=== PATIENT | male | born 1940 | race Caucasian/White ===

== ENCOUNTER 2017-09-19 17:49 | Emergency (ER) | payer MEDICARE, OTHER, SELFPAY ==
[2017-09-19 17:51] VITALS: BP 116/66; PULSE 64; RESP 17; TEMP 36.6; O2SAT 95; BMI 23.6
--- NOTE | 2017-09-19 21:12 | ED.VISSUMM ---
- ER Visit Summary Date of Service: 09/19/17 Chief Complaint: Presents because left inguinal hernia is larger History of Present Illness: The patient is a 76 M presents because of enlarging left inguinal hernia. He had pain. He is presently pain-free. He denies nausea, vomiting or diarrhea. Denies dysuria, frequency, urgency hematuria. He denies any testicular pain. He has no other complaints. Physical Examination: Vital signs are noted. He has a reducible left inguinal hernia. His exam is otherwise normal. Test Results: None Emergency Department Course and Treatment: Examination and education Treatment Plan: Keep appointment with Dr. Pete Mata for left inguinal hernia repair September 30 Disposition: Discharge to home Impression: Left inguinal hernia reducible This note was generated with [employer] dictation software. It may contain incorrect words, spelling, and punctuation that were not noted in review of the chart prior to signing ED Disposition - Plan for ED Patient: Disposition: Home or Assisted Living Chief Complaint: Other, Pain/Inj Instructions: ED Hernia Inguinal Referrals: Jenifer Gonzalez MD [Primary Care Provider] - Pete Mata MD [STAFF PHYSICIAN] - Keep Valentina appointment
--- NOTE | 2017-09-19 21:15 | ED.DCSUM_ITS ---
- ER Visit Summary Date of Service: 09/19/17 Chief Complaint: Presents because left inguinal hernia is larger History of Present Illness: The patient is a 76 M presents because of enlarging left inguinal hernia. He had pain. He is presently pain-free. He denies nausea, vomiting or diarrhea. Denies dysuria, frequency, urgency hematuria. He denies any testicular pain. He has no other complaints. Physical Examination: Vital signs are noted. He has a reducible left inguinal hernia. His exam is otherwise normal. Test Results: None Emergency Department Course and Treatment: Examination and education Treatment Plan: Keep appointment with Dr. Pete Mata for left inguinal hernia repair September 30 Disposition: Discharge to home Impression: Left inguinal hernia reducible This note was generated with [facility] dictation software. It may contain incorrect words, spelling, and punctuation that were not noted in review of the chart prior to signing ED Disposition - Plan for ED Patient: Disposition: Home or Assisted Living Chief Complaint: Other, Pain/Inj Instructions: ED Hernia Inguinal Referrals: Jenifer Gonzalez MD [Primary Care Provider] - Pete Mata MD [STAFF PHYSICIAN] - Keep Valentina appointment
[2017-09-19 21:19] VITALS: BP 134/75; PULSE 61; RESP 15; O2SAT 98
== END 2017-09-19 21:20 | disposition home or self-care (01) ==
LOC: ED 21:18
PROVIDERS: Emergency Provider Emergency Medicine; Family Provider Internal Medicine; PCP Internal Medicine
DX: K40.90 Unilateral inguinal hernia, without obstruction or gangrene, not specified as recurrent (principal); I25.10 Atherosclerotic heart disease of native coronary artery without angina pectoris; I48.0 Paroxysmal atrial fibrillation; J44.9 Chronic obstructive pulmonary disease, unspecified; Z86.718 Personal history of other venous thrombosis and embolism; Z79.01 Long term (current) use of anticoagulants; Z79.899 Other long term (current) drug therapy
CPT/HCPCS: 99282

== ENCOUNTER 2017-09-23 07:42 | Day surgery (SDC) | payer MEDICARE, OTHER, SELFPAY ==
[2017-09-23 08:11] VITALS: BP 97/55; PULSE 69; RESP 16; TEMP 36.6; O2SAT 99; BMI 23.6
--- NOTE | 2017-09-23 09:27 | PCM.OPRPT ---
Problem List (1) Screening for intestinal cancer Status: Acute (2) Personal history of colonic polyps Status: Acute Report of Operation Date of Procedure: 09/23/17 Pre-Operative Diagnosis: Screening for intestinal cancer, personal history of colonic polyps Post-Operative Diagnosis: Scattered diverticulosis Surgery/Procedure Performed:: Colonoscopy Description of Surgical Findings:: Amount and informed consent was obtained. 76-year-old gentleman was taken to the endoscopy suite. He was placed in a left lateral decubitus position. Throughout the procedure a total of 100 mg of Demerol and 3 mg Versed were given as intravenous sedation. Her rectal exam detected mild hemorrhoidal changes. 2+ smooth prostate. No mass lesions. Flexible colonoscope inserted in the rectum advanced was somewhat tortuous sigmoid colon. The scope was then readily advanced through the transverse colon. The descending colon was nicely achieved and the scope was advanced all the way to the cecum. Bowel prep was adequate there still was liquid stool located throughout the colon which had to be aspirated. The scope was then carefully withdrawn from the cecum ascending colon transverse colon descending colon and sigmoid colon. Scattered diverticulosis throughout the colon was identified. No evidence of any mass lesions. The scope was withdrawn to the rectum and retroflexed. Internal hemorrhoidal changes noted. No active bleeding. Excess fluid and air was aspirated free the procedure was completed with patient tolerating it well. Impression History of multiple colonic polyps particularly in the rectosigmoid area previously none seen currently. Previous flexible sigmoidoscopy was August 11, 2014. Consideration for follow-up examination in 3-5 years. Cc: Dr. Carlos Fuentes given at 0809. Procedure started 0911. Cecum reached at 0917.45. Procedure completed at 0925.14 Pete Mata M.D., F.A.C.S. Type of Anesthesia:: IV Sedation
[2017-09-23 09:31] VITALS: BP 105/60; BP 97/55; PULSE 67; RESP 16; TEMP 37.1; O2SAT 100
[2017-09-23 09:36] VITALS: BP 110/50; BP 97/55; PULSE 67; RESP 16; O2SAT 98
[2017-09-23 09:41] VITALS: BP 115/51; BP 97/55; PULSE 66; RESP 16; O2SAT 98
[2017-09-23 09:46] VITALS: BP 115/55; BP 97/55; PULSE 65; RESP 16; TEMP 36.8; O2SAT 98
[2017-09-23 10:15] VITALS: BP 97/55
== END 2017-09-23 10:16 | disposition home or self-care (01) ==
LOC: EN 07:42 → AC 07:43
PROVIDERS: Family Provider Internal Medicine; PCP Internal Medicine; Visit Provider Surgery
PROC: 0DJD8ZZ Inspection of Lower Intestinal Tract, Via Natural or Artificial Opening Endoscopic (ICD-10-PCS; CPT 45378; principal; 2017-09-23 08:55)
DX: Z12.11 Encounter for screening for malignant neoplasm of colon (principal); Z86.010 Personal history of colon polyps; K57.30 Diverticulosis of large intestine without perforation or abscess without bleeding; K56.2 Volvulus; K64.8 Other hemorrhoids; K59.00 Constipation, unspecified; K40.90 Unilateral inguinal hernia, without obstruction or gangrene, not specified as recurrent; Z79.899 Other long term (current) drug therapy; I48.0 Paroxysmal atrial fibrillation; Z79.01 Long term (current) use of anticoagulants; I10 Essential (primary) hypertension; J44.9 Chronic obstructive pulmonary disease, unspecified; Z87.891 Personal history of nicotine dependence; F10.10 Alcohol abuse, uncomplicated; Y90.9 Presence of alcohol in blood, level not specified; R01.1 Cardiac murmur, unspecified; I35.0 Nonrheumatic aortic (valve) stenosis; Z86.718 Personal history of other venous thrombosis and embolism; Z85.51 Personal history of malignant neoplasm of bladder; Z82.49 Family history of ischemic heart disease and other diseases of the circulatory system
CPT/HCPCS: G0105; J7120

== ENCOUNTER 2017-09-30 09:43 | Day surgery (SDC) | payer MEDICARE, OTHER, SELFPAY ==
[2017-09-24 13:53] VITALS: BP 122/62; BMI 24.5
--- NOTE | 2017-09-26 09:29 | EKG12_ITS ---
Test Reason : PRE OP Blood Pressure : / mmHG Vent. Rate : 072 BPM Atrial Rate : 072 BPM P-R Int : 240 ms QRS Dur : 100 ms QT Int : 414 ms P-R-T Axes : 070 066 075 degrees QTc Int : 453 ms Sinus rhythm with 1st degree A-V block with Possible Premature atrial complexes with Aberrant conduct ion Otherwise normal ECG Confirmed by LAUREN TELLEZ, ELÍAS ([id number]), online content editor KIANA JOHNSON ([id number]) on 09/29/2017 3:47:31 PM Referred By: Ptee Mata Confirmed By:ELÍAS AGUILAR MD
[2017-09-26 10:06] LABS: Hematocrit 41.7 % (40-54); Hemoglobin 14.6 g/dl (13.0-16.5); Mean Corpuscular Hgb 37.2 pg (27.0-32.0); Mean Corpuscular Volume 106.1 fL (80-94); Mean Platelet Vol. 10.5 fl (6.2-12.0); Platelet Count 210 K/mm3 (150-450); RBC Distribution Width CV 13.2 % (11.6-14.6); RBC Distribution Width SD 51.2 fl (35.1-43.9); Red Blood Count 3.93 M/mm3 (4.6-6.2); Scan Indicated on CBC? Y/N NO; White Blood Count 5.6 K/mm3 (4.4-11.0)
[2017-09-26 10:19] LABS: International Normalized Ratio 1.5; Prothrombin Time (Protime)PT. 17.9 SECONDS (11.7-14.9)
[2017-09-26 10:20] LABS: Partial Thromboplast Time 37.9 Seconds (24.1-36.2)
[2017-09-26 10:53] LABS: AST(SGOT) 28 U/L (15-37); Alanine Aminotransfer ALT/SGPT 35 U/L (16-61); Albumin, Serum 3.6 g/dL (3.2-5.0); Alkaline Phosphatase 72 U/L (45-117); Anion Gap 9 (5-15); BUN 12 mg/dL (7-18); BUN/Creat Ratio 12.3 RATIO (10-20); Bilirubin, Direct 0.19 mg/dL (0.00-0.30); Calcium,Total 8.5 mg/dL (8.5-10.1); Chloride 94 mmol/L (98-107); Creatinine, Serum 0.97 mg/dL (0.70-1.30); EST Glomerular Filtration Rate 80 mL/min (>60); Est Glom Filt Rate - Afr Amer 96 mL/min (>60); Globulin 4.3 g/dL (2.2-4.2); Glucose 87 mg/dL (70-110); Potassium 4.4 mmol/L (3.5-5.1); Protein, Total 7.9 g/dL (6.4-8.2); Sodium Level 130 mmol/L (136-145)
[2017-09-30] VITALS (7 sets, daily range): BP systolic 129–168; BP diastolic 70–79; PULSE 58–67; RESP 16–18; TEMP 36.6–36.9; O2SAT 94–100; BMI 23.8
--- NOTE | 2017-09-30 12:00 | LIP_PTH ---
PATIENT: CESAR ANGUIANO LOC: [facility] [place] U#:[id number] AGE/SX: 76/M ROOM: RE09/30/[address]: Dr. Pete Mata MD : 1940 BED: DIS: 09/30/2017 SPEC #: [id number] RECD: 10/01/17 11:04 STATUS: SHON ISAAC #: [id number] JUDY: 09/30/17 12:[address]: Pete Mata DEPT: SURGICAL PATHOLOGY RECD BY: Jaren Lacy ENTERED: 10/01/17 12:26 SP TYPE: LIPOMA OTHR DR: Dr. Jenifer Gonzalez MD Tissues: LIPOMA OF CORD Procedures: Surgery Specimen Level III HEADER OPERATION: Hernia, inguinal with mesh PRE-OP DIAGNOSIS: Left nonrecurrent unilateral inguinal hernia without obstruction or gangrene TISSUE SUBMITTED: Cord lipoma MICROSCOPIC DIAGNOSIS Cord lipoma: Mature adipose tissue, consistent with lipoma. SJ:lexx 10/02/17 MICROSCOPIC DESCRIPTION Slides are reviewed. GROSS DESCRIPTION Received in fixative is one container labeled with the patient's name and designated cord lipoma. The specimen consists of two irregular pieces of yellow adipose tissue measuring 4.5 x 3 x 1 cm. Sections reveal yellow cut surfaces without area of hemorrhage, cystic degeneration and necrosis. Compression Molding Machine Setter sections are submitted in two cassettes. / DIPTI:lexx 10/01/17 TC:1 CPT: 32859
--- NOTE | 2017-09-30 12:18 | PCM.DC.GS ---
Discharge Diet: Light diet - advance as tolerated - if you have questions about your diet instructions, please talk to you doctor. Discharge Activity: May Not Drive - for 1 week or while taking narcotic pain medicine. May shower in (days): 1 Lifting Restrictions: 10 pounds Call your doctor if your incision/area has: Continuous Slow Oozing, Sudden Increased Bleeding, Increased Pain/ Swelling, Increased Redness, Foul Smelling Discharge Call your doctor if you observe: Fever of 101 or Higher Suture Line Care: Avoid Pulling/Pushing, Avoid Pinching/Bending Additional Dressing/Incision Instructions:: Change or remove dressing in 4 days. Leave steri-strips in place for 1 week. Allergies/Adverse Reactions: Allergies oxycodone HCl [From Percocet] Adverse Reaction (Verified 09/25/17 15:47) Vomiting Medications to take at Discharge Fluticasone 0.05% [Flonase Nasal [place]] 2 spray NASAL DAILY 08/09/15 Rivaroxaban [Xarelto] 20 mg PO DAILY #30 tab 09/12/15 bevacizumab 25 mg/mL intravenous solution 1.25 mg INTRAVIT QMONTH 09/12/17 calcium carbonate 600 mg (1,500 mg)-vitamin D3 200 unit tablet 1 tab PO QDAY 09/12/17 guaifenesin ER 600 mg tablet, extended release 12 hr 600 mg PO Q12H PRN 09/12/17 lisinopril 2.5 mg tablet 2.5 mg PO QDAY 09/12/17 lutein 6 mg tablet 6 mg PO QDAY 09/12/17 multivitamin tablet 1 tab PO QDAY 09/12/17 Ascorbic Acid [Vitamin C] 500 mg PO DAILY 09/19/17 Tetrahydrozoline HCl [Eye Drops] 1 drp OP PRN PRN 09/19/17 Tiotropium [place] [Spiriva 18 MCG] 1 puff INHALATION DAILY 09/19/17 docusate sodium 100 mg capsule 100 mg PO QDAY PRN 09/24/17 folic acid 400 mcg tablet 400 mcg PO QDAY 09/24/17 Amiodarone HCl [Cordarone] 200 mg PO DAILY 09/25/17 Hydrocodone Bitart/Apap 5-325 [[place] 5MG-325MG] 1 tablet PO Q6H PRN PRN 3 Days #8 tablet 09/30/17 The following prescriptions were given: Hydrocodone Bitart/Apap 5-325 [[place] 5MG-325MG] 1 tablet PO Q6H PRN PRN 3 Days #8 tablet PRN Reason: Pain Primary Care Physician: Jenifer Gonzalez MD [Primary Care Provider] - Please Follow Up With: Pete Mata MD - [phone] When: Call to make an appointment to be seen in about 10 days.
[2017-09-30] MEDS: Cefazolin 2 GM in 0.9% Normal Saline 100 ML IV (12:25)
[2017-09-30] MEDS: Bupivacaine Mpf 0.5% 30 ML VIAL (12:32)
--- NOTE | 2017-09-30 13:21 | PCM.OPRPT ---
Problem List (1) Inguinal hernia of left side without obstruction or gangrene Status: Acute Report of Operation Date of Procedure: 09/30/17 Pre-Operative Diagnosis: Left inguinal hernia Post-Operative Diagnosis: Indirect left inguinal hernia with cord lipoma Surgery/Procedure Performed:: Lori left inguinal herniorrhaphy with excision cord lipoma Description of Surgical Findings:: Timeout and informed consent was obtained. 77-year-old gentleman was taken the operative placement table. Underwent monitored anesthesia care. Ancef 2 g are given intravenously preoperatively. The left groin was sterilely prepped and draped. 1% lidocaine mixed 50-50 with 0.5% Marcaine was used as local anesthetic. A total of 7 cc was used. Transverse incision was made in the left groin. Sharp dissection carried down through the substance tissue. The oblique identified. It was incised along with its fascia. The ileal inguinal nerve identified and protected. Circumferential control was obtained of the cord structures. Tedious dissection revealed an indirect sac. This diet was dissected free to the internal ring was then inverted. A cord lipoma was identified. This is dissected to the internal ring and then high ligated with 2-0 Vicryl ligature. That specimen was submitted for analysis. The transversalis fascia was approximated from the pubic tubercle to the internal ring with a running 3-0 Ethibond. This helped secure the indirect defect at the internal ring. A apron cover of Bard appreciate mesh lot number [id number] with a reference number of [id number] expiry date of 05/22/2022 was selected. It was placed around the internal ring and secured to itself with 3-0 Ethibond. The tails were trimmed. It was then secured to the pubic tubercle shelving edge of Poupart's and the aponeurosis of the internal and external oblique with multiple interrupted 3-0 Ethibond sutures. Good securement was achieved. Good coverage of the defect area was achieved. The external oblique was approximated with a running 0 Vicryl. Subcutaneous tissue was approximated with interrupted 4-0 Monocryl. The skin edges were approximated running septic or 4 Monocryl. Steri-Strips Telfa and OpSite dressings applied. Sponge instrument and needle counts were reported to the surgeon for correct. Blood loss was minimal. He tolerated procedure well was taken to the recovery or [facility] condition without apparent complication. Specimens Cord lipoma. Drains none. Blood loss minimal. Pete Mata M.D., F.A.C.S. Type of Anesthesia:: Local MAC Anesthesiologist: Aiyana Hill
--- NOTE | 2017-09-30 13:25 | OP.PCM_ITS ---
Problem List (1) Inguinal hernia of left side without obstruction or gangrene Status: Acute Report of Operation Date of Procedure: 09/30/17 Pre-Operative Diagnosis: Left inguinal hernia Post-Operative Diagnosis: Indirect left inguinal hernia with cord lipoma Surgery/Procedure Performed:: Lori left inguinal herniorrhaphy with excision cord lipoma Description of Surgical Findings:: Timeout and informed consent was obtained. 77-year-old gentleman was taken the operative placement table. Underwent monitored anesthesia care. Ancef 2 g are given intravenously preoperatively. The left groin was sterilely prepped and draped. 1% lidocaine mixed 50-50 with 0.5% Marcaine was used as local anesthetic. A total of 7 cc was used. Transverse incision was made in the left groin. Sharp dissection carried down through the substance tissue. The oblique identified. It was incised along with its fascia. The ileal inguinal nerve identified and protected. Circumferential control was obtained of the cord structures. Tedious dissection revealed an indirect sac. This diet was dissected free to the internal ring was then inverted. A cord lipoma was identified. This is dissected to the internal ring and then high ligated with 2 -0 Vicryl ligature. That specimen was submitted for analysis. The transversalis fascia was approximated from the pubic tubercle to the internal ring with a running 3-0 Ethibond. This helped secure the indirect defect at the internal ring. A apron cover of Bard appreciate mesh lot number [id number] with a reference number of [id number] expiry date of 05/22/2022 was selected. It was placed around the internal ring and secured to itself with 3-0 Ethibond. The tails were trimmed. It was then secured to the pubic tubercle shelving edge of Poupart's and the aponeurosis of the internal and external oblique with multiple interrupted 3-0 Ethibond sutures. Good securement was achieved. Good coverage of the defect area was achieved. The external oblique was approximated with a running 0 Vicryl. Subcutaneous tissue was approximated with interrupted 4-0 Monocryl. The skin edges were approximated running septic or 4 Monocryl. Steri-Strips Telfa and OpSite dressings applied. Sponge instrument and needle counts were reported to the surgeon for correct. Blood loss was minimal. He tolerated procedure well was taken to the recovery or critical access hospital condition without apparent complication. Specimens Cord lipoma. Drains none. Blood loss minimal. Pete Mata M.D., F.A.C.S. Type of Anesthesia:: Local MAC Anesthesiologist: Aiyana Hill
[2017-09-30] MEDS: HYDROcodone Bitartrate/Apap 5/325 Tablet PO (14:09)
== END 2017-09-30 15:22 | disposition home or self-care (01) ==
LOC: SDC 09:43 → AC 09:44
PROVIDERS: Family Provider Internal Medicine; PCP Internal Medicine; Visit Provider Surgery
PROC: (CPT 49505; principal; 2017-09-30 11:45)
DX: K40.90 Unilateral inguinal hernia, without obstruction or gangrene, not specified as recurrent (principal); D17.6 Benign lipomatous neoplasm of spermatic cord; I48.0 Paroxysmal atrial fibrillation; Z86.718 Personal history of other venous thrombosis and embolism; Z79.01 Long term (current) use of anticoagulants; I95.1 Orthostatic hypotension; I35.0 Nonrheumatic aortic (valve) stenosis; I10 Essential (primary) hypertension; J44.9 Chronic obstructive pulmonary disease, unspecified; Z86.010 Personal history of colon polyps; F10.20 Alcohol dependence, uncomplicated; Y90.9 Presence of alcohol in blood, level not specified; R01.1 Cardiac murmur, unspecified; M51.36 Other intervertebral disc degeneration, lumbar region; C67.9 Malignant neoplasm of bladder, unspecified; R13.19 Other dysphagia; Z79.899 Other long term (current) drug therapy; Z87.891 Personal history of nicotine dependence
CPT/HCPCS: 49505; 55520; 36415; 80048; 80076; 85027; 85610; 85730; 88304; 93005; J7120; C1781

== ENCOUNTER 2017-11-17 05:48 | Day surgery (SDC) | payer MEDICARE, OTHER, SELFPAY ==
--- NOTE | 2017-11-13 12:28 | EKG12_ITS ---
Test Reason : PREOP Blood Pressure : / mmHG Vent. Rate : 083 BPM Atrial Rate : 083 BPM P-R Int : 266 ms QRS Dur : 100 ms QT Int : 394 ms P-R-T Axes : 073 060 067 degrees QTc Int : 462 ms Sinus rhythm with 1st degree A-V block Otherwise normal ECG Confirmed by LAUREN TELLEZ, ELÍAS ([id number]), city editor KIANA JOHNSON ([id number]) on 11/14/2017 2:20:46 PM Referred By: Pete Mata Confirmed By:ELÍAS AGUILAR MD
[2017-11-13 12:47] LABS: Hematocrit 39.3 % (40-54); Hemoglobin 13.8 g/dl (13.0-16.5); Mean Corp Hgb Conc 35.1 g/gl (32-36); Mean Corpuscular Hgb 36.9 pg (27.0-32.0); Mean Corpuscular Volume 105.1 fL (80-94); Mean Platelet Vol. 9.6 fl (6.2-12.0); Platelet Count 220 K/mm3 (150-450); RBC Distribution Width CV 13.3 % (11.6-14.6); RBC Distribution Width SD 50.2 fl (35.1-43.9); Red Blood Count 3.74 M/mm3 (4.6-6.2); White Blood Count 6.2 K/mm3 (4.4-11.0)
[2017-11-13 12:48] LABS: Scan Indicated on CBC? Y/N NO
[2017-11-13 13:13] LABS: Anion Gap 7 (5-15); BUN 11 mg/dL (7-18); BUN/Creat Ratio 9.7 RATIO (10-20); Calcium,Total 8.3 mg/dL (8.5-10.1); Chloride 97 mmol/L (98-107); Creatinine, Serum 1.13 mg/dL (0.70-1.30); EST Glomerular Filtration Rate 67 mL/min (>60); Est Glom Filt Rate - Afr Amer 81 mL/min (>60); Glucose 111 mg/dL (74-106); Potassium 4.1 mmol/L (3.5-5.1); Sodium Level 131 mmol/L (136-145)
[2017-11-17] VITALS (7 sets, daily range): BP systolic 110–142; BP diastolic 59–78; PULSE 66–70; RESP 16–18; TEMP 36.4–37; O2SAT 95–99; BMI 23.8
--- NOTE | 2017-11-17 08:00 | HEM_PTH ---
PATIENT: CESAR ANGUIANO LOC: [facility] – [place] U#:[id number] AGE/SX: 76/M ROOM: RE11/17/[address]: Dr. Pete Mata MD : 1940 BED: DIS: 11/17/2017 SPEC #: [id number] RECD: 11/17/17 10:05 STATUS: SHON ISAAC #: [id number] JUDY: 11/17/17 08:[address]: Pete Mata DEPT: SURGICAL PATHOLOGY RECD BY: Girma Lai ENTERED: 11/17/17 10:06 SP TYPE: HEMORRHOID OTHR DR: Dr. Jenifer Gonzalez MD Tissues: HEMORRHOIDS Procedures: Surgery Specimen Level III HEADER OPERATION: Hemorrhoidectomy PRE-OP DIAGNOSIS: Hemorrhoids TISSUE SUBMITTED: Hemorrhoids MICROSCOPIC DIAGNOSIS Hemorrhoids, hemorrhoidectomy: Pieces of anorectal mucosa with dilated and congested blood vessels, consistent with hemorrhoids. SJ:lexx 11/18/17 MICROSCOPIC DESCRIPTION Slides are reviewed. GROSS DESCRIPTION Received in fixative is one container labeled with the patient's name and designated hemorrhoids. The specimen consists of a piece of congested soft tissue measuring 4 x 2 x 1.5 cm. Also present in the container are two small pieces of soft tissue measuring in aggregate 1 x 1 x 0.5 cm. Sections reveal congested and hemorrhagic cut surfaces. Machine Stone Polisher Apprentice sections are submitted in one cassette. / SJ:lexx 11/17/17 TC:5 CPT: 46219
[2017-11-17] MEDS: BUPIVACAINE LIPOSOME/PF 20 ML VIAL OPERA.SITE (08:56)
[2017-11-17] MEDS: Bupivacaine 0.25% 30 ML Vial (08:56)
[2017-11-17] MEDS: Dibucaine 30 GM Tube 1 APPLIC (08:58)
--- NOTE | 2017-11-17 08:59 | PCM.DC.REC ---
Discharge Diet: No Restrictions Discharge Activity: Return to Normal Activity, May Not Drive - while you are taking narcotic pain medications. Do not drive, work with heavy equipment or sign legal documents for 24 hours after your surgery., May not drive while taking narcotic pain medications., May Shower, May Take a Tub Bath Additional Activity Instructions:: You may remove the Vaseline gauze from year rectum with your next bowel movement or tomorrow morning. I encouraged utilization of warm soapy water sitz baths for 20 minutes at a time for comfort and for hygiene after bowel movements. You may apply topical dibucaine ointment as needed for comfort. Encouraged utilization of fiber supplementation 1 heaping tablespoon in with water daily. Mineral oil 30 cc (1 ounce) daily in juice or food Allergies/Adverse Reactions: Allergies oxycodone HCl [From Percocet] Adverse Reaction (Verified 11/13/17 10:49) Vomiting Medications to take at Discharge Fluticasone 0.05% [Flonase Nasal [place]] 2 spray NASAL DAILY 08/09/15 Rivaroxaban [Xarelto] 20 mg PO DAILY #30 tab 09/12/15 bevacizumab 25 mg/mL intravenous solution 1.25 mg INTRAVIT UD 09/12/17 calcium carbonate 600 mg (1,500 mg)-vitamin D3 200 unit tablet 1 tab PO QDAY 09/12/17 guaifenesin ER 600 mg tablet, extended release 12 hr 600 mg PO Q12H PRN 09/12/17 lisinopril 2.5 mg tablet 2.5 mg PO QDAY 09/12/17 lutein 6 mg tablet 6 mg PO QDAY 09/12/17 multivitamin tablet 1 tab PO QDAY 09/12/17 Ascorbic Acid [Vitamin C] 500 mg PO DAILY 09/19/17 Tetrahydrozoline HCl [Eye Drops] 1 drp OP PRN PRN 09/19/17 Tiotropium [place] [Spiriva 18 MCG] 1 puff INHALATION DAILY 09/19/17 docusate sodium 100 mg capsule 100 mg PO QDAY PRN 09/24/17 folic acid 400 mcg tablet 400 mcg PO QDAY 09/24/17 Amiodarone HCl [Cordarone] 200 mg PO DAILY 09/25/17 Primary Care Physician: Jenifer Gonzalez MD [Primary Care Provider] - Please Follow Up With: Pete Mata MD - [phone] When: Plan to have a follow up approximately 3 weeks after surgery.
--- NOTE | 2017-11-17 09:05 | PCM.OPRPT ---
Problem List (1) Rectal bleeding Status: Acute (2) Hemorrhoids with complication Status: Acute Report of Operation Date of Procedure: 11/17/17 Pre-Operative Diagnosis: Bleeding prolapsing internal hemorrhoids Post-Operative Diagnosis: Same Surgery/Procedure Performed:: Hemorrhoidectomy Description of Surgical Findings:: Timeout and informed consent was obtained. 76-year-old gent was taken the operating. He was placed prone on the table. He underwent monitored anesthesia care. 2 g of cefotetan were given intravenously. He was placed in a prone jackknife position. The perianal area was prepped with Betadine. 0.5% Marcaine was used as a local anesthetic. A total 20 cc was used. Then inspection revealed prolapsing internal hemorrhoidal tissue particularly right posterior lateral. An apical suture of 2-0 chromic was placed. Harmonic Scalpel was used to excise this exuberant tissue. Dissection was continued past the dentate line. Then the mucosa was approximated with a running locking 2-0 chromic. Great care had been taken to preserve the sphincter mechanism. Complete excision was felt to been achieved. An additional suture was placed apically of [id number] chromic. Inspection revealed that left mid lateral there is additional hemorrhoidal tissue. In a similar technique I placed an apical suture of 2-0 chromic then I sharply incised the external hemorrhoidal disease and used harmonic scalpel to resect this tissue. The sphincter mechanism was identified and preserved. The mucosa was approximated with a running 2-0 chromic. Finally anteriorly some internal tissue was treated with a harmonic scalpel. Good resection of all apparent bleeding tissue was achieved. The perianal tissue again was anesthetized this time with 20 cc of Exparel. Dibucaine soaked Vaseline gauze was inserted. Sponge instrument and needle counts were reported the surgeon for correct. Blood loss minimal. Specimens hemorrhoids. Drains none. He was taken to the recovery room in satisfactory condition without apparent complication. Pete Mata M.D., F.A.C.S. Type of Anesthesia:: Local MAC Anesthesiologist: Alejandro Phillips
--- NOTE | 2017-11-17 11:33 | SUR.PHASEII ---
pt stated he voided- bladder scan [id number].
== END 2017-11-17 12:19 | disposition home or self-care (01) ==
LOC: SDC 05:50 → AC 05:50
PROVIDERS: Family Provider Internal Medicine; PCP Internal Medicine; Visit Provider Surgery
PROC: (CPT 46260; principal; 2017-11-17 07:45)
DX: K64.8 Other hemorrhoids (principal); I48.91 Unspecified atrial fibrillation; Z86.718 Personal history of other venous thrombosis and embolism; Z79.01 Long term (current) use of anticoagulants; I27.20 Pulmonary hypertension, unspecified; Z85.51 Personal history of malignant neoplasm of bladder; Z79.899 Other long term (current) drug therapy; J44.9 Chronic obstructive pulmonary disease, unspecified; F17.210 Nicotine dependence, cigarettes, uncomplicated; D68.9 Coagulation defect, unspecified; Z86.010 Personal history of colon polyps
CPT/HCPCS: 46260; 36415; 80048; 85027; 88304; 93005; J7120

== ENCOUNTER 2017-11-19 09:08 | Observation (INO) | payer MEDICARE, OTHER, SELFPAY ==
[2017-11-19] VITALS (14 sets, daily range): BP systolic 94–183; BP diastolic 49–95; PULSE 64–80; RESP 14–20; TEMP 36.2–36.7; O2SAT 95–100; BMI 25.0; BMI 23.0
--- NOTE | 2017-11-19 09:20 | EKG12_ITS ---
Test Reason : CHEST TIGHTNESS Blood Pressure : / mmHG Vent. Rate : 069 BPM Atrial Rate : 069 BPM P-R Int : 236 ms QRS Dur : 096 ms QT Int : 416 ms P-R-T Axes : 055 039 042 degrees QTc Int : 445 ms Sinus rhythm with 1st degree A-V block Otherwise normal ECG Confirmed by LAUREN TELLEZ, ELÍAS ([id number]), newspaper copy editor KIANA JOHNSON ([id number]) on 11/20/2017 2:31:09 PM Referred By: Confirmed By:ELÍAS AGUILAR MD
--- NOTE | 2017-11-19 09:25 | RAD_ITS ---
STUDY: X-RAY CHEST REASON FOR EXAM: Male, 76 years old. Chest pain, COPD, rheumatic fever and heart murmur. TECHNIQUE: Single AP upright portable chest view. COMPARISON: None available. FINDINGS: EKG wires overlie chest. The lungs appear clear and well expanded. Trachea near midline due to mild rotation. Upper limits normal size heart. Normal mediastinum and ayaz. Normal visualized pulmonary arteries. Mildly calcified visualized aortic knob noted. Moderate degenerative visualized thoracic spine. Multiple rib deformities suggesting old healed fractures noted right lateral fourth through ninth ribs noted. There is no demonstrated abnormality of the visualized soft tissue structures of the upper abdomen. No subdiaphragmatic free air seen grossly. RAD/Chest 1 View (Portable) IMPRESSION: No active cardiopulmonary disease identified. Multiple right lateral rib deformities indicating old healed fractures 4 through ninth ribs. Electronically Signed: Pete Lomas, at 10:05 EDT Tel , Service support ,
[2017-11-19 09:31] LABS: Absolute Lymphocyte Count 1.61 X10^3/ul (0.83-4.51); Absolute Neutrophil Count 3.4 X10^3/uL (2.0-7.7); Basophil# 0.03 X10^3/uL; Basophil% 0.5 % (0-1); Eosinophil# 0.11 X10^3/uL; Eosinophils% 1.9 % (0-5); Hematocrit 41.4 % (40-54); Hemoglobin 14.3 g/dl (13.0-16.5); Lymphocyte # 1.61 X10^3/ul (4.0); Lymphocyte % 27.8 % (19-41); Mean Corp Hgb Conc 34.5 g/gl (32-36); Mean Corpuscular Hgb 36.6 pg (27.0-32.0); Mean Corpuscular Volume 105.9 fL (80-94); Mean Platelet Vol. 10.1 fl (6.2-12.0); Monocyte# 0.68 X10^3/uL; Monocyte% 11.7 % (0-10); Neutrophil # 3.37 X10^3/uL (2.7-7.7); Neutrophil % 58.1 % (47-70); Platelet Count 219 K/mm3 (150-450); RBC Distribution Width CV 13.7 % (11.6-14.6); RBC Distribution Width SD 53.2 fl (35.1-43.9); Red Blood Count 3.91 M/mm3 (4.6-6.2); White Blood Count 5.8 K/mm3 (4.4-11.0)
[2017-11-19 09:32] LABS: POSITIVE COUNT NO; POSITIVE DIFFERENTIAL NO; POSITIVE MORPHOLOGY NO
[2017-11-19] MEDS: Aspirin 81 MG TAB.CHEW 324 MG PO (09:33)
[2017-11-19 09:47] LABS: Anion Gap 4 (5-15); BUN 10 mg/dL (7-18); BUN/Creat Ratio 10.8 RATIO (10-20); Calcium,Total 8.7 mg/dL (8.5-10.1); Chloride 98 mmol/L (98-107); Creatinine, Serum 0.93 mg/dL (0.70-1.30); EST Glomerular Filtration Rate 84 mL/min (>60); Est Glom Filt Rate - Afr Amer 102 mL/min (>60); Estimated Creatinine Clearance 70.86 ml/min; Glucose 86 mg/dL (74-106); Potassium 4.8 mmol/L (3.5-5.1); Sodium Level 129 mmol/L (136-145)
--- NOTE | 2017-11-19 10:35 | ED.VISSUMM ---
- ER Visit Summary Date of Service: 11/19/17 Chief Complaint: Chest tightness and dyspnea History of Present Illness: The patient is a 77 M states he had chest tightness and shortness of breath that started after taking metronidazole. He read that this may be a possible side effect and contacted Dr. Pete Mata who prescribed the medication. He had a hemorrhoidectomy on Friday. He took his first dose of metronidazole Friday morning. Second dose at 1500. Upon further questioning it was determined that his tightness started while walking with his at 1300. This was associated with dyspnea. He does report increased dyspnea with activity and increased tightness with activity. He denies history of coronary disease. He has not had a stress test in some time and he reports he has never had a cardiac catheterization. Good informant. He cannot tell me how long the discomfort lasted. He reports no radiation, nausea or diaphoresis. He was unaware that he has swelling of his feet and legs. He denies orthopnea PND. He denies hematemesis, melena hematochezia. He denies history of GERD or reflux or hiatal hernia. There is a past medical history of hypertension, hypercholesterolemia, atrial fibrillation, bladder cancer and DVT. He also has history of mitral stenosis. He has had multiple orthopedic surgeries and had a hernia repair in the remote past. Physical Examination: Next field vital signs remarkable blood pressure 183/95. He does not appear in any discomfort. HEENT exam is unremarkable. Heart is regular without murmur, gallop or rub. S1 and S2 are normal. Lungs are clear to auscultation with good movement of air bilaterally. Abdomen is soft nontender with no palpable cell mass abdominal bruit. He has distal palpable pulses radial, DP and PT and they are symmetric. He does have 2+ edema of the feet and anterior right and left leg. He is alert and oriented with nonfocal neurologic exam. Test Results: EKG reveals a sinus rhythm rate of 69 with first-degree AV block. No other abnormality is noted. Portable chest x-ray reveals no abnormality i.e. cardiac silhouette is normal, lung parenchyma is normal and the stem is normal. The musculoskeletal structures are without any abnormality. CBC is unremarkable. BMP is marked for sodium 129, which is chronic. Troponin is less than 0.02. Emergency Department Course and Treatment: Patient's history is concerning for exertional anginal discomfort. Workup included EKG, chest x-ray blood work and he received aspirin and nitroglycerin. He reported significant improvement after nitro. He was only given 1 dose since he had a second drop in his blood pressure. Treatment Plan: The fact that he had improvement with nitroglycerin describes exertional symptoms the hospitalist was called for admission to the hospital for further testing and either a stress test or cardiac catheterization. Disposition: 23 hour observation PCU Impression: Exertional midsternal chest tightness with dyspnea. History of hypertension History of hypercholesterolemia History of mitral stenosis History of recent hemorrhoidectomy This note was generated with [employer] dictation software. It may contain incorrect words, spelling, and punctuation that were not noted in review of the chart prior to signing ED Disposition - Plan for ED Patient: Chief Complaint: Chest Pain Referrals: Jenifer Gonzalez MD [Primary Care Provider] -
--- NOTE | 2017-11-19 16:50 | PCM.HP.STD ---
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 Patient is a 77 years old male who presents with complaining of chest tightness and dyspnea. He had lunch earlier, started to have chest tightness along with shortness of breath. He was sitting in the car when the symptoms started. The pain was in the mid lower chest, without any radiation. He did not have any diaphoresis, dizziness, palpitations, nausea, vomiting, or headache. The pain was gradually easing, but lasted for about couple of hours. He has history of atrial fibrillation, no other work-up was done. He has hypertension and hyperlipidemia, and he is current smoker. His mother had CVA and heart disease, and his siter had heart disease as well. Past Medical History Past Medical History (Chronic Problems): Chronic Problems (Last Reviewed 11/04/17 @ 14:07 by Linnea Hernandez) Atrioventricular block (Chronic) Paroxysmal atrial fibrillation (Chronic) Nonrheumatic aortic (valve) stenosis (Chronic) Hypertension (Chronic) Pure hypercholesterolemia (Chronic) COPD (chronic obstructive pulmonary disease) (Chronic) Alcohol abuse (Chronic) Allergies oxycodone HCl [From Percocet] Adverse Reaction (Verified 11/19/17 09:13) Vomiting Home Medications: Ambulatory Orders Medication Instructions Recorded Fluticasone 0.05% [Flonase Nasal 2 spray NASAL DAILY 08/09/15 [place]] calcium carbonate 600 mg (1,500 1 tab PO QDAY 09/12/17 mg)-vitamin D3 200 unit tablet guaifenesin ER 600 mg tablet, 600 mg PO Q12H PRN 09/12/17 extended release 12 hr lisinopril 2.5 mg tablet 2.5 mg PO DAILY 09/12/17 lutein 6 mg tablet 6 mg PO QDAY 09/12/17 multivitamin tablet 1 tab PO QDAY 09/12/17 Ascorbic Acid [Vitamin C] 500 mg PO DAILY 09/19/17 Tetrahydrozoline HCl [Eye Drops] 1 drp OP PRN PRN 09/19/17 Tiotropium [place] [Spiriva 18 MCG] 1 puff INHALATION DAILY 09/19/17 docusate sodium 100 mg capsule 100 mg PO QDAY PRN 09/24/17 folic acid 400 mcg tablet 400 mcg PO QDAY 09/24/17 Amiodarone HCl [Cordarone] 200 mg PO DAILY 09/25/17 Hydrocodone Bitart/Apap 5-325 1 tablet PO Q6H PRN PRN 3 Days #15 11/17/17 [[place] 5MG-325MG] tablet Hydrocortisone [Proctocream-Hc] 30 gm RC TID PRN 11/19/17 Metronidazole 500 mg PO TID 11/19/17 Rivaroxaban [Xarelto] 20 mg PO DAILY 11/19/17 Surgical History: - - Wrist, shoulder, and knee surgery. Psychiatric History: - - alcoholism Lives: Spouse/ Significant Other Smoking Status: Current every day smoker Tobacco Use: Cigarettes - 0.5 pack a day Alcohol: Occasional - *Family History Maternal History Items: Stroke - mother. Paternal History Items: Heart Disease Review of Systems Comment: ROS: In general: Patient has been in good health, denied of any constitutional symptoms, such as weight loss, or gain, fever, chills, or night sweats. Patient denied of any profound fatigue. HEENT: Unremarkable. Patient denied of any dizziness, chronic headache, blurred vision, double vision, dry mouth, or nasal congestion. CV/respiratory: See HPI. He has peripheral edema, and has no diagnosis of CHF. GI: Patient denied any abdominal pain, nausea, vomiting, diarrhea, constipation, melena, or hematochezia. : Patient denied any significant urinary symptoms. Neurology: Unremarkable. There is no history of seizure as an adult. Psychological: Unremarkable. ?. Endocrine: Unremarkable. Musculoskeletal: Unremarkable. VTE Information - Inpt Only VTE Present on Admission: No VTE Mechan Device Prophylaxis: Knee High MANFRED Hose VTE Pharm Prophylaxis ordered?: Yes Patient Problems: Active and Suspected Problems (Last Reviewed 11/04/17 @ 14:07 by Linnea Hernandez) Chest pain (Acute) Objective: In general, patient is a well-nourished and developed adult. HEENT: Head is atraumatic, and normocephalic. Pupils are equal, round, and reactive to light and accommodations. Neck is supple. There is no lymphadenopathy, or thyromegaly. Oral mucosa is pink, and moist. There are no lesions. Heart: Auscultation is normal with regular rhythm and rate. COLT 3/6 at aortic band. S1 and S2 are present. Point of maximal impulse is not displaced. Lungs: Lungs are clear to auscultation bilaterally. There is no wheezing, or crackles. Abdomen: Abdominal wall is non-tender, and non-distended. There is no palpable mass or organomegaly. Normoactive bowel sounds are present. Extremities: There is no cyanosis or clubbing. Peripheral pulses are palpable. 1+ edema bilaterally. Skin: There are no any skin discoloration or lesions. Neurological: CN II - XII are intact. Sensory and motor functions are grossly normal with no obvious deficit. Cerebellar functions are within normal range. Gait was not tested. - Physical Exam Vital Signs Temp Pulse Resp BP Pulse Ox 97.1 F L 70 18 160/88 H 100 11/19/17 11:53 11/19/17 15:53 11/19/17 11:53 11/19/17 11:53 11/19/17 11:53 Oxygen Delivery Method Room Air Weight: 160 lb 11.472 oz Body Mass Index (BMI) 23.0 Laboratory Tests Past 24 Hrs 11/19/17 11/19/17 12:05 15:12 Troponin I < 0.02 < 0.02 Diagnostic Data Chest X-Ray 11/19/17 09:25 IMPRESSION: No active cardiopulmonary disease identified. Multiple right lateral rib deformities indicating old healed fractures 4 through ninth ribs. Electronically Signed: Pete Lomas, at 10:05 EDT Tel , Service support , EKG: normal sinus rhythm with first degree block. Rate 68. No ST changes. Assessment/Plan Active and Suspected Problems (Last Reviewed 11/04/17 @ 14:07 by Linnea C Siders) Chest pain (Acute) Patient is a 77 years old male who presents with complaining of chest tightness and dyspnea. He had lunch earlier, started to have chest tightness along with shortness of breath. He was sitting in the car when the symptoms started. The pain was in the mid lower chest, without any radiation. He did not have any diaphoresis, dizziness, palpitations, nausea, vomiting, or headache. The pain was gradually easing, but lasted for about couple of hours. He has history of atrial fibrillation, no other work-up was done. He has hypertension and hyperlipidemia, and he is current smoker. His mother had CVA and heart disease, and his sister had heart disease as well. #1 Chest pain. Somewhat atypical for prolonged pain for more than 2 to 3 hours, but he has risk factors. Serial troponin to rule out myocardial infarction. If it is negative, proceed with chemical stress nuclear myocardial perfusion scan. #2 Paroxysmal atrial fibrillation. Sinus rhythm. On Xarelto for stroke prevention / anticoagulation. #3 Aortic valve stenosis. Per cardiology office note, he has mild to moderate aortic stenosis with last 2D-echocardiogram in 02/2017. #4 Hyperlipidemia. Continue statin. #5 COPD. He takes Spiriva daily. Add albuterol MDI prn. VTE prophylaxis: Xarelto po. GI prophylaxis: H2 shikha po. Patient is full code. Disposition: home in 1 to 2 days. Code Visit OBSV E&M: 46245 Initial observation care L3
--- NOTE | 2017-11-19 17:02 | HP.PCM_ITS ---
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 Patient is a 77 years old male who presents with complaining of chest tightness and dyspnea. He had lunch earlier, started to have chest tightness along with shortness of breath. He was sitting in the car when the symptoms started. The pain was in the mid lower chest, without any radiation. He did not have any diaphoresis, dizziness, palpitations, nausea, vomiting, or headache. The pain was gradually easing, but lasted for about couple of hours. He has history of atrial fibrillation, no other work-up was done. He has hypertension and hyperlipidemia, and he is current smoker. His mother had CVA and heart disease, and his siter had heart disease as well. Past Medical History Past Medical History (Chronic Problems): Chronic Problems (Last Reviewed 11/04/17 @ 14:07 by Linnea Hernandez) Atrioventricular block (Chronic) Paroxysmal atrial fibrillation (Chronic) Nonrheumatic aortic (valve) stenosis (Chronic) Hypertension (Chronic) Pure hypercholesterolemia (Chronic) COPD (chronic obstructive pulmonary disease) (Chronic) Alcohol abuse (Chronic) Allergies oxycodone HCl [From Percocet] Adverse Reaction (Verified 11/19/17 09:13) Vomiting Home Medications: Ambulatory Orders Medication Instructions Recorded Fluticasone 0.05% [Flonase Nasal 2 spray NASAL DAILY 08/09/15 [place]] calcium carbonate 600 mg (1,500 1 tab PO QDAY 09/12/17 mg)-vitamin D3 200 unit tablet guaifenesin ER 600 mg tablet, 600 mg PO Q12H PRN 09/12/17 extended release 12 hr lisinopril 2.5 mg tablet 2.5 mg PO DAILY 09/12/17 lutein 6 mg tablet 6 mg PO QDAY 09/12/17 multivitamin tablet 1 tab PO QDAY 09/12/17 Ascorbic Acid [Vitamin C] 500 mg PO DAILY 09/19/17 Tetrahydrozoline HCl [Eye Drops] 1 drp OP PRN PRN 09/19/17 Tiotropium [place] [Spiriva 18 MCG] 1 puff INHALATION DAILY 09/19/17 docusate sodium 100 mg capsule 100 mg PO QDAY PRN 09/24/17 folic acid 400 mcg tablet 400 mcg PO QDAY 09/24/17 Amiodarone HCl [Cordarone] 200 mg PO DAILY 09/25/17 Hydrocodone Bitart/Apap 5-325 1 tablet PO Q6H PRN PRN 3 Days #15 11/17/17 [[place] 5MG-325MG] tablet Hydrocortisone [Proctocream-Hc] 30 gm RC TID PRN 11/19/17 Metronidazole 500 mg PO TID 11/19/17 Rivaroxaban [Xarelto] 20 mg PO DAILY 11/19/17 Surgical History: - - Wrist, shoulder, and knee surgery. Psychiatric History: - - alcoholism Lives: Spouse/ Significant Other Smoking Status: Current every day smoker Tobacco Use: Cigarettes - 0.5 pack a day Alcohol: Occasional - *Family History Maternal History Items: Stroke - mother. Paternal History Items: Heart Disease Review of Systems Comment: ROS: In general: Patient has been in good health, denied of any constitutional symptoms, such as weight loss, or gain, fever, chills, or night sweats. Patient denied of any profound fatigue. HEENT: Unremarkable. Patient denied of any dizziness, chronic headache, blurred vision, double vision, dry mouth, or nasal congestion. CV/respiratory: See HPI. He has peripheral edema, and has no diagnosis of CHF. GI: Patient denied any abdominal pain, nausea, vomiting, diarrhea, constipation, melena, or hematochezia. : Patient denied any significant urinary symptoms. Neurology: Unremarkable. There is no history of seizure as an adult. Psychological: Unremarkable. ?. Endocrine: Unremarkable. Musculoskeletal: Unremarkable. VTE Information - Inpt Only VTE Present on Admission: No VTE Mechan Device Prophylaxis: Knee High MANFRED Hose VTE Pharm Prophylaxis ordered?: Yes Patient Problems: Active and Suspected Problems (Last Reviewed 11/04/17 @ 14:07 by Linnea Hernandez) Chest pain (Acute) Objective: In general, patient is a well-nourished and developed adult. HEENT: Head is atraumatic, and normocephalic. Pupils are equal, round, and reactive to light and accommodations. Neck is supple. There is no lymphadenopathy, or thyromegaly. Oral mucosa is pink, and moist. There are no lesions. Heart: Auscultation is normal with regular rhythm and rate. COLT 3/6 at aortic band. S1 and S2 are present. Point of maximal impulse is not displaced. Lungs: Lungs are clear to auscultation bilaterally. There is no wheezing, or crackles. Abdomen: Abdominal wall is non-tender, and non-distended. There is no palpable mass or organomegaly. Normoactive bowel sounds are present. Extremities: There is no cyanosis or clubbing. Peripheral pulses are palpable. 1 + edema bilaterally. Skin: There are no any skin discoloration or lesions. Neurological: CN II - XII are intact. Sensory and motor functions are grossly normal with no obvious deficit. Cerebellar functions are within normal range. Gait was not tested. - Physical Exam Vital Signs Temp Pulse Resp BP Pulse Ox 97.1 F L 70 18 160/88 H 100 11/19/17 11:53 11/19/17 15:53 11/19/17 11:53 11/19/17 11:53 11/19/17 11:53 Oxygen Delivery Method Room Air Weight: 160 lb 11.472 oz Body Mass Index (BMI) 23.0 Laboratory Tests Past 24 Hrs 11/19/17 11/19/17 12:05 15:12 Troponin I < 0.02 < 0.02 Diagnostic Data Chest X-Ray 11/19/17 09:25 IMPRESSION: No active cardiopulmonary disease identified. Multiple right lateral rib deformities indicating old healed fractures 4 through ninth ribs. Electronically Signed: Pete Lomas, at 10:05 EDT Tel , Service support , EKG: normal sinus rhythm with first degree block. Rate 68. No ST changes. Assessment/Plan Active and Suspected Problems (Last Reviewed 11/04/17 @ 14:07 by Linnea C Siders) Chest pain (Acute) Patient is a 77 years old male who presents with complaining of chest tightness and dyspnea. He had lunch earlier, started to have chest tightness along with shortness of breath. He was sitting in the car when the symptoms started. The pain was in the mid lower chest, without any radiation. He did not have any diaphoresis, dizziness, palpitations, nausea, vomiting, or headache. The pain was gradually easing, but lasted for about couple of hours. He has history of atrial fibrillation, no other work-up was done. He has hypertension and hyperlipidemia, and he is current smoker. His mother had CVA and heart disease, and his sister had heart disease as well. #1 Chest pain. Somewhat atypical for prolonged pain for more than 2 to 3 hours, but he has risk factors. Serial troponin to rule out myocardial infarction. If it is negative, proceed with chemical stress nuclear myocardial perfusion scan. #2 Paroxysmal atrial fibrillation. Sinus rhythm. On Xarelto for stroke prevention / anticoagulation. #3 Aortic valve stenosis. Per cardiology office note, he has mild to moderate aortic stenosis with last 2D -echocardiogram in 02/2017. #4 Hyperlipidemia. Continue statin. #5 COPD. He takes Spiriva daily. Add albuterol MDI prn. VTE prophylaxis: Xarelto po. GI prophylaxis: H2 shikha po. Patient is full code. Disposition: home in 1 to 2 days. Code Visit OBSV E&M: 96183 Initial observation care L3
[2017-11-19] MEDS: Ipratropium 0.5 MG/2.5 ML SOLUTION INHALATION (18:46)
[2017-11-19] MEDS: Atorvastatin Calcium 40 MG Tablet PO (21:23)
[2017-11-19] MEDS: Famotidine 20 MG Tablet PO (21:23)
--- NOTE | 2017-11-19 21:25 | NURSING ---
patient state he has fallen within the last three months d/t tripping over a rug. this RN has assessed the patient and seen him walk and has let him be independent.
[2017-11-20] VITALS (7 sets, daily range): BP systolic 110–156; BP diastolic 56–81; PULSE 60–72; RESP 16–18; TEMP 36.5–36.8; O2SAT 96–98
[2017-11-20 05:49] LABS: International Normalized Ratio 1.1; Prothrombin Time (Protime)PT. 14.6 SECONDS (11.7-14.9)
[2017-11-20 05:50] LABS: Partial Thromboplast Time 35.4 Seconds (24.1-36.2)
--- NOTE | 2017-11-20 05:55 | EKG12_ITS ---
Test Reason : AM EKG Blood Pressure : / mmHG Vent. Rate : 062 BPM Atrial Rate : 062 BPM P-R Int : 254 ms QRS Dur : 098 ms QT Int : 438 ms P-R-T Axes : 058 054 067 degrees QTc Int : 444 ms Sinus rhythm with 1st degree A-V block Otherwise normal ECG When compared with ECG of 19-NOV-2017 09:06, MANUAL COMPARISON REQUIRED, DATA IS UNCONFIRMED Confirmed by LAUREN TELLEZ, ELÍAS ([id number]), editorial specialist KIANA JOHNSON ([id number]) on 11/24/2017 1:57:14 PM Referred By: STEPHANIE Confirmed By:ELÍAS AGUILAR MD
[2017-11-20] MEDS: 0.9% NaCl Peripheral Flush Adult/Peds IV (05:57)
[2017-11-20] MEDS: Aspirin E.C. 81 MG Tablet PO (05:57)
[2017-11-20] MEDS: Lisinopril 2.5 MG Tablet PO (05:57)
[2017-11-20 05:59] LABS: Anion Gap 6 (5-15); BUN 16 mg/dL (7-18); BUN/Creat Ratio 16.4 RATIO (10-20); Calcium,Total 8.8 mg/dL (8.5-10.1); Chloride 101 mmol/L (98-107); Cholesterol 144 mg/dL (200); Creatinine, Serum 0.98 mg/dL (0.70-1.30); EST Glomerular Filtration Rate 79 mL/min (>60); Est Glom Filt Rate - Afr Amer 96 mL/min (>60); Estimated Creatinine Clearance 66.12 ml/min; Glucose 93 mg/dL (74-106); High Density Lipoprotein 83 mg/dL; Potassium 4.3 mmol/L (3.5-5.1); Sodium Level 135 mmol/L (136-145); Thyroid Stim Hormone (TSH) 1.04 uIU/mL (0.358-3.74); Triglycerides 51 mg/dL; Very Low Density Lipoprotein 10 mg/dL (5-40)
[2017-11-20 06:05] LABS: Hemoglobin 13.9 g/dl (13.0-16.5); Mean Corp Hgb Conc 34.8 g/gl (32-36); Mean Corpuscular Hgb 36.9 pg (27.0-32.0); Mean Corpuscular Volume 106.1 fL (80-94); Mean Platelet Vol. 10.3 fl (6.2-12.0); Platelet Count 237 K/mm3 (150-450); RBC Distribution Width CV 13.3 % (11.6-14.6); RBC Distribution Width SD 50.3 fl (35.1-43.9); Red Blood Count 3.77 M/mm3 (4.6-6.2); White Blood Count 5.2 K/mm3 (4.4-11.0)
[2017-11-20 06:09] LABS: Scan Indicated on CBC? Y/N NO
[2017-11-20] MEDS: Ascorbic Acid 500 MG Tablet PO (08:49)
[2017-11-20] MEDS: Folic Acid 1 MG Tablet PO (08:49)
[2017-11-20] MEDS: Calcium Carb/Vitamin D 1 TABLET Tablet PO (08:49)
[2017-11-20] MEDS: Amiodarone 200 MG Tablet PO (10:11)
[2017-11-20] MEDS: Famotidine 20 MG Tablet PO (10:11)
[2017-11-20] MEDS: Fluticasone 0.05% 1 SPRAY NASAL.SRY 2 SPRAY NASAL (10:11)
--- NOTE | 2017-11-20 11:27 | PCM.DC ---
- Discharge Diagnoses Current Active Problems: Current Active and Chronic Problems (Last Reviewed 11/04/17 @ 14:07 by Linnea Hernandez) Chest pain (Acute) You will use the following diet at home:: Regular Allergies/Adverse Reactions: Allergies oxycodone HCl [From Percocet] Adverse Reaction (Verified 11/19/17 09:13) Vomiting Medications to take at Discharge Fluticasone 0.05% [Flonase Nasal [place]] 2 spray NASAL DAILY 08/09/15 calcium carbonate 600 mg (1,500 mg)-vitamin D3 200 unit tablet 1 tab PO QDAY 09/12/17 guaifenesin ER 600 mg tablet, extended release 12 hr 600 mg PO Q12H PRN 09/12/17 lisinopril 2.5 mg tablet 2.5 mg PO DAILY 09/12/17 lutein 6 mg tablet 6 mg PO QDAY 09/12/17 multivitamin tablet 1 tab PO QDAY 09/12/17 Ascorbic Acid [Vitamin C] 500 mg PO DAILY 09/19/17 Tetrahydrozoline HCl [Eye Drops] 1 drp OP PRN PRN 09/19/17 Tiotropium [place] [Spiriva 18 MCG] 1 puff INHALATION DAILY 09/19/17 docusate sodium 100 mg capsule 100 mg PO QDAY PRN 09/24/17 folic acid 400 mcg tablet 400 mcg PO QDAY 09/24/17 Amiodarone HCl [Cordarone] 200 mg PO DAILY 09/25/17 Hydrocodone Bitart/Apap 5-325 [[place] 5/325] 1 tablet PO Q6H PRN PRN 3 Days #15 tablet 11/17/17 Hydrocortisone [Proctozone-Hc] 30 gm RC TID PRN 11/19/17 Rivaroxaban [Xarelto] 20 mg PO DAILY 11/19/17 Atorvastatin Calcium [Lipitor] 40 mg PO QHS tablet 11/20/17 Primary Care Physician: Jenifer Gonzalez MD [Primary Care Provider] - Please follow up with your Primary Care Physician in: 5 to 7 days. Please Follow Up With: Pete Mata MD When: As scheduled.
--- NOTE | 2017-11-20 11:29 | PCM.DC.SUM ---
Discharge Date and Diagnosis - Problem List Patient Problems: Active and Suspected Problems (Last Reviewed 11/04/17 @ 14:07 by Linnea Hernandez) Chest pain (Acute) Date of Admission: 11/19/17 Date of Discharge: 11/20/17 - Primary Discharge Diagnosis Active and Suspected Problems (Last Reviewed 11/04/17 @ 14:07 by Linnea Hernandez) Chest pain (Acute) - Secondary Discharge Diagnosis Chronic Problems (Last Reviewed 11/04/17 @ 14:07 by Linnea Hernandez) Atrioventricular block (Chronic) Paroxysmal atrial fibrillation (Chronic) Nonrheumatic aortic (valve) stenosis (Chronic) Hypertension (Chronic) Pure hypercholesterolemia (Chronic) COPD (chronic obstructive pulmonary disease) (Chronic) Alcohol abuse (Chronic) Hospital Course and Treatment Imaging Results: 11/20/17 05:55 Nuclear Stress Test - Chemical [NM] AM (NON MEDS) Diagnostic Data Chest X-Ray 11/19/17 09:25 IMPRESSION: No active cardiopulmonary disease identified. Multiple right lateral rib deformities indicating old healed fractures 4 through ninth ribs. Electronically Signed: Pete Lomas, at 10:05 EDT Tel , Service support , Operations: None Procedures: Stress test Summary of Care Provided: Patient is a 77 years old male who presents with complaining of chest tightness and dyspnea. He had lunch earlier, started to have chest tightness along with shortness of breath. He was sitting in the car when the symptoms started. The pain was in the mid lower chest, without any radiation. He did not have any diaphoresis, dizziness, palpitations, nausea, vomiting, or headache. The pain was gradually easing, but lasted for about couple of hours. He has history of atrial fibrillation, no other work-up was done. He has hypertension and hyperlipidemia, and he is current smoker. His mother had CVA and heart disease, and his sister had heart disease as well. NV was ruled out. He underwent pharmacologic nuclear myocardial perfusion scan, which was negative. He remained chest pain free during the stay. Plan to discharge to home, follow up with PCP. #1 Chest pain. Somewhat atypical for prolonged pain for more than 2 to 3 hours, but he has risk factors. See above. #2 Paroxysmal atrial fibrillation. Sinus rhythm. On Xarelto for stroke prevention / anticoagulation. #3 Aortic valve stenosis. Per cardiology office note, he has mild to moderate aortic stenosis with last 2D-echocardiogram in 02/2017. #4 Hyperlipidemia. Continue statin. #5 COPD. Stable on Spiriva. Disposition: Home. Discharge Diet: No Restrictions Home Medications: Medications to take at Discharge Fluticasone 0.05% [Flonase Nasal [place]] 2 spray NASAL DAILY 08/09/15 calcium carbonate 600 mg (1,500 mg)-vitamin D3 200 unit tablet 1 tab PO QDAY 09/12/17 guaifenesin ER 600 mg tablet, extended release 12 hr 600 mg PO Q12H PRN 09/12/17 lisinopril 2.5 mg tablet 2.5 mg PO DAILY 09/12/17 lutein 6 mg tablet 6 mg PO QDAY 09/12/17 multivitamin tablet 1 tab PO QDAY 09/12/17 Ascorbic Acid [Vitamin C] 500 mg PO DAILY 09/19/17 Tetrahydrozoline HCl [Eye Drops] 1 drp OP PRN PRN 09/19/17 Tiotropium [place] [Spiriva 18 MCG] 1 puff INHALATION DAILY 09/19/17 docusate sodium 100 mg capsule 100 mg PO QDAY PRN 09/24/17 folic acid 400 mcg tablet 400 mcg PO QDAY 09/24/17 Amiodarone HCl [Cordarone] 200 mg PO DAILY 09/25/17 Hydrocodone Bitart/Apap 5-325 [[place] 5/325] 1 tablet PO Q6H PRN PRN 3 Days #15 tablet 11/17/17 Hydrocortisone [Proctozone-Hc] 30 gm RC TID PRN 11/19/17 Rivaroxaban [Xarelto] 20 mg PO DAILY 11/19/17 Atorvastatin Calcium [Lipitor] 40 mg PO QHS tablet 11/20/17 Primary Care Physician: Jenifer Gonzalez MD [Primary Care Provider] - Please follow up with your Primary Care Physician in: 5 to 7 days. Please Follow Up With: Pete Mata MD When: As scheduled. Disposition: Home Patient Condition:: Good Medical Necessity - Tobacco Use Smoking Status: Current every day smoker Tobacco Use: Cigarettes - 0.5 pack a day Meaningful Use Info Meaningful Use Diagnoses (Choose all that apply): None applicable Code Visit OBSV E&M: 46706 Observation care discharge
--- NOTE | 2017-11-20 11:32 | DS.PCM_ITS ---
Discharge Date and Diagnosis - Problem List Patient Problems: Active and Suspected Problems (Last Reviewed 11/04/17 @ 14:07 by Linnea Hernandez) Chest pain (Acute) Date of Admission: 11/19/17 Date of Discharge: 11/20/17 - Primary Discharge Diagnosis Active and Suspected Problems (Last Reviewed 11/04/17 @ 14:07 by Linnea Hernandez) Chest pain (Acute) - Secondary Discharge Diagnosis Chronic Problems (Last Reviewed 11/04/17 @ 14:07 by Linnea Hernandez) Atrioventricular block (Chronic) Paroxysmal atrial fibrillation (Chronic) Nonrheumatic aortic (valve) stenosis (Chronic) Hypertension (Chronic) Pure hypercholesterolemia (Chronic) COPD (chronic obstructive pulmonary disease) (Chronic) Alcohol abuse (Chronic) Hospital Course and Treatment Imaging Results: 11/20/17 05:55 Nuclear Stress Test - Chemical [NM] AM (NON MEDS) Diagnostic Data Chest X-Ray 11/19/17 09:25 IMPRESSION: No active cardiopulmonary disease identified. Multiple right lateral rib deformities indicating old healed fractures 4 through ninth ribs. Electronically Signed: Pete Lomas, at 10:05 EDT Tel , Service support , Operations: None Procedures: Stress test Summary of Care Provided: Patient is a 77 years old male who presents with complaining of chest tightness and dyspnea. He had lunch earlier, started to have chest tightness along with shortness of breath. He was sitting in the car when the symptoms started. The pain was in the mid lower chest, without any radiation. He did not have any diaphoresis, dizziness, palpitations, nausea, vomiting, or headache. The pain was gradually easing, but lasted for about couple of hours. He has history of atrial fibrillation, no other work-up was done. He has hypertension and hyperlipidemia, and he is current smoker. His mother had CVA and heart disease, and his sister had heart disease as well. AL was ruled out. He underwent pharmacologic nuclear myocardial perfusion scan , which was negative. He remained chest pain free during the stay. Plan to discharge to home, follow up with PCP. #1 Chest pain. Somewhat atypical for prolonged pain for more than 2 to 3 hours, but he has risk factors. See above. #2 Paroxysmal atrial fibrillation. Sinus rhythm. On Xarelto for stroke prevention / anticoagulation. #3 Aortic valve stenosis. Per cardiology office note, he has mild to moderate aortic stenosis with last 2D -echocardiogram in 02/2017. #4 Hyperlipidemia. Continue statin. #5 COPD. Stable on Spiriva. Disposition: Home. Discharge Diet: No Restrictions Home Medications: Medications to take at Discharge Fluticasone 0.05% [Flonase Nasal [place]] 2 spray NASAL DAILY 08/09/15 calcium carbonate 600 mg (1,500 mg)-vitamin D3 200 unit tablet 1 tab PO QDAY guaifenesin ER 600 mg tablet, extended release 12 hr 600 mg PO Q12H PRN lisinopril 2.5 mg tablet 2.5 mg PO DAILY 09/12/17 lutein 6 mg tablet 6 mg PO QDAY 09/12/17 multivitamin tablet 1 tab PO QDAY 09/12/17 Ascorbic Acid [Vitamin C] 500 mg PO DAILY 09/19/17 Tetrahydrozoline HCl [Eye Drops] 1 drp OP PRN PRN 09/19/17 Tiotropium [place] [Spiriva 18 MCG] 1 puff INHALATION DAILY 09/19/17 docusate sodium 100 mg capsule 100 mg PO QDAY PRN 09/24/17 folic acid 400 mcg tablet 400 mcg PO QDAY 09/24/17 Amiodarone HCl [Cordarone] 200 mg PO DAILY 09/25/17 Hydrocodone Bitart/Apap 5-325 [[place] 5/325] 1 tablet PO Q6H PRN PRN 3 Days #15 tablet 11/17/17 Hydrocortisone [Proctozone-Hc] 30 gm RC TID PRN 11/19/17 Rivaroxaban [Xarelto] 20 mg PO DAILY 11/19/17 Atorvastatin Calcium [Lipitor] 40 mg PO QHS tablet 11/20/17 Primary Care Physician: Jenifer Gonzalez MD [Primary Care Provider] - Please follow up with your Primary Care Physician in: 5 to 7 days. Please Follow Up With: Pete Mata MD When: As scheduled. Disposition: Home Patient Condition:: Good Medical Necessity - Tobacco Use Smoking Status: Current every day smoker Tobacco Use: Cigarettes - 0.5 pack a day Meaningful Use Info Meaningful Use Diagnoses (Choose all that apply): None applicable Code Visit OBSV E&M: 73891 Observation care discharge
--- NOTE | 2017-11-20 19:30 | STRESSREP ---
Stress Test Report Pharmacologic myocardial perfusion stress test. 77-year-old man with a history of chest pain. Stress protocol: Resting EKG demonstrates normal sinus rhythm with a rate of 63 bpm normal intervals and noted resting blood pressure is 150/84 mmHg. 0.4 mg regadenoson was infused per usual protocol followed by rapid intravenous saline flush injection. Continuous EKG monitoring was performed. The maximum heart rate attained was 75 beats minute is 52% maximum predicted heart rate the maximum workload attained was 1 metabolic equivalent. At rest there were no ST or T-wave changes noted suggest abnormal flow reserve at peak infusion no ST or T-wave changes were noted suggest abnormal flow reserve. The resting blood pressure is 150/84 final blood pressure is 138/70. Myocardial perfusion protocol. 11.4 mCi of technetium 99m sestamibi was injected at rest. 0.4 mg of regadenoson was infused per usual protocol. At peak infusion 33.3 mCi of technetium 99m sestamibi was injected stress images were obtained stress and rest images were reconstructed and compared in the short axis vertical long and horizontal long axis. Gated images were also obtained. Perfusion SPECT analysis: Review of the stress images demonstrate normal uptake of tracer noted in all areas of the myocardium the resting images similarly demonstrate normal uptake of tracer noted in all areas of the myocardium. No areas of reversibility are noted suggest ischemia no previous infarct is noted. Gated SPECT analysis: The gated ejection fraction is noted to be 66%. Conclusion: Normal pharmacologic myocardial perfusion stress test. Preserved ejection fraction.
--- NOTE | 2017-11-20 19:33 | STRESSREP_ITS ---
Stress Test Report Pharmacologic myocardial perfusion stress test. 77-year-old man with a history of chest pain. Stress protocol: Resting EKG demonstrates normal sinus rhythm with a rate of 63 bpm normal intervals and noted resting blood pressure is 150/84 mmHg. 0.4 mg regadenoson was infused per usual protocol followed by rapid intravenous saline flush injection. Continuous EKG monitoring was performed. The maximum heart rate attained was 75 beats minute is 52% maximum predicted heart rate the maximum workload attained was 1 metabolic equivalent. At rest there were no ST or T- wave changes noted suggest abnormal flow reserve at peak infusion no ST or T- wave changes were noted suggest abnormal flow reserve. The resting blood pressure is 150/84 final blood pressure is 138/70. Myocardial perfusion protocol. 11.4 mCi of technetium 99m sestamibi was injected at rest. 0.4 mg of regadenoson was infused per usual protocol. At peak infusion 33.3 mCi of technetium 99m sestamibi was injected stress images were obtained stress and rest images were reconstructed and compared in the short axis vertical long and horizontal long axis. Gated images were also obtained. Perfusion SPECT analysis: Review of the stress images demonstrate normal uptake of tracer noted in all areas of the myocardium the resting images similarly demonstrate normal uptake of tracer noted in all areas of the myocardium. No areas of reversibility are noted suggest ischemia no previous infarct is noted. Gated SPECT analysis: The gated ejection fraction is noted to be 66%. Conclusion: Normal pharmacologic myocardial perfusion stress test. Preserved ejection fraction.
== END 2017-11-20 11:28 | disposition home or self-care (01) ==
LOC: ED 09:52 → PCU 11:21
PROVIDERS: Admitting Provider Hospitalist; Emergency Provider Emergency Medicine; Family Provider Internal Medicine; PCP Internal Medicine; Visit Provider Hospitalist
DX: R07.89 Other chest pain (principal); R06.00 Dyspnea, unspecified; J44.9 Chronic obstructive pulmonary disease, unspecified; I10 Essential (primary) hypertension; I48.0 Paroxysmal atrial fibrillation; I44.30 Unspecified atrioventricular block; Z86.718 Personal history of other venous thrombosis and embolism; Z85.51 Personal history of malignant neoplasm of bladder; F17.210 Nicotine dependence, cigarettes, uncomplicated; E78.5 Hyperlipidemia, unspecified
CPT/HCPCS: 36415; 71045; 78452; 80048; 80061; 84443; 84484; 85025; 85027; 85610; 85730; 93005; 93017; 94640; 99218; 99285; 99406; A9500; A4216; G0378; J2785

== ENCOUNTER → 2018-02-03 10:47 | Outpatient (CLI) | payer MEDICARE, OTHER, SELFPAY ==
[2018-02-03 11:00] VITALS: PULSE 69; PULSE 70; PULSE 74; PULSE 77; PULSE 79; O2SAT 73; O2SAT 94; O2SAT 98; O2SAT 99
--- NOTE | 2018-02-03 15:35 | WT_ITS ---
PSN 6 Minute Walk Test - 6 Minute Walk Test 6 Minute Walk Test: 6 Minute Walk Test PSN:6-Minute Walk Test Start: 02/03/18 11: 11 Freq: Status: Active Protocol: [id number] Document 02/03/18 11:00 EW (Rec: 02/03/18 11:16 EW [id number]) 6 Minute Walk Test Date Performed 02/03/18 Time Performed 11:00 Height 5 ft 10 in Weight: 71.214 kg Weight in Pounds 157.[address]: Darlene Kumar Assistive device used: Cane Pre-test Oxygen Delivery Method Room Air Pulse Ox (%) 98 Pulse Rate (60-100 beats/min) 69 Dyspnea Doris Scale (0-10) 1 Exertion Doris Scale (6-20) 8 1st minute Oxygen Delivery Method Room Air Pulse Ox (%) 98 Pulse Rate (60-100 beats/min) 70 2nd minute Oxygen Delivery Method Room Air Pulse Ox (%) 94 Pulse Rate (60-100 beats/min) 74 3rd minute Oxygen Delivery Method Room Air Pulse Ox (%) 73 4th minute Oxygen Delivery Method Room Air Pulse Ox (%) 99 Pulse Rate (60-100 beats/min) 77 5th minute Oxygen Delivery Method Room Air Pulse Ox (%) 99 Pulse Rate (60-100 beats/min) 79 6th minute Oxygen Delivery Method Room Air Pulse Ox (%) 98 Pulse Rate (60-100 beats/min) 79 Post-test Oxygen Delivery Method Room Air Pulse Ox (%) 99 Pulse Rate (60-100 beats/min) 77 Dyspnea Doris Scale (0-10) 2 Exertion Doris Scale (6-20) 12 Full Laps Walked 16 Partial Lap, Number of Tiles Walked 22 Total Distance Walked (ft) 966 - Interpretation Interpretation: The patient was able to ambulate 966 feet over the course of 6 minutes on room air with the assistance of a cane. No significant desaturation or tachycardia was appreciated. These findings are consistent with a musculoskeletal limitation exercise tolerance. - Recommendations Recommendations: No supplemental oxygen is indicated at this time.
== END ==
PROVIDERS: Family Provider Internal Medicine; PCP Internal Medicine; Visit Provider Nurse Practitioner Acute Care
DX: J44.9 Chronic obstructive pulmonary disease, unspecified (principal)
CPT/HCPCS: 94618; 94762

== ENCOUNTER → 2018-02-11 06:48 | Outpatient (CLI) | payer MEDICARE, OTHER, SELFPAY ==
--- NOTE | 2018-02-11 10:28 | PFT ---
INTRODUCTION: The patient is a 77-year-old male currently under the care of Darlene Kumar NP that presents for pulmonary function testing secondary to a diagnosis of COPD. Respiratory therapy reports good patient effort. Bronchodilators were used during testing. INTERPRETATION: Forced expiration spirometry demonstrates the presence of a moderate large airways obstructive ventilatory defect. There was no significant response to aerosolized bronchodilators, based upon strict ATS criteria. Spirograms are of fair quality but do not plateau indicating slow emptying of the lungs. Body plethysmography was performed and reveals an elevated RV to 138% of predicted, indicative of underlying air trapping. Diffusing capacity by single breath CO is relatively preserved at 72% of predicted. IMPRESSION: These pulmonary function studies demonstrate the presence of an irreversible moderate large airways obstructive ventilatory defect with associated air trapping and preserved diffusing capacity.
== END ==
PROVIDERS: Family Provider Internal Medicine; PCP Internal Medicine; Visit Provider Nurse Practitioner Acute Care
DX: J44.9 Chronic obstructive pulmonary disease, unspecified (principal)
CPT/HCPCS: 94060; 94726; 94729

== ENCOUNTER → 2018-02-27 21:23 | Outpatient (CLI) | payer MEDICARE, OTHER, SELFPAY | PROVIDERS: Family Provider Internal Medicine; PCP Internal Medicine; Visit Provider Nurse Practitioner Acute Care | DX: G47.33 Obstructive sleep apnea (adult) (pediatric) (principal) | CPT/HCPCS: 95810 ==

== ENCOUNTER → 2018-04-16 20:53 | Outpatient (CLI) | payer MEDICARE, OTHER, SELFPAY | PROVIDERS: Family Provider Internal Medicine; PCP Internal Medicine; Visit Provider Nurse Practitioner Acute Care | DX: G47.33 Obstructive sleep apnea (adult) (pediatric) (principal) | CPT/HCPCS: 95811 ==

== ENCOUNTER → 2018-06-02 09:34 | Outpatient (CLI) | payer MEDICARE, OTHER, SELFPAY ==
--- NOTE | 2018-06-02 10:00 | ECHOD_ITS ---
Reason For Study: MURMUR Procedure This was a 2D Doppler, Color Flow transthoracic echocardiogram. The exam was of adequate technical quality. Exam performed in department. Pt BP was 84/40 initially. BP was 151/68 after echo. Both taken in right arm. Left Ventricle Normal LV size. Left ventricular systolic function is normal. The estimated ejection fraction is 65 %. Diastolic function is indeterminate. No regional wall motion abnormalities noted. Right Ventricle Normal RV size. Normal systolic function. Atria The left atrium is mildly enlarged. Normal right atrium. No doppler evidence for ASD. Mitral Valve There is mild mitral annular calcification. Mild diffuse mitral valve thickening. The mitral papillary muscle appears thickened and/or calcified. Mild (1+) mitral valve insufficiency. Tricuspid Valve Normal tricuspid valve. Trivial tricuspid valve insufficiency. Right ventricular systolic pressure estimated to be 34 mmHg. Aortic Valve Trisinus/trileaflet aortic valve. Severe focal aortic valve calcification. Moderate aortic stenosis. Pulmonic Valve The pulmonic valve is not well visualized. Trivial pulmonic valve insufficiency. Great Vessels Normal sized aortic root. Calcified aortic root. Pericardium/Pleural No pericardial effusion. MMode/2D Measurements & Calculations LVIDd: 4.9 cm IVSd: 1.2 cm LVOT diam: 2.0 cm LVIDs: 3.2 cm LVPWd: 1.0 cm LVOT area: 3.2 cm2 RVDd: 4.2 cm FS: 34.7 % Ao root diam: 3.6 cm LAV(MOD-bp): 79.6 ml LA A4 area: 23.7 cm2 LA dimension: 3.7 cm LAV(MOD-bp) Indexed: 41.4 ml/m2 LAV(MOD-sp2): 86.5 ml LAV(MOD-sp4): 73.8 ml RA A4 area: 20.2 cm2 Time Measurements MV dec time: 0.27 sec Doppler Measurements & Calculations MV E max jose eduardo: 75.1 cm/sec Lat Peak E' Jose Eduardo: 7.9 cm/sec Med Peak E' Jose Eduardo: 7.7 cm/sec MV A max jose eduardo: 108.4 cm/sec E/E' lat: 9.5 E/E' med: 9.8 MV E/A: 0.69 MV V2 max: 119.4 cm/sec Ao V2 max: 320.1 cm/sec LV V1 max: 104.2 cm/sec MV max P.7 mmHg Ao max P.1 mmHg LV V1 max P.3 mmHg MV V2 mean: 76.2 cm/sec Ao V2 mean: 234.0 cm/sec LV V1 mean P.4 mmHg MV mean P.5 mmHg Ao mean P.1 mmHg LV V1 mean: 72.7 cm/sec MV V2 VTI: 31.2 cm Ao V2 VTI: 77.6 cm LV V1 VTI: 25.1 cm MVA(VTI): 2.6 cm2 LOREN(I,D): 1.0 cm2 LOREN(V,D): 1.0 cm2 SV(LVOT): 80.5 ml PA V2 max: 107.5 cm/sec TR max jose eduardo: 278.6 cm/sec TR max P.0 mmHg Interpretation Summary Left ventricular systolic function is normal. The estimated ejection fraction is 65 %. The left atrium is mildly enlarged. There is mild mitral annular calcification. Mild diffuse mitral valve thickening. The mitral papillary muscle appears thickened and/or calcified. Mild (1+) mitral valve insufficiency. Trivial tricuspid valve insufficiency. Moderate aortic stenosis. Trivial pulmonic valve insufficiency. Calcified aortic root. Right ventricular systolic pressure estimated to be 34 mmHg. Diastolic function is indeterminate. Ordering Physician: Omar Garner Referring Physician: KARUNA PRAJAPATI Performed By: Bonny Talavera, RDCS, RVT
== END ==
PROVIDERS: Family Provider Internal Medicine; PCP Internal Medicine; Referring Provider Internal Medicine Cardiovascular Disease; Visit Provider Internal Medicine Cardiovascular Disease
DX: I48.0 Paroxysmal atrial fibrillation (principal)
CPT/HCPCS: 93306

== ENCOUNTER 2018-06-08 17:12 | Inpatient (IN) | payer MEDICARE, OTHER, SELFPAY ==
[2018-06-08 17:24] VITALS: BP 135/68; PULSE 84; RESP 18; TEMP 37; O2SAT 95; BMI 24.0
[2018-06-08 19:56] VITALS: BP 114/59; PULSE 77; RESP 12; TEMP 37.2; O2SAT 94
--- NOTE | 2018-06-08 20:00 | NURSING ---
PT RESTING WITH EYES CLOSED, UPON AWAKING, ASKING QUESTIONS LIKE I WANT TO GO TO THE KITCHEN. PT REORIENTS TO SURROUNDINGS QUICKLY AND IS A/O X 3.
--- NOTE | 2018-06-08 20:50 | NURSING ---
PT'S , YAJAIRA, CONTACTED BY PHONE AND QUESTIONED WHETHER PT EVER GETS CONFUSED. YAJAIRA STATES THAT PT NORMALLY CAN BE DISORIENTED BRIEFLY AFTER WAKING FROM SLEEP, BUT THAT HE REORIENTS QUICKLY. YAJAIRA STATES SHE IS HAPPY TO BE CONTACTED REGARDING HER .
[2018-06-08] MEDS: Thiamine Hydrochloride 100 MG Tablet PO (21:01)
[2018-06-08] MEDS: Senna/Docusate Sodium 1 Tablet 2 TABLET PO (21:01)
[2018-06-08] MEDS: NYSTATIN 500,000 UNIT/5 ML UDC 500000 UNIT PO (21:02)
[2018-06-08] MEDS: Ascorbic Acid 500 MG Tablet PO (21:02)
[2018-06-08] MEDS: HYDROcodone Bitartrate/Apap 5/325 Tablet PO (21:21)
[2018-06-09] MEDS: Magnesium Hydroxide 30 ML UDC PO (01:25)
--- NOTE | 2018-06-09 04:00 | NURSING ---
PT FOUND AWAKE IN BED. SKIN TEAR NOTED TO L HAND AND SMALL AMT BLEEDING. PT STATES HE SCRAPED HAND ON SIDE OF BEDSIDE TABLE WHILE ACCESSING SOMETHING ON TABLE. WOUND CLEANSED AND DSD APPLIED.
[2018-06-09] MEDS: HYDROcodone Bitartrate/Apap 5/325 Tablet PO ×3 (05:16→22:08)
[2018-06-09] MEDS: Thiamine Hydrochloride 100 MG Tablet PO ×3 (05:16→21:42)
[2018-06-09 05:35] VITALS: O2SAT 95
[2018-06-09 05:56] LABS: Absolute Lymphocyte Count 1.33 X10^3/ul (0.83-4.51); Absolute Neutrophil Count 4.1 X10^3/uL (2.0-7.7); Basophil# 0.02 X10^3/uL; Basophil% 0.3 % (0-1); Eosinophil# 0.13 X10^3/uL; Eosinophils% 2.1 % (0-5); Hematocrit 29.3 % (40-54); Hemoglobin 10.2 g/dl (13.0-16.5); Lymphocyte # 1.33 X10^3/ul (4.0); Lymphocyte % 21.2 % (19-41); Mean Corp Hgb Conc 34.8 g/gl (32-36); Mean Corpuscular Hgb 35.8 pg (27.0-32.0); Mean Corpuscular Volume 102.8 fL (80-94); Mean Platelet Vol. 10.6 fl (6.2-12.0); Monocyte# 0.71 X10^3/uL; Monocyte% 11.3 % (0-10); Neutrophil # 4.06 X10^3/uL (2.7-7.7); Neutrophil % 64.9 % (47-70); Platelet Count 205 K/mm3 (150-450); RBC Distribution Width CV 13.3 % (11.6-14.6); RBC Distribution Width SD 48.7 fl (35.1-43.9); Red Blood Count 2.85 M/mm3 (4.6-6.2); White Blood Count 6.3 K/mm3 (4.4-11.0)
[2018-06-09 06:00] LABS: POSITIVE COUNT NO; POSITIVE DIFFERENTIAL NO; POSITIVE MORPHOLOGY NO
[2018-06-09 06:07] LABS: ALB/GLOB Ratio 0.7 RATIO (0.9-2.4); AST(SGOT) 26 U/L (15-37); Alanine Aminotransfer ALT/SGPT 23 U/L (16-61); Albumin, Serum 2.5 g/dL (3.2-5.0); Alkaline Phosphatase 63 U/L (45-117); Anion Gap 9 (5-15); BUN 11 mg/dL (7-18); BUN/Creat Ratio 14.9 RATIO (10-20); Calcium,Total 8.4 mg/dL (8.5-10.1); Chloride 96 mmol/L (98-107); Creatinine, Serum 0.74 mg/dL (0.70-1.30); EST Glomerular Filtration Rate 109 mL/min (>60); Est Glom Filt Rate - Afr Amer 132 mL/min (>60); Estimated Creatinine Clearance 66.93 ml/min; Globulin 3.8 g/dL (2.2-4.2); Glucose 94 mg/dL (74-106); Magnesium 1.9 mg/dL (1.6-2.6); Potassium 3.8 mmol/L (3.5-5.1); Protein, Total 6.3 g/dL (6.4-8.2); Sodium Level 133 mmol/L (136-145)
[2018-06-09 06:50] VITALS: O2SAT 95
[2018-06-09] MEDS: Polyethylene Glycol 3350 17 GM PACKET PO (08:46)
[2018-06-09] MEDS: Ascorbic Acid 500 MG Tablet PO ×2 (08:46→21:42)
[2018-06-09] MEDS: Rivaroxaban 20 MG Tablet PO (08:46)
[2018-06-09] MEDS: Folic Acid 1 MG Tablet 0.5 MG PO (08:46)
[2018-06-09] MEDS: Calcium Carb/Vitamin D 1 TABLET Tablet PO (08:47)
[2018-06-09] MEDS: Multivitamins,Therapeutic Tablet 1 TABLET PO (08:47)
[2018-06-09] MEDS: NYSTATIN 500,000 UNIT/5 ML UDC 500000 UNIT PO ×2 (08:48→14:45)
[2018-06-09] MEDS: Umeclidinium Bromide Inhaler 1 PUFF IH (08:48)
[2018-06-09] MEDS: Cyanocobalamin 500 MCG Tablet 1000 MCG PO (08:48)
[2018-06-09] MEDS: Senna/Docusate Sodium 1 Tablet 2 TABLET PO ×2 (08:49→21:42)
[2018-06-09] MEDS: Fluticasone 0.05% 1 SPRAY NASAL.SRY 2 SPRAY NASAL (08:50)
[2018-06-09] MEDS: Lisinopril 2.5 MG Tablet PO (09:11)
[2018-06-09] MEDS: Amiodarone 200 MG Tablet PO (09:11)
[2018-06-09 09:33] VITALS: BP 114/53; PULSE 70; RESP 16; TEMP 37.1; O2SAT 94
--- NOTE | 2018-06-09 11:14 | PCM.HP.COS ---
<Malcom Huston - Last Filed: 06/09/18 11:44> History of Present Illness The patient is a 77 year old M [] Past Medical History Past Medical History (Chronic Problems): Chronic Problems (Last Reviewed 06/09/18 @ 13:23 by Abdi Hammond DO) Tobacco abuse (Chronic) Stage 2 moderate COPD by GOLD classification (Chronic) FEV1 66% of predicted Atrioventricular block (Chronic) Paroxysmal atrial fibrillation (Chronic) Nonrheumatic aortic (valve) stenosis (Chronic) Hypertension (Chronic) Pure hypercholesterolemia (Chronic) COPD (chronic obstructive pulmonary disease) (Chronic) Alcohol abuse (Chronic) Medical History: Medical History (Last Reviewed 04/01/18 @ 09:58 by Darlene Kumar, JHOANA-C) Hemorrhoids (Acute) K64.9 Hemorrhoids with complication (Acute) K64.8 Chest pain (Acute) R07.9 Rectal bleeding (Acute) K62.5 Inguinal hernia of left side without obstruction or gangrene (Acute) 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 Atrioventricular block (Chronic) I44.30 Syncope and collapse (Acute) R55 Aortic valve disease, rheumatic (Acute) I06.9 Screening for intestinal cancer (Acute) Z12.10 Personal history of colonic polyps (Acute) Z86.010 Paroxysmal atrial fibrillation (Chronic) I48.0 Nonrheumatic aortic (valve) stenosis (Chronic) I35.0 Chronic anticoagulation (Acute) Z79.01 Fracture of fourth cervical vertebra (Acute) S12.300A Orthostatic hypotension (Acute) I95.1 DDD (degenerative disc disease), lumbar (Acute) M51.36 Spondylosis of lumbar region without myelopathy or radiculopathy (Acute) M47.816 Murmur, cardiac (Acute) R01.1 Knee locking (Acute) M23.90 Solitary lung nodule (Acute) R91.1 Diverticulosis (Acute) K57.90 Malignant neoplasm of bladder (Acute) C67.9 Disorders of bursae and tendons in shoulder region, unspecified (Acute) M71.9, M67.919 Hypertension (Chronic) I10 Pure hypercholesterolemia (Chronic) E78.00 COPD (chronic obstructive pulmonary disease) (Chronic) J44.9 DVT of lower extremity, bilateral (Acute) I82.403 Dysphagia (Acute) R13.10 Fracture of C4 vertebra, closed (Acute) S12.300A Alcohol abuse (Chronic) F10.10 Alcohol abuse, episodic drinking behavior (Inactive) F10.10 Atrial fibrillation (Inactive) I48.91 Allergies oxycodone [From OxyIR] Adverse Reaction (Verified 06/08/18 18:46) Other per [facility] dropped blood pressure drastically. oxycodone HCl [From Percocet] Adverse Reaction (Verified 06/08/18 18:46) Vomiting Home Medications: Ambulatory Orders Medication Instructions Recorded Fluticasone 0.05% [Flonase Nasal 2 spray NASAL DAILY 08/09/15 Bern] calcium carbonate 600 mg (1,500 1 tab PO QDAY 09/12/17 mg)-vitamin D3 200 unit tablet guaifenesin ER 600 mg tablet, 600 mg PO Q12H PRN 09/12/17 extended release 12 hr lisinopril 2.5 mg tablet 2.5 mg PO DAILY 09/12/17 lutein 6 mg tablet 6 mg PO QDAY 09/12/17 multivitamin tablet 1 tab PO QDAY 09/12/17 Ascorbic Acid [Vitamin C] 500 mg PO BID 09/19/17 folic acid 400 mcg tablet 400 mcg PO QDAY 09/24/17 Amiodarone HCl [Cordarone] 200 mg PO DAILY 09/25/17 Rivaroxaban [Xarelto] 20 mg PO DAILY 11/19/17 Cyanocobalamin [Vitamin B12] 1,000 mcg PO DAILY@0800 06/08/18 Mag Hydrox/Al Hydrox/Simeth 30 ml PO Q4H PRN PRN 06/08/18 [Mylanta II] Ondansetron [Zofran Odt] 4 mg PO Q6H PRN PRN 06/08/18 Polyethylene Glycol 3350 [Miralax] 17 gm PO DAILY 06/08/18 Polyvinyl Alcohol [Artificial 1 drop OP Q2H PRN PRN 06/08/18 Tears] Thiamine HCl [Vitamin B-1] 100 mg PO TID 06/08/18 Umeclidinium Brm/Vilanterol Tr 1 inh INHALATION Q24H 06/08/18 [Anoro Ellipta 62.5-25 Mcg INH] Surgical History: Surgical History (Last Reviewed 04/01/18 @ 09:58 by Darlene Kumar, POWER TOOL REPAIR TECHNICIAN-C) S/P inguinal hernia repair (Acute) Z98.890, Z87.19 left 09/30/17 S/P wrist surgery (Resolved) Z98.890 bilateral S/P shoulder surgery (Resolved) Z98.890 bilateral Status post knee surgery (Resolved) Z98.890 bilateral S/P hemorrhoidectomy (Acute) Z98.890, Z87.19 Status post tracheostomy (Acute) Z93.0 S/P percutaneous endoscopic gastrostomy (PEG) tube placement (Resolved) Z93.1 - *Family History Maternal Family History: Family History (Last Reviewed 04/01/18 @ 09:58 by Darlene Kumar NP-C) Father Arthritis Mother CVA (cerebral vascular accident) Heart disease Sister Heart disease Brother Throat cancer Paternal Family History: Family History (Last Reviewed 04/01/18 @ 09:58 by Darlene Kumar NP-C) Father Arthritis Mother CVA (cerebral vascular accident) Heart disease Sister Heart disease Brother Throat cancer Patient Problems: Active and Suspected Problems (Last Reviewed 06/09/18 @ 13:23 by Abdi Hammond DO) Closed left hip fracture (Acute) - Physical Exam Vital Signs Temp Pulse Resp BP Pulse Ox 37.1 C 70 16 114/53 L 94 06/09/18 09:33 06/09/18 09:33 06/09/18 09:33 06/09/18 09:33 06/09/18 09:33 Oxygen Delivery Method Room Air Weight: 78 kg Body Mass Index (BMI) 24.0 Intake and Output for Last 24 Hours 06/07/18 06/08/18 06/09/18 23:59 23:59 23:59 Output Total 350 / 350 Balance -350 / -350 Laboratory Tests Past 24 Hrs 06/09/18 06/09/18 05:10 05:10 WBC 6.3 RBC 2.85 L Hgb 10.2 L Hct 29.3 L MCV 102.8 H MCH 35.8 H MCHC 34.8 RDW 13.3 RDW Differential 48.7 H Plt Count 205 MPV 10.6 Immature Gran % (Auto) 0.200 Neut % (Auto) 64.9 Lymph % (Auto) 21.2 [place] % (Auto) 11.3 H Eos % (Auto) 2.1 Baso % (Auto) 0.3 Absolute Neuts (auto) 4.1 Absolute Lymphs (auto) 1.33 Total Counted Not Reportable Sodium 133 L Potassium 3.8 Chloride 96 L Carbon Dioxide 28.0 Anion Gap 9 BUN 11 Creatinine 0.74 Estim Creat Clear Calc 66.93 Est GFR (MDRD) Af Amer 132 Est GFR (MDRD) Non-Af 109 BUN/Creatinine Ratio 14.9 Glucose 94 Calcium 8.4 L Phosphorus 3.0 Magnesium 1.9 Total Bilirubin 0.90 AST 26 ALT 23 Alkaline Phosphatase 63 Total Protein 6.3 L Albumin 2.5 L Globulin 3.8 Albumin/Globulin Ratio 0.7 L Assessment/Plan All Active Problems (Last Reviewed 06/09/18 @ 13:23 by Abdi Hammond DO) Closed left hip fracture (Acute) Hemorrhoids (Acute) Hemorrhoids with complication (Acute) Chest pain (Acute) Rectal bleeding (Acute) S/P inguinal hernia repair (Acute) Inguinal hernia of left side without obstruction or gangrene (Acute) Rheumatic mitral stenosis (Acute) Syncope and collapse (Acute) Aortic valve disease, rheumatic (Acute) Screening for intestinal cancer (Acute) Personal history of colonic polyps (Acute) S/P wrist surgery (Resolved) S/P shoulder surgery (Resolved) Status post knee surgery (Resolved) S/P hemorrhoidectomy (Acute) Chronic anticoagulation (Acute) Fracture of fourth cervical vertebra (Acute) Orthostatic hypotension (Acute) DDD (degenerative disc disease), lumbar (Acute) Spondylosis of lumbar region without myelopathy or radiculopathy (Acute) Murmur, cardiac (Acute) Knee locking (Acute) Solitary lung nodule (Acute) Diverticulosis (Acute) Malignant neoplasm of bladder (Acute) Disorders of bursae and tendons in shoulder region, unspecified (Acute) DVT of lower extremity, bilateral (Acute) Dysphagia (Acute) Fracture of C4 vertebra, closed (Acute) Status post tracheostomy (Acute) S/P percutaneous endoscopic gastrostomy (PEG) tube placement (Resolved) <Nathalie Smith - Last Filed: 06/09/18 17:24> History of Present Illness Date of Admission: 06/08/18 Chief Complaint: Left Femur Fracture The patient is a 77 year old right handed Male who is admitted to the rehab unit for Rehabilitation, from [facility] after undergoing an ORIF for a left femur fracture, which he sustain after a fall at a restaurant on 06/05. He has a PMH of A-fib, bladder cancer, LUTS, HTN, COPD and Alcohol abuse, per patient last drink was the day of presentation to [facility], states he only drinks 3 beers a day. He is currently on Amiodarone and Xarelto for his A-fib. The Xarelto which was held will restart on 06/09. He lives with his spouse in a one story home with 2 steps to get into the house from the garage, he was previously completely functionally independent and is admitted to the rehab unit in order to restore his previous level of functional independence. He is on Xarelto for Afib, will resume today. 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 Atrioventricular block (Chronic) I44.30 Syncope and collapse (Acute) R55 Aortic valve disease, rheumatic (Acute) I06.9 Screening for intestinal cancer (Acute) Z12.10 Personal history of colonic polyps (Acute) Z86.010 Paroxysmal atrial fibrillation (Chronic) I48.0 Nonrheumatic aortic (valve) stenosis (Chronic) I35.0 Chronic anticoagulation (Acute) Z79.01 Fracture of fourth cervical vertebra (Acute) S12.300A Orthostatic hypotension (Acute) I95.1 DDD (degenerative disc disease), lumbar (Acute) M51.36 Spondylosis of lumbar region without myelopathy or radiculopathy (Acute) M47.816 Murmur, cardiac (Acute) R01.1 Knee locking (Acute) M23.90 Solitary lung nodule (Acute) R91.1 Diverticulosis (Acute) K57.90 Malignant neoplasm of bladder (Acute) C67.9 Disorders of bursae and tendons in shoulder region, unspecified (Acute) M71.9, M67.919 Hypertension (Chronic) I10 Pure hypercholesterolemia (Chronic) E78.00 COPD (chronic obstructive pulmonary disease) (Chronic) J44.9 DVT of lower extremity, bilateral (Acute) I82.403 Dysphagia (Acute) R13.10 Fracture of C4 vertebra, closed (Acute) S12.300A Alcohol abuse (Chronic) F10.10 Alcohol abuse, episodic drinking behavior (Inactive) F10.10 Atrial fibrillation (Inactive) I48.91 Allergies oxycodone [From OxyIR] Adverse Reaction (Verified 06/08/18 18:46) Other per [facility] dropped blood pressure drastically. oxycodone HCl [From Percocet] Adverse Reaction (Verified 06/08/18 18:46) Vomiting Surgical History: Surgical History (Last Reviewed 06/09/18 @ 13:23 by Abdi Hammond DO) S/P inguinal hernia repair (Acute) Z98.890, Z87.19 left 09/30/17 S/P wrist surgery (Resolved) Z98.890 bilateral S/P shoulder surgery (Resolved) Z98.890 bilateral Status post knee surgery (Resolved) Z98.890 bilateral S/P hemorrhoidectomy (Acute) Z98.890, Z87.19 Status post tracheostomy (Acute) Z93.0 S/P percutaneous endoscopic gastrostomy (PEG) tube placement (Resolved) Z93.1 Surgical History: - - Wrist, shoulder, and knee surgery. Psychiatric History: - - alcoholism Lives: Spouse/ Significant Other Smoking Status: Current every day smoker Tobacco Use: Cigars Alcohol: Occasional Drugs: None - *Family History Maternal Family History: Family History (Last Reviewed 06/09/18 @ 13:23 by Abdi Hammond DO) Father Arthritis Mother CVA (cerebral vascular accident) Heart disease Sister Heart disease Brother Throat cancer History Items: Stroke - mother. Paternal Family History: Family History (Last Reviewed 06/09/18 @ 13:23 by Abdi Hammond DO) Father Arthritis Mother CVA (cerebral vascular accident) Heart disease Sister Heart disease Brother Throat cancer History Items: Heart Disease Review of Systems Constitutional: Denies: Chills, Fever, Weight Change HEENT: Denies: Head Aches, Sinus Congestion, Sinus Drainage Cardiovascular: Denies: Chest Pain, Palpitations Respiratory: Denies: Cough, Shortness of breath at rest, Sputum production Gastrointestinal: Denies: Abdominal Pain, Nausea, Vomiting Genitourinary: Denies: Dysuria Musculoskeletal: Denies: Joint Pain, Joint Tenderness Skin: Denies: Rash, Wounds Neurological: Denies: Numbness, Tingling, Focal weakness Psychiatric: Denies: Anxiety, Depression, Homicidal Ideations, Suicidal Ideations Hematologic/ Lymphatic: Denies: Easy Bruising, Easy Bleeding VTE Information - Inpt Only VTE Present on Admission: No VTE Mechan Device Prophylaxis: SCD's, Knee High MANFRED Hose VTE Pharm Prophylaxis ordered?: Yes - Physical Exam General: Alert, Oriented x3, Cooperative HEENT: Atraumatic, PERRLA, EOMI, Normocephalic Neck: Supple, No JVD, Negative Carotid Bruits Lungs: Clear to auscultation, Normal air movement Cardiovascular: Regular rate, Murmur - Grade 2/6 Abdomen: Bowel Sounds Present, Soft, Non Tender Extremities: No edema, Capillary Refill Less than 3 Seconds Skin: No rashes, No breakdown Musculoskeletal: No Tenderness to Palpation of Joints or Extremities Neurological: Cranial nerves II-XII grossly intact Psych/Mental Status: Normal Affect, Appropriate, Alert and oriented to time, place, person, mood and affect Vital Signs Temp Pulse Resp BP Pulse Ox 98.7 F 70 16 114/53 L 94 06/09/18 09:33 06/09/18 09:33 06/09/18 09:33 06/09/18 09:33 06/09/18 09:33 Oxygen Delivery Method Room Air Weight: 78 kg Body Mass Index (BMI) 24.0 Intake and Output for Last 24 Hours 06/07/18 06/08/18 06/09/18 23:59 23:59 23:59 Output Total 350 / 350 Balance -350 / -350 Laboratory Tests Past 24 Hrs 06/09/18 06/09/18 05:10 05:10 WBC 6.3 RBC 2.85 L Hgb 10.2 L Hct 29.3 L MCV 102.8 H MCH 35.8 H MCHC 34.8 RDW 13.3 RDW Differential 48.7 H Plt Count 205 MPV 10.6 Immature Gran % (Auto) 0.200 Neut % (Auto) 64.9 Lymph % (Auto) 21.2 [place] % (Auto) 11.3 H Eos % (Auto) 2.1 Baso % (Auto) 0.3 Absolute Neuts (auto) 4.1 Absolute Lymphs (auto) 1.33 Total Counted Not Reportable Sodium 133 L Potassium 3.8 Chloride 96 L Carbon Dioxide 28.0 Anion Gap 9 BUN 11 Creatinine 0.74 Estim Creat Clear Calc 66.93 Est GFR (MDRD) Af Amer 132 Est GFR (MDRD) Non-Af 109 BUN/Creatinine Ratio 14.9 Glucose 94 Calcium 8.4 L Phosphorus 3.0 Magnesium 1.9 Total Bilirubin 0.90 AST 26 ALT 23 Alkaline Phosphatase 63 Total Protein 6.3 L Albumin 2.5 L Globulin 3.8 Albumin/Globulin Ratio 0.7 L Active Medications Hydrocodone Bitart/Acetaminophen ([place] 5mg-325mg) 1 - 2 tablet PO Q6H PRN PRN PRN Reason: MOD-SEVERE PAIN (4-06/03) Last Admin: 06/09/18 12:15 Dose: 1 tablet Al Hydroxide/Mg Hydroxide (Mylanta Ii) 30 ml PO Q4H PRN PRN PRN Reason: INDIGESTION Albuterol Sulfate (Ventolin Aerosols) 2.5 mg INHALATION Q6HWA.RT [facility] Amiodarone HCl (Cordarone) 200 mg PO DAILY [facility] Ascorbic Acid (Vitamin C) 500 mg PO BID [facility] Last Admin: 06/09/18 08:46 Dose: 500 mg Bisacodyl (Dulcolax) 10 mg RECTAL .PRN X 1 PRN PRN Reason: Constipation Calcium/Vitamin D (Os-Osvaldo 500mg + D) 1 tablet PO DAILY@0800 [facility] Last Admin: 06/09/18 08:47 Dose: 1 tablet Cyanocobalamin (Vitamin B12) 1,000 mcg PO DAILY@0800 [facility] Last Admin: 06/09/18 08:48 Dose: 1,000 mcg Fluticasone Propionate (Flonase Nasal Bern) 2 spray NASAL DAILY [facility] Last Admin: 06/09/18 08:50 Dose: 2 spray Folic Acid (Folic Acid) 0.5 mg PO DAILY@0800 [facility] Last Admin: 06/09/18 08:46 Dose: 0.5 mg Guaifenesin (Mucinex) 600 mg PO Q12H PRN PRN Reason: CONGESTION Lisinopril (Zestril) 2.5 mg PO DAILY [facility] Last Admin: 06/09/18 09:11 Dose: 2.5 mg Magnesium Hydroxide (Milk Of Magnesia) 30 ml PO .PRN X 1 PRN PRN Reason: Constipation Last Admin: 06/09/18 01:25 Dose: 30 ml Multivitamins (Multivitamin) 1 tablet PO DAILY@0800 [facility] Last Admin: 06/09/18 08:47 Dose: 1 tablet Nutritional Formula (Lactose Free) (Ensure Enlive) 120 ml PO 4X/DAY [facility] Last Admin: 06/09/18 09:09 Dose: 120 ml Nystatin (Nystatin) 500,000 unit PO 4X/DAY [facility] Last Admin: 06/09/18 08:48 Dose: 500,000 unit Ondansetron HCl (Zofran Odt) 4 mg PO Q6H PRN PRN PRN Reason: NAUSEA Polyethylene Glycol (Miralax) 17 gm PO DAILY [facility] Last Admin: 06/09/18 08:46 Dose: 17 gm Rivaroxaban (Xarelto) 20 mg PO DAILY [facility] Last Admin: 06/09/18 08:46 Dose: 20 mg Senna/Docusate Sodium (Senokot-S, Beronica-Colace) 2 tablet PO BID [facility] Last Admin: 06/09/18 08:49 Dose: 2 tablet Thiamine HCl (Vitamin B1) 100 mg PO TID [facility] Last Admin: 06/09/18 05:16 Dose: 100 mg Assessment/Plan Debility left hip fracture s/p ORIF, complicated by ETOH abuse, acute blood loss anemia, HTN and Afib on Xarelto. Goal of rehab is adventist of functional independence. Plan: - Physical therapy for gait and balance - Occupational Therapy for ADLs - Speech therapy - As needed analgesics - Bowel protocol - DVT prophylaxis: SCDs, Manfred hoses, and Xarelto - Hx of HTN: Stable with good control, continue home dose of Lisinopril - Hx A-Fib => continue amiodarone and Xarelto - ETOH Abuse (patient states he only drinks 3 beers a day) => continue Multivitamin, Folic Acid and thiamine - Acute blood loss anemia 2/2 surgery for ORIF of left femur fracture, last Hgb was 10.2 - Left hip fracture => s/p ORIF Incision is C/D/I, schedule follow up visit with Orthopedic surgeon on discharge from unit.
--- NOTE | 2018-06-09 11:45 | REHABEVAL_ITS ---
Admission Information Status Changes from Prescreening?: No changes Identified Actual Problem List:: Falls, Pain, ALteration in Cmfrt, Alteration in Nutrition, Mobility Impaired, Self Care Deficit, BP, Hypotension, Ineffect.D/C Plan r/t Psy Potential Problem List:: DVT, Bleeding, Infection, UTI, Aspiration, Falls, Skin Integrity, Depression Risk of Complications DVT: LMWH, MANFRED Hose, Sequential Compression Device Bleeding: Monitor Lab Values, Nursing to Teach Precautions for anti-coagulation therapy., Wound, if applicable, to be assessed every shift., Stroke patients assessed for lethargy or change in status. Infection: Clinical Staff to Monitor for S/S of infection:, S/S of infection include fever, redness, warmth, etc. Urinary Tract Infection: Monitor for frequency, burning, discomfort, or incontinence., Nursing will obtain urine sample for urinalysis and C&S when ordered. Aspiration: Clinical staff will monitor for coughing, drooling, congestion., Speech will evaluate swallowing and dsyphasia., Nursing will monitor patient swallowing during meals. Falls: Patient will be evaluated for Fall Precautions, Patient will be placed on Fall Precautions as indicated per protocol. Skin Breakdown: Nursing will assess skin daily using assessment tool., Nursing will place on Skin Breakdown Precautions as indicated. Pain: Clinical staff will assess patient's pain level per protocol., Medications will be given, if needed, and the pain level reassessed., Other methods: Mas tania, distraction, decrease stimulus, etc. used PRN. Plan of Care Patient requires physician specializing in physical medicine and rehab oversight to provide close medical supervision of rehab issues including: Pain Management, Sleep Problems, Bowel and Bladder, Medical and co-morbidity Management, DVT prophylaxis, Rehabilitation Leadership, Coordination of treatment team Patient needs Physical Therapy: For a minimum of 1 hour, At least 5 out of 7 days Patient needs Physical Therapy to improve:: Mobility, Mobility, Mobility, Strengthening, Transfers, Stretching, ROM, Endurance, Stairs, Gait, Balance Patient needs Occupational Therapy: For a minimum of 1 hour, At least 5 out of 7 days Patient needs Occupational Therapy to improve ADL's incl.: Eating, Grooming, Bathing, Dressing, Toileting, Toilet transfers, Community Reintegration, Higher functioning activities, Household tasks, Adaptive Equipment, Splinting, Other activities as determined Patient requires 24/ Rehabilitation Nursing for: Pain Issues, Identifying and preventing risk factors, Monitoring and reporting current medical conditions, Assisting with ambulation, transfer, and all ADL's, Teaching patients about disease process and medications, Family teaching, Providing safe environment, Bowel and Bladder Issues, Skin integrity, Medication Management Patient needs Rehabilitation Therapist/ Case Management for: Discharge Planning, Arranging Home Equipment or Services, Family Interventions Patient needs Dietary and Nutrition Services for: Adequate Nutrition, Nutritional Supplements, Nutritional Education Goals Patient will remain: free from falls, or injury at time of discharge. Patient will perform bed mobility at: MOD I level of assist. Patient will complete transfers from bed to chair at: MOD I level of assist. Patient will ambulate: 100 feet, with MOD I assist, with LRD Patient will complete upper body dressing at: MOD I level of assist. Patient will complete lower body dressing at: MOD I level of assist. Patient will complete toileting at: MOD I level of assist. Patient will perform bathing at: MOD I level of assist. Patient will complete grooming at: MOD I level of assist. Patient will complete home management skills at: MOD I level of assist. Patient will achieve: 12 stairs, at MOD I assist Patient will have pain level of: of 3 or less Patient's skin will: remain intact, free from infection. Patient will receive: adequate nutrition. Discharge Planning Pt Prognosis for Sig. Practical Improv. w/in Reasonable Time: Good Anticipated D/C Destination: Home with Outpt Therapy Was Preadmission Assessment Accurate?: Yes
--- NOTE | 2018-06-09 13:20 | PCM.CONS.GEN ---
Problem List (1) Closed left hip fracture Status: Acute Qualifiers: Encounter type: subsequent encounter Fracture healing: with routine healing Qualified Code(s): S72.002D - Fracture of unspecified part of neck of left femur, subsequent encounter for closed fracture with routine healing Reason for Consult Date of Consultation: 06/09/18 Reason for Consultation: Consult requested by Dr. Huston for medical management. History of Present Illness: The patient is a 77 year old M who on June 05 slipped on some stairs coming out of a restaurant landing on his side. Patient was found to have a left hip fracture. Patient had ORIF of the left hip fracture at [facility]. Patient was transferred to [place] [facility] from [facility] yesterday. Patient does have some pain still in his his left hip. [] Past Medical History Past Medical History (Chronic Problems): Chronic Problems (Last Reviewed 04/01/18 @ 09:58 by Darlene Kumar NP-C) Tobacco abuse (Chronic) Stage 2 moderate COPD by GOLD classification (Chronic) FEV1 66% of predicted Atrioventricular block (Chronic) Paroxysmal atrial fibrillation (Chronic) Nonrheumatic aortic (valve) stenosis (Chronic) Hypertension (Chronic) Pure hypercholesterolemia (Chronic) COPD (chronic obstructive pulmonary disease) (Chronic) Alcohol abuse (Chronic) Medical History: Medical History (Last Reviewed 06/09/18 @ 13:23 by Abdi Hammond DO) Hemorrhoids (Acute) K64.9 Hemorrhoids with complication (Acute) K64.8 Chest pain (Acute) R07.9 Rectal bleeding (Acute) K62.5 Inguinal hernia of left side without obstruction or gangrene (Acute) 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 Atrioventricular block (Chronic) I44.30 Syncope and collapse (Acute) R55 Aortic valve disease, rheumatic (Acute) I06.9 Screening for intestinal cancer (Acute) Z12.10 Personal history of colonic polyps (Acute) Z86.010 Paroxysmal atrial fibrillation (Chronic) I48.0 Nonrheumatic aortic (valve) stenosis (Chronic) I35.0 Chronic anticoagulation (Acute) Z79.01 Fracture of fourth cervical vertebra (Acute) S12.300A Orthostatic hypotension (Acute) I95.1 DDD (degenerative disc disease), lumbar (Acute) M51.36 Spondylosis of lumbar region without myelopathy or radiculopathy (Acute) M47.816 Murmur, cardiac (Acute) R01.1 Knee locking (Acute) M23.90 Solitary lung nodule (Acute) R91.1 Diverticulosis (Acute) K57.90 Malignant neoplasm of bladder (Acute) C67.9 Disorders of bursae and tendons in shoulder region, unspecified (Acute) M71.9, M67.919 Hypertension (Chronic) I10 Pure hypercholesterolemia (Chronic) E78.00 COPD (chronic obstructive pulmonary disease) (Chronic) J44.9 DVT of lower extremity, bilateral (Acute) I82.403 Dysphagia (Acute) R13.10 Fracture of C4 vertebra, closed (Acute) S12.300A Alcohol abuse (Chronic) F10.10 Alcohol abuse, episodic drinking behavior (Inactive) F10.10 Atrial fibrillation (Inactive) I48.91 Allergies oxycodone [From OxyIR] Adverse Reaction (Verified 06/08/18 18:46) Other per [facility] dropped blood pressure drastically. oxycodone HCl [From Percocet] Adverse Reaction (Verified 06/08/18 18:46) Vomiting Home Medications: Ambulatory Orders Medication Instructions Recorded Fluticasone 0.05% [Flonase Nasal 2 spray NASAL DAILY 08/09/15 [place]] calcium carbonate 600 mg (1,500 1 tab PO QDAY 09/12/17 mg)-vitamin D3 200 unit tablet guaifenesin ER 600 mg tablet, 600 mg PO Q12H PRN 09/12/17 extended release 12 hr lisinopril 2.5 mg tablet 2.5 mg PO DAILY 09/12/17 lutein 6 mg tablet 6 mg PO QDAY 09/12/17 multivitamin tablet 1 tab PO QDAY 09/12/17 Ascorbic Acid [Vitamin C] 500 mg PO BID 09/19/17 folic acid 400 mcg tablet 400 mcg PO QDAY 09/24/17 Amiodarone HCl [Cordarone] 200 mg PO DAILY 09/25/17 Rivaroxaban [Xarelto] 20 mg PO DAILY 11/19/17 Cyanocobalamin [Vitamin B12] 1,000 mcg PO DAILY@0800 06/08/18 Mag Hydrox/Al Hydrox/Simeth 30 ml PO Q4H PRN PRN 06/08/18 [Mylanta II] Ondansetron [Zofran Odt] 4 mg PO Q6H PRN PRN 06/08/18 Polyethylene Glycol 3350 [Miralax] 17 gm PO DAILY 06/08/18 Polyvinyl Alcohol [Artificial 1 drop OP Q2H PRN PRN 06/08/18 Tears] Thiamine HCl [Vitamin B-1] 100 mg PO TID 06/08/18 Umeclidinium Brm/Vilanterol Tr 1 inh INHALATION Q24H 06/08/18 [Anoro Ellipta 62.5-25 Mcg INH] Surgical History: Surgical History (Last Reviewed 06/09/18 @ 13:23 by Abdi Hammond DO) S/P inguinal hernia repair (Acute) Z98.890, Z87.19 left 09/30/17 S/P wrist surgery (Resolved) Z98.890 bilateral S/P shoulder surgery (Resolved) Z98.890 bilateral Status post knee surgery (Resolved) Z98.890 bilateral S/P hemorrhoidectomy (Acute) Z98.890, Z87.19 Status post tracheostomy (Acute) Z93.0 S/P percutaneous endoscopic gastrostomy (PEG) tube placement (Resolved) Z93.1 Surgical History: - - Wrist, shoulder, and knee surgery. Psychiatric History: - - alcoholism Lives: Spouse/ Significant Other Smoking Status: Light Smoker (<10/day) Tobacco Use: Cigarettes Alcohol: Heavy - 3 beers/day - *Family History Maternal Family History: Family History (Last Reviewed 06/09/18 @ 13:23 by Abdi Hammond DO) Father Arthritis Mother CVA (cerebral vascular accident) Heart disease Sister Heart disease Brother Throat cancer History Items: Stroke - mother. Paternal Family History: Family History (Last Reviewed 06/09/18 @ 13:23 by Abdi Hammond DO) Father Arthritis Mother CVA (cerebral vascular accident) Heart disease Sister Heart disease Brother Throat cancer History Items: Heart Disease Review of Systems Constitutional: Denies: Chills, Fever, Weight Change Eyes: Denies: Blurred vision, Double vision HEENT: Denies: Head Aches, Sinus Congestion, Sinus Drainage Cardiovascular: Denies: Chest Pain, Palpitations Respiratory: Denies: Cough, Shortness of breath at rest, Sputum production Gastrointestinal: Denies: Abdominal Pain, Nausea, Vomiting Genitourinary: Denies: Dysuria, Frequency Musculoskeletal: Denies: Back Pain, Joint Pain, Joint Tenderness Skin: Denies: Rash, Wounds Neurological: Reports: Numbness - plantar paresthesias bilaterally since fall.. Denies: Focal weakness, Tingling Psychiatric: Denies: Anxiety, Depression Endocrine: Denies: Change in Body Habitus, Heat/ Cold Intolerance Hematologic/ Lymphatic: Denies: Easy Bruising, Easy Bleeding, Hx of blood clot Comment: All review of systems are negative except as mentioned in the history of present illness and the other review of systems. Patient Problems: Active and Suspected Problems (Last Reviewed 04/01/18 @ 09:58 by Darlene Kumar NP-C) Closed left hip fracture (Acute) - Physical Exam General: Alert, Cooperative, No apparent distress HEENT: Atraumatic, Normocephalic Oral: Moist Mucosa, No Gingival or Mucosal Lesions/ Ulcerations Neck: No Nodes, Thyroid Normal Size and Texture Lungs: Clear to auscultation, Normal air movement, No rhonchi, No wheeze Cardiovascular: Regular rate, Regular Rhythm, Normal S1, Normal S2, No murmurs Abdomen: Bowel Sounds Present, Soft, Non Tender, Non-Distended, No Hepato-splenomegaly Extremities: No edema, No Calf Tenderness Skin: No rashes, No breakdown Neurological: Sensory exam intact to light touch and pain, - - No clonus Psych/Mental Status: Normal Affect, Appropriate Vital Signs Temp Pulse Resp BP Pulse Ox 37.1 C 70 16 114/53 L 94 06/09/18 09:33 06/09/18 09:33 06/09/18 09:33 06/09/18 09:33 06/09/18 09:33 Oxygen Delivery Method Room Air Weight: 78 kg Body Mass Index (BMI) 24.0 Intake and Output for Last 24 Hours 06/07/18 06/08/18 06/09/18 23:59 23:59 23:59 Intake Total 240 / 240 Output Total 350 / 350 Balance -350 / -350 240 / 240 Laboratory Tests Past 24 Hrs 06/09/18 06/09/18 05:10 05:10 WBC 6.3 RBC 2.85 L Hgb 10.2 L Hct 29.3 L MCV 102.8 H MCH 35.8 H MCHC 34.8 RDW 13.3 RDW Differential 48.7 H Plt Count 205 MPV 10.6 Immature Gran % (Auto) 0.200 Neut % (Auto) 64.9 Lymph % (Auto) 21.2 [place] % (Auto) 11.3 H Eos % (Auto) 2.1 Baso % (Auto) 0.3 Absolute Neuts (auto) 4.1 Absolute Lymphs (auto) 1.33 Total Counted Not Reportable Sodium 133 L Potassium 3.8 Chloride 96 L Carbon Dioxide 28.0 Anion Gap 9 BUN 11 Creatinine 0.74 Estim Creat Clear Calc 66.93 Est GFR (MDRD) Af Amer 132 Est GFR (MDRD) Non-Af 109 BUN/Creatinine Ratio 14.9 Glucose 94 Calcium 8.4 L Phosphorus 3.0 Magnesium 1.9 Total Bilirubin 0.90 AST 26 ALT 23 Alkaline Phosphatase 63 Total Protein 6.3 L Albumin 2.5 L Globulin 3.8 Albumin/Globulin Ratio 0.7 L Assessment/Plan All Active Problems (Last Reviewed 04/01/18 @ 09:58 by Darlene Kumar, STARTING SHEET TANK OPERATOR-C) Closed left hip fracture (Acute) Hemorrhoids (Acute) Hemorrhoids with complication (Acute) Chest pain (Acute) Rectal bleeding (Acute) S/P inguinal hernia repair (Acute) Inguinal hernia of left side without obstruction or gangrene (Acute) Rheumatic mitral stenosis (Acute) Syncope and collapse (Acute) Aortic valve disease, rheumatic (Acute) Screening for intestinal cancer (Acute) Personal history of colonic polyps (Acute) S/P wrist surgery (Resolved) S/P shoulder surgery (Resolved) Status post knee surgery (Resolved) S/P hemorrhoidectomy (Acute) Chronic anticoagulation (Acute) Fracture of fourth cervical vertebra (Acute) Orthostatic hypotension (Acute) DDD (degenerative disc disease), lumbar (Acute) Spondylosis of lumbar region without myelopathy or radiculopathy (Acute) Murmur, cardiac (Acute) Knee locking (Acute) Solitary lung nodule (Acute) Diverticulosis (Acute) Malignant neoplasm of bladder (Acute) Disorders of bursae and tendons in shoulder region, unspecified (Acute) DVT of lower extremity, bilateral (Acute) Dysphagia (Acute) Fracture of C4 vertebra, closed (Acute) Status post tracheostomy (Acute) S/P percutaneous endoscopic gastrostomy (PEG) tube placement (Resolved) 1. Left hip fracture Status post ORIF Continue with pain control Follow-up with his orthopedic surgeon as previously prescribed Check a 25-hydroxy vitamin D level 2. Acute blood loss anemia Presumed Hemoglobin is 10.2 and his hemoglobin from November 20 was 13.9 at that time. No indication for transfusions 3. Atrial fibrillation Continue with amiodarone and Xarelto. 4. Alcohol abuse Presumably the patient last drink would have been either the day of her day before he presented Patient states he only drinks 3 beers per day Patient already on a multivitamin 5. Hypertension Stable Continue with lisinopril 6. DVT prophylaxis: Patient is anticoagulated on Xarelto. Code Visit Inpatient E&M: 04379 Init Hosp L2
--- NOTE | 2018-06-09 13:24 | CON.PCM_ITS ---
Problem List (1) Closed left hip fracture Status: Acute Qualifiers: Encounter type: subsequent encounter Fracture healing: with routine healing Qualified Code(s): S72.002D - Fracture of unspecified part of neck of left femur, subsequent encounter for closed fracture with routine healing Reason for Consult Date of Consultation: 06/09/18 Reason for Consultation: Consult requested by Dr. Huston for medical management. History of Present Illness: The patient is a 77 year old M who on June 05 slipped on some stairs coming out of a restaurant landing on his side. Patient was found to have a left hip fracture. Patient had ORIF of the left hip fracture at [facility]. Patient was transferred to [place] [facility] from [facility] yesterday. Patient does have some pain still in his his left hip. [] Past Medical History Past Medical History (Chronic Problems): Chronic Problems (Last Reviewed 04/01/18 @ 09:58 by Darlene Kumar NP-C) Tobacco abuse (Chronic) Stage 2 moderate COPD by GOLD classification (Chronic) FEV1 66% of predicted Atrioventricular block (Chronic) Paroxysmal atrial fibrillation (Chronic) Nonrheumatic aortic (valve) stenosis (Chronic) Hypertension (Chronic) Pure hypercholesterolemia (Chronic) COPD (chronic obstructive pulmonary disease) (Chronic) Alcohol abuse (Chronic) Medical History: Medical History (Last Reviewed 06/09/18 @ 13:23 by Abdi Hammond DO) Hemorrhoids (Acute) K64.9 Hemorrhoids with complication (Acute) K64.8 Chest pain (Acute) R07.9 Rectal bleeding (Acute) K62.5 Inguinal hernia of left side without obstruction or gangrene (Acute) 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 Atrioventricular block (Chronic) I44.30 Syncope and collapse (Acute) R55 Aortic valve disease, rheumatic (Acute) I06.9 Screening for intestinal cancer (Acute) Z12.10 Personal history of colonic polyps (Acute) Z86.010 Paroxysmal atrial fibrillation (Chronic) I48.0 Nonrheumatic aortic (valve) stenosis (Chronic) I35.0 Chronic anticoagulation (Acute) Z79.01 Fracture of fourth cervical vertebra (Acute) S12.300A Orthostatic hypotension (Acute) I95.1 DDD (degenerative disc disease), lumbar (Acute) M51.36 Spondylosis of lumbar region without myelopathy or radiculopathy (Acute) M47.816 Murmur, cardiac (Acute) R01.1 Knee locking (Acute) M23.90 Solitary lung nodule (Acute) R91.1 Diverticulosis (Acute) K57.90 Malignant neoplasm of bladder (Acute) C67.9 Disorders of bursae and tendons in shoulder region, unspecified (Acute) M71.9, M67.919 Hypertension (Chronic) I10 Pure hypercholesterolemia (Chronic) E78.00 COPD (chronic obstructive pulmonary disease) (Chronic) J44.9 DVT of lower extremity, bilateral (Acute) I82.403 Dysphagia (Acute) R13.10 Fracture of C4 vertebra, closed (Acute) S12.300A Alcohol abuse (Chronic) F10.10 Alcohol abuse, episodic drinking behavior (Inactive) F10.10 Atrial fibrillation (Inactive) I48.91 Allergies oxycodone [From OxyIR] Adverse Reaction (Verified 06/08/18 18:46) Other per [facility] dropped blood pressure drastically. oxycodone HCl [From Percocet] Adverse Reaction (Verified 06/08/18 18:46) Vomiting Home Medications: Ambulatory Orders Medication Instructions Recorded Fluticasone 0.05% [Flonase Nasal 2 spray NASAL DAILY 08/09/15 [place]] calcium carbonate 600 mg (1,500 1 tab PO QDAY 09/12/17 mg)-vitamin D3 200 unit tablet guaifenesin ER 600 mg tablet, 600 mg PO Q12H PRN 09/12/17 extended release 12 hr lisinopril 2.5 mg tablet 2.5 mg PO DAILY 09/12/17 lutein 6 mg tablet 6 mg PO QDAY 09/12/17 multivitamin tablet 1 tab PO QDAY 09/12/17 Ascorbic Acid [Vitamin C] 500 mg PO BID 09/19/17 folic acid 400 mcg tablet 400 mcg PO QDAY 09/24/17 Amiodarone HCl [Cordarone] 200 mg PO DAILY 09/25/17 Rivaroxaban [Xarelto] 20 mg PO DAILY 11/19/17 Cyanocobalamin [Vitamin B12] 1,000 mcg PO DAILY@0800 06/08/18 Mag Hydrox/Al Hydrox/Simeth 30 ml PO Q4H PRN PRN 06/08/18 [Mylanta II] Ondansetron [Zofran Odt] 4 mg PO Q6H PRN PRN 06/08/18 Polyethylene Glycol 3350 [Miralax] 17 gm PO DAILY 06/08/18 Polyvinyl Alcohol [Artificial 1 drop OP Q2H PRN PRN 06/08/18 Tears] Thiamine HCl [Vitamin B-1] 100 mg PO TID 06/08/18 Umeclidinium Brm/Vilanterol Tr 1 inh INHALATION Q24H 06/08/18 [Anoro Ellipta 62.5-25 Mcg INH] Surgical History: Surgical History (Last Reviewed 06/09/18 @ 13:23 by Abdi Hammond DO) S/P inguinal hernia repair (Acute) Z98.890, Z87.19 left 09/30/17 S/P wrist surgery (Resolved) Z98.890 bilateral S/P shoulder surgery (Resolved) Z98.890 bilateral Status post knee surgery (Resolved) Z98.890 bilateral S/P hemorrhoidectomy (Acute) Z98.890, Z87.19 Status post tracheostomy (Acute) Z93.0 S/P percutaneous endoscopic gastrostomy (PEG) tube placement (Resolved) Z93.1 Surgical History: - - Wrist, shoulder, and knee surgery. Psychiatric History: - - alcoholism Lives: Spouse/ Significant Other Smoking Status: Light Smoker (<10/day) Tobacco Use: Cigarettes Alcohol: Heavy - 3 beers/day - *Family History Maternal Family History: Family History (Last Reviewed 06/09/18 @ 13:23 by Abdi Hammond DO) Father Arthritis Mother CVA (cerebral vascular accident) Heart disease Sister Heart disease Brother Throat cancer History Items: Stroke - mother. Paternal Family History: Family History (Last Reviewed 06/09/18 @ 13:23 by Abdi Hammond DO) Father Arthritis Mother CVA (cerebral vascular accident) Heart disease Sister Heart disease Brother Throat cancer History Items: Heart Disease Review of Systems Constitutional: Denies: Chills, Fever, Weight Change Eyes: Denies: Blurred vision, Double vision HEENT: Denies: Head Aches, Sinus Congestion, Sinus Drainage Cardiovascular: Denies: Chest Pain, Palpitations Respiratory: Denies: Cough, Shortness of breath at rest, Sputum production Gastrointestinal: Denies: Abdominal Pain, Nausea, Vomiting Genitourinary: Denies: Dysuria, Frequency Musculoskeletal: Denies: Back Pain, Joint Pain, Joint Tenderness Skin: Denies: Rash, Wounds Neurological: Reports: Numbness - plantar paresthesias bilaterally since fall.. Denies: Focal weakness, Tingling Psychiatric: Denies: Anxiety, Depression Endocrine: Denies: Change in Body Habitus, Heat/ Cold Intolerance Hematologic/ Lymphatic: Denies: Easy Bruising, Easy Bleeding, Hx of blood clot Comment: All review of systems are negative except as mentioned in the history of present illness and the other review of systems. Patient Problems: Active and Suspected Problems (Last Reviewed 04/01/18 @ 09:58 by Darlene Kumar NP-C) Closed left hip fracture (Acute) - Physical Exam General: Alert, Cooperative, No apparent distress HEENT: Atraumatic, Normocephalic Oral: Moist Mucosa, No Gingival or Mucosal Lesions/ Ulcerations Neck: No Nodes, Thyroid Normal Size and Texture Lungs: Clear to auscultation, Normal air movement, No rhonchi, No wheeze Cardiovascular: Regular rate, Regular Rhythm, Normal S1, Normal S2, No murmurs Abdomen: Bowel Sounds Present, Soft, Non Tender, Non-Distended, No Hepato- splenomegaly Extremities: No edema, No Calf Tenderness Skin: No rashes, No breakdown Neurological: Sensory exam intact to light touch and pain, - - No clonus Psych/Mental Status: Normal Affect, Appropriate Vital Signs Temp Pulse Resp BP Pulse Ox 37.1 C 70 16 114/53 L 94 06/09/18 09:33 06/09/18 09:33 06/09/18 09:33 06/09/18 09:33 06/09/18 09:33 Oxygen Delivery Method Room Air Weight: 78 kg Body Mass Index (BMI) 24.0 Intake and Output for Last 24 Hours 06/07/18 06/08/18 06/09/18 23:59 23:59 23:59 Intake Total 240 / 240 Output Total 350 / 350 Balance -350 / -350 240 / 240 Laboratory Tests Past 24 Hrs 06/09/18 06/09/18 05:10 05:10 WBC 6.3 RBC 2.85 L Hgb 10.2 L Hct 29.3 L MCV 102.8 H MCH 35.8 H MCHC 34.8 RDW 13.3 RDW Differential 48.7 H Plt Count 205 MPV 10.6 Immature Gran % (Auto) 0.200 Neut % (Auto) 64.9 Lymph % (Auto) 21.2 [place] % (Auto) 11.3 H Eos % (Auto) 2.1 Baso % (Auto) 0.3 Absolute Neuts (auto) 4.1 Absolute Lymphs (auto) 1.33 Total Counted Not Reportable Sodium 133 L Potassium 3.8 Chloride 96 L Carbon Dioxide 28.0 Anion Gap 9 BUN 11 Creatinine 0.74 Estim Creat Clear Calc 66.93 Est GFR (MDRD) Af Amer 132 Est GFR (MDRD) Non-Af 109 BUN/Creatinine Ratio 14.9 Glucose 94 Calcium 8.4 L Phosphorus 3.0 Magnesium 1.9 Total Bilirubin 0.90 AST 26 ALT 23 Alkaline Phosphatase 63 Total Protein 6.3 L Albumin 2.5 L Globulin 3.8 Albumin/Globulin Ratio 0.7 L Assessment/Plan All Active Problems (Last Reviewed 04/01/18 @ 09:58 by Darlene Kumar, ANIMAL BIOLOGIST-C) Closed left hip fracture (Acute) Hemorrhoids (Acute) Hemorrhoids with complication (Acute) Chest pain (Acute) Rectal bleeding (Acute) S/P inguinal hernia repair (Acute) Inguinal hernia of left side without obstruction or gangrene (Acute) Rheumatic mitral stenosis (Acute) Syncope and collapse (Acute) Aortic valve disease, rheumatic (Acute) Screening for intestinal cancer (Acute) Personal history of colonic polyps (Acute) S/P wrist surgery (Resolved) S/P shoulder surgery (Resolved) Status post knee surgery (Resolved) S/P hemorrhoidectomy (Acute) Chronic anticoagulation (Acute) Fracture of fourth cervical vertebra (Acute) Orthostatic hypotension (Acute) DDD (degenerative disc disease), lumbar (Acute) Spondylosis of lumbar region without myelopathy or radiculopathy (Acute) Murmur, cardiac (Acute) Knee locking (Acute) Solitary lung nodule (Acute) Diverticulosis (Acute) Malignant neoplasm of bladder (Acute) Disorders of bursae and tendons in shoulder region, unspecified (Acute) DVT of lower extremity, bilateral (Acute) Dysphagia (Acute) Fracture of C4 vertebra, closed (Acute) Status post tracheostomy (Acute) S/P percutaneous endoscopic gastrostomy (PEG) tube placement (Resolved) 1. Left hip fracture * Status post ORIF * Continue with pain control * Follow-up with his orthopedic surgeon as previously prescribed * Check a 25-hydroxy vitamin D level 2. Acute blood loss anemia * Presumed * Hemoglobin is 10.2 and his hemoglobin from November 20 was 13.9 at that time. * No indication for transfusions 3. Atrial fibrillation * Continue with amiodarone and Xarelto. 4. Alcohol abuse * Presumably the patient last drink would have been either the day of her day before he presented * Patient states he only drinks 3 beers per day * Patient already on a multivitamin 5. Hypertension * Stable * Continue with lisinopril 6. DVT prophylaxis: Patient is anticoagulated on Xarelto. Code Visit Inpatient E&M: 18371 Init Hosp L2
[2018-06-09 15:46] LABS: Vitamin D,25 Hydroxy 28.2 ng/mL (29.95-100.01)
[2018-06-09 18:50] VITALS: PULSE 82; RESP 16; O2SAT 96
[2018-06-09 19:52] VITALS: BP 99/41; PULSE 76; RESP 18; TEMP 36.5; O2SAT 96
[2018-06-10] MEDS: Thiamine Hydrochloride 100 MG Tablet PO ×3 (06:40→21:45)
[2018-06-10] MEDS: HYDROcodone Bitartrate/Apap 5/325 Tablet PO ×3 (06:40→21:45)
[2018-06-10 06:46] VITALS: PULSE 79; RESP 18; O2SAT 98
[2018-06-10] MEDS: Albuterol 2.5 MG/3 ML VIAL.NEB. INHALATION (06:46)
[2018-06-10 07:05] VITALS: BP 134/72; PULSE 68; RESP 12; TEMP 36.6; O2SAT 94
[2018-06-10] MEDS: Rivaroxaban 20 MG Tablet PO (08:05)
[2018-06-10] MEDS: Folic Acid 1 MG Tablet 0.5 MG PO (08:05)
[2018-06-10] MEDS: Amiodarone 200 MG Tablet PO (08:06)
[2018-06-10] MEDS: Senna/Docusate Sodium 1 Tablet 2 TABLET PO ×2 (08:06→21:45)
[2018-06-10] MEDS: Calcium Carb/Vitamin D 1 TABLET Tablet PO (08:06)
[2018-06-10] MEDS: Cyanocobalamin 500 MCG Tablet 1000 MCG PO (08:06)
[2018-06-10] MEDS: Lisinopril 2.5 MG Tablet PO (08:06)
[2018-06-10] MEDS: Ascorbic Acid 500 MG Tablet PO ×2 (08:06→21:45)
[2018-06-10] MEDS: Multivitamins,Therapeutic Tablet 1 TABLET PO ×2 (08:07)
[2018-06-10] MEDS: Fluticasone 0.05% 1 SPRAY NASAL.SRY 2 SPRAY NASAL (08:07)
[2018-06-10] MEDS: Polyethylene Glycol 3350 17 GM PACKET PO (08:08)
[2018-06-10] MEDS: Umeclidinium Bromide Inhaler 1 PUFF IH (08:08)
--- NOTE | 2018-06-10 10:45 | PCM.PN.NEU ---
Patient Problems: Active and Suspected Problems (Last Reviewed 06/09/18 @ 13:23 by Abdi Hammond DO) Closed left hip fracture (Acute) Subjective: Patient seen and examined. No new complaints. Tolerating therapy. ORIF left femur, incision site is C/D/I, minimal drainage noted, some slight swelling along incision, no redness is noted. No issues with GI/. - Physical Exam General: Alert, Oriented x3, Cooperative HEENT: Atraumatic, PERRLA, EOMI, Normocephalic Neck: Supple, No JVD, Negative Carotid Bruits Lungs: Clear to auscultation, Normal air movement Cardiovascular: Regular rate, No murmurs Abdomen: Bowel Sounds Present, Soft, Non Tender Extremities: No edema, Capillary Refill Less than 3 Seconds Skin: No rashes, No breakdown Musculoskeletal: No Tenderness to Palpation of Joints or Extremities Neurological: Cranial nerves II-XII grossly intact Psych/Mental Status: Normal Affect, Appropriate, Alert and oriented to time, place, person, mood and affect Vital Signs Temp Pulse Resp BP Pulse Ox 97.9 F 68 12 134/72 H 94 06/10/18 07:05 06/10/18 07:05 06/10/18 07:05 06/10/18 07:05 06/10/18 07:05 Oxygen Delivery Method Room Air Weight: 78 kg Body Mass Index (BMI) 24.0 Intake and Output for Last 24 Hours 06/08/18 06/09/18 06/10/18 23:59 23:59 23:59 Intake Total 240 / 240 Output Total 350 / 350 Balance -350 / -350 240 / 240 Laboratory Tests Past 24 Hrs 06/09/18 14:40 Vitamin D 25-Hydroxy 28.2 L Active Medications Hydrocodone Bitart/Acetaminophen ([place] 5mg-325mg) 1 - 2 tablet PO Q6H PRN PRN PRN Reason: MOD-SEVERE PAIN (4-10/10) Last Admin: 06/10/18 06:40 Dose: 1 tablet Al Hydroxide/Mg Hydroxide (Mylanta Ii) 30 ml PO Q4H PRN PRN PRN Reason: INDIGESTION Albuterol Sulfate (Ventolin Aerosols) 2.5 mg INHALATION Q6HWA.RT [facility] Last Admin: 06/10/18 06:46 Dose: 2.5 mg Amiodarone HCl (Cordarone) 200 mg PO DAILY [facility] Last Admin: 06/10/18 08:06 Dose: 200 mg Ascorbic Acid (Vitamin C) 500 mg PO BID [facility] Last Admin: 06/10/18 08:06 Dose: 500 mg Bisacodyl (Dulcolax) 10 mg RECTAL .PRN X 1 PRN PRN Reason: Constipation Calcium/Vitamin D (Os-Osvaldo 500mg + D) 1 tablet PO DAILY@0800 [facility] Last Admin: 06/10/18 08:06 Dose: 1 tablet Cyanocobalamin (Vitamin B12) 1,000 mcg PO DAILY@0800 [facility] Last Admin: 06/10/18 08:06 Dose: 1,000 mcg Fluticasone Propionate (Flonase Nasal [place]) 2 spray NASAL DAILY [facility] Last Admin: 06/10/18 08:07 Dose: 2 spray Folic Acid (Folic Acid) 0.5 mg PO DAILY@0800 [facility] Last Admin: 06/10/18 08:05 Dose: 0.5 mg Guaifenesin (Mucinex) 600 mg PO Q12H PRN PRN Reason: CONGESTION Lisinopril (Zestril) 2.5 mg PO DAILY [facility] Last Admin: 06/10/18 08:06 Dose: 2.5 mg Magnesium Hydroxide (Milk Of Magnesia) 30 ml PO .PRN X 1 PRN PRN Reason: Constipation Last Admin: 06/09/18 01:25 Dose: 30 ml Multivitamins (Multivitamin) 1 tablet PO DAILY@0800 [facility] Last Admin: 06/10/18 08:07 Dose: 1 tablet Nutritional Formula (Lactose Free) (Ensure Enlive) 120 ml PO 4X/DAY [facility] Last Admin: 06/10/18 08:09 Dose: 120 ml Ondansetron HCl (Zofran Odt) 4 mg PO Q6H PRN PRN PRN Reason: NAUSEA Polyethylene Glycol (Miralax) 17 gm PO DAILY [facility] Last Admin: 06/10/18 08:08 Dose: 17 gm Rivaroxaban (Xarelto) 20 mg PO DAILY [facility] Last Admin: 06/10/18 08:05 Dose: 20 mg Senna/Docusate Sodium (Senokot-S, Beronica-Colace) 2 tablet PO BID [facility] Last Admin: 06/10/18 08:06 Dose: 2 tablet Thiamine HCl (Vitamin B1) 100 mg PO TID [facility] Last Admin: 10/17/18 06:40 Dose: 100 mg Medical Necessity - Tobacco Use Smoking Status: Current every day smoker Tobacco Use: Cigars Assessment/Plan All Active Problems (Last Reviewed 06/09/18 @ 13:23 by Abdi Hammond DO) Closed left hip fracture (Acute) Hemorrhoids (Acute) Hemorrhoids with complication (Acute) Chest pain (Acute) Rectal bleeding (Acute) S/P inguinal hernia repair (Acute) Inguinal hernia of left side without obstruction or gangrene (Acute) Rheumatic mitral stenosis (Acute) Syncope and collapse (Acute) Aortic valve disease, rheumatic (Acute) Screening for intestinal cancer (Acute) Personal history of colonic polyps (Acute) S/P wrist surgery (Resolved) S/P shoulder surgery (Resolved) Status post knee surgery (Resolved) S/P hemorrhoidectomy (Acute) Chronic anticoagulation (Acute) Fracture of fourth cervical vertebra (Acute) Orthostatic hypotension (Acute) DDD (degenerative disc disease), lumbar (Acute) Spondylosis of lumbar region without myelopathy or radiculopathy (Acute) Murmur, cardiac (Acute) Knee locking (Acute) Solitary lung nodule (Acute) Diverticulosis (Acute) Malignant neoplasm of bladder (Acute) Disorders of bursae and tendons in shoulder region, unspecified (Acute) DVT of lower extremity, bilateral (Acute) Dysphagia (Acute) Fracture of C4 vertebra, closed (Acute) Status post tracheostomy (Acute) S/P percutaneous endoscopic gastrostomy (PEG) tube placement (Resolved) Debility left hip fracture s/p ORIF, complicated by ETOH abuse, acute blood loss anemia, HTN and Afib on Xarelto. Goal of rehab is jewish of functional independence. Plan: - Physical therapy for gait and balance - Occupational Therapy for ADLs - Speech therapy - As needed analgesics - Bowel protocol - DVT prophylaxis: SCDs, Keegan hoses, and Xarelto - Hx of HTN: Stable with good control, continue home dose of Lisinopril - Hx A-Fib => continue amiodarone and Xarelto - ETOH Abuse (patient states he only drinks 3 beers a day) => continue Multivitamin, Folic Acid and thiamine - Acute blood loss anemia 2/2 surgery for ORIF of left femur fracture, last Hgb was 10.2 - Left hip fracture => s/p ORIF Incision is C/D/I, schedule follow up visit with Orthopedic surgeon on discharge from unit.
--- NOTE | 2018-06-10 16:51 | CHAPLAIN ---
Type of Pastoral Visit _x__ Initial Visit ___ Follow-up Visit ___ On-call Visit ___ General Patient Visit ___ Spiritual Assessment ___ Family Conference ___ Bereavement ___ Rapid Response ___ Code Blue ___ Other (describe below) Pastoral Care Referral From _x__ Patient ___ Family ___ Nurse ___ Physician ___ City Bailiff ___ Electroencephalograph Technician ___ Other (describe below) Sacrament/Intervention _x__ Active listening ___ Anointing ___ Oriental Orthodox ___ Bereavement ___ Communion _x__ Tasia exploration ___ ___ Life review _x__ Prayer ___ Reconciliation ___ Sacrament of Sick _x__ Supportive presence ___ Wedding ___ Other (describe below) Pastoral Comments good pleasant conversation; patient with positive attitude; spouse is with pt; 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
[2018-06-10 18:30] VITALS: PULSE 81; RESP 17; O2SAT 94
[2018-06-10 21:30] VITALS: BP 140/65; PULSE 76; RESP 20; TEMP 36.4; O2SAT 96
--- NOTE | 2018-06-11 04:47 | NURSING ---
Reviewed and agree with LABOR CONTRACT ANALYST documentation and FIMs charting.
[2018-06-11] MEDS: Thiamine Hydrochloride 100 MG Tablet PO ×3 (06:37→19:58)
[2018-06-11] MEDS: HYDROcodone Bitartrate/Apap 5/325 Tablet PO ×2 (06:37→17:57)
[2018-06-11 08:32] VITALS: BP 90/46; PULSE 73; RESP 18; TEMP 36.8; O2SAT 97
[2018-06-11] MEDS: Umeclidinium Bromide Inhaler 1 PUFF IH (08:32)
[2018-06-11] MEDS: Multivitamins,Therapeutic Tablet 1 TABLET PO (08:32)
[2018-06-11] MEDS: Rivaroxaban 20 MG Tablet PO (08:32)
[2018-06-11] MEDS: Senna/Docusate Sodium 1 Tablet 2 TABLET PO ×2 (08:32→19:57)
[2018-06-11] MEDS: Folic Acid 1 MG Tablet 0.5 MG PO (08:32)
[2018-06-11] MEDS: Ascorbic Acid 500 MG Tablet PO ×2 (08:32→19:57)
[2018-06-11] MEDS: Cyanocobalamin 500 MCG Tablet 1000 MCG PO (08:33)
[2018-06-11] MEDS: Fluticasone 0.05% 1 SPRAY NASAL.SRY 2 SPRAY NASAL (08:33)
[2018-06-11] MEDS: Amiodarone 200 MG Tablet PO (08:33)
[2018-06-11] MEDS: Calcium Carb/Vitamin D 1 TABLET Tablet PO (08:33)
[2018-06-11] MEDS: Polyethylene Glycol 3350 17 GM PACKET PO (08:34)
--- NOTE | 2018-06-11 16:46 | PCM.PN.NEU ---
Patient Problems: Active and Suspected Problems (Last Reviewed 06/09/18 @ 13:23 by Abdi Hammond DO) Closed left hip fracture (Acute) Subjective: Patient seen and examined. No new complaints. Tolerating therapy. Incision is C/D/I. - Physical Exam General: Alert, Oriented x3, Cooperative HEENT: Atraumatic, PERRLA, EOMI, Normocephalic Neck: Supple, No JVD, Negative Carotid Bruits Lungs: Clear to auscultation, Normal air movement Cardiovascular: Regular rate, No murmurs Abdomen: Bowel Sounds Present, Soft, Non Tender Extremities: No edema, Capillary Refill Less than 3 Seconds Skin: No rashes, No breakdown Musculoskeletal: No Tenderness to Palpation of Joints or Extremities Neurological: Cranial nerves II-XII grossly intact Psych/Mental Status: Normal Affect, Appropriate, Alert and oriented to time, place, person, mood and affect Vital Signs Temp Pulse Resp BP Pulse Ox 98.2 F 73 18 90/46 L 97 06/11/18 08:32 06/11/18 08:32 06/11/18 08:32 06/11/18 08:32 06/11/18 08:32 Oxygen Delivery Method Room Air Weight: 70.307 kg Body Mass Index (BMI) 24.0 Intake and Output for Last 24 Hours 06/09/18 06/10/18 06/11/18 23:59 23:59 23:59 Intake Total 240 / 240 240 / 240 Output Total 300 / 300 Balance 240 / 240 -300 / -300 240 / 240 Active Medications Hydrocodone Bitart/Acetaminophen ([place] 5mg-325mg) 1 - 2 tablet PO Q6H PRN PRN PRN Reason: MOD-SEVERE PAIN (4-10/10) Last Admin: 06/11/18 06:37 Dose: 1 tablet Al Hydroxide/Mg Hydroxide (Mylanta Ii) 30 ml PO Q4H PRN PRN PRN Reason: INDIGESTION Albuterol Sulfate (Ventolin Aerosols) 2.5 mg INHALATION Q6HWA.RT [facility] Last Admin: 06/11/18 13:00 Dose: Not Given Amiodarone HCl (Cordarone) 200 mg PO DAILY [facility] Last Admin: 06/11/18 08:33 Dose: 200 mg Ascorbic Acid (Vitamin C) 500 mg PO BID [facility] Last Admin: 06/11/18 08:32 Dose: 500 mg Bisacodyl (Dulcolax) 10 mg RECTAL .PRN X 1 PRN PRN Reason: Constipation Calcium/Vitamin D (Os-Osvaldo 500mg + D) 1 tablet PO DAILY@0800 [facility] Last Admin: 06/11/18 08:33 Dose: 1 tablet Cyanocobalamin (Vitamin B12) 1,000 mcg PO DAILY@0800 [facility] Last Admin: 06/11/18 08:33 Dose: 1,000 mcg Fluticasone Propionate (Flonase Nasal [place]) 2 spray NASAL DAILY [facility] Last Admin: 06/11/18 08:33 Dose: 2 spray Folic Acid (Folic Acid) 0.5 mg PO DAILY@0800 [facility] Last Admin: 06/11/18 08:32 Dose: 0.5 mg Guaifenesin (Mucinex) 600 mg PO Q12H PRN PRN Reason: CONGESTION Lisinopril (Zestril) 2.5 mg PO DAILY [facility] Last Admin: 06/11/18 10:17 Dose: Not Given Magnesium Hydroxide (Milk Of Magnesia) 30 ml PO .PRN X 1 PRN PRN Reason: Constipation Last Admin: 06/09/18 01:25 Dose: 30 ml Multivitamins (Multivitamin) 1 tablet PO DAILY@0800 [facility] Last Admin: 06/11/18 08:32 Dose: 1 tablet Nutritional Formula (Lactose Free) (Ensure Enlive) 120 ml PO 4X/DAY [facility] Last Admin: 06/11/18 13:30 Dose: 120 ml Ondansetron HCl (Zofran Odt) 4 mg PO Q6H PRN PRN PRN Reason: NAUSEA Polyethylene Glycol (Miralax) 17 gm PO DAILY [facility] Last Admin: 06/11/18 08:34 Dose: 17 gm Rivaroxaban (Xarelto) 20 mg PO DAILY [facility] Last Admin: 06/11/18 08:32 Dose: 20 mg Senna/Docusate Sodium (Senokot-S, Beronica-Colace) 2 tablet PO BID [facility] Last Admin: 06/11/18 08:32 Dose: 2 tablet Thiamine HCl (Vitamin B1) 100 mg PO TID [facility] Last Admin: 06/11/18 13:32 Dose: 100 mg Medical Necessity - Tobacco Use Smoking Status: Current every day smoker Tobacco Use: Cigars Assessment/Plan All Active Problems (Last Reviewed 06/09/18 @ 13:23 by Abdi Hammond, DO) Closed left hip fracture (Acute) Hemorrhoids (Acute) Hemorrhoids with complication (Acute) Chest pain (Acute) Rectal bleeding (Acute) S/P inguinal hernia repair (Acute) Inguinal hernia of left side without obstruction or gangrene (Acute) Rheumatic mitral stenosis (Acute) Syncope and collapse (Acute) Aortic valve disease, rheumatic (Acute) Screening for intestinal cancer (Acute) Personal history of colonic polyps (Acute) S/P wrist surgery (Resolved) S/P shoulder surgery (Resolved) Status post knee surgery (Resolved) S/P hemorrhoidectomy (Acute) Chronic anticoagulation (Acute) Fracture of fourth cervical vertebra (Acute) Orthostatic hypotension (Acute) DDD (degenerative disc disease), lumbar (Acute) Spondylosis of lumbar region without myelopathy or radiculopathy (Acute) Murmur, cardiac (Acute) Knee locking (Acute) Solitary lung nodule (Acute) Diverticulosis (Acute) Malignant neoplasm of bladder (Acute) Disorders of bursae and tendons in shoulder region, unspecified (Acute) DVT of lower extremity, bilateral (Acute) Dysphagia (Acute) Fracture of C4 vertebra, closed (Acute) Status post tracheostomy (Acute) S/P percutaneous endoscopic gastrostomy (PEG) tube placement (Resolved) Debility left hip fracture s/p ORIF, complicated by ETOH abuse, acute blood loss anemia, HTN and Afib on Xarelto. Goal of rehab is quaker of functional independence. Plan: - Physical therapy for gait and balance - Occupational Therapy for ADLs - Speech therapy - As needed analgesics - Bowel protocol - DVT prophylaxis: SCDs, Keegan hoses, and Xarelto - Hx of HTN: Stable with good control, continue home dose of Lisinopril - Hx A-Fib => continue amiodarone and Xarelto - ETOH Abuse (patient states he only drinks 3 beers a day) => continue Multivitamin, Folic Acid and thiamine - Acute blood loss anemia 2/2 surgery for ORIF of left femur fracture, last Hgb was 10.2 - Left hip fracture => s/p ORIF Incision is C/D/I, schedule follow up visit with Orthopedic surgeon on discharge from unit.
[2018-06-11] MEDS: Albuterol 2.5 MG/3 ML VIAL.NEB. INHALATION (16:56)
[2018-06-11 16:57] VITALS: PULSE 72; RESP 16; O2SAT 98
[2018-06-11 18:33] VITALS: BP 101/54; PULSE 76; RESP 16; TEMP 36.9; O2SAT 99
[2018-06-11 19:30] VITALS: BP 122/63; PULSE 73; RESP 18; TEMP 36.6; O2SAT 96
[2018-06-12] MEDS: Thiamine Hydrochloride 100 MG Tablet PO ×3 (05:34→21:08)
[2018-06-12] MEDS: HYDROcodone Bitartrate/Apap 5/325 Tablet PO (05:44)
[2018-06-12 07:25] VITALS: O2SAT 96
[2018-06-12] MEDS: Calcium Carb/Vitamin D 1 TABLET Tablet PO (09:01)
[2018-06-12] MEDS: Folic Acid 1 MG Tablet 0.5 MG PO (09:01)
[2018-06-12] MEDS: Amiodarone 200 MG Tablet PO (09:02)
[2018-06-12] MEDS: Fluticasone 0.05% 1 SPRAY NASAL.SRY 2 SPRAY NASAL (09:02)
[2018-06-12] MEDS: Cyanocobalamin 500 MCG Tablet 1000 MCG PO (09:02)
[2018-06-12] MEDS: Rivaroxaban 20 MG Tablet PO (09:03)
[2018-06-12] MEDS: Polyethylene Glycol 3350 17 GM PACKET PO (09:03)
[2018-06-12] MEDS: Ascorbic Acid 500 MG Tablet PO ×2 (09:03→21:08)
[2018-06-12] MEDS: Umeclidinium Bromide Inhaler 1 PUFF IH (09:03)
[2018-06-12] MEDS: Senna/Docusate Sodium 1 Tablet 2 TABLET PO ×2 (09:03→21:08)
[2018-06-12] MEDS: Lisinopril 2.5 MG Tablet PO (09:06)
[2018-06-12 10:00] VITALS: BP 143/72; PULSE 67; RESP 18; TEMP 36.8; O2SAT 95
[2018-06-12 20:41] VITALS: BP 126/67; PULSE 68; RESP 16; TEMP 36.7; O2SAT 96
[2018-06-13] MEDS: Thiamine Hydrochloride 100 MG Tablet PO ×3 (05:25→19:41)
[2018-06-13] MEDS: HYDROcodone Bitartrate/Apap 5/325 Tablet PO ×2 (05:28→19:50)
[2018-06-13 07:39] VITALS: BP 120/66; PULSE 66; RESP 20; TEMP 36.8; O2SAT 95
[2018-06-13] MEDS: Polyethylene Glycol 3350 17 GM PACKET PO (09:25)
[2018-06-13] MEDS: Multivitamins,Therapeutic Tablet 1 TABLET PO (09:25)
[2018-06-13] MEDS: Amiodarone 200 MG Tablet PO (09:25)
[2018-06-13] MEDS: Folic Acid 1 MG Tablet 0.5 MG PO (09:25)
[2018-06-13] MEDS: Lisinopril 2.5 MG Tablet PO (09:25)
[2018-06-13] MEDS: Senna/Docusate Sodium 1 Tablet 2 TABLET PO ×2 (09:25→19:41)
[2018-06-13] MEDS: Calcium Carb/Vitamin D 1 TABLET Tablet PO (09:25)
[2018-06-13] MEDS: Rivaroxaban 20 MG Tablet PO (09:25)
[2018-06-13] MEDS: Cyanocobalamin 500 MCG Tablet 1000 MCG PO (09:25)
[2018-06-13] MEDS: Ascorbic Acid 500 MG Tablet PO ×2 (09:25→19:41)
[2018-06-13] MEDS: Fluticasone 0.05% 1 SPRAY NASAL.SRY 2 SPRAY NASAL (09:27)
[2018-06-13] MEDS: Umeclidinium Bromide Inhaler 1 PUFF IH (09:27)
[2018-06-13 19:55] VITALS: BP 151/62; PULSE 72; RESP 16; TEMP 36.3; O2SAT 96
--- NOTE | 2018-06-13 23:50 | NURSING ---
Reviewed and agree with LPNs fims and handoff
[2018-06-14] MEDS: Thiamine Hydrochloride 100 MG Tablet PO ×3 (05:21→20:08)
[2018-06-14] MEDS: HYDROcodone Bitartrate/Apap 5/325 Tablet PO ×3 (05:24→21:18)
[2018-06-14 07:42] VITALS: BP 120/70; PULSE 65; RESP 18; TEMP 36.5; O2SAT 96
[2018-06-14] MEDS: Folic Acid 1 MG Tablet 0.5 MG PO (09:59)
[2018-06-14] MEDS: Rivaroxaban 20 MG Tablet PO (10:00)
[2018-06-14] MEDS: Amiodarone 200 MG Tablet PO (10:00)
[2018-06-14] MEDS: Senna/Docusate Sodium 1 Tablet 2 TABLET PO (10:00)
[2018-06-14] MEDS: Calcium Carb/Vitamin D 1 TABLET Tablet PO (10:00)
[2018-06-14] MEDS: Ascorbic Acid 500 MG Tablet PO ×2 (10:00→20:08)
[2018-06-14] MEDS: Lisinopril 2.5 MG Tablet PO (10:00)
[2018-06-14] MEDS: Multivitamins,Therapeutic Tablet 1 TABLET PO (10:00)
[2018-06-14] MEDS: Cyanocobalamin 500 MCG Tablet 1000 MCG PO (10:00)
[2018-06-14] MEDS: Polyethylene Glycol 3350 17 GM PACKET PO (10:01)
[2018-06-14] MEDS: Fluticasone 0.05% 1 SPRAY NASAL.SRY 2 SPRAY NASAL (10:01)
[2018-06-14] MEDS: Umeclidinium Bromide Inhaler 1 PUFF IH (10:01)
[2018-06-14 19:57] VITALS: BP 110/65; PULSE 74; RESP 16; TEMP 36.4; O2SAT 97
--- NOTE | 2018-06-14 22:37 | NURSING ---
Reviewed and agree with LPNs fims and handoff
[2018-06-15] MEDS: HYDROcodone Bitartrate/Apap 5/325 Tablet PO ×2 (06:00→13:59)
[2018-06-15] MEDS: Thiamine Hydrochloride 100 MG Tablet PO ×3 (06:00→21:21)
[2018-06-15 09:08] VITALS: BP 122/61; PULSE 75; RESP 18; TEMP 36.6; O2SAT 98
[2018-06-15] MEDS: Fluticasone 0.05% 1 SPRAY NASAL.SRY 2 SPRAY NASAL (11:50)
[2018-06-15] MEDS: Umeclidinium Bromide Inhaler 1 PUFF IH (11:50)
[2018-06-15] MEDS: Polyethylene Glycol 3350 17 GM PACKET PO (11:51)
[2018-06-15] MEDS: Folic Acid 1 MG Tablet 0.5 MG PO (11:53)
[2018-06-15] MEDS: Multivitamins,Therapeutic Tablet 1 TABLET PO (11:54)
[2018-06-15] MEDS: Calcium Carb/Vitamin D 1 TABLET Tablet PO (11:54)
[2018-06-15] MEDS: Lisinopril 2.5 MG Tablet PO (11:57)
[2018-06-15] MEDS: Senna/Docusate Sodium 1 Tablet 2 TABLET PO ×2 (11:57→21:28)
[2018-06-15] MEDS: Cyanocobalamin 500 MCG Tablet 1000 MCG PO (11:57)
[2018-06-15] MEDS: Amiodarone 200 MG Tablet PO (11:57)
[2018-06-15] MEDS: Rivaroxaban 20 MG Tablet PO (11:57)
[2018-06-15] MEDS: Ascorbic Acid 500 MG Tablet PO ×2 (11:58→21:21)
--- NOTE | 2018-06-15 12:18 | CASEMGMT ---
Team meeting held. Patient present as well as patient spouse. No discharge date set at this time. Patient approved 16 Medicare days with a discharge on or by 06/25/18. Patient plans to discharge to home with spouse at time of discharge. Patient to be re-teamed next week. Patient to continue with further care and treatment on the Inpatient Rehab Unit. Support given. Will continue to follow. Ame KAUFMAN, OFFICE HELPER CLERICAL
--- NOTE | 2018-06-15 15:56 | PCM.PN.NEU ---
Patient Problems: Active and Suspected Problems (Last Reviewed 06/09/18 @ 13:23 by Abdi Hammond DO) Closed left hip fracture (Acute) Subjective: Staffed in team meeting. Family at bedside, questions answered. With Physical therapy, he is able to transfer in and out of bed with minimal assistance, he ocassionally needs help with lifting and moving his leg. He is able to go from a sitting to a standing position at stand by assist. He is able to walk about 20 feet with the walker with a light hand. Using the wheel chair he is able to roll himself all over the unit, without any help. With Occupational therapy, he is able to do all his own personal care at set up level. He requires minimal assistance to do his lower body, and requires a light hand when toileting for safety and balance reasons. With Nursing his incision is C/D/I, no drainage or redness noted along incision line, the Incision is well approximated. His pain is well controlled on current medications. Will re-team again next week Friday 06/22. - Physical Exam General: Alert, Oriented x3, Cooperative HEENT: Atraumatic, PERRLA, EOMI, Normocephalic Neck: Supple, No JVD, Negative Carotid Bruits Lungs: Clear to auscultation, Normal air movement Cardiovascular: Regular rate, No murmurs Abdomen: Bowel Sounds Present, Soft, Non Tender Extremities: No edema, Capillary Refill Less than 3 Seconds Skin: No rashes, No breakdown Musculoskeletal: No Tenderness to Palpation of Joints or Extremities Neurological: Cranial nerves II-XII grossly intact Psych/Mental Status: Normal Affect, Appropriate, Alert and oriented to time, place, person, mood and affect Vital Signs Temp Pulse Resp BP Pulse Ox 97.9 F 75 18 122/61 H 98 06/15/18 09:08 06/15/18 09:08 06/15/18 09:08 06/15/18 09:08 06/15/18 09:08 Oxygen Delivery Method Room Air Weight: 70.3 kg Body Mass Index (BMI) 24.0 Intake and Output for Last 24 Hours 06/13/18 06/14/18 06/15/18 23:59 23:59 23:59 Intake Total 360 / 360 480 / 480 Balance 360 / 360 480 / 480 Active Medications Hydrocodone Bitart/Acetaminophen ([place] 5mg-325mg) 1 - 2 tablet PO Q6H PRN PRN PRN Reason: MOD-SEVERE PAIN (4-06/03) Last Admin: 06/15/18 13:59 Dose: 1 tablet Al Hydroxide/Mg Hydroxide (Mylanta Ii) 30 ml PO Q4H PRN PRN PRN Reason: INDIGESTION Amiodarone HCl (Cordarone) 200 mg PO DAILY [facility] Last Admin: 06/15/18 11:57 Dose: 200 mg Ascorbic Acid (Vitamin C) 500 mg PO BID [facility] Last Admin: 06/15/18 11:58 Dose: 500 mg Bisacodyl (Dulcolax) 10 mg RECTAL .PRN X 1 PRN PRN Reason: Constipation Calcium/Vitamin D (Os-Osvaldo 500mg + D) 1 tablet PO DAILY@0800 [facility] Last Admin: 06/15/18 11:54 Dose: 1 tablet Cyanocobalamin (Vitamin B12) 1,000 mcg PO DAILY@0800 [facility] Last Admin: 06/15/18 11:57 Dose: 1,000 mcg Fluticasone Propionate (Flonase Nasal [place]) 2 spray NASAL DAILY [facility] Last Admin: 06/15/18 11:50 Dose: 1 spray Folic Acid (Folic Acid) 0.5 mg PO DAILY@0800 [facility] Last Admin: 06/15/18 11:53 Dose: 0.5 mg Guaifenesin (Mucinex) 600 mg PO Q12H PRN PRN Reason: CONGESTION Lisinopril (Zestril) 2.5 mg PO DAILY [facility] Last Admin: 06/15/18 11:57 Dose: 2.5 mg Magnesium Hydroxide (Milk Of Magnesia) 30 ml PO .PRN X 1 PRN PRN Reason: Constipation Last Admin: 06/09/18 01:25 Dose: 30 ml Multivitamins (Multivitamin) 1 tablet PO DAILY@0800 [facility] Last Admin: 06/15/18 11:54 Dose: 1 tablet Nutritional Formula (Lactose Free) (Ensure Enlive) 120 ml PO 4X/DAY [facility] Last Admin: 06/15/18 13:59 Dose: 120 ml Ondansetron HCl (Zofran Odt) 4 mg PO Q6H PRN PRN PRN Reason: NAUSEA Polyethylene Glycol (Miralax) 17 gm PO DAILY [facility] Last Admin: 06/15/18 11:51 Dose: 17 gm Rivaroxaban (Xarelto) 20 mg PO DAILY [facility] Last Admin: 06/15/18 11:57 Dose: 20 mg Senna/Docusate Sodium (Senokot-S, Beronica-Colace) 2 tablet PO BID [facility] Last Admin: 06/15/18 11:57 Dose: 2 tablet Thiamine HCl (Vitamin B1) 100 mg PO TID [facility] Last Admin: 06/15/18 13:59 Dose: 100 mg Medical Necessity - Tobacco Use Smoking Status: Current every day smoker Tobacco Use: Cigars Assessment/Plan All Active Problems (Last Reviewed 06/09/18 @ 13:23 by Abdi Hammond, DO) Closed left hip fracture (Acute) Hemorrhoids (Acute) Hemorrhoids with complication (Acute) Chest pain (Acute) Rectal bleeding (Acute) S/P inguinal hernia repair (Acute) Inguinal hernia of left side without obstruction or gangrene (Acute) Rheumatic mitral stenosis (Acute) Syncope and collapse (Acute) Aortic valve disease, rheumatic (Acute) Screening for intestinal cancer (Acute) Personal history of colonic polyps (Acute) S/P wrist surgery (Resolved) S/P shoulder surgery (Resolved) Status post knee surgery (Resolved) S/P hemorrhoidectomy (Acute) Chronic anticoagulation (Acute) Fracture of fourth cervical vertebra (Acute) Orthostatic hypotension (Acute) DDD (degenerative disc disease), lumbar (Acute) Spondylosis of lumbar region without myelopathy or radiculopathy (Acute) Murmur, cardiac (Acute) Knee locking (Acute) Solitary lung nodule (Acute) Diverticulosis (Acute) Malignant neoplasm of bladder (Acute) Disorders of bursae and tendons in shoulder region, unspecified (Acute) DVT of lower extremity, bilateral (Acute) Dysphagia (Acute) Fracture of C4 vertebra, closed (Acute) Status post tracheostomy (Acute) S/P percutaneous endoscopic gastrostomy (PEG) tube placement (Resolved) Debility left hip fracture s/p ORIF, complicated by ETOH abuse, acute blood loss anemia, HTN and Afib on Xarelto. Goal of rehab is nondenominational of functional independence. Plan: - Physical therapy for gait and balance - Occupational Therapy for ADLs - Speech therapy - As needed analgesics - Bowel protocol - DVT prophylaxis: SCDs, Keegan hoses, and Xarelto - Hx of HTN: Stable with good control, continue home dose of Lisinopril - Hx A-Fib => continue amiodarone and Xarelto - ETOH Abuse (patient states he only drinks 3 beers a day) => continue Multivitamin, Folic Acid and thiamine - Acute blood loss anemia 2/2 surgery for ORIF of left femur fracture, last Hgb was 10.2 - Left hip fracture => s/p ORIF Incision is C/D/I, schedule follow up visit with Orthopedic surgeon on discharge from unit.
--- NOTE | 2018-06-15 16:06 | PN.NEURO_ITS ---
Patient Problems: Active and Suspected Problems (Last Reviewed 06/09/18 @ 13:23 by Abdi Hammond DO) Closed left hip fracture (Acute) Subjective: Staffed in team meeting. Family at bedside, questions answered. With Physical therapy, he is able to transfer in and out of bed with minimal assistance, he ocassionally needs help with lifting and moving his leg. He is able to go from a sitting to a standing position at stand by assist. He is able to walk about 20 feet with the walker with a light hand. Using the wheel chair he is able to roll himself all over the unit, without any help. With Occupational therapy, he is able to do all his own personal care at set up level. He requires minimal assistance to do his lower body, and requires a light hand when toileting for safety and balance reasons. With Nursing his incision is C/D/I, no drainage or redness noted along incision line, the Incision is well approximated. His pain is well controlled on current medications. Will re-team again next week Friday 06/22. - Physical Exam General: Alert, Oriented x3, Cooperative HEENT: Atraumatic, PERRLA, EOMI, Normocephalic Neck: Supple, No JVD, Negative Carotid Bruits Lungs: Clear to auscultation, Normal air movement Cardiovascular: Regular rate, No murmurs Abdomen: Bowel Sounds Present, Soft, Non Tender Extremities: No edema, Capillary Refill Less than 3 Seconds Skin: No rashes, No breakdown Musculoskeletal: No Tenderness to Palpation of Joints or Extremities Neurological: Cranial nerves II-XII grossly intact Psych/Mental Status: Normal Affect, Appropriate, Alert and oriented to time, place, person, mood and affect Vital Signs Temp Pulse Resp BP Pulse Ox 97.9 F 75 18 122/61 H 98 06/15/18 09:08 06/15/18 09:08 06/15/18 09:08 06/15/18 09:08 06/15/18 09:08 Oxygen Delivery Method Room Air Weight: 70.3 kg Body Mass Index (BMI) 24.0 Intake and Output for Last 24 Hours 06/13/18 06/14/18 06/15/18 23:59 23:59 23:59 Intake Total 360 / 360 480 / 480 Balance 360 / 360 480 / 480 Active Medications Hydrocodone Bitart/Acetaminophen ([place] 5mg-325mg) 1 - 2 tablet PO Q6H PRN PRN PRN Reason: MOD-SEVERE PAIN (4-06/03) Last Admin: 06/15/18 13:59 Dose: 1 tablet Al Hydroxide/Mg Hydroxide (Mylanta Ii) 30 ml PO Q4H PRN PRN PRN Reason: INDIGESTION Amiodarone HCl (Cordarone) 200 mg PO DAILY [facility] Last Admin: 06/15/18 11:57 Dose: 200 mg Ascorbic Acid (Vitamin C) 500 mg PO BID [facility] Last Admin: 06/15/18 11:58 Dose: 500 mg Bisacodyl (Dulcolax) 10 mg RECTAL .PRN X 1 PRN PRN Reason: Constipation Calcium/Vitamin D (Os-Osvaldo 500mg + D) 1 tablet PO DAILY@0800 [facility] Last Admin: 06/15/18 11:54 Dose: 1 tablet Cyanocobalamin (Vitamin B12) 1,000 mcg PO DAILY@0800 [facility] Last Admin: 06/15/18 11:57 Dose: 1,000 mcg Fluticasone Propionate (Flonase Nasal [place]) 2 spray NASAL DAILY [facility] Last Admin: 06/15/18 11:50 Dose: 1 spray Folic Acid (Folic Acid) 0.5 mg PO DAILY@0800 [facility] Last Admin: 06/15/18 11:53 Dose: 0.5 mg Guaifenesin (Mucinex) 600 mg PO Q12H PRN PRN Reason: CONGESTION Lisinopril (Zestril) 2.5 mg PO DAILY [facility] Last Admin: 06/15/18 11:57 Dose: 2.5 mg Magnesium Hydroxide (Milk Of Magnesia) 30 ml PO .PRN X 1 PRN PRN Reason: Constipation Last Admin: 06/09/18 01:25 Dose: 30 ml Multivitamins (Multivitamin) 1 tablet PO DAILY@0800 [facility] Last Admin: 06/15/18 11:54 Dose: 1 tablet Nutritional Formula (Lactose Free) (Ensure Enlive) 120 ml PO 4X/DAY [facility] Last Admin: 06/15/18 13:59 Dose: 120 ml Ondansetron HCl (Zofran Odt) 4 mg PO Q6H PRN PRN PRN Reason: NAUSEA Polyethylene Glycol (Miralax) 17 gm PO DAILY [facility] Last Admin: 06/15/18 11:51 Dose: 17 gm Rivaroxaban (Xarelto) 20 mg PO DAILY [facility] Last Admin: 06/15/18 11:57 Dose: 20 mg Senna/Docusate Sodium (Senokot-S, Beronica-Colace) 2 tablet PO BID [facility] Last Admin: 06/15/18 11:57 Dose: 2 tablet Thiamine HCl (Vitamin B1) 100 mg PO TID [facility] Last Admin: 06/15/18 13:59 Dose: 100 mg Medical Necessity - Tobacco Use Smoking Status: Current every day smoker Tobacco Use: Cigars Assessment/Plan All Active Problems (Last Reviewed 06/09/18 @ 13:23 by Abdi Hammond, DO) Closed left hip fracture (Acute) Hemorrhoids (Acute) Hemorrhoids with complication (Acute) Chest pain (Acute) Rectal bleeding (Acute) S/P inguinal hernia repair (Acute) Inguinal hernia of left side without obstruction or gangrene (Acute) Rheumatic mitral stenosis (Acute) Syncope and collapse (Acute) Aortic valve disease, rheumatic (Acute) Screening for intestinal cancer (Acute) Personal history of colonic polyps (Acute) S/P wrist surgery (Resolved) S/P shoulder surgery (Resolved) Status post knee surgery (Resolved) S/P hemorrhoidectomy (Acute) Chronic anticoagulation (Acute) Fracture of fourth cervical vertebra (Acute) Orthostatic hypotension (Acute) DDD (degenerative disc disease), lumbar (Acute) Spondylosis of lumbar region without myelopathy or radiculopathy (Acute) Murmur, cardiac (Acute) Knee locking (Acute) Solitary lung nodule (Acute) Diverticulosis (Acute) Malignant neoplasm of bladder (Acute) Disorders of bursae and tendons in shoulder region, unspecified (Acute) DVT of lower extremity, bilateral (Acute) Dysphagia (Acute) Fracture of C4 vertebra, closed (Acute) Status post tracheostomy (Acute) S/P percutaneous endoscopic gastrostomy (PEG) tube placement (Resolved) Debility left hip fracture s/p ORIF, complicated by ETOH abuse, acute blood loss anemia, HTN and Afib on Xarelto. Goal of rehab is protestant of functional independence. Plan: - Physical therapy for gait and balance - Occupational Therapy for ADLs - Speech therapy - As needed analgesics - Bowel protocol - DVT prophylaxis: SCDs, Keegan hoses, and Xarelto - Hx of HTN: Stable with good control, continue home dose of Lisinopril - Hx A-Fib => continue amiodarone and Xarelto - ETOH Abuse (patient states he only drinks 3 beers a day) => continue Multivitamin, Folic Acid and thiamine - Acute blood loss anemia 2/2 surgery for ORIF of left femur fracture, last Hgb was 10.2 - Left hip fracture => s/p ORIF Incision is C/D/I, schedule follow up visit with Orthopedic surgeon on discharge from unit.
--- NOTE | 2018-06-15 16:07 | CHAPLAIN ---
Type of Pastoral Visit _x__ Initial Visit ___ Follow-up Visit ___ On-call Visit ___ General Patient Visit ___ Spiritual Assessment ___ Family Conference ___ Bereavement ___ Rapid Response ___ Code Blue ___ Other (describe below) Pastoral Care Referral From _x__ Patient ___ Family ___ Nurse ___ Physician ___ Machine Clerical Verifier ___ Senior Engineering Associate ___ Other (describe below) Sacrament/Intervention _x__ Active listening ___ Anointing ___ Moravian ___ Bereavement ___ Communion ___ Tasia exploration ___ ___ Life review ___ Prayer ___ Reconciliation ___ Sacrament of Sick ___ Supportive presence ___ Wedding ___ Other (describe below) Pastoral Comments casual conversation with patient in the hallway as he motors around in his wheelchair; pt says that he is tired of looking at four turcios
[2018-06-15 21:25] VITALS: BP 107/54; PULSE 74; RESP 16; TEMP 36.4; O2SAT 99
--- NOTE | 2018-06-16 03:28 | NURSING ---
Reviewed and agree with QUALITY MEASUREMENT SPECIALIST documentation and FIMs charting.
[2018-06-16] MEDS: Thiamine Hydrochloride 100 MG Tablet PO ×3 (04:25→20:27)
[2018-06-16] MEDS: HYDROcodone Bitartrate/Apap 5/325 Tablet PO ×2 (04:25→22:05)
--- NOTE | 2018-06-16 06:27 | NURSING ---
pt refused twice this morning to get up early to get ready. Pt states he is just not ready to get up early today.
[2018-06-16 08:27] VITALS: BP 106/54; PULSE 79; RESP 16; TEMP 36.4; O2SAT 95
[2018-06-16] MEDS: Multivitamins,Therapeutic Tablet 1 TABLET PO (10:31)
[2018-06-16] MEDS: Cyanocobalamin 500 MCG Tablet 1000 MCG PO (10:31)
[2018-06-16] MEDS: Ascorbic Acid 500 MG Tablet PO ×2 (10:31→20:27)
[2018-06-16] MEDS: Amiodarone 200 MG Tablet PO (10:31)
[2018-06-16] MEDS: Calcium Carb/Vitamin D 1 TABLET Tablet PO (10:31)
[2018-06-16] MEDS: Folic Acid 1 MG Tablet 0.5 MG PO (10:32)
[2018-06-16] MEDS: Fluticasone 0.05% 1 SPRAY NASAL.SRY 2 SPRAY NASAL (10:34)
[2018-06-16] MEDS: Umeclidinium Bromide Inhaler 1 PUFF IH (10:34)
[2018-06-16] MEDS: Polyethylene Glycol 3350 17 GM PACKET PO (10:34)
[2018-06-16] MEDS: Rivaroxaban 20 MG Tablet PO (10:35)
[2018-06-16] MEDS: Senna/Docusate Sodium 1 Tablet 2 TABLET PO ×2 (10:35→20:27)
--- NOTE | 2018-06-16 15:31 | PN.NEURO_ITS ---
Patient Problems: Active and Suspected Problems (Last Reviewed 06/09/18 @ 13:23 by Abdi Hammond DO) Closed left hip fracture (Acute) Subjective: Patient lying quietly in bed napping, easily aroused. Tolerating therapy. Denies any shortness of breath, chest pains or leg pains. Pain is well controlled on current medication. Incision is C/D/I. - Physical Exam General: Alert, Oriented x3, Cooperative HEENT: Atraumatic, PERRLA, EOMI, Normocephalic Neck: Supple, No JVD, Negative Carotid Bruits Lungs: Clear to auscultation, Normal air movement Cardiovascular: Regular rate, No murmurs Abdomen: Bowel Sounds Present, Soft, Non Tender Extremities: No edema, Capillary Refill Less than 3 Seconds Skin: No rashes, No breakdown Musculoskeletal: No Tenderness to Palpation of Joints or Extremities Neurological: Cranial nerves II-XII grossly intact Psych/Mental Status: Normal Affect, Appropriate, Alert and oriented to time, place, person, mood and affect Vital Signs Temp Pulse Resp BP Pulse Ox 97.6 F L 79 16 106/54 L 95 06/16/18 08:27 06/16/18 08:27 06/16/18 08:27 06/16/18 08:27 06/16/18 08:27 Oxygen Delivery Method Room Air Weight: 70.3 kg Body Mass Index (BMI) 24.0 Intake and Output for Last 24 Hours 06/14/18 06/15/18 06/16/18 23:59 23:59 23:59 Intake Total 480 / 480 480 / 480 Balance 480 / 480 480 / 480 Active Medications Hydrocodone Bitart/Acetaminophen ([place] 5mg-325mg) 1 - 2 tablet PO Q6H PRN PRN PRN Reason: MOD-SEVERE PAIN (4-10/10) Last Admin: 06/16/18 04:25 Dose: 1 tablet Al Hydroxide/Mg Hydroxide (Mylanta Ii) 30 ml PO Q4H PRN PRN PRN Reason: INDIGESTION Amiodarone HCl (Cordarone) 200 mg PO DAILY [facility] Last Admin: 06/16/18 10:31 Dose: 200 mg Ascorbic Acid (Vitamin C) 500 mg PO BID [facility] Last Admin: 06/16/18 10:31 Dose: 500 mg Bisacodyl (Dulcolax) 10 mg RECTAL .PRN X 1 PRN PRN Reason: Constipation Calcium/Vitamin D (Os-Osvaldo 500mg + D) 1 tablet PO DAILY@0800 [facility] Last Admin: 06/16/18 10:31 Dose: 1 tablet Cyanocobalamin (Vitamin B12) 1,000 mcg PO DAILY@0800 [facility] Last Admin: 06/16/18 10:31 Dose: 1,000 mcg Fluticasone Propionate (Flonase Nasal [place]) 2 spray NASAL DAILY [facility] Last Admin: 06/16/18 10:34 Dose: 2 spray Folic Acid (Folic Acid) 0.5 mg PO DAILY@0800 [facility] Last Admin: 06/16/18 10:32 Dose: 0.5 mg Guaifenesin (Mucinex) 600 mg PO Q12H PRN PRN Reason: CONGESTION Lisinopril (Zestril) 2.5 mg PO DAILY [facility] Last Admin: 06/16/18 10:32 Dose: Not Given Magnesium Hydroxide (Milk Of Magnesia) 30 ml PO .PRN X 1 PRN PRN Reason: Constipation Last Admin: 06/09/18 01:25 Dose: 30 ml Multivitamins (Multivitamin) 1 tablet PO DAILY@0800 [facility] Last Admin: 06/16/18 10:31 Dose: 1 tablet Nutritional Formula (Lactose Free) (Ensure Enlive) 120 ml PO 4X/DAY [facility] Last Admin: 06/16/18 15:03 Dose: 120 ml Ondansetron HCl (Zofran Odt) 4 mg PO Q6H PRN PRN PRN Reason: NAUSEA Polyethylene Glycol (Miralax) 17 gm PO DAILY [facility] Last Admin: 06/16/18 10:34 Dose: 17 gm Rivaroxaban (Xarelto) 20 mg PO DAILY [facility] Last Admin: 06/16/18 10:35 Dose: 20 mg Senna/Docusate Sodium (Senokot-S, Beronica-Colace) 2 tablet PO BID [facility] Last Admin: 06/16/18 10:35 Dose: 2 tablet Thiamine HCl (Vitamin B1) 100 mg PO TID [facility] Last Admin: 06/16/18 15:03 Dose: 100 mg Medical Necessity - Tobacco Use Smoking Status: Current every day smoker Tobacco Use: Cigars Assessment/Plan All Active Problems (Last Reviewed 06/09/18 @ 13:23 by Abdi Hammond DO) Closed left hip fracture (Acute) Hemorrhoids (Acute) Hemorrhoids with complication (Acute) Chest pain (Acute) Rectal bleeding (Acute) S/P inguinal hernia repair (Acute) Inguinal hernia of left side without obstruction or gangrene (Acute) Rheumatic mitral stenosis (Acute) Syncope and collapse (Acute) Aortic valve disease, rheumatic (Acute) Screening for intestinal cancer (Acute) Personal history of colonic polyps (Acute) S/P wrist surgery (Resolved) S/P shoulder surgery (Resolved) Status post knee surgery (Resolved) S/P hemorrhoidectomy (Acute) Chronic anticoagulation (Acute) Fracture of fourth cervical vertebra (Acute) Orthostatic hypotension (Acute) DDD (degenerative disc disease), lumbar (Acute) Spondylosis of lumbar region without myelopathy or radiculopathy (Acute) Murmur, cardiac (Acute) Knee locking (Acute) Solitary lung nodule (Acute) Diverticulosis (Acute) Malignant neoplasm of bladder (Acute) Disorders of bursae and tendons in shoulder region, unspecified (Acute) DVT of lower extremity, bilateral (Acute) Dysphagia (Acute) Fracture of C4 vertebra, closed (Acute) Status post tracheostomy (Acute) S/P percutaneous endoscopic gastrostomy (PEG) tube placement (Resolved) Debility left hip fracture s/p ORIF, complicated by ETOH abuse, acute blood loss anemia, HTN and Afib on Xarelto. Goal of rehab is gnosticist of functional independence. Plan: - Physical therapy for gait and balance - Occupational Therapy for ADLs - Speech therapy - As needed analgesics - Bowel protocol - DVT prophylaxis: SCDs, Keegan hoses, and Xarelto - Hx of HTN: Stable with good control, continue home dose of Lisinopril - Hx A-Fib => continue amiodarone and Xarelto - ETOH Abuse (patient states he only drinks 3 beers a day) => continue Multivitamin, Folic Acid and thiamine - Acute blood loss anemia 2/2 surgery for ORIF of left femur fracture, last Hgb was 10.2 - Left hip fracture => s/p ORIF Incision is C/D/I, schedule follow up visit with Orthopedic surgeon on discharge from unit.
--- NOTE | 2018-06-16 17:18 | PN_ITS ---
Patient Problems: Active and Suspected Problems (Last Reviewed 06/09/18 @ 13:23 by Abdi Hammond DO) Closed left hip fracture (Acute) Subjective: Patient doing to well, without complaints. Participating in physical therapy well. Vitals/I&O's: Vital Signs Temp Pulse Resp BP Pulse Ox 97.6 F L 79 16 106/54 L 95 06/16/18 08:27 06/16/18 08:27 06/16/18 08:27 06/16/18 08:27 06/16/18 08:27 Oxygen Delivery Method Room Air Weight: 70.3 kg Body Mass Index (BMI) 24.0 Intake and Output for Last 24 Hours 06/14/18 06/15/18 06/16/18 23:59 23:59 23:59 Intake Total 480 / 480 480 / 480 Balance 480 / 480 480 / 480 General: Alert, Oriented x3, Cooperative HEENT: Normocephalic Neck: Supple Lungs: Clear to auscultation, Normal air movement Cardiovascular: Regular rate, No murmurs Abdomen: Bowel Sounds Present, Soft, Non Tender Extremities: No edema Skin: No rashes, No breakdown Musculoskeletal: No Tenderness to Palpation of Joints or Extremities Neurological: Cranial nerves II-XII grossly intact Psych/Mental Status: Normal Affect, Appropriate Current Medications Hydrocodone Bitart/Acetaminophen ([place] 5mg-325mg) 1 - 2 tablet PO Q6H PRN PRN PRN Reason: MOD-SEVERE PAIN (4-10/10) Last Admin: 06/16/18 04:25 Dose: 1 tablet Al Hydroxide/Mg Hydroxide (Mylanta Ii) 30 ml PO Q4H PRN PRN PRN Reason: INDIGESTION Amiodarone HCl (Cordarone) 200 mg PO DAILY [facility] Last Admin: 06/16/18 10:31 Dose: 200 mg Ascorbic Acid (Vitamin C) 500 mg PO BID [facility] Last Admin: 06/16/18 10:31 Dose: 500 mg Bisacodyl (Dulcolax) 10 mg RECTAL .PRN X 1 PRN PRN Reason: Constipation Calcium/Vitamin D (Os-Osvaldo 500mg + D) 1 tablet PO DAILY@0800 [facility] Last Admin: 06/16/18 10:31 Dose: 1 tablet Cyanocobalamin (Vitamin B12) 1,000 mcg PO DAILY@0800 [facility] Last Admin: 06/16/18 10:31 Dose: 1,000 mcg Fluticasone Propionate (Flonase Nasal [place]) 2 spray NASAL DAILY [facility] Last Admin: 06/16/18 10:34 Dose: 2 spray Folic Acid (Folic Acid) 0.5 mg PO DAILY@0800 [facility] Last Admin: 06/16/18 10:32 Dose: 0.5 mg Guaifenesin (Mucinex) 600 mg PO Q12H PRN PRN Reason: CONGESTION Lisinopril (Zestril) 2.5 mg PO DAILY [facility] Last Admin: 06/16/18 10:32 Dose: Not Given Magnesium Hydroxide (Milk Of Magnesia) 30 ml PO .PRN X 1 PRN PRN Reason: Constipation Last Admin: 06/09/18 01:25 Dose: 30 ml Multivitamins (Multivitamin) 1 tablet PO DAILY@0800 [facility] Last Admin: 06/16/18 10:31 Dose: 1 tablet Nutritional Formula (Lactose Free) (Ensure Enlive) 120 ml PO 4X/DAY [facility] Last Admin: 06/16/18 15:03 Dose: 120 ml Ondansetron HCl (Zofran Odt) 4 mg PO Q6H PRN PRN PRN Reason: NAUSEA Polyethylene Glycol (Miralax) 17 gm PO DAILY [facility] Last Admin: 06/16/18 10:34 Dose: 17 gm Rivaroxaban (Xarelto) 20 mg PO DAILY [facility] Last Admin: 06/16/18 10:35 Dose: 20 mg Senna/Docusate Sodium (Senokot-S, Beronica-Colace) 2 tablet PO BID [facility] Last Admin: 06/16/18 10:35 Dose: 2 tablet Thiamine HCl (Vitamin B1) 100 mg PO TID [facility] Last Admin: 06/16/18 15:03 Dose: 100 mg Medical Necessity - Tobacco Use Smoking Status: Current every day smoker Tobacco Use: Cigars Assessment/Plan All Active Problems (Last Reviewed 06/09/18 @ 13:23 by Abdi Hammond DO) Closed left hip fracture (Acute) Hemorrhoids (Acute) Hemorrhoids with complication (Acute) Chest pain (Acute) Rectal bleeding (Acute) S/P inguinal hernia repair (Acute) Inguinal hernia of left side without obstruction or gangrene (Acute) Rheumatic mitral stenosis (Acute) Syncope and collapse (Acute) Aortic valve disease, rheumatic (Acute) Screening for intestinal cancer (Acute) Personal history of colonic polyps (Acute) S/P wrist surgery (Resolved) S/P shoulder surgery (Resolved) Status post knee surgery (Resolved) S/P hemorrhoidectomy (Acute) Chronic anticoagulation (Acute) Fracture of fourth cervical vertebra (Acute) Orthostatic hypotension (Acute) DDD (degenerative disc disease), lumbar (Acute) Spondylosis of lumbar region without myelopathy or radiculopathy (Acute) Murmur, cardiac (Acute) Knee locking (Acute) Solitary lung nodule (Acute) Diverticulosis (Acute) Malignant neoplasm of bladder (Acute) Disorders of bursae and tendons in shoulder region, unspecified (Acute) DVT of lower extremity, bilateral (Acute) Dysphagia (Acute) Fracture of C4 vertebra, closed (Acute) Status post tracheostomy (Acute) S/P percutaneous endoscopic gastrostomy (PEG) tube placement (Resolved) Patient is a 77-year-old male with a history of alcohol abuse, history of DVT, chronic atrial fibrillation on anticoagulation, remote history of bladder cance r,Hypertension and dyslipidemia who was admitted for left hip fracture and is status post rehabilitation. * Blood pressure is adequate with episodes of asymptomatic borderline hypotension. * Continue with current Xarelto. * Will check labs in the morning. * We will continue to follow along.
[2018-06-16 19:17] VITALS: BP 111/61; PULSE 74; RESP 16; TEMP 36.4; O2SAT 100
[2018-06-16 20:00] VITALS: PULSE 74; RESP 16; O2SAT 100
--- NOTE | 2018-06-17 03:19 | NURSING ---
Reviewed and agree with GATE OPERATOR documentation and FIMs charting.
[2018-06-17 05:22] LABS: Absolute Lymphocyte Count 2.33 X10^3/ul (0.83-4.51); Absolute Neutrophil Count 2.1 X10^3/uL (2.0-7.7); Basophil# 0.07 X10^3/uL; Basophil% 1.3 % (0-1); Eosinophil# 0.23 X10^3/uL; Eosinophils% 4.2 % (0-5); Hematocrit 32.3 % (40-54); Hemoglobin 10.8 g/dl (13.0-16.5); Lymphocyte # 2.33 X10^3/ul (4.0); Lymphocyte % 42.2 % (19-41); Mean Corp Hgb Conc 33.4 g/gl (32-36); Mean Corpuscular Hgb 34.7 pg (27.0-32.0); Mean Corpuscular Volume 103.9 fL (80-94); Mean Platelet Vol. 9.7 fl (6.2-12.0); Monocyte# 0.79 X10^3/uL; Monocyte% 14.3 % (0-10); Neutrophil # 2.09 X10^3/uL (2.7-7.7); Neutrophil % 37.8 % (47-70); Platelet Count 392 K/mm3 (150-450); RBC Distribution Width CV 13.6 % (11.6-14.6); RBC Distribution Width SD 50.3 fl (35.1-43.9); Red Blood Count 3.11 M/mm3 (4.6-6.2); White Blood Count 5.5 K/mm3 (4.4-11.0)
[2018-06-17 05:32] LABS: POSITIVE COUNT NO; POSITIVE DIFFERENTIAL NO; POSITIVE MORPHOLOGY NO
[2018-06-17 05:43] LABS: ALB/GLOB Ratio 0.8 RATIO (0.9-2.4); AST(SGOT) 20 U/L (15-37); Alanine Aminotransfer ALT/SGPT 25 U/L (16-61); Alkaline Phosphatase 84 U/L (45-117); Anion Gap 6 (5-15); BUN 30 mg/dL (7-18); BUN/Creat Ratio 28.6 RATIO (10-20); Chloride 99 mmol/L (98-107); Creatinine, Serum 1.05 mg/dL (0.70-1.30); EST Glomerular Filtration Rate 73 mL/min (>60); Est Glom Filt Rate - Afr Amer 88 mL/min (>60); Estimated Creatinine Clearance 58.92 ml/min; Globulin 3.8 g/dL (2.2-4.2); Glucose 91 mg/dL (74-106); Potassium 4.2 mmol/L (3.5-5.1); Protein, Total 6.8 g/dL (6.4-8.2); Sodium Level 135 mmol/L (136-145)
[2018-06-17] MEDS: Thiamine Hydrochloride 100 MG Tablet PO ×3 (06:23→20:45)
[2018-06-17] MEDS: HYDROcodone Bitartrate/Apap 5/325 Tablet PO ×2 (06:23→20:46)
[2018-06-17] MEDS: Umeclidinium Bromide Inhaler 1 PUFF IH (08:26)
[2018-06-17] MEDS: Fluticasone 0.05% 1 SPRAY NASAL.SRY 2 SPRAY NASAL (08:27)
[2018-06-17] MEDS: Multivitamins,Therapeutic Tablet 1 TABLET PO (08:28)
[2018-06-17] MEDS: Polyethylene Glycol 3350 17 GM PACKET PO (08:28)
[2018-06-17] MEDS: Calcium Carb/Vitamin D 1 TABLET Tablet PO (08:28)
[2018-06-17] MEDS: Senna/Docusate Sodium 1 Tablet 2 TABLET PO ×2 (08:28→20:45)
[2018-06-17] MEDS: Lisinopril 2.5 MG Tablet PO (08:28)
[2018-06-17] MEDS: Cyanocobalamin 500 MCG Tablet 1000 MCG PO (08:28)
[2018-06-17] MEDS: Amiodarone 200 MG Tablet PO (08:29)
[2018-06-17] MEDS: Ascorbic Acid 500 MG Tablet PO ×2 (08:29→20:45)
[2018-06-17 08:30] VITALS: BP 118/72; PULSE 78; RESP 17; TEMP 36.6; O2SAT 100
[2018-06-17] MEDS: Rivaroxaban 20 MG Tablet PO (08:30)
[2018-06-17] MEDS: Folic Acid 1 MG Tablet 0.5 MG PO (08:30)
--- NOTE | 2018-06-17 09:31 | PCM.PN.NEU ---
Patient Problems: Active and Suspected Problems (Last Reviewed 06/09/18 @ 13:23 by Abdi Hammond DO) Closed left hip fracture (Acute) Subjective: Patient lying quietly in bed sleeping easily aroused. No new complaints. Tolerating therapy. Denies any pain, shortness of breath or chest pain. Wants to know when he can go home. - Physical Exam General: Alert, Oriented x3, Cooperative HEENT: Atraumatic, PERRLA, EOMI, Normocephalic Neck: Supple, No JVD, Negative Carotid Bruits Lungs: Clear to auscultation, Normal air movement Cardiovascular: Regular rate, No murmurs Abdomen: Bowel Sounds Present, Soft, Non Tender Extremities: No edema, Capillary Refill Less than 3 Seconds Skin: No rashes, No breakdown Musculoskeletal: No Tenderness to Palpation of Joints or Extremities Neurological: Cranial nerves II-XII grossly intact Psych/Mental Status: Normal Affect, Appropriate, Alert and oriented to time, place, person, mood and affect Vital Signs Temp Pulse Resp BP Pulse Ox 97.6 F L 74 16 111/61 100 06/16/18 19:17 06/16/18 20:00 06/16/18 20:00 06/16/18 19:17 06/16/18 20:00 Oxygen Delivery Method Room Air Weight: 69.6 kg Body Mass Index (BMI) 24.0 Intake and Output for Last 24 Hours 06/15/18 06/16/18 06/17/18 23:59 23:59 23:59 Intake Total 480 / 480 480 / 480 Balance 480 / 480 480 / 480 Laboratory Tests Past 24 Hrs 06/17/18 06/17/18 05:05 05:05 WBC 5.5 RBC 3.11 L Hgb 10.8 L Hct 32.3 L MCV 103.9 H MCH 34.7 H MCHC 33.4 RDW 13.6 RDW Differential 50.3 H Plt Count 392 MPV 9.7 Immature Gran % (Auto) 0.200 Neut % (Auto) 37.8 L Lymph % (Auto) 42.2 H [place] % (Auto) 14.3 H Eos % (Auto) 4.2 Baso % (Auto) 1.3 H Absolute Neuts (auto) 2.1 Absolute Lymphs (auto) 2.33 Total Counted Not Reportable Sodium 135 L Potassium 4.2 Chloride 99 Carbon Dioxide 30.0 Anion Gap 6 BUN 30 H Creatinine 1.05 Estim Creat Clear Calc 58.92 Est GFR (MDRD) Af Amer 88 Est GFR (MDRD) Non-Af 73 BUN/Creatinine Ratio 28.6 H Glucose 91 Calcium 9.0 Total Bilirubin 0.60 AST 20 ALT 25 Alkaline Phosphatase 84 Total Protein 6.8 Albumin 3.0 L Globulin 3.8 Albumin/Globulin Ratio 0.8 L Active Medications Hydrocodone Bitart/Acetaminophen ([place] 5mg-325mg) 1 - 2 tablet PO Q6H PRN PRN PRN Reason: MOD-SEVERE PAIN (-06/03) Last Admin: 06/17/18 06:23 Dose: 2 tablet Al Hydroxide/Mg Hydroxide (Mylanta Ii) 30 ml PO Q4H PRN PRN PRN Reason: INDIGESTION Amiodarone HCl (Cordarone) 200 mg PO DAILY [facility] Last Admin: 06/17/18 08:29 Dose: 200 mg Ascorbic Acid (Vitamin C) 500 mg PO BID [facility] Last Admin: 06/17/18 08:29 Dose: 500 mg Bisacodyl (Dulcolax) 10 mg RECTAL .PRN X 1 PRN PRN Reason: Constipation Calcium/Vitamin D (Os-Osvaldo 500mg + D) 1 tablet PO DAILY@0800 [facility] Last Admin: 06/17/18 08:28 Dose: 1 tablet Cyanocobalamin (Vitamin B12) 1,000 mcg PO DAILY@0800 [facility] Last Admin: 06/17/18 08:28 Dose: 1,000 mcg Fluticasone Propionate (Flonase Nasal [place]) 2 spray NASAL DAILY [facility] Last Admin: 06/17/18 08:27 Dose: 2 spray Folic Acid (Folic Acid) 0.5 mg PO DAILY@0800 [facility] Last Admin: 06/17/18 08:30 Dose: 0.5 mg Guaifenesin (Mucinex) 600 mg PO Q12H PRN PRN Reason: CONGESTION Lisinopril (Zestril) 2.5 mg PO DAILY [facility] Last Admin: 06/17/18 08:28 Dose: 2.5 mg Magnesium Hydroxide (Milk Of Magnesia) 30 ml PO .PRN X 1 PRN PRN Reason: Constipation Last Admin: 06/09/18 01:25 Dose: 30 ml Multivitamins (Multivitamin) 1 tablet PO DAILY@0800 [facility] Last Admin: 10/24/18 08:28 Dose: 1 tablet Nutritional Formula (Lactose Free) (Ensure Enlive) 120 ml PO 4X/DAY [facility] Last Admin: 06/17/18 08:32 Dose: Not Given Ondansetron HCl (Zofran Odt) 4 mg PO Q6H PRN PRN PRN Reason: NAUSEA Polyethylene Glycol (Miralax) 17 gm PO DAILY [facility] Last Admin: 06/17/18 08:28 Dose: 17 gm Rivaroxaban (Xarelto) 20 mg PO DAILY [facility] Last Admin: 06/17/18 08:30 Dose: 20 mg Senna/Docusate Sodium (Senokot-S, Beronica-Colace) 2 tablet PO BID [facility] Last Admin: 06/17/18 08:28 Dose: 2 tablet Thiamine HCl (Vitamin B1) 100 mg PO TID [facility] Last Admin: 06/17/18 06:23 Dose: 100 mg Medical Necessity - Tobacco Use Smoking Status: Current every day smoker Tobacco Use: Cigars Assessment/Plan All Active Problems (Last Reviewed 06/09/18 @ 13:23 by Abdi Hammond DO) Closed left hip fracture (Acute) Hemorrhoids (Acute) Hemorrhoids with complication (Acute) Chest pain (Acute) Rectal bleeding (Acute) S/P inguinal hernia repair (Acute) Inguinal hernia of left side without obstruction or gangrene (Acute) Rheumatic mitral stenosis (Acute) Syncope and collapse (Acute) Aortic valve disease, rheumatic (Acute) Screening for intestinal cancer (Acute) Personal history of colonic polyps (Acute) S/P wrist surgery (Resolved) S/P shoulder surgery (Resolved) Status post knee surgery (Resolved) S/P hemorrhoidectomy (Acute) Chronic anticoagulation (Acute) Fracture of fourth cervical vertebra (Acute) Orthostatic hypotension (Acute) DDD (degenerative disc disease), lumbar (Acute) Spondylosis of lumbar region without myelopathy or radiculopathy (Acute) Murmur, cardiac (Acute) Knee locking (Acute) Solitary lung nodule (Acute) Diverticulosis (Acute) Malignant neoplasm of bladder (Acute) Disorders of bursae and tendons in shoulder region, unspecified (Acute) DVT of lower extremity, bilateral (Acute) Dysphagia (Acute) Fracture of C4 vertebra, closed (Acute) Status post tracheostomy (Acute) S/P percutaneous endoscopic gastrostomy (PEG) tube placement (Resolved) Debility left hip fracture s/p ORIF, complicated by ETOH abuse, acute blood loss anemia, HTN and Afib on Xarelto. Goal of rehab is orthodoxy of functional independence. Plan: - Physical therapy for gait and balance - Occupational Therapy for ADLs - Speech therapy - As needed analgesics - Bowel protocol - DVT prophylaxis: SCDs, Keegan hoses, and Xarelto - Hx of HTN: Stable with good control, continue home dose of Lisinopril - Hx A-Fib => continue amiodarone and Xarelto - ETOH Abuse (patient states he only drinks 3 beers a day) => continue Multivitamin, Folic Acid and thiamine - Acute blood loss anemia 2/2 surgery for ORIF of left femur fracture, last Hgb was 10.2 - Left hip fracture => s/p ORIF Incision is C/D/I, schedule follow up visit with Orthopedic surgeon on discharge from unit.
--- NOTE | 2018-06-17 09:34 | PN.NEURO_ITS ---
Patient Problems: Active and Suspected Problems (Last Reviewed 06/09/18 @ 13:23 by Abdi Hammond DO) Closed left hip fracture (Acute) Subjective: Patient lying quietly in bed sleeping easily aroused. No new complaints. Tolerating therapy. Denies any pain, shortness of breath or chest pain. Wants to know when he can go home. - Physical Exam General: Alert, Oriented x3, Cooperative HEENT: Atraumatic, PERRLA, EOMI, Normocephalic Neck: Supple, No JVD, Negative Carotid Bruits Lungs: Clear to auscultation, Normal air movement Cardiovascular: Regular rate, No murmurs Abdomen: Bowel Sounds Present, Soft, Non Tender Extremities: No edema, Capillary Refill Less than 3 Seconds Skin: No rashes, No breakdown Musculoskeletal: No Tenderness to Palpation of Joints or Extremities Neurological: Cranial nerves II-XII grossly intact Psych/Mental Status: Normal Affect, Appropriate, Alert and oriented to time, place, person, mood and affect Vital Signs Temp Pulse Resp BP Pulse Ox 97.6 F L 74 16 111/61 100 06/16/18 19:17 06/16/18 20:00 06/16/18 20:00 06/16/18 19:17 06/16/18 20:00 Oxygen Delivery Method Room Air Weight: 69.6 kg Body Mass Index (BMI) 24.0 Intake and Output for Last 24 Hours 06/15/18 06/16/18 06/17/18 23:59 23:59 23:59 Intake Total 480 / 480 480 / 480 Balance 480 / 480 480 / 480 Laboratory Tests Past 24 Hrs 06/17/18 06/17/18 05:05 05:05 WBC 5.5 RBC 3.11 L Hgb 10.8 L Hct 32.3 L MCV 103.9 H MCH 34.7 H MCHC 33.4 RDW 13.6 RDW Differential 50.3 H Plt Count 392 MPV 9.7 Immature Gran % (Auto) 0.200 Neut % (Auto) 37.8 L Lymph % (Auto) 42.2 H [place] % (Auto) 14.3 H Eos % (Auto) 4.2 Baso % (Auto) 1.3 H Absolute Neuts (auto) 2.1 Absolute Lymphs (auto) 2.33 Total Counted Not Reportable Sodium 135 L Potassium 4.2 Chloride 99 Carbon Dioxide 30.0 Anion Gap 6 BUN 30 H Creatinine 1.05 Estim Creat Clear Calc 58.92 Est GFR (MDRD) Af Amer 88 Est GFR (MDRD) Non-Af 73 BUN/Creatinine Ratio 28.6 H Glucose 91 Calcium 9.0 Total Bilirubin 0.60 AST 20 ALT 25 Alkaline Phosphatase 84 Total Protein 6.8 Albumin 3.0 L Globulin 3.8 Albumin/Globulin Ratio 0.8 L Active Medications Hydrocodone Bitart/Acetaminophen ([place] 5mg-325mg) 1 - 2 tablet PO Q6H PRN PRN PRN Reason: MOD-SEVERE PAIN (-06/03) Last Admin: 06/17/18 06:23 Dose: 2 tablet Al Hydroxide/Mg Hydroxide (Mylanta Ii) 30 ml PO Q4H PRN PRN PRN Reason: INDIGESTION Amiodarone HCl (Cordarone) 200 mg PO DAILY [facility] Last Admin: 06/17/18 08:29 Dose: 200 mg Ascorbic Acid (Vitamin C) 500 mg PO BID [facility] Last Admin: 06/17/18 08:29 Dose: 500 mg Bisacodyl (Dulcolax) 10 mg RECTAL .PRN X 1 PRN PRN Reason: Constipation Calcium/Vitamin D (Os-Osvaldo 500mg + D) 1 tablet PO DAILY@0800 [facility] Last Admin: 06/17/18 08:28 Dose: 1 tablet Cyanocobalamin (Vitamin B12) 1,000 mcg PO DAILY@0800 [facility] Last Admin: 06/17/18 08:28 Dose: 1,000 mcg Fluticasone Propionate (Flonase Nasal [place]) 2 spray NASAL DAILY [facility] Last Admin: 06/17/18 08:27 Dose: 2 spray Folic Acid (Folic Acid) 0.5 mg PO DAILY@0800 [facility] Last Admin: 06/17/18 08:30 Dose: 0.5 mg Guaifenesin (Mucinex) 600 mg PO Q12H PRN PRN Reason: CONGESTION Lisinopril (Zestril) 2.5 mg PO DAILY [facility] Last Admin: 06/17/18 08:28 Dose: 2.5 mg Magnesium Hydroxide (Milk Of Magnesia) 30 ml PO .PRN X 1 PRN PRN Reason: Constipation Last Admin: 06/09/18 01:25 Dose: 30 ml Multivitamins (Multivitamin) 1 tablet PO DAILY@0800 [facility] Last Admin: 10/24/18 08:28 Dose: 1 tablet Nutritional Formula (Lactose Free) (Ensure Enlive) 120 ml PO 4X/DAY [facility] Last Admin: 06/17/18 08:32 Dose: Not Given Ondansetron HCl (Zofran Odt) 4 mg PO Q6H PRN PRN PRN Reason: NAUSEA Polyethylene Glycol (Miralax) 17 gm PO DAILY [facility] Last Admin: 06/17/18 08:28 Dose: 17 gm Rivaroxaban (Xarelto) 20 mg PO DAILY [facility] Last Admin: 06/17/18 08:30 Dose: 20 mg Senna/Docusate Sodium (Senokot-S, Beronica-Colace) 2 tablet PO BID [facility] Last Admin: 06/17/18 08:28 Dose: 2 tablet Thiamine HCl (Vitamin B1) 100 mg PO TID [facility] Last Admin: 06/17/18 06:23 Dose: 100 mg Medical Necessity - Tobacco Use Smoking Status: Current every day smoker Tobacco Use: Cigars Assessment/Plan All Active Problems (Last Reviewed 06/09/18 @ 13:23 by Abdi Hammond DO) Closed left hip fracture (Acute) Hemorrhoids (Acute) Hemorrhoids with complication (Acute) Chest pain (Acute) Rectal bleeding (Acute) S/P inguinal hernia repair (Acute) Inguinal hernia of left side without obstruction or gangrene (Acute) Rheumatic mitral stenosis (Acute) Syncope and collapse (Acute) Aortic valve disease, rheumatic (Acute) Screening for intestinal cancer (Acute) Personal history of colonic polyps (Acute) S/P wrist surgery (Resolved) S/P shoulder surgery (Resolved) Status post knee surgery (Resolved) S/P hemorrhoidectomy (Acute) Chronic anticoagulation (Acute) Fracture of fourth cervical vertebra (Acute) Orthostatic hypotension (Acute) DDD (degenerative disc disease), lumbar (Acute) Spondylosis of lumbar region without myelopathy or radiculopathy (Acute) Murmur, cardiac (Acute) Knee locking (Acute) Solitary lung nodule (Acute) Diverticulosis (Acute) Malignant neoplasm of bladder (Acute) Disorders of bursae and tendons in shoulder region, unspecified (Acute) DVT of lower extremity, bilateral (Acute) Dysphagia (Acute) Fracture of C4 vertebra, closed (Acute) Status post tracheostomy (Acute) S/P percutaneous endoscopic gastrostomy (PEG) tube placement (Resolved) Debility left hip fracture s/p ORIF, complicated by ETOH abuse, acute blood loss anemia, HTN and Afib on Xarelto. Goal of rehab is spiritism of functional independence. Plan: - Physical therapy for gait and balance - Occupational Therapy for ADLs - Speech therapy - As needed analgesics - Bowel protocol - DVT prophylaxis: SCDs, Keegan hoses, and Xarelto - Hx of HTN: Stable with good control, continue home dose of Lisinopril - Hx A-Fib => continue amiodarone and Xarelto - ETOH Abuse (patient states he only drinks 3 beers a day) => continue Multivitamin, Folic Acid and thiamine - Acute blood loss anemia 2/2 surgery for ORIF of left femur fracture, last Hgb was 10.2 - Left hip fracture => s/p ORIF Incision is C/D/I, schedule follow up visit with Orthopedic surgeon on discharge from unit.
--- NOTE | 2018-06-17 17:16 | PCM.PN.HOSP ---
Patient Problems: Active and Suspected Problems (Last Reviewed 06/09/18 @ 13:23 by Abdi Hammond DO) Closed left hip fracture (Acute) Subjective: Patient doing well, sitting up in the chair, just completed therapy. Wants to know when he can go home. Otherwise without any complaints. Objective: General: Alert, Oriented x3, Cooperative HEENT: Normocephalic Neck: Supple Lungs: Clear to auscultation, Normal air movement Cardiovascular: Regular rate, No murmurs Abdomen: Bowel Sounds Present, Soft, Non Tender Extremities: No edema Skin: No rashes, No breakdown Musculoskeletal: No Tenderness to Palpation of Joints or Extremities Neurological: Cranial nerves II-XII grossly intact Psych/Mental Status: Normal Affect, Appropriate Vitals/I&O's: Vital Signs Temp Pulse Resp BP Pulse Ox 97.8 F 78 17 118/72 100 06/17/18 08:30 06/17/18 08:30 06/17/18 08:30 06/17/18 08:30 06/17/18 08:30 Oxygen Delivery Method Room Air Weight: 69.6 kg Body Mass Index (BMI) 24.0 Intake and Output for Last 24 Hours 06/15/18 06/16/18 06/17/18 23:59 23:59 23:59 Intake Total 480 / 480 480 / 480 480 / 480 Balance 480 / 480 480 / 480 480 / 480 Laboratory Results 06/17/18 05:05: WBC 5.5, RBC 3.11 L, Hgb 10.8 L, Hct 32.3 L, MCV 103.9 H, MCH 34.7 H, MCHC 33.4, RDW 13.6, RDW Differential 50.3 H, Plt Count 392, MPV 9.7, Immature Gran % (Auto) 0.200, Neut % (Auto) 37.8 L, Lymph % (Auto) 42.2 H, [place] % (Auto) 14.3 H, Eos % (Auto) 4.2, Baso % (Auto) 1.3 H, Absolute Neuts (auto) 2.1, Absolute Lymphs (auto) 2.33, Total Counted Not Reportable 06/17/18 05:05: Sodium 135 L, Potassium 4.2, Chloride 99, Carbon Dioxide 30.0, Anion Gap 6, BUN 30 H, Creatinine 1.05, Estim Creat Clear Calc 58.92, Est GFR (MDRD) Af Amer 88, Est GFR (MDRD) Non-Af 73, BUN/Creatinine Ratio 28.6 H, Glucose 91, Calcium 9.0, Total Bilirubin 0.60, AST 20, ALT 25, Alkaline Phosphatase 84, Total Protein 6.8, Albumin 3.0 L, Globulin 3.8, Albumin/Globulin Ratio 0.8 L Current Medications Hydrocodone Bitart/Acetaminophen ([place] 5mg-325mg) 1 - 2 tablet PO Q6H PRN PRN PRN Reason: MOD-SEVERE PAIN (4-06/03) Last Admin: 06/17/18 06:23 Dose: 2 tablet Al Hydroxide/Mg Hydroxide (Mylanta Ii) 30 ml PO Q4H PRN PRN PRN Reason: INDIGESTION Amiodarone HCl (Cordarone) 200 mg PO DAILY [facility] Last Admin: 06/17/18 08:29 Dose: 200 mg Ascorbic Acid (Vitamin C) 500 mg PO BID [facility] Last Admin: 06/17/18 08:29 Dose: 500 mg Bisacodyl (Dulcolax) 10 mg RECTAL .PRN X 1 PRN PRN Reason: Constipation Calcium/Vitamin D (Os-Osvaldo 500mg + D) 1 tablet PO DAILY@0800 [facility] Last Admin: 06/17/18 08:28 Dose: 1 tablet Cyanocobalamin (Vitamin B12) 1,000 mcg PO DAILY@0800 [facility] Last Admin: 06/17/18 08:28 Dose: 1,000 mcg Fluticasone Propionate (Flonase Nasal [place]) 2 spray NASAL DAILY [facility] Last Admin: 06/17/18 08:27 Dose: 2 spray Folic Acid (Folic Acid) 0.5 mg PO DAILY@0800 [facility] Last Admin: 06/17/18 08:30 Dose: 0.5 mg Guaifenesin (Mucinex) 600 mg PO Q12H PRN PRN Reason: CONGESTION Lisinopril (Zestril) 2.5 mg PO DAILY [facility] Last Admin: 06/17/18 08:28 Dose: 2.5 mg Magnesium Hydroxide (Milk Of Magnesia) 30 ml PO .PRN X 1 PRN PRN Reason: Constipation Last Admin: 06/09/18 01:25 Dose: 30 ml Multivitamins (Multivitamin) 1 tablet PO DAILY@0800 [facility] Last Admin: 06/17/18 08:28 Dose: 1 tablet Nutritional Formula (Lactose Free) (Ensure Enlive) 120 ml PO 4X/DAY [facility] Last Admin: 06/17/18 15:14 Dose: 120 ml Ondansetron HCl (Zofran Odt) 4 mg PO Q6H PRN PRN PRN Reason: NAUSEA Polyethylene Glycol (Miralax) 17 gm PO DAILY [facility] Last Admin: 06/17/18 08:28 Dose: 17 gm Rivaroxaban (Xarelto) 20 mg PO DAILY [facility] Last Admin: 06/17/18 08:30 Dose: 20 mg Senna/Docusate Sodium (Senokot-S, Beronica-Colace) 2 tablet PO BID [facility] Last Admin: 06/17/18 08:28 Dose: 2 tablet Thiamine HCl (Vitamin B1) 100 mg PO TID [facility] Last Admin: 06/17/18 15:14 Dose: 100 mg Medical Necessity - Tobacco Use Smoking Status: Current every day smoker Tobacco Use: Cigars Assessment/Plan All Active Problems (Last Reviewed 06/09/18 @ 13:23 by Abdi Hammond DO) Closed left hip fracture (Acute) Hemorrhoids (Acute) Hemorrhoids with complication (Acute) Chest pain (Acute) Rectal bleeding (Acute) S/P inguinal hernia repair (Acute) Inguinal hernia of left side without obstruction or gangrene (Acute) Rheumatic mitral stenosis (Acute) Syncope and collapse (Acute) Aortic valve disease, rheumatic (Acute) Screening for intestinal cancer (Acute) Personal history of colonic polyps (Acute) S/P wrist surgery (Resolved) S/P shoulder surgery (Resolved) Status post knee surgery (Resolved) S/P hemorrhoidectomy (Acute) Chronic anticoagulation (Acute) Fracture of fourth cervical vertebra (Acute) Orthostatic hypotension (Acute) DDD (degenerative disc disease), lumbar (Acute) Spondylosis of lumbar region without myelopathy or radiculopathy (Acute) Murmur, cardiac (Acute) Knee locking (Acute) Solitary lung nodule (Acute) Diverticulosis (Acute) Malignant neoplasm of bladder (Acute) Disorders of bursae and tendons in shoulder region, unspecified (Acute) DVT of lower extremity, bilateral (Acute) Dysphagia (Acute) Fracture of C4 vertebra, closed (Acute) Status post tracheostomy (Acute) S/P percutaneous endoscopic gastrostomy (PEG) tube placement (Resolved) Patient is a 77-year-old male with a history of alcohol abuse, history of DVT, chronic atrial fibrillation on anticoagulation, remote history of bladder cancer, hypertension and dyslipidemia who was admitted for rehabilitation following left hip fracture. Blood pressure is adequate with episodes of asymptomatic borderline hypotension, which have now resolved. Systolic blood pressure now in the 110/120s. Continue with current Xarelto. Labs reviewed and are otherwise unremarkable. We will continue to follow along as needed. Patient currently awaiting Discharge Further management pending the patient's clinical course. Code Visit Inpatient E&M: 67979 Subs Hosp L2
[2018-06-17 20:30] VITALS: BP 123/66; PULSE 66; RESP 18; TEMP 36.7; O2SAT 96
--- NOTE | 2018-06-18 01:30 | NURSING ---
Reviewed and agree with [employer] documentation and [facility] charting.
[2018-06-18] MEDS: Thiamine Hydrochloride 100 MG Tablet PO ×3 (06:07→20:53)
[2018-06-18] MEDS: Cyanocobalamin 500 MCG Tablet 1000 MCG PO (07:58)
[2018-06-18] MEDS: Folic Acid 1 MG Tablet 0.5 MG PO (07:58)
[2018-06-18] MEDS: Amiodarone 200 MG Tablet PO (07:58)
[2018-06-18] MEDS: Rivaroxaban 20 MG Tablet PO (07:58)
[2018-06-18] MEDS: Polyethylene Glycol 3350 17 GM PACKET PO (07:58)
[2018-06-18] MEDS: Calcium Carb/Vitamin D 1 TABLET Tablet PO (07:58)
[2018-06-18] MEDS: HYDROcodone Bitartrate/Apap 5/325 Tablet PO ×3 (07:58→20:56)
[2018-06-18] MEDS: Multivitamins,Therapeutic Tablet 1 TABLET PO (07:59)
[2018-06-18] MEDS: Ascorbic Acid 500 MG Tablet PO ×2 (08:00→20:53)
[2018-06-18] MEDS: Fluticasone 0.05% 1 SPRAY NASAL.SRY 2 SPRAY NASAL (08:00)
[2018-06-18] MEDS: Umeclidinium Bromide Inhaler 1 PUFF IH (08:00)
[2018-06-18] MEDS: Senna/Docusate Sodium 1 Tablet 2 TABLET PO (08:01)
[2018-06-18 08:04] VITALS: BP 93/44; PULSE 72
[2018-06-18 08:25] VITALS: BP 86/47; PULSE 71; RESP 20; TEMP 36.7; O2SAT 95
[2018-06-18 10:02] VITALS: BP 111/57; PULSE 66
--- NOTE | 2018-06-18 10:39 | PCM.PN.NEU ---
Patient Problems: Active and Suspected Problems (Last Reviewed 06/09/18 @ 13:23 by Abdi Hammond DO) Closed left hip fracture (Acute) Subjective: Patient seen and examined. No new complaints. Tolerating therapy and doing well. - Physical Exam General: Alert, Oriented x3, Cooperative HEENT: Atraumatic, PERRLA, EOMI, Normocephalic Neck: Supple, No JVD, Negative Carotid Bruits Lungs: Clear to auscultation, Normal air movement Cardiovascular: Regular rate, No murmurs Abdomen: Bowel Sounds Present, Soft, Non Tender Extremities: No edema, Capillary Refill Less than 3 Seconds Skin: No rashes, No breakdown Musculoskeletal: No Tenderness to Palpation of Joints or Extremities Neurological: Cranial nerves II-XII grossly intact Psych/Mental Status: Normal Affect, Appropriate, Alert and oriented to time, place, person, mood and affect Vital Signs Temp Pulse Resp BP Pulse Ox 98.1 F 66 20 H 111/57 L 95 06/18/18 08:25 06/18/18 10:02 06/18/18 08:25 06/18/18 10:02 06/18/18 08:25 Oxygen Delivery Method Room Air Weight: 69.6 kg Body Mass Index (BMI) 24.0 Intake and Output for Last 24 Hours 06/16/18 06/17/18 06/18/18 23:59 23:59 23:59 Intake Total 480 / 480 480 / 480 240 / 240 Balance 480 / 480 480 / 480 240 / 240 Active Medications Hydrocodone Bitart/Acetaminophen ([place] 5mg-325mg) 1 - 2 tablet PO Q6H PRN PRN PRN Reason: MOD-SEVERE PAIN (4-10/10) Last Admin: 06/18/18 07:58 Dose: 1 tablet Al Hydroxide/Mg Hydroxide (Mylanta Ii) 30 ml PO Q4H PRN PRN PRN Reason: INDIGESTION Amiodarone HCl (Cordarone) 200 mg PO DAILY [facility] Last Admin: 06/18/18 07:58 Dose: 200 mg Ascorbic Acid (Vitamin C) 500 mg PO BID [facility] Last Admin: 06/18/18 08:00 Dose: 500 mg Bisacodyl (Dulcolax) 10 mg RECTAL .PRN X 1 PRN PRN Reason: Constipation Calcium/Vitamin D (Os-Osvaldo 500mg + D) 1 tablet PO DAILY@0800 [facility] Last Admin: 06/18/18 07:58 Dose: 1 tablet Cyanocobalamin (Vitamin B12) 1,000 mcg PO DAILY@0800 [facility] Last Admin: 06/18/18 07:58 Dose: 1,000 mcg Fluticasone Propionate (Flonase Nasal [place]) 2 spray NASAL DAILY [facility] Last Admin: 06/18/18 08:00 Dose: 2 spray Folic Acid (Folic Acid) 0.5 mg PO DAILY@0800 [facility] Last Admin: 06/18/18 07:58 Dose: 0.5 mg Guaifenesin (Mucinex) 600 mg PO Q12H PRN PRN Reason: CONGESTION Lisinopril (Zestril) 2.5 mg PO DAILY [facility] Last Admin: 06/17/18 08:28 Dose: 2.5 mg Magnesium Hydroxide (Milk Of Magnesia) 30 ml PO .PRN X 1 PRN PRN Reason: Constipation Last Admin: 06/09/18 01:25 Dose: 30 ml Multivitamins (Multivitamin) 1 tablet PO DAILY@0800 [facility] Last Admin: 06/18/18 07:59 Dose: 1 tablet Nutritional Formula (Lactose Free) (Ensure Enlive) 120 ml PO 4X/DAY [facility] Last Admin: 06/17/18 20:48 Dose: Not Given Ondansetron HCl (Zofran Odt) 4 mg PO Q6H PRN PRN PRN Reason: NAUSEA Polyethylene Glycol (Miralax) 17 gm PO DAILY [facility] Last Admin: 06/18/18 07:58 Dose: 17 gm Rivaroxaban (Xarelto) 20 mg PO DAILY [facility] Last Admin: 06/18/18 07:58 Dose: 20 mg Senna/Docusate Sodium (Senokot-S, Beronica-Colace) 2 tablet PO BID [facility] Last Admin: 06/18/18 08:01 Dose: 2 tablet Thiamine HCl (Vitamin B1) 100 mg PO TID [facility] Last Admin: 06/18/18 06:07 Dose: 100 mg Medical Necessity - Tobacco Use Smoking Status: Current every day smoker Tobacco Use: Cigars Assessment/Plan All Active Problems (Last Reviewed 06/09/18 @ 13:23 by Abdi Hammond DO) Closed left hip fracture (Acute) Hemorrhoids (Acute) Hemorrhoids with complication (Acute) Chest pain (Acute) Rectal bleeding (Acute) S/P inguinal hernia repair (Acute) Inguinal hernia of left side without obstruction or gangrene (Acute) Rheumatic mitral stenosis (Acute) Syncope and collapse (Acute) Aortic valve disease, rheumatic (Acute) Screening for intestinal cancer (Acute) Personal history of colonic polyps (Acute) S/P wrist surgery (Resolved) S/P shoulder surgery (Resolved) Status post knee surgery (Resolved) S/P hemorrhoidectomy (Acute) Chronic anticoagulation (Acute) Fracture of fourth cervical vertebra (Acute) Orthostatic hypotension (Acute) DDD (degenerative disc disease), lumbar (Acute) Spondylosis of lumbar region without myelopathy or radiculopathy (Acute) Murmur, cardiac (Acute) Knee locking (Acute) Solitary lung nodule (Acute) Diverticulosis (Acute) Malignant neoplasm of bladder (Acute) Disorders of bursae and tendons in shoulder region, unspecified (Acute) DVT of lower extremity, bilateral (Acute) Dysphagia (Acute) Fracture of C4 vertebra, closed (Acute) Status post tracheostomy (Acute) S/P percutaneous endoscopic gastrostomy (PEG) tube placement (Resolved) Debility left hip fracture s/p ORIF, complicated by ETOH abuse, acute blood loss anemia, HTN and Afib on Xarelto. Goal of rehab is cheondoism of functional independence. Plan: - Physical therapy for gait and balance - Occupational Therapy for ADLs - Speech therapy - As needed analgesics - Bowel protocol - DVT prophylaxis: SCDs, Keegan hoses, and Xarelto - Hx of HTN: Stable with good control, continue home dose of Lisinopril - Hx A-Fib => continue amiodarone and Xarelto - ETOH Abuse (patient states he only drinks 3 beers a day) => continue Multivitamin, Folic Acid and thiamine - Acute blood loss anemia 2/2 surgery for ORIF of left femur fracture, last Hgb was 10.2 - Left hip fracture => s/p ORIF Incision is C/D/I, schedule follow up visit with Orthopedic surgeon on discharge from unit.
--- NOTE | 2018-06-18 18:31 | PCM.PN.HOSP ---
Patient Problems: Active and Suspected Problems (Last Reviewed 06/09/18 @ 13:23 by Abdi Hammond DO) Closed left hip fracture (Acute) Subjective: Patient is a 77-year-old white male recovering from a left closed hip fracture, and history of chronic atrial fibrillation on anticoagulation, remote history of bladder cancer, hypertension, dyslipidemia who was admitted for hip fracture undergoing rehabilitation. Patient denies any nausea vomiting diarrhea constipation chest pain has no new complaints is doing well with physical therapy. Vitals/I&O's: Vital Signs Temp Pulse Resp BP Pulse Ox 98.1 F 66 20 H 111/57 L 95 06/18/18 08:25 06/18/18 10:02 06/18/18 08:25 06/18/18 10:02 06/18/18 08:25 Oxygen Delivery Method Room Air Weight: 69.6 kg Body Mass Index (BMI) 24.0 Intake and Output for Last 24 Hours 06/16/18 06/17/18 06/18/18 23:59 23:59 23:59 Intake Total 480 / 480 480 / 480 720 / 720 Balance 480 / 480 480 / 480 720 / 720 General: Alert, Oriented x3, Cooperative HEENT: Atraumatic, PERRLA, EOMI Oral: Moist Mucosa, No Gingival or Mucosal Lesions/ Ulcerations Neck: Supple, No JVD, Trachea Midline Lungs: Clear to auscultation, No rhonchi, No wheeze, No rales Cardiovascular: Normal S1, Normal S2, Irregular Rate, Murmur Abdomen: Bowel Sounds Present, Soft, Non Tender, Non-Distended Extremities: No clubbing, No cyanosis, No edema Skin: No rashes, No breakdown Musculoskeletal: No Muscle Wasting, Tenderness - Foot had tenderness of the left hip Lymphatic: No Cervical, Supraclavicular, or Inguinal Adenopathy Neurological: Cranial nerves II-XII grossly intact, Neuro grossly intact - Slightly hard of hearing Psych/Mental Status: Normal Affect, Appropriate, Alert and oriented to time, place, person, mood and affect Current Medications Hydrocodone Bitart/Acetaminophen ([place] 5mg-325mg) 1 - 2 tablet PO Q6H PRN PRN PRN Reason: MOD-SEVERE PAIN (4-1010) Last Admin: 06/18/18 14:51 Dose: 2 tablet Al Hydroxide/Mg Hydroxide (Mylanta Ii) 30 ml PO Q4H PRN PRN PRN Reason: INDIGESTION Amiodarone HCl (Cordarone) 200 mg PO DAILY [facility] Last Admin: 06/18/18 07:58 Dose: 200 mg Ascorbic Acid (Vitamin C) 500 mg PO BID [facility] Last Admin: 06/18/18 08:00 Dose: 500 mg Bisacodyl (Dulcolax) 10 mg RECTAL .PRN X 1 PRN PRN Reason: Constipation Calcium/Vitamin D (Os-Osvaldo 500mg + D) 1 tablet PO DAILY@0800 [facility] Last Admin: 06/18/18 07:58 Dose: 1 tablet Cyanocobalamin (Vitamin B12) 1,000 mcg PO DAILY@0800 [facility] Last Admin: 06/18/18 07:58 Dose: 1,000 mcg Fluticasone Propionate (Flonase Nasal [place]) 2 spray NASAL DAILY [facility] Last Admin: 06/18/18 08:00 Dose: 2 spray Folic Acid (Folic Acid) 0.5 mg PO DAILY@0800 [facility] Last Admin: 06/18/18 07:58 Dose: 0.5 mg Guaifenesin (Mucinex) 600 mg PO Q12H PRN PRN Reason: CONGESTION Lisinopril (Zestril) 2.5 mg PO DAILY [facility] Last Admin: 06/18/18 08:05 Dose: Not Given Magnesium Hydroxide (Milk Of Magnesia) 30 ml PO .PRN X 1 PRN PRN Reason: Constipation Last Admin: 06/09/18 01:25 Dose: 30 ml Multivitamins (Multivitamin) 1 tablet PO DAILY@0800 [facility] Last Admin: 06/18/18 07:59 Dose: 1 tablet Nutritional Formula (Lactose Free) (Ensure Enlive) 120 ml PO 4X/DAY [facility] Last Admin: 06/18/18 17:48 Dose: Not Given Ondansetron HCl (Zofran Odt) 4 mg PO Q6H PRN PRN PRN Reason: NAUSEA Polyethylene Glycol (Miralax) 17 gm PO DAILY [facility] Last Admin: 06/18/18 07:58 Dose: 17 gm Rivaroxaban (Xarelto) 20 mg PO DAILY [facility] Last Admin: 06/18/18 07:58 Dose: 20 mg Senna/Docusate Sodium (Senokot-S, Beronica-Colace) 2 tablet PO BID [facility] Last Admin: 06/18/18 08:01 Dose: 2 tablet Thiamine HCl (Vitamin B1) 100 mg PO TID [facility] Last Admin: 06/18/18 14:52 Dose: 100 mg Medical Necessity - Tobacco Use Smoking Status: Current every day smoker Tobacco Use: Cigars Assessment/Plan All Active Problems (Last Reviewed 06/09/18 @ 13:23 by Abdi Hammond DO) Closed left hip fracture (Acute) Hemorrhoids (Acute) Hemorrhoids with complication (Acute) Chest pain (Acute) Rectal bleeding (Acute) S/P inguinal hernia repair (Acute) Inguinal hernia of left side without obstruction or gangrene (Acute) Rheumatic mitral stenosis (Acute) Syncope and collapse (Acute) Aortic valve disease, rheumatic (Acute) Screening for intestinal cancer (Acute) Personal history of colonic polyps (Acute) S/P wrist surgery (Resolved) S/P shoulder surgery (Resolved) Status post knee surgery (Resolved) S/P hemorrhoidectomy (Acute) Chronic anticoagulation (Acute) Fracture of fourth cervical vertebra (Acute) Orthostatic hypotension (Acute) DDD (degenerative disc disease), lumbar (Acute) Spondylosis of lumbar region without myelopathy or radiculopathy (Acute) Murmur, cardiac (Acute) Knee locking (Acute) Solitary lung nodule (Acute) Diverticulosis (Acute) Malignant neoplasm of bladder (Acute) Disorders of bursae and tendons in shoulder region, unspecified (Acute) DVT of lower extremity, bilateral (Acute) Dysphagia (Acute) Fracture of C4 vertebra, closed (Acute) Status post tracheostomy (Acute) S/P percutaneous endoscopic gastrostomy (PEG) tube placement (Resolved) Patient is a 77-year-old white male recovering from a left closed hip fracture, and history of chronic atrial fibrillation on anticoagulation, remote history of bladder cancer, hypertension, dyslipidemia who was admitted for hip fracture undergoing rehabilitation. Patient's blood pressure seems well controlled having no constipation, will continue current medical therapy no changes at this time will hold off on laboratories. We will continue to follow along and make adjustments as needed. Code Visit Inpatient E&M: [id number] Init Hosp L2
--- NOTE | 2018-06-18 18:35 | PN_ITS ---
Patient Problems: Active and Suspected Problems (Last Reviewed 06/09/18 @ 13:23 by Abdi Hammond DO) Closed left hip fracture (Acute) Subjective: Patient is a 77-year-old white male recovering from a left closed hip fracture, and history of chronic atrial fibrillation on anticoagulation, remote history of bladder cancer, hypertension, dyslipidemia who was admitted for hip fracture undergoing rehabilitation. Patient denies any nausea vomiting diarrhea constipation chest pain has no new complaints is doing well with physical therapy. Vitals/I&O's: Vital Signs Temp Pulse Resp BP Pulse Ox 98.1 F 66 20 H 111/57 L 95 06/18/18 08:25 06/18/18 10:02 06/18/18 08:25 06/18/18 10:02 06/18/18 08:25 Oxygen Delivery Method Room Air Weight: 69.6 kg Body Mass Index (BMI) 24.0 Intake and Output for Last 24 Hours 06/16/18 06/17/18 06/18/18 23:59 23:59 23:59 Intake Total 480 / 480 480 / 480 720 / 720 Balance 480 / 480 480 / 480 720 / 720 General: Alert, Oriented x3, Cooperative HEENT: Atraumatic, PERRLA, EOMI Oral: Moist Mucosa, No Gingival or Mucosal Lesions/ Ulcerations Neck: Supple, No JVD, Trachea Midline Lungs: Clear to auscultation, No rhonchi, No wheeze, No rales Cardiovascular: Normal S1, Normal S2, Irregular Rate, Murmur Abdomen: Bowel Sounds Present, Soft, Non Tender, Non-Distended Extremities: No clubbing, No cyanosis, No edema Skin: No rashes, No breakdown Musculoskeletal: No Muscle Wasting, Tenderness - Foot had tenderness of the left hip Lymphatic: No Cervical, Supraclavicular, or Inguinal Adenopathy Neurological: Cranial nerves II-XII grossly intact, Neuro grossly intact - Slightly hard of hearing Psych/Mental Status: Normal Affect, Appropriate, Alert and oriented to time, place, person, mood and affect Current Medications Hydrocodone Bitart/Acetaminophen ([place] 5mg-325mg) 1 - 2 tablet PO Q6H PRN PRN PRN Reason: MOD-SEVERE PAIN (4-1010) Last Admin: 06/18/18 14:51 Dose: 2 tablet Al Hydroxide/Mg Hydroxide (Mylanta Ii) 30 ml PO Q4H PRN PRN PRN Reason: INDIGESTION Amiodarone HCl (Cordarone) 200 mg PO DAILY [facility] Last Admin: 06/18/18 07:58 Dose: 200 mg Ascorbic Acid (Vitamin C) 500 mg PO BID [facility] Last Admin: 06/18/18 08:00 Dose: 500 mg Bisacodyl (Dulcolax) 10 mg RECTAL .PRN X 1 PRN PRN Reason: Constipation Calcium/Vitamin D (Os-Osvaldo 500mg + D) 1 tablet PO DAILY@0800 [facility] Last Admin: 06/18/18 07:58 Dose: 1 tablet Cyanocobalamin (Vitamin B12) 1,000 mcg PO DAILY@0800 [facility] Last Admin: 06/18/18 07:58 Dose: 1,000 mcg Fluticasone Propionate (Flonase Nasal [place]) 2 spray NASAL DAILY [facility] Last Admin: 06/18/18 08:00 Dose: 2 spray Folic Acid (Folic Acid) 0.5 mg PO DAILY@0800 [facility] Last Admin: 06/18/18 07:58 Dose: 0.5 mg Guaifenesin (Mucinex) 600 mg PO Q12H PRN PRN Reason: CONGESTION Lisinopril (Zestril) 2.5 mg PO DAILY [facility] Last Admin: 06/18/18 08:05 Dose: Not Given Magnesium Hydroxide (Milk Of Magnesia) 30 ml PO .PRN X 1 PRN PRN Reason: Constipation Last Admin: 06/09/18 01:25 Dose: 30 ml Multivitamins (Multivitamin) 1 tablet PO DAILY@0800 [facility] Last Admin: 06/18/18 07:59 Dose: 1 tablet Nutritional Formula (Lactose Free) (Ensure Enlive) 120 ml PO 4X/DAY [facility] Last Admin: 06/18/18 17:48 Dose: Not Given Ondansetron HCl (Zofran Odt) 4 mg PO Q6H PRN PRN PRN Reason: NAUSEA Polyethylene Glycol (Miralax) 17 gm PO DAILY [facility] Last Admin: 06/18/18 07:58 Dose: 17 gm Rivaroxaban (Xarelto) 20 mg PO DAILY [facility] Last Admin: 06/18/18 07:58 Dose: 20 mg Senna/Docusate Sodium (Senokot-S, Beronica-Colace) 2 tablet PO BID [facility] Last Admin: 06/18/18 08:01 Dose: 2 tablet Thiamine HCl (Vitamin B1) 100 mg PO TID [facility] Last Admin: 06/18/18 14:52 Dose: 100 mg Medical Necessity - Tobacco Use Smoking Status: Current every day smoker Tobacco Use: Cigars Assessment/Plan All Active Problems (Last Reviewed 06/09/18 @ 13:23 by Abdi Hammond DO) Closed left hip fracture (Acute) Hemorrhoids (Acute) Hemorrhoids with complication (Acute) Chest pain (Acute) Rectal bleeding (Acute) S/P inguinal hernia repair (Acute) Inguinal hernia of left side without obstruction or gangrene (Acute) Rheumatic mitral stenosis (Acute) Syncope and collapse (Acute) Aortic valve disease, rheumatic (Acute) Screening for intestinal cancer (Acute) Personal history of colonic polyps (Acute) S/P wrist surgery (Resolved) S/P shoulder surgery (Resolved) Status post knee surgery (Resolved) S/P hemorrhoidectomy (Acute) Chronic anticoagulation (Acute) Fracture of fourth cervical vertebra (Acute) Orthostatic hypotension (Acute) DDD (degenerative disc disease), lumbar (Acute) Spondylosis of lumbar region without myelopathy or radiculopathy (Acute) Murmur, cardiac (Acute) Knee locking (Acute) Solitary lung nodule (Acute) Diverticulosis (Acute) Malignant neoplasm of bladder (Acute) Disorders of bursae and tendons in shoulder region, unspecified (Acute) DVT of lower extremity, bilateral (Acute) Dysphagia (Acute) Fracture of C4 vertebra, closed (Acute) Status post tracheostomy (Acute) S/P percutaneous endoscopic gastrostomy (PEG) tube placement (Resolved) Patient is a 77-year-old white male recovering from a left closed hip fracture, and history of chronic atrial fibrillation on anticoagulation, remote history of bladder cancer, hypertension, dyslipidemia who was admitted for hip fracture undergoing rehabilitation. Patient's blood pressure seems well controlled having no constipation, will continue current medical therapy no changes at this time will hold off on laboratories. We will continue to follow along and make adjustments as needed. Code Visit Inpatient E&M: [id number] Init Hosp L2
[2018-06-18 20:12] VITALS: BP 113/69; PULSE 68; RESP 12; TEMP 36.9; O2SAT 96
[2018-06-19] MEDS: HYDROcodone Bitartrate/Apap 5/325 Tablet PO ×3 (06:57→20:30)
[2018-06-19] MEDS: Thiamine Hydrochloride 100 MG Tablet PO ×3 (06:57→20:28)
[2018-06-19 07:51] VITALS: BP 122/60; PULSE 64; RESP 16; TEMP 36.8; O2SAT 96
[2018-06-19] MEDS: Fluticasone 0.05% 1 SPRAY NASAL.SRY 2 SPRAY NASAL (07:54)
[2018-06-19] MEDS: Umeclidinium Bromide Inhaler 1 PUFF IH (07:54)
[2018-06-19] MEDS: Amiodarone 200 MG Tablet PO (07:55)
[2018-06-19] MEDS: Rivaroxaban 20 MG Tablet PO (07:55)
[2018-06-19] MEDS: Multivitamins,Therapeutic Tablet 1 TABLET PO (07:55)
[2018-06-19] MEDS: Folic Acid 1 MG Tablet 0.5 MG PO (07:55)
[2018-06-19] MEDS: Lisinopril 2.5 MG Tablet PO (07:55)
[2018-06-19] MEDS: Cyanocobalamin 500 MCG Tablet 1000 MCG PO (07:57)
[2018-06-19] MEDS: Calcium Carb/Vitamin D 1 TABLET Tablet PO (07:57)
[2018-06-19] MEDS: Ascorbic Acid 500 MG Tablet PO ×2 (07:58→20:27)
--- NOTE | 2018-06-19 14:43 | PCM.PN.NEU ---
Patient Problems: Active and Suspected Problems (Last Reviewed 06/09/18 @ 13:23 by Abdi Hammond DO) Closed left hip fracture (Acute) Subjective: Patient seen and examined. No new issues over night. Tolerating therapy. Denies any pain, pain is well tolerated. No issues with GI/Gu. States he is ready to go home any day. - Physical Exam General: Alert, Oriented x3, Cooperative HEENT: Atraumatic, PERRLA, EOMI, Normocephalic Neck: Supple, No JVD, Negative Carotid Bruits Lungs: Clear to auscultation, Normal air movement Cardiovascular: Regular rate, No murmurs Abdomen: Bowel Sounds Present, Soft, Non Tender Extremities: No edema, Capillary Refill Less than 3 Seconds Skin: No rashes, No breakdown Musculoskeletal: No Tenderness to Palpation of Joints or Extremities Neurological: Cranial nerves II-XII grossly intact Psych/Mental Status: Normal Affect, Appropriate, Alert and oriented to time, place, person, mood and affect Vital Signs Temp Pulse Resp BP Pulse Ox 98.3 F 64 16 122/60 H 96 06/19/18 07:51 06/19/18 07:51 06/19/18 07:51 06/19/18 07:51 06/19/18 07:51 Oxygen Delivery Method Room Air Weight: 69.6 kg Body Mass Index (BMI) 24.0 Intake and Output for Last 24 Hours 06/17/18 06/18/18 06/19/18 23:59 23:59 23:59 Intake Total 480 / 480 720 / 720 240 / 240 Balance 480 / 480 720 / 720 240 / 240 Active Medications Hydrocodone Bitart/Acetaminophen ([place] 5mg-325mg) 1 - 2 tablet PO Q6H PRN PRN PRN Reason: MOD-SEVERE PAIN (4-1010) Last Admin: 06/19/18 13:41 Dose: 2 tablet Al Hydroxide/Mg Hydroxide (Mylanta Ii) 30 ml PO Q4H PRN PRN PRN Reason: INDIGESTION Amiodarone HCl (Cordarone) 200 mg PO DAILY [facility] Last Admin: 06/19/18 07:55 Dose: 200 mg Ascorbic Acid (Vitamin C) 500 mg PO BID [facility] Last Admin: 06/19/18 07:58 Dose: 500 mg Bisacodyl (Dulcolax) 10 mg RECTAL .PRN X 1 PRN PRN Reason: Constipation Calcium/Vitamin D (Os-Osvaldo 500mg + D) 1 tablet PO DAILY@0800 [facility] Last Admin: 06/19/18 07:57 Dose: 1 tablet Cyanocobalamin (Vitamin B12) 1,000 mcg PO DAILY@0800 [facility] Last Admin: 06/19/18 07:57 Dose: 1,000 mcg Fluticasone Propionate (Flonase Nasal [place]) 2 spray NASAL DAILY [facility] Last Admin: 06/19/18 07:54 Dose: 2 spray Folic Acid (Folic Acid) 0.5 mg PO DAILY@0800 [facility] Last Admin: 06/19/18 07:55 Dose: 0.5 mg Guaifenesin (Mucinex) 600 mg PO Q12H PRN PRN Reason: CONGESTION Lisinopril (Zestril) 2.5 mg PO DAILY [facility] Last Admin: 06/19/18 07:55 Dose: 2.5 mg Magnesium Hydroxide (Milk Of Magnesia) 30 ml PO .PRN X 1 PRN PRN Reason: Constipation Last Admin: 06/09/18 01:25 Dose: 30 ml Multivitamins (Multivitamin) 1 tablet PO DAILY@0800 [facility] Last Admin: 06/19/18 07:55 Dose: 1 tablet Nutritional Formula (Lactose Free) (Ensure Enlive) 120 ml PO 4X/DAY [facility] Last Admin: 06/19/18 13:42 Dose: 120 ml Ondansetron HCl (Zofran Odt) 4 mg PO Q6H PRN PRN PRN Reason: NAUSEA Polyethylene Glycol (Miralax) 17 gm PO DAILY [facility] Last Admin: 06/19/18 07:57 Dose: Not Given Rivaroxaban (Xarelto) 20 mg PO DAILY [facility] Last Admin: 06/19/18 07:55 Dose: 20 mg Senna/Docusate Sodium (Senokot-S, Beronica-Colace) 2 tablet PO BID [facility] Last Admin: 06/19/18 07:56 Dose: Not Given Thiamine HCl (Vitamin B1) 100 mg PO TID [facility] Last Admin: 06/19/18 06:57 Dose: 100 mg Medical Necessity - Tobacco Use Smoking Status: Current every day smoker Tobacco Use: Cigars Assessment/Plan All Active Problems (Last Reviewed 06/09/18 @ 13:23 by Abdi Hammond DO) Closed left hip fracture (Acute) Hemorrhoids (Acute) Hemorrhoids with complication (Acute) Chest pain (Acute) Rectal bleeding (Acute) S/P inguinal hernia repair (Acute) Inguinal hernia of left side without obstruction or gangrene (Acute) Rheumatic mitral stenosis (Acute) Syncope and collapse (Acute) Aortic valve disease, rheumatic (Acute) Screening for intestinal cancer (Acute) Personal history of colonic polyps (Acute) S/P wrist surgery (Resolved) S/P shoulder surgery (Resolved) Status post knee surgery (Resolved) S/P hemorrhoidectomy (Acute) Chronic anticoagulation (Acute) Fracture of fourth cervical vertebra (Acute) Orthostatic hypotension (Acute) DDD (degenerative disc disease), lumbar (Acute) Spondylosis of lumbar region without myelopathy or radiculopathy (Acute) Murmur, cardiac (Acute) Knee locking (Acute) Solitary lung nodule (Acute) Diverticulosis (Acute) Malignant neoplasm of bladder (Acute) Disorders of bursae and tendons in shoulder region, unspecified (Acute) DVT of lower extremity, bilateral (Acute) Dysphagia (Acute) Fracture of C4 vertebra, closed (Acute) Status post tracheostomy (Acute) S/P percutaneous endoscopic gastrostomy (PEG) tube placement (Resolved) Debility left hip fracture s/p ORIF, complicated by ETOH abuse, acute blood loss anemia, HTN and Afib on Xarelto. Goal of rehab is religious of functional independence. Plan: - Physical therapy for gait and balance - Occupational Therapy for ADLs - Speech therapy - As needed analgesics - Bowel protocol - DVT prophylaxis: SCDs, Keegan hoses, and Xarelto - Hx of HTN: Stable with good control, continue home dose of Lisinopril - Hx A-Fib => continue amiodarone and Xarelto - ETOH Abuse (patient states he only drinks 3 beers a day) => continue Multivitamin, Folic Acid and thiamine - Acute blood loss anemia 2/2 surgery for ORIF of left femur fracture, last Hgb was 10.2 - Left hip fracture => s/p ORIF Incision is C/D/I, schedule follow up visit with Orthopedic surgeon on discharge from unit.
--- NOTE | 2018-06-19 14:47 | PN.NEURO_ITS ---
Patient Problems: Active and Suspected Problems (Last Reviewed 06/09/18 @ 13:23 by Abdi Hammond DO) Closed left hip fracture (Acute) Subjective: Patient seen and examined. No new issues over night. Tolerating therapy. Denies any pain, pain is well tolerated. No issues with GI/Gu. States he is ready to go home any day. - Physical Exam General: Alert, Oriented x3, Cooperative HEENT: Atraumatic, PERRLA, EOMI, Normocephalic Neck: Supple, No JVD, Negative Carotid Bruits Lungs: Clear to auscultation, Normal air movement Cardiovascular: Regular rate, No murmurs Abdomen: Bowel Sounds Present, Soft, Non Tender Extremities: No edema, Capillary Refill Less than 3 Seconds Skin: No rashes, No breakdown Musculoskeletal: No Tenderness to Palpation of Joints or Extremities Neurological: Cranial nerves II-XII grossly intact Psych/Mental Status: Normal Affect, Appropriate, Alert and oriented to time, place, person, mood and affect Vital Signs Temp Pulse Resp BP Pulse Ox 98.3 F 64 16 122/60 H 96 06/19/18 07:51 06/19/18 07:51 06/19/18 07:51 06/19/18 07:51 06/19/18 07:51 Oxygen Delivery Method Room Air Weight: 69.6 kg Body Mass Index (BMI) 24.0 Intake and Output for Last 24 Hours 06/17/18 06/18/18 06/19/18 23:59 23:59 23:59 Intake Total 480 / 480 720 / 720 240 / 240 Balance 480 / 480 720 / 720 240 / 240 Active Medications Hydrocodone Bitart/Acetaminophen ([place] 5mg-325mg) 1 - 2 tablet PO Q6H PRN PRN PRN Reason: MOD-SEVERE PAIN (4-1010) Last Admin: 06/19/18 13:41 Dose: 2 tablet Al Hydroxide/Mg Hydroxide (Mylanta Ii) 30 ml PO Q4H PRN PRN PRN Reason: INDIGESTION Amiodarone HCl (Cordarone) 200 mg PO DAILY [facility] Last Admin: 06/19/18 07:55 Dose: 200 mg Ascorbic Acid (Vitamin C) 500 mg PO BID [facility] Last Admin: 06/19/18 07:58 Dose: 500 mg Bisacodyl (Dulcolax) 10 mg RECTAL .PRN X 1 PRN PRN Reason: Constipation Calcium/Vitamin D (Os-Osvaldo 500mg + D) 1 tablet PO DAILY@0800 [facility] Last Admin: 06/19/18 07:57 Dose: 1 tablet Cyanocobalamin (Vitamin B12) 1,000 mcg PO DAILY@0800 [facility] Last Admin: 06/19/18 07:57 Dose: 1,000 mcg Fluticasone Propionate (Flonase Nasal [place]) 2 spray NASAL DAILY [facility] Last Admin: 06/19/18 07:54 Dose: 2 spray Folic Acid (Folic Acid) 0.5 mg PO DAILY@0800 [facility] Last Admin: 06/19/18 07:55 Dose: 0.5 mg Guaifenesin (Mucinex) 600 mg PO Q12H PRN PRN Reason: CONGESTION Lisinopril (Zestril) 2.5 mg PO DAILY [facility] Last Admin: 06/19/18 07:55 Dose: 2.5 mg Magnesium Hydroxide (Milk Of Magnesia) 30 ml PO .PRN X 1 PRN PRN Reason: Constipation Last Admin: 06/09/18 01:25 Dose: 30 ml Multivitamins (Multivitamin) 1 tablet PO DAILY@0800 [facility] Last Admin: 06/19/18 07:55 Dose: 1 tablet Nutritional Formula (Lactose Free) (Ensure Enlive) 120 ml PO 4X/DAY [facility] Last Admin: 06/19/18 13:42 Dose: 120 ml Ondansetron HCl (Zofran Odt) 4 mg PO Q6H PRN PRN PRN Reason: NAUSEA Polyethylene Glycol (Miralax) 17 gm PO DAILY [facility] Last Admin: 06/19/18 07:57 Dose: Not Given Rivaroxaban (Xarelto) 20 mg PO DAILY [facility] Last Admin: 06/19/18 07:55 Dose: 20 mg Senna/Docusate Sodium (Senokot-S, Beronica-Colace) 2 tablet PO BID [facility] Last Admin: 06/19/18 07:56 Dose: Not Given Thiamine HCl (Vitamin B1) 100 mg PO TID [facility] Last Admin: 06/19/18 06:57 Dose: 100 mg Medical Necessity - Tobacco Use Smoking Status: Current every day smoker Tobacco Use: Cigars Assessment/Plan All Active Problems (Last Reviewed 06/09/18 @ 13:23 by Abdi Hammond DO) Closed left hip fracture (Acute) Hemorrhoids (Acute) Hemorrhoids with complication (Acute) Chest pain (Acute) Rectal bleeding (Acute) S/P inguinal hernia repair (Acute) Inguinal hernia of left side without obstruction or gangrene (Acute) Rheumatic mitral stenosis (Acute) Syncope and collapse (Acute) Aortic valve disease, rheumatic (Acute) Screening for intestinal cancer (Acute) Personal history of colonic polyps (Acute) S/P wrist surgery (Resolved) S/P shoulder surgery (Resolved) Status post knee surgery (Resolved) S/P hemorrhoidectomy (Acute) Chronic anticoagulation (Acute) Fracture of fourth cervical vertebra (Acute) Orthostatic hypotension (Acute) DDD (degenerative disc disease), lumbar (Acute) Spondylosis of lumbar region without myelopathy or radiculopathy (Acute) Murmur, cardiac (Acute) Knee locking (Acute) Solitary lung nodule (Acute) Diverticulosis (Acute) Malignant neoplasm of bladder (Acute) Disorders of bursae and tendons in shoulder region, unspecified (Acute) DVT of lower extremity, bilateral (Acute) Dysphagia (Acute) Fracture of C4 vertebra, closed (Acute) Status post tracheostomy (Acute) S/P percutaneous endoscopic gastrostomy (PEG) tube placement (Resolved) Debility left hip fracture s/p ORIF, complicated by ETOH abuse, acute blood lo ss anemia, HTN and Afib on Xarelto. Goal of rehab is mandaeism of functional independence. Plan: - Physical therapy for gait and balance - Occupational Therapy for ADLs - Speech therapy - As needed analgesics - Bowel protocol - DVT prophylaxis: SCDs, Keegan hoses, and Xarelto - Hx of HTN: Stable with good control, continue home dose of Lisinopril - Hx A-Fib => continue amiodarone and Xarelto - ETOH Abuse (patient states he only drinks 3 beers a day) => continue Multivitamin, Folic Acid and thiamine - Acute blood loss anemia 2/2 surgery for ORIF of left femur fracture, last Hgb was 10.2 - Left hip fracture => s/p ORIF Incision is C/D/I, schedule follow up visit with Orthopedic surgeon on discharge from unit.
[2018-06-19 20:22] VITALS: BP 94/52; PULSE 78; RESP 16; TEMP 36.6; O2SAT 93
[2018-06-20] MEDS: Thiamine Hydrochloride 100 MG Tablet PO ×3 (06:37→21:59)
[2018-06-20 08:10] VITALS: BP 125/67; PULSE 66; RESP 16; TEMP 36.6; O2SAT 98
[2018-06-20] MEDS: HYDROcodone Bitartrate/Apap 5/325 Tablet PO ×2 (08:17→18:00)
[2018-06-20] MEDS: Senna/Docusate Sodium 1 Tablet 2 TABLET PO ×2 (08:17→21:59)
[2018-06-20] MEDS: Amiodarone 200 MG Tablet PO (08:18)
[2018-06-20] MEDS: Calcium Carb/Vitamin D 1 TABLET Tablet PO (08:18)
[2018-06-20] MEDS: Cyanocobalamin 500 MCG Tablet 1000 MCG PO (08:18)
[2018-06-20] MEDS: Folic Acid 1 MG Tablet 0.5 MG PO (08:18)
[2018-06-20] MEDS: Lisinopril 2.5 MG Tablet PO (08:18)
[2018-06-20] MEDS: Rivaroxaban 20 MG Tablet PO (08:18)
[2018-06-20] MEDS: Multivitamins,Therapeutic Tablet 1 TABLET PO (08:18)
[2018-06-20] MEDS: Ascorbic Acid 500 MG Tablet PO ×2 (08:18→21:59)
[2018-06-20] MEDS: Umeclidinium Bromide Inhaler 1 PUFF IH (08:19)
[2018-06-20] MEDS: Fluticasone 0.05% 1 SPRAY NASAL.SRY 2 SPRAY NASAL (08:19)
[2018-06-20] MEDS: Polyethylene Glycol 3350 17 GM PACKET PO (08:19)
--- NOTE | 2018-06-20 18:27 | PCM.HOSP.N ---
Hospitalist Note Patient is a 77-year-old white male recovering from a left closed hip fracture, and history of chronic atrial fibrillation on anticoagulation, remote history of bladder cancer, hypertension, dyslipidemia who was admitted for hip fracture undergoing rehabilitation. Patient currently has no new complaints of visit is patient is just wondering when he will be discharged. He has no new complaints we will reevaluate him tomorrow again. Chart is dictated with energy project manager software. Errors may occur in dictation that may change providers meaning. This note was generated with [employer] dictation software. It may contain incorrect words, spelling, and punctuation that were not noted in checking the note before signing.
--- NOTE | 2018-06-20 18:31 | CCHN_ITS ---
Hospitalist Note Patient is a 77-year-old white male recovering from a left closed hip fracture, and history of chronic atrial fibrillation on anticoagulation, remote history of bladder cancer, hypertension, dyslipidemia who was admitted for hip fracture undergoing rehabilitation. Patient currently has no new complaints of visit is patient is just wondering when he will be discharged. He has no new complaints we will reevaluate him tomorrow again. Chart is dictated with b2b appointment setter software. Errors may occur in dictation that may change providers meaning. This note was generated with [employer] dictation software. It may contain incorrect words, spelling, and punctuation that were not noted in checking the note before signing.
[2018-06-20 19:19] VITALS: BP 94/43; PULSE 70; RESP 18; TEMP 36.4; O2SAT 98
[2018-06-21] MEDS: Thiamine Hydrochloride 100 MG Tablet PO ×3 (06:41→20:07)
[2018-06-21 07:09] VITALS: BP 144/53; PULSE 74; RESP 20; TEMP 36.7; O2SAT 95
[2018-06-21] MEDS: Cyanocobalamin 500 MCG Tablet 1000 MCG PO (07:56)
[2018-06-21] MEDS: Polyethylene Glycol 3350 17 GM PACKET PO (07:56)
[2018-06-21] MEDS: Calcium Carb/Vitamin D 1 TABLET Tablet PO (07:57)
[2018-06-21] MEDS: Folic Acid 1 MG Tablet 0.5 MG PO (07:57)
[2018-06-21] MEDS: Multivitamins,Therapeutic Tablet 1 TABLET PO (07:57)
[2018-06-21] MEDS: Senna/Docusate Sodium 1 Tablet 2 TABLET PO ×2 (07:57→20:06)
[2018-06-21] MEDS: Rivaroxaban 20 MG Tablet PO (07:57)
[2018-06-21] MEDS: Amiodarone 200 MG Tablet PO (07:57)
[2018-06-21] MEDS: Ascorbic Acid 500 MG Tablet PO ×2 (07:57→20:07)
[2018-06-21] MEDS: Umeclidinium Bromide Inhaler 1 PUFF IH (07:58)
[2018-06-21] MEDS: Lisinopril 2.5 MG Tablet PO (07:58)
[2018-06-21] MEDS: Fluticasone 0.05% 1 SPRAY NASAL.SRY 2 SPRAY NASAL (07:58)
[2018-06-21] MEDS: HYDROcodone Bitartrate/Apap 5/325 Tablet PO ×2 (12:41→20:09)
--- NOTE | 2018-06-21 18:03 | PCM.PN.HOSP ---
Patient Problems: Active and Suspected Problems (Last Reviewed 06/09/18 @ 13:23 by Abdi Hammond DO) Closed left hip fracture (Acute) Subjective: Patient is a 77-year-old white male recovering from a left closed hip fracture, and history of chronic atrial fibrillation on anticoagulation, remote history of bladder cancer, hypertension, dyslipidemia who was admitted for hip fracture undergoing rehabilitation. Patient seen and examined currently denies any nausea vomiting diarrhea constipation. Is wishing to go home is expecting to leave possibly tomorrow Vitals/I&O's: Vital Signs Temp Pulse Resp BP Pulse Ox 98.1 F 74 20 H 144/53 H 95 06/21/18 07:09 06/21/18 07:09 06/21/18 07:09 06/21/18 07:09 06/21/18 07:09 Oxygen Delivery Method Room Air Weight: 69.6 kg Body Mass Index (BMI) 24.0 Intake and Output for Last 24 Hours 06/19/18 06/20/18 06/21/18 23:59 23:59 23:59 Intake Total 240 / 240 480 / 480 600 / 600 Balance 240 / 240 480 / 480 600 / 600 General: Alert, Oriented x3, Cooperative HEENT: Atraumatic, PERRLA, EOMI Oral: Moist Mucosa, No Gingival or Mucosal Lesions/ Ulcerations Neck: Supple, No JVD, Trachea Midline Lungs: Clear to auscultation, No rhonchi, No wheeze Cardiovascular: Regular rate, No murmurs Abdomen: Bowel Sounds Present, Soft, Non Tender Extremities: No edema, Capillary Refill Less than 3 Seconds Skin: No rashes, No breakdown Musculoskeletal: No Tenderness to Palpation of Joints or Extremities Lymphatic: No Cervical, Supraclavicular, or Inguinal Adenopathy Neurological: Cranial nerves II-XII grossly intact Psych/Mental Status: Normal Affect, Appropriate, Alert and oriented to time, place, person, mood and affect Current Medications Hydrocodone Bitart/Acetaminophen ([place] 5mg-325mg) 1 - 2 tablet PO Q6H PRN PRN PRN Reason: MOD-SEVERE PAIN (4-06/03) Last Admin: 06/21/18 12:41 Dose: 2 tablet Al Hydroxide/Mg Hydroxide (Mylanta Ii) 30 ml PO Q4H PRN PRN PRN Reason: INDIGESTION Amiodarone HCl (Cordarone) 200 mg PO DAILY [facility] Last Admin: 06/21/18 07:57 Dose: 200 mg Ascorbic Acid (Vitamin C) 500 mg PO BID [facility] Last Admin: 06/21/18 07:57 Dose: 500 mg Bisacodyl (Dulcolax) 10 mg RECTAL .PRN X 1 PRN PRN Reason: Constipation Calcium/Vitamin D (Os-Osvaldo 500mg + D) 1 tablet PO DAILY@0800 [facility] Last Admin: 06/21/18 07:57 Dose: 1 tablet Cyanocobalamin (Vitamin B12) 1,000 mcg PO DAILY@0800 [facility] Last Admin: 06/21/18 07:56 Dose: 1,000 mcg Fluticasone Propionate (Flonase Nasal [place]) 2 spray NASAL DAILY [facility] Last Admin: 06/21/18 07:58 Dose: 2 spray Folic Acid (Folic Acid) 0.5 mg PO DAILY@0800 [facility] Last Admin: 06/21/18 07:57 Dose: 0.5 mg Guaifenesin (Mucinex) 600 mg PO Q12H PRN PRN Reason: CONGESTION Lisinopril (Zestril) 2.5 mg PO DAILY [facility] Last Admin: 06/21/18 07:58 Dose: 2.5 mg Magnesium Hydroxide (Milk Of Magnesia) 30 ml PO .PRN X 1 PRN PRN Reason: Constipation Last Admin: 06/09/18 01:25 Dose: 30 ml Multivitamins (Multivitamin) 1 tablet PO DAILY@0800 [facility] Last Admin: 06/21/18 07:57 Dose: 1 tablet Nutritional Formula (Lactose Free) (Ensure Enlive) 120 ml PO 4X/DAY [facility] Last Admin: 06/21/18 14:07 Dose: 120 ml Ondansetron HCl (Zofran Odt) 4 mg PO Q6H PRN PRN PRN Reason: NAUSEA Polyethylene Glycol (Miralax) 17 gm PO DAILY [facility] Last Admin: 06/21/18 07:56 Dose: 17 gm Rivaroxaban (Xarelto) 20 mg PO DAILY [facility] Last Admin: 06/21/18 07:57 Dose: 20 mg Senna/Docusate Sodium (Senokot-S, Beronica-Colace) 2 tablet PO BID [facility] Last Admin: 06/21/18 07:57 Dose: 2 tablet Thiamine HCl (Vitamin B1) 100 mg PO TID [facility] Last Admin: 10/28/18 14:07 Dose: 100 mg Medical Necessity - Tobacco Use Smoking Status: Current every day smoker Tobacco Use: Cigars Assessment/Plan All Active Problems (Last Reviewed 06/09/18 @ 13:23 by Abdi Hammond DO) Closed left hip fracture (Acute) Hemorrhoids (Acute) Hemorrhoids with complication (Acute) Chest pain (Acute) Rectal bleeding (Acute) S/P inguinal hernia repair (Acute) Inguinal hernia of left side without obstruction or gangrene (Acute) Rheumatic mitral stenosis (Acute) Syncope and collapse (Acute) Aortic valve disease, rheumatic (Acute) Screening for intestinal cancer (Acute) Personal history of colonic polyps (Acute) S/P wrist surgery (Resolved) S/P shoulder surgery (Resolved) Status post knee surgery (Resolved) S/P hemorrhoidectomy (Acute) Chronic anticoagulation (Acute) Fracture of fourth cervical vertebra (Acute) Orthostatic hypotension (Acute) DDD (degenerative disc disease), lumbar (Acute) Spondylosis of lumbar region without myelopathy or radiculopathy (Acute) Murmur, cardiac (Acute) Knee locking (Acute) Solitary lung nodule (Acute) Diverticulosis (Acute) Malignant neoplasm of bladder (Acute) Disorders of bursae and tendons in shoulder region, unspecified (Acute) DVT of lower extremity, bilateral (Acute) Dysphagia (Acute) Fracture of C4 vertebra, closed (Acute) Status post tracheostomy (Acute) S/P percutaneous endoscopic gastrostomy (PEG) tube placement (Resolved) Patient is a 77-year-old white male recovering from a left closed hip fracture, and history of chronic atrial fibrillation on anticoagulation, remote history of bladder cancer, hypertension, dyslipidemia who was admitted for hip fracture undergoing rehabilitation. Patient's blood pressure seems well controlled having no constipation, will continue current medical therapy no changes at this time will hold off on laboratories. We will continue to follow along and make adjustments as needed. Patient feels like he is happily going home tomorrow. After team meeting, will continue to monitor progress. Code Visit Inpatient E&M: 12858 [facility] Hosp L1
--- NOTE | 2018-06-21 18:06 | PN_ITS ---
Patient Problems: Active and Suspected Problems (Last Reviewed 06/09/18 @ 13:23 by Abdi Hammond DO) Closed left hip fracture (Acute) Subjective: Patient is a 77-year-old white male recovering from a left closed hip fracture, and history of chronic atrial fibrillation on anticoagulation, remote history of bladder cancer, hypertension, dyslipidemia who was admitted for hip fracture undergoing rehabilitation. Patient seen and examined currently denies any nausea vomiting diarrhea constipation. Is wishing to go home is expecting to leave possibly tomorrow Vitals/I&O's: Vital Signs Temp Pulse Resp BP Pulse Ox 98.1 F 74 20 H 144/53 H 95 06/21/18 07:09 06/21/18 07:09 06/21/18 07:09 06/21/18 07:09 06/21/18 07:09 Oxygen Delivery Method Room Air Weight: 69.6 kg Body Mass Index (BMI) 24.0 Intake and Output for Last 24 Hours 06/19/18 06/20/18 06/21/18 23:59 23:59 23:59 Intake Total 240 / 240 480 / 480 600 / 600 Balance 240 / 240 480 / 480 600 / 600 General: Alert, Oriented x3, Cooperative HEENT: Atraumatic, PERRLA, EOMI Oral: Moist Mucosa, No Gingival or Mucosal Lesions/ Ulcerations Neck: Supple, No JVD, Trachea Midline Lungs: Clear to auscultation, No rhonchi, No wheeze Cardiovascular: Regular rate, No murmurs Abdomen: Bowel Sounds Present, Soft, Non Tender Extremities: No edema, Capillary Refill Less than 3 Seconds Skin: No rashes, No breakdown Musculoskeletal: No Tenderness to Palpation of Joints or Extremities Lymphatic: No Cervical, Supraclavicular, or Inguinal Adenopathy Neurological: Cranial nerves II-XII grossly intact Psych/Mental Status: Normal Affect, Appropriate, Alert and oriented to time, place, person, mood and affect Current Medications Hydrocodone Bitart/Acetaminophen ([place] 5mg-325mg) 1 - 2 tablet PO Q6H PRN PRN PRN Reason: MOD-SEVERE PAIN (4-06/03) Last Admin: 06/21/18 12:41 Dose: 2 tablet Al Hydroxide/Mg Hydroxide (Mylanta Ii) 30 ml PO Q4H PRN PRN PRN Reason: INDIGESTION Amiodarone HCl (Cordarone) 200 mg PO DAILY [facility] Last Admin: 06/21/18 07:57 Dose: 200 mg Ascorbic Acid (Vitamin C) 500 mg PO BID [facility] Last Admin: 06/21/18 07:57 Dose: 500 mg Bisacodyl (Dulcolax) 10 mg RECTAL .PRN X 1 PRN PRN Reason: Constipation Calcium/Vitamin D (Os-Osvaldo 500mg + D) 1 tablet PO DAILY@0800 [facility] Last Admin: 06/21/18 07:57 Dose: 1 tablet Cyanocobalamin (Vitamin B12) 1,000 mcg PO DAILY@0800 [facility] Last Admin: 06/21/18 07:56 Dose: 1,000 mcg Fluticasone Propionate (Flonase Nasal [place]) 2 spray NASAL DAILY [facility] Last Admin: 06/21/18 07:58 Dose: 2 spray Folic Acid (Folic Acid) 0.5 mg PO DAILY@0800 [facility] Last Admin: 06/21/18 07:57 Dose: 0.5 mg Guaifenesin (Mucinex) 600 mg PO Q12H PRN PRN Reason: CONGESTION Lisinopril (Zestril) 2.5 mg PO DAILY [facility] Last Admin: 06/21/18 07:58 Dose: 2.5 mg Magnesium Hydroxide (Milk Of Magnesia) 30 ml PO .PRN X 1 PRN PRN Reason: Constipation Last Admin: 06/09/18 01:25 Dose: 30 ml Multivitamins (Multivitamin) 1 tablet PO DAILY@0800 [facility] Last Admin: 06/21/18 07:57 Dose: 1 tablet Nutritional Formula (Lactose Free) (Ensure Enlive) 120 ml PO 4X/DAY [facility] Last Admin: 06/21/18 14:07 Dose: 120 ml Ondansetron HCl (Zofran Odt) 4 mg PO Q6H PRN PRN PRN Reason: NAUSEA Polyethylene Glycol (Miralax) 17 gm PO DAILY [facility] Last Admin: 06/21/18 07:56 Dose: 17 gm Rivaroxaban (Xarelto) 20 mg PO DAILY [facility] Last Admin: 06/21/18 07:57 Dose: 20 mg Senna/Docusate Sodium (Senokot-S, Beronica-Colace) 2 tablet PO BID [facility] Last Admin: 06/21/18 07:57 Dose: 2 tablet Thiamine HCl (Vitamin B1) 100 mg PO TID [facility] Last Admin: 10/28/18 14:07 Dose: 100 mg Medical Necessity - Tobacco Use Smoking Status: Current every day smoker Tobacco Use: Cigars Assessment/Plan All Active Problems (Last Reviewed 06/09/18 @ 13:23 by Abdi Hammond DO) Closed left hip fracture (Acute) Hemorrhoids (Acute) Hemorrhoids with complication (Acute) Chest pain (Acute) Rectal bleeding (Acute) S/P inguinal hernia repair (Acute) Inguinal hernia of left side without obstruction or gangrene (Acute) Rheumatic mitral stenosis (Acute) Syncope and collapse (Acute) Aortic valve disease, rheumatic (Acute) Screening for intestinal cancer (Acute) Personal history of colonic polyps (Acute) S/P wrist surgery (Resolved) S/P shoulder surgery (Resolved) Status post knee surgery (Resolved) S/P hemorrhoidectomy (Acute) Chronic anticoagulation (Acute) Fracture of fourth cervical vertebra (Acute) Orthostatic hypotension (Acute) DDD (degenerative disc disease), lumbar (Acute) Spondylosis of lumbar region without myelopathy or radiculopathy (Acute) Murmur, cardiac (Acute) Knee locking (Acute) Solitary lung nodule (Acute) Diverticulosis (Acute) Malignant neoplasm of bladder (Acute) Disorders of bursae and tendons in shoulder region, unspecified (Acute) DVT of lower extremity, bilateral (Acute) Dysphagia (Acute) Fracture of C4 vertebra, closed (Acute) Status post tracheostomy (Acute) S/P percutaneous endoscopic gastrostomy (PEG) tube placement (Resolved) Patient is a 77-year-old white male recovering from a left closed hip fracture, and history of chronic atrial fibrillation on anticoagulation, remote history of bladder cancer, hypertension, dyslipidemia who was admitted for hip fracture undergoing rehabilitation. Patient's blood pressure seems well controlled having no constipation, will continue current medical therapy no changes at this time will hold off on laboratories. We will continue to follow along and make adjustments as needed. Patient feels like he is happily going home tomorrow. After team meeting, will continue to monitor progress. Code Visit Inpatient E&M: [id number] [facility] Hosp L1
[2018-06-21 22:00] VITALS: BP 137/76; PULSE 70; RESP 18; TEMP 36.6; O2SAT 99
--- NOTE | 2018-06-22 01:51 | NURSING ---
REVIEWED AND AGREE WITH ALTERNATIVE DISPUTE RESOLUTION MEDIATOR'S FIM AND HANDOFF CHARTING.
[2018-06-22] MEDS: Thiamine Hydrochloride 100 MG Tablet PO ×3 (05:20→20:12)
--- NOTE | 2018-06-22 05:52 | NURSING ---
pt noted to be up unassisted x2 this shift. pt reminded that he is to use call light when needing assistance. pt stated to this nurse i thought i only had to call to be taken to the restroom, not go back to bed. i was never told the rules. this nurse reminded pt of the rehab rules and using call button for assistance. pt agreed to use call light from now on.
[2018-06-22] MEDS: Polyethylene Glycol 3350 17 GM PACKET PO (07:55)
[2018-06-22] MEDS: Cyanocobalamin 500 MCG Tablet 1000 MCG PO (07:56)
[2018-06-22] MEDS: Amiodarone 200 MG Tablet PO (07:56)
[2018-06-22] MEDS: Folic Acid 1 MG Tablet 0.5 MG PO (07:56)
[2018-06-22] MEDS: Rivaroxaban 20 MG Tablet PO (07:56)
[2018-06-22] MEDS: Ascorbic Acid 500 MG Tablet PO ×2 (07:56→20:12)
[2018-06-22] MEDS: Multivitamins,Therapeutic Tablet 1 TABLET PO (07:56)
[2018-06-22] MEDS: Senna/Docusate Sodium 1 Tablet 2 TABLET PO ×2 (07:56→20:12)
[2018-06-22] MEDS: Calcium Carb/Vitamin D 1 TABLET Tablet PO (07:56)
[2018-06-22] MEDS: Fluticasone 0.05% 1 SPRAY NASAL.SRY 2 SPRAY NASAL (07:57)
[2018-06-22 08:09] VITALS: BP 89/50; PULSE 74; RESP 20; TEMP 37.2; O2SAT 95
--- NOTE | 2018-06-22 10:00 | CASEMGMT ---
Team meeting held. Patient present as well as patient spouse. Collaborating with team and patient, discharge date set for 06/23/18. Patient plans to discharge to home with spouse. Patient to follow up with orthopaedic surgeon on 06/26/18 on continued therapy recommendation. Patient to have a home exercise program. Patient spouse plans to provide transportation home for patient at time of discharge. Patient reporting to have all needed durable medical equipment already set up within the home. Support given. Proposed discharge date: 06/23/18 PLAN: Discharge to home with spouse. MANDEEP Galvan, CORPORATE ASSOCIATE ATTORNEY
[2018-06-22] MEDS: Umeclidinium Bromide Inhaler 1 PUFF IH (10:42)
--- NOTE | 2018-06-22 12:29 | PN.NEURO_ITS ---
Patient Problems: Active and Suspected Problems (Last Reviewed 06/09/18 @ 13:23 by Abdi Hammond DO) Closed left hip fracture (Acute) Subjective: Staffed in team meeting. Family at bedside, questions answered. With Physical therapy, he is stand by assist for getting in and out of bed, he is able to get his leg on and off the bed with out assistance. He maintains his TTWB very well. He has gone up 2 steps with two hand rails will practices going up the steps using one hand rail. With Occupational therapy, he is set up to stand by assist for bathing, toileting, and dressing. With Nursing, pain is well tolerated. The plan is for discharge home tomorrow with home exercises, he is scheduled to see his surgeon on . - Physical Exam General: Alert, Oriented x3, Cooperative HEENT: Atraumatic, PERRLA, EOMI, Normocephalic Neck: Supple, No JVD, Negative Carotid Bruits Lungs: Clear to auscultation, Normal air movement Cardiovascular: Regular rate, No murmurs Abdomen: Bowel Sounds Present, Soft, Non Tender Extremities: No edema, Capillary Refill Less than 3 Seconds Skin: No rashes, No breakdown Musculoskeletal: No Tenderness to Palpation of Joints or Extremities Neurological: Cranial nerves II-XII grossly intact Psych/Mental Status: Normal Affect, Appropriate, Alert and oriented to time, place, person, mood and affect Vital Signs Temp Pulse Resp BP Pulse Ox 98.9 F 74 20 H 89/50 L 95 06/22/18 08:09 06/22/18 08:09 06/22/18 08:09 06/22/18 08:09 06/22/18 08:09 Oxygen Delivery Method Room Air Weight: 69.6 kg Body Mass Index (BMI) 24.0 Intake and Output for Last 24 Hours 06/20/18 06/21/18 06/22/18 23:59 23:59 23:59 Intake Total 480 / 480 840 / 840 480 / 480 Balance 480 / 480 840 / 840 480 / 480 Active Medications Hydrocodone Bitart/Acetaminophen ([place] 5mg-325mg) 1 - 2 tablet PO Q6H PRN PRN PRN Reason: MOD-SEVERE PAIN (4-10/10) Last Admin: 06/21/18 20:09 Dose: 2 tablet Al Hydroxide/Mg Hydroxide (Mylanta Ii) 30 ml PO Q4H PRN PRN PRN Reason: INDIGESTION Amiodarone HCl (Cordarone) 200 mg PO DAILY [facility] Last Admin: 06/22/18 07:56 Dose: 200 mg Ascorbic Acid (Vitamin C) 500 mg PO BID [facility] Last Admin: 06/22/18 07:56 Dose: 500 mg Bisacodyl (Dulcolax) 10 mg RECTAL .PRN X 1 PRN PRN Reason: Constipation Calcium/Vitamin D (Os-Osvaldo 500mg + D) 1 tablet PO DAILY@0800 [facility] Last Admin: 06/22/18 07:56 Dose: 1 tablet Cyanocobalamin (Vitamin B12) 1,000 mcg PO DAILY@0800 [facility] Last Admin: 06/22/18 07:56 Dose: 1,000 mcg Fluticasone Propionate (Flonase Nasal [place]) 2 spray NASAL DAILY [facility] Last Admin: 06/22/18 07:57 Dose: 2 spray Folic Acid (Folic Acid) 0.5 mg PO DAILY@0800 [facility] Last Admin: 06/22/18 07:56 Dose: 0.5 mg Guaifenesin (Mucinex) 600 mg PO Q12H PRN PRN Reason: CONGESTION Lisinopril (Zestril) 2.5 mg PO DAILY [facility] Last Admin: 06/22/18 10:41 Dose: Not Given Magnesium Hydroxide (Milk Of Magnesia) 30 ml PO .PRN X 1 PRN PRN Reason: Constipation Last Admin: 06/09/18 01:25 Dose: 30 ml Multivitamins (Multivitamin) 1 tablet PO DAILY@0800 [facility] Last Admin: 06/22/18 07:56 Dose: 1 tablet Nutritional Formula (Lactose Free) (Ensure Enlive) 120 ml PO 4X/DAY [facility] Last Admin: 06/22/18 07:54 Dose: Not Given Ondansetron HCl (Zofran Odt) 4 mg PO Q6H PRN PRN PRN Reason: NAUSEA Polyethylene Glycol (Miralax) 17 gm PO DAILY [facility] Last Admin: 06/22/18 07:55 Dose: 17 gm Rivaroxaban (Xarelto) 20 mg PO DAILY [facility] Last Admin: 06/22/18 07:56 Dose: 20 mg Senna/Docusate Sodium (Senokot-S, Beronica-Colace) 2 tablet PO BID [facility] Last Admin: 06/22/18 07:56 Dose: 2 tablet Thiamine HCl (Vitamin B1) 100 mg PO TID [facility] Last Admin: 06/22/18 05:20 Dose: 100 mg Medical Necessity - Tobacco Use Smoking Status: Current every day smoker Tobacco Use: Cigars Assessment/Plan All Active Problems (Last Reviewed 06/09/18 @ 13:23 by Abdi Hammond DO) Closed left hip fracture (Acute) Hemorrhoids (Acute) Hemorrhoids with complication (Acute) Chest pain (Acute) Rectal bleeding (Acute) S/P inguinal hernia repair (Acute) Inguinal hernia of left side without obstruction or gangrene (Acute) Rheumatic mitral stenosis (Acute) Syncope and collapse (Acute) Aortic valve disease, rheumatic (Acute) Screening for intestinal cancer (Acute) Personal history of colonic polyps (Acute) S/P wrist surgery (Resolved) S/P shoulder surgery (Resolved) Status post knee surgery (Resolved) S/P hemorrhoidectomy (Acute) Chronic anticoagulation (Acute) Fracture of fourth cervical vertebra (Acute) Orthostatic hypotension (Acute) DDD (degenerative disc disease), lumbar (Acute) Spondylosis of lumbar region without myelopathy or radiculopathy (Acute) Murmur, cardiac (Acute) Knee locking (Acute) Solitary lung nodule (Acute) Diverticulosis (Acute) Malignant neoplasm of bladder (Acute) Disorders of bursae and tendons in shoulder region, unspecified (Acute) DVT of lower extremity, bilateral (Acute) Dysphagia (Acute) Fracture of C4 vertebra, closed (Acute) Status post tracheostomy (Acute) S/P percutaneous endoscopic gastrostomy (PEG) tube placement (Resolved) Debility left hip fracture s/p ORIF, complicated by ETOH abuse, acute blood loss anemia, HTN and Afib on Xarelto. Goal of rehab is orthodox of functional independence. Plan: - Physical therapy for gait and balance - Occupational Therapy for ADLs - Speech therapy - As needed analgesics - Bowel protocol - DVT prophylaxis: SCDs, Keegan hoses, and Xarelto - Hx of HTN: Stable with good control, continue home dose of Lisinopril - Hx A-Fib => continue amiodarone and Xarelto - ETOH Abuse (patient states he only drinks 3 beers a day) => continue Multivitamin, Folic Acid and thiamine - Acute blood loss anemia 2/2 surgery for ORIF of left femur fracture, last Hgb was 10.2 - Left hip fracture => s/p ORIF Incision is C/D/I, schedule follow up visit with Orthopedic surgeon on discharge from unit. - Plan is discharge home on Friday with home exercise will see surgeon on
--- NOTE | 2018-06-22 17:02 | PCM.PN.HOSP ---
Patient Problems: Active and Suspected Problems (Last Reviewed 06/09/18 @ 13:23 by Abdi Hammond DO) Closed left hip fracture (Acute) Subjective: no new complaints. plan for discharge 06/23. Vitals/I&O's: Vital Signs Temp Pulse Resp BP Pulse Ox 37.2 C 74 20 H 89/50 L 95 06/22/18 08:09 06/22/18 08:09 06/22/18 08:09 06/22/18 08:09 06/22/18 08:09 Oxygen Delivery Method Room Air Weight: 69.6 kg Body Mass Index (BMI) 24.0 Intake and Output for Last 24 Hours 06/20/18 06/21/18 06/22/18 23:59 23:59 23:59 Intake Total 480 / 480 840 / 840 720 / 720 Balance 480 / 480 840 / 840 720 / 720 General: Alert, Cooperative, No apparent distress, - - up in wheelchair. HEENT: Atraumatic, Normocephalic Psych/Mental Status: Normal Affect, Appropriate Current Medications Hydrocodone Bitart/Acetaminophen ([place] 5mg-325mg) 1 - 2 tablet PO Q6H PRN PRN PRN Reason: MOD-SEVERE PAIN (4-06/03) Last Admin: 06/21/18 20:09 Dose: 2 tablet Al Hydroxide/Mg Hydroxide (Mylanta Ii) 30 ml PO Q4H PRN PRN PRN Reason: INDIGESTION Amiodarone HCl (Cordarone) 200 mg PO DAILY [facility] Last Admin: 06/22/18 07:56 Dose: 200 mg Ascorbic Acid (Vitamin C) 500 mg PO BID [facility] Last Admin: 06/22/18 07:56 Dose: 500 mg Bisacodyl (Dulcolax) 10 mg RECTAL .PRN X 1 PRN PRN Reason: Constipation Calcium/Vitamin D (Os-Osvaldo 500mg + D) 1 tablet PO DAILY@0800 [facility] Last Admin: 06/22/18 07:56 Dose: 1 tablet Cyanocobalamin (Vitamin B12) 1,000 mcg PO DAILY@0800 [facility] Last Admin: 06/22/18 07:56 Dose: 1,000 mcg Fluticasone Propionate (Flonase Nasal [place]) 2 spray NASAL DAILY [facility] Last Admin: 06/22/18 07:57 Dose: 2 spray Folic Acid (Folic Acid) 0.5 mg PO DAILY@0800 [facility] Last Admin: 06/22/18 07:56 Dose: 0.5 mg Guaifenesin (Mucinex) 600 mg PO Q12H PRN PRN Reason: CONGESTION Lisinopril (Zestril) 2.5 mg PO DAILY [facility] Last Admin: 06/22/18 10:41 Dose: Not Given Magnesium Hydroxide (Milk Of Magnesia) 30 ml PO .PRN X 1 PRN PRN Reason: Constipation Last Admin: 06/09/18 01:25 Dose: 30 ml Multivitamins (Multivitamin) 1 tablet PO DAILY@0800 [facility] Last Admin: 06/22/18 07:56 Dose: 1 tablet Nutritional Formula (Lactose Free) (Ensure Enlive) 120 ml PO 4X/DAY [facility] Last Admin: 06/22/18 13:34 Dose: 120 ml Ondansetron HCl (Zofran Odt) 4 mg PO Q6H PRN PRN PRN Reason: NAUSEA Polyethylene Glycol (Miralax) 17 gm PO DAILY [facility] Last Admin: 06/22/18 07:55 Dose: 17 gm Rivaroxaban (Xarelto) 20 mg PO DAILY [facility] Last Admin: 06/22/18 07:56 Dose: 20 mg Senna/Docusate Sodium (Senokot-S, Beronica-Colace) 2 tablet PO BID [facility] Last Admin: 06/22/18 07:56 Dose: 2 tablet Thiamine HCl (Vitamin B1) 100 mg PO TID [facility] Last Admin: 06/22/18 13:34 Dose: 100 mg Medical Necessity - Tobacco Use Smoking Status: Current every day smoker Tobacco Use: Cigars Assessment/Plan All Active Problems (Last Reviewed 06/09/18 @ 13:23 by Abdi Hammond DO) Closed left hip fracture (Acute) Hemorrhoids (Acute) Hemorrhoids with complication (Acute) Chest pain (Acute) Rectal bleeding (Acute) S/P inguinal hernia repair (Acute) Inguinal hernia of left side without obstruction or gangrene (Acute) Rheumatic mitral stenosis (Acute) Syncope and collapse (Acute) Aortic valve disease, rheumatic (Acute) Screening for intestinal cancer (Acute) Personal history of colonic polyps (Acute) S/P wrist surgery (Resolved) S/P shoulder surgery (Resolved) Status post knee surgery (Resolved) S/P hemorrhoidectomy (Acute) Chronic anticoagulation (Acute) Fracture of fourth cervical vertebra (Acute) Orthostatic hypotension (Acute) DDD (degenerative disc disease), lumbar (Acute) Spondylosis of lumbar region without myelopathy or radiculopathy (Acute) Murmur, cardiac (Acute) Knee locking (Acute) Solitary lung nodule (Acute) Diverticulosis (Acute) Malignant neoplasm of bladder (Acute) Disorders of bursae and tendons in shoulder region, unspecified (Acute) DVT of lower extremity, bilateral (Acute) Dysphagia (Acute) Fracture of C4 vertebra, closed (Acute) Status post tracheostomy (Acute) S/P percutaneous endoscopic gastrostomy (PEG) tube placement (Resolved) 1. Left hip fracture Status post ORIF Continue with pain control Follow-up with his orthopedic surgeon as previously prescribed 2. Acute blood loss anemia stable Hemoglobin is 10.2 and his hemoglobin from November 20 was 13.9 at that time. No indication for transfusions 3. Atrial fibrillation Continue with amiodarone and Xarelto. 4. Alcohol abuse Presumably the patient last drink would have been either the day of her day before he presented Patient states he only drinks 3 beers per day Patient already on a multivitamin 5. Hypertension has had some low pressures DC lisinopril 6. Vitamin D defiency: may not have prevented the fracture 25-OH D level is 28.2, goal is 50 start ergocalciferol 50,000 units weekly for 8 weeks, then transition to cholecalciferol 2000 units daily 7. DVT prophylaxis: Patient is anticoagulated on Xarelto. 8. Disposition: plan for home 06/23 medically stable for discharge. Code Visit Inpatient E&M: 22812 [facility] Hosp L1
--- NOTE | 2018-06-22 17:06 | PN_ITS ---
Patient Problems: Active and Suspected Problems (Last Reviewed 06/09/18 @ 13:23 by Abdi Hammond DO) Closed left hip fracture (Acute) Subjective: no new complaints. plan for discharge 06/23. Vitals/I&O's: Vital Signs Temp Pulse Resp BP Pulse Ox 37.2 C 74 20 H 89/50 L 95 06/22/18 08:09 06/22/18 08:09 06/22/18 08:09 06/22/18 08:09 06/22/18 08:09 Oxygen Delivery Method Room Air Weight: 69.6 kg Body Mass Index (BMI) 24.0 Intake and Output for Last 24 Hours 06/20/18 06/21/18 06/22/18 23:59 23:59 23:59 Intake Total 480 / 480 840 / 840 720 / 720 Balance 480 / 480 840 / 840 720 / 720 General: Alert, Cooperative, No apparent distress, - - up in wheelchair. HEENT: Atraumatic, Normocephalic Psych/Mental Status: Normal Affect, Appropriate Current Medications Hydrocodone Bitart/Acetaminophen ([place] 5mg-325mg) 1 - 2 tablet PO Q6H PRN PRN PRN Reason: MOD-SEVERE PAIN (4-06/03) Last Admin: 06/21/18 20:09 Dose: 2 tablet Al Hydroxide/Mg Hydroxide (Mylanta Ii) 30 ml PO Q4H PRN PRN PRN Reason: INDIGESTION Amiodarone HCl (Cordarone) 200 mg PO DAILY [facility] Last Admin: 06/22/18 07:56 Dose: 200 mg Ascorbic Acid (Vitamin C) 500 mg PO BID [facility] Last Admin: 06/22/18 07:56 Dose: 500 mg Bisacodyl (Dulcolax) 10 mg RECTAL .PRN X 1 PRN PRN Reason: Constipation Calcium/Vitamin D (Os-Osvaldo 500mg + D) 1 tablet PO DAILY@0800 [facility] Last Admin: 06/22/18 07:56 Dose: 1 tablet Cyanocobalamin (Vitamin B12) 1,000 mcg PO DAILY@0800 [facility] Last Admin: 06/22/18 07:56 Dose: 1,000 mcg Fluticasone Propionate (Flonase Nasal [place]) 2 spray NASAL DAILY [facility] Last Admin: 06/22/18 07:57 Dose: 2 spray Folic Acid (Folic Acid) 0.5 mg PO DAILY@0800 [facility] Last Admin: 06/22/18 07:56 Dose: 0.5 mg Guaifenesin (Mucinex) 600 mg PO Q12H PRN PRN Reason: CONGESTION Lisinopril (Zestril) 2.5 mg PO DAILY [facility] Last Admin: 06/22/18 10:41 Dose: Not Given Magnesium Hydroxide (Milk Of Magnesia) 30 ml PO .PRN X 1 PRN PRN Reason: Constipation Last Admin: 06/09/18 01:25 Dose: 30 ml Multivitamins (Multivitamin) 1 tablet PO DAILY@0800 [facility] Last Admin: 06/22/18 07:56 Dose: 1 tablet Nutritional Formula (Lactose Free) (Ensure Enlive) 120 ml PO 4X/DAY [facility] Last Admin: 06/22/18 13:34 Dose: 120 ml Ondansetron HCl (Zofran Odt) 4 mg PO Q6H PRN PRN PRN Reason: NAUSEA Polyethylene Glycol (Miralax) 17 gm PO DAILY [facility] Last Admin: 06/22/18 07:55 Dose: 17 gm Rivaroxaban (Xarelto) 20 mg PO DAILY [facility] Last Admin: 06/22/18 07:56 Dose: 20 mg Senna/Docusate Sodium (Senokot-S, Beronica-Colace) 2 tablet PO BID [facility] Last Admin: 06/22/18 07:56 Dose: 2 tablet Thiamine HCl (Vitamin B1) 100 mg PO TID [facility] Last Admin: 06/22/18 13:34 Dose: 100 mg Medical Necessity - Tobacco Use Smoking Status: Current every day smoker Tobacco Use: Cigars Assessment/Plan All Active Problems (Last Reviewed 06/09/18 @ 13:23 by Abdi Hammond DO) Closed left hip fracture (Acute) Hemorrhoids (Acute) Hemorrhoids with complication (Acute) Chest pain (Acute) Rectal bleeding (Acute) S/P inguinal hernia repair (Acute) Inguinal hernia of left side without obstruction or gangrene (Acute) Rheumatic mitral stenosis (Acute) Syncope and collapse (Acute) Aortic valve disease, rheumatic (Acute) Screening for intestinal cancer (Acute) Personal history of colonic polyps (Acute) S/P wrist surgery (Resolved) S/P shoulder surgery (Resolved) Status post knee surgery (Resolved) S/P hemorrhoidectomy (Acute) Chronic anticoagulation (Acute) Fracture of fourth cervical vertebra (Acute) Orthostatic hypotension (Acute) DDD (degenerative disc disease), lumbar (Acute) Spondylosis of lumbar region without myelopathy or radiculopathy (Acute) Murmur, cardiac (Acute) Knee locking (Acute) Solitary lung nodule (Acute) Diverticulosis (Acute) Malignant neoplasm of bladder (Acute) Disorders of bursae and tendons in shoulder region, unspecified (Acute) DVT of lower extremity, bilateral (Acute) Dysphagia (Acute) Fracture of C4 vertebra, closed (Acute) Status post tracheostomy (Acute) S/P percutaneous endoscopic gastrostomy (PEG) tube placement (Resolved) 1. Left hip fracture * Status post ORIF * Continue with pain control * Follow-up with his orthopedic surgeon as previously prescribed 2. Acute blood loss anemia * stable * Hemoglobin is 10.2 and his hemoglobin from November 20 was 13.9 at that time. * No indication for transfusions 3. Atrial fibrillation * Continue with amiodarone and Xarelto. 4. Alcohol abuse * Presumably the patient last drink would have been either the day of her day before he presented * Patient states he only drinks 3 beers per day * Patient already on a multivitamin 5. Hypertension * has had some low pressures * DC lisinopril 6. Vitamin D defiency: * may not have prevented the fracture * 25-OH D level is 28.2, goal is 50 * start ergocalciferol 50,000 units weekly for 8 weeks, then transition to cholecalciferol 2000 units daily 7. DVT prophylaxis: Patient is anticoagulated on Xarelto. 8. Disposition: * plan for home 06/23 * medically stable for discharge. Code Visit Inpatient E&M: 08007 [facility] Hosp L1
[2018-06-22 20:00] VITALS: BP 91/49; PULSE 78; RESP 18; TEMP 36.5; O2SAT 98
--- NOTE | 2018-06-23 04:40 | NURSING ---
Reviewed and agree with [employer] documentation and [facility] charting.
[2018-06-23] MEDS: Thiamine Hydrochloride 100 MG Tablet PO (05:55)
[2018-06-23] MEDS: Polyethylene Glycol 3350 17 GM PACKET PO (08:35)
[2018-06-23] MEDS: Rivaroxaban 20 MG Tablet PO (08:35)
[2018-06-23] MEDS: Amiodarone 200 MG Tablet PO (08:36)
[2018-06-23] MEDS: Senna/Docusate Sodium 1 Tablet 2 TABLET PO (08:36)
[2018-06-23] MEDS: Multivitamins,Therapeutic Tablet 1 TABLET PO (08:36)
[2018-06-23] MEDS: Folic Acid 1 MG Tablet 0.5 MG PO (08:36)
[2018-06-23] MEDS: Ascorbic Acid 500 MG Tablet PO (08:36)
[2018-06-23] MEDS: Cyanocobalamin 500 MCG Tablet 1000 MCG PO (08:36)
[2018-06-23] MEDS: Calcium Carb/Vitamin D 1 TABLET Tablet PO (08:36)
[2018-06-23] MEDS: Umeclidinium Bromide Inhaler 1 PUFF IH (08:37)
[2018-06-23] MEDS: Fluticasone 0.05% 1 SPRAY NASAL.SRY 2 SPRAY NASAL (08:37)
--- NOTE | 2018-06-23 08:49 | PCM.RU.DC ---
Rehab Discharge Summary DATE OF ADMISSION: 06/08/18 DATE OF DISCHARGE: 06/23/18 - Rehab Diagnosis Left Hip Fracture Patient Problems: Active and Suspected Problems (Last Reviewed 06/09/18 @ 13:23 by Abdi Hammond DO) Closed left hip fracture (Acute) - Physical Exam General: Alert, Oriented x3, Cooperative HEENT: Atraumatic, PERRLA, EOMI, Normocephalic Neck: Supple, No JVD, Negative Carotid Bruits Lungs: Clear to auscultation, Normal air movement Cardiovascular: Regular rate, No murmurs Abdomen: Bowel Sounds Present, Soft, Non Tender Extremities: No edema, Capillary Refill Less than 3 Seconds Skin: No rashes, No breakdown Musculoskeletal: No Tenderness to Palpation of Joints or Extremities Neurological: Cranial nerves II-XII grossly intact Psych/Mental Status: Normal Affect, Appropriate, Alert and oriented to time, place, person, mood and affect Vital Signs Temp Pulse Resp BP Pulse Ox 97.7 F L 78 18 91/49 L 98 06/22/18 20:00 06/22/18 20:00 06/22/18 20:00 06/22/18 20:00 06/22/18 20:00 Oxygen Delivery Method Room Air Weight: 69.6 kg Body Mass Index (BMI) 24.0 Intake and Output for Last 24 Hours 06/21/18 06/22/18 06/23/18 23:59 23:59 23:59 Intake Total 840 / 840 720 / 720 Balance 840 / 840 720 / 720 Active Medications Hydrocodone Bitart/Acetaminophen ([place] 5mg-325mg) 1 - 2 tablet PO Q6H PRN PRN PRN Reason: MOD-SEVERE PAIN (4-10/10) Last Admin: 06/21/18 20:09 Dose: 2 tablet Al Hydroxide/Mg Hydroxide (Mylanta Ii) 30 ml PO Q4H PRN PRN PRN Reason: INDIGESTION Amiodarone HCl (Cordarone) 200 mg PO DAILY [facility] Last Admin: 06/23/18 08:36 Dose: 200 mg Ascorbic Acid (Vitamin C) 500 mg PO BID [facility] Last Admin: 06/23/18 08:36 Dose: 500 mg Bisacodyl (Dulcolax) 10 mg RECTAL .PRN X 1 PRN PRN Reason: Constipation Calcium/Vitamin D (Os-Osvaldo 500mg + D) 1 tablet PO DAILY@0800 [facility] Last Admin: 06/23/18 08:36 Dose: 1 tablet Cyanocobalamin (Vitamin B12) 1,000 mcg PO DAILY@0800 [facility] Last Admin: 06/23/18 08:36 Dose: 1,000 mcg Ergocalciferol (Vitamin D) 50,000 unit PO Q7D [facility] Fluticasone Propionate (Flonase Nasal [place]) 2 spray NASAL DAILY [facility] Last Admin: 06/23/18 08:37 Dose: 2 spray Folic Acid (Folic Acid) 0.5 mg PO DAILY@0800 [facility] Last Admin: 06/23/18 08:36 Dose: 0.5 mg Guaifenesin (Mucinex) 600 mg PO Q12H PRN PRN Reason: CONGESTION Magnesium Hydroxide (Milk Of Magnesia) 30 ml PO .PRN X 1 PRN PRN Reason: Constipation Last Admin: 06/09/18 01:25 Dose: 30 ml Multivitamins (Multivitamin) 1 tablet PO DAILY@0800 [facility] Last Admin: 06/23/18 08:36 Dose: 1 tablet Nutritional Formula (Lactose Free) (Ensure Enlive) 120 ml PO 4X/DAY [facility] Last Admin: 06/23/18 08:32 Dose: Not Given Ondansetron HCl (Zofran Odt) 4 mg PO Q6H PRN PRN PRN Reason: NAUSEA Polyethylene Glycol (Miralax) 17 gm PO DAILY [facility] Last Admin: 06/23/18 08:35 Dose: 17 gm Rivaroxaban (Xarelto) 20 mg PO DAILY [facility] Last Admin: 06/23/18 08:35 Dose: 20 mg Senna/Docusate Sodium (Senokot-S, Beronica-Colace) 2 tablet PO BID [facility] Last Admin: 06/23/18 08:36 Dose: 2 tablet Thiamine HCl (Vitamin B1) 100 mg PO TID [facility] Last Admin: 06/23/18 05:55 Dose: 100 mg Discharge Diet: Low fat/ Low Cholesterol, 2000 mg Sodium Diet Discharge Activity: May Not Drive, May not drive while taking narcotic pain medications., May Shower, Use Walker, - - Do not soak in a tub bath until cleared by Orthopedic surgeon Weight Bearing Status: Toe touch weight bearing Call your doctor if your incision/area has: Increased Pain/ Swelling, Increased Redness, Foul Smelling Discharge, Swelling at the incision site Call your doctor if you observe: Fever of 101 or Higher, Coldness, Increased Pain, Numbness or Tingling, Change in Color, Inability to urinate, Inability to have a bowel movement, Using more than one pad per hour, Shortness of breath, Dizziness, Fainting spells, Swelling in the ankles, Chest pain, Prolonged hiccoughing, Increased palpitations (irregular heartbeat), Calf discomfort, Uncontrolled pain Home Medications: Medications to take at Discharge Fluticasone 0.05% [Flonase Nasal [place]] 2 spray NASAL DAILY 08/09/15 calcium carbonate 600 mg (1,500 mg)-vitamin D3 200 unit tablet 1 tab PO QDAY 09/12/17 guaifenesin ER 600 mg tablet, extended release 12 hr 600 mg PO Q12H PRN 09/12/17 lisinopril 2.5 mg tablet 2.5 mg PO DAILY 09/12/17 lutein 6 mg tablet 6 mg PO QDAY 09/12/17 multivitamin tablet 1 tab PO QDAY 09/12/17 Ascorbic Acid [Vitamin C] 500 mg PO BID 09/19/17 Amiodarone HCl [Cordarone] 200 mg PO DAILY 09/25/17 Rivaroxaban [Xarelto] 20 mg PO DAILY 11/19/17 Cyanocobalamin [Vitamin B12] 1,000 mcg PO DAILY@0800 06/08/18 Polyvinyl Alcohol [Artificial Tears] 1 drop OP Q2H PRN PRN 06/08/18 Umeclidinium Brm/Vilanterol Tr [Anoro Ellipta 62.5-25 Mcg INH] 1 inh INHALATION Q24H 06/08/18 Amiodarone HCl [Cordarone] 200 mg PO DAILY #30 tab 06/22/18 Cartilage/Collagen/Bor/Hyalur [Move Free Ultra Tablet] 1 ea PO DAILY #30 tab 06/22/18 Ergocalciferol [Vitamin D] 50,000 unit PO Q7D #7 cap 06/22/18 Hydrocodone Bitart/Apap 5-325 [[place] 5/325] 1 - 2 tab PO Q6H PRN PRN 7 Days #42 tab 06/22/18 Following Prescrptions Were Given to Patient: Hydrocodone Bitart/Apap 5-325 [[place] 5/325] 1 - 2 tab PO Q6H PRN PRN 7 Days #42 tab PRN Reason: Mod-Severe Pain (-06/03) Amiodarone HCl [Cordarone] 200 mg PO DAILY #30 tab Cartilage/Collagen/Bor/Hyalur [Move Free Ultra Tablet] 1 ea PO DAILY #30 tab Ergocalciferol [Vitamin D] 50,000 unit PO Q7D #7 cap Primary Care Physician: Jenifer Gonzalez MD [Primary Care Provider] - Please follow up with your Primary Care Physician in: Dr. Ceron Disposition: Home Minutes spent on discharge:: 40 Patient Condition:: Good Rehab Course The patient is a 77 year old right handed Male who is admitted to the rehab unit for Rehabilitation, from [facility] after undergoing an ORIF for a left femur fracture, which he sustain after a fall at a restaurant on 06/05. He has a PMH of A-fib, bladder cancer, LUTS, HTN, COPD and Alcohol abuse, per patient last drink was the day of presentation to [facility], states he only drinks 3 beers a day. He is currently on Amiodarone and Xarelto for his A-fib. The Xarelto which was held will restart on 06/09. He lives with his spouse in a one story home with 2 steps to get into the house from the garage, he was previously completely functionally independent and is admitted to the rehab unit in order to restore his previous level of functional independence. He is on Xarelto for Afib, will resume today. Summary of care: Debility left hip fracture s/p ORIF, complicated by ETOH abuse, acute blood loss anemia, HTN and Afib on Xarelto. Goal of rehab is christian of functional independence. Plan: - Physical therapy for gait and balance - Occupational Therapy for ADLs - Speech therapy - As needed analgesics - Bowel protocol - DVT prophylaxis: SCDs, Keegan hoses, and Xarelto - Hx of HTN: Stable with good control, continue home dose of Lisinopril - Hx A-Fib => continue amiodarone and Xarelto - ETOH Abuse (patient states he only drinks 3 beers a day) => continue Multivitamin, Folic Acid and thiamine - Acute blood loss anemia 2/2 surgery for ORIF of left femur fracture, last Hgb was 10.2 - Left hip fracture => s/p ORIF Incision is C/D/I, schedule follow up visit with Orthopedic surgeon on discharge from unit. - Plan is discharge home on Friday with home exercise will see surgeon on Summary of Therapy sessions: With Physical therapy, he is stand by assist for getting in and out of bed, he is able to get his leg on and off the bed with out assistance. He maintains his TTWB very well. He has gone up 2 steps with two hand rails will practices going up the steps using one hand rail. With Occupational therapy, he is set up to stand by assist for bathing, toileting, and dressing. With Nursing, pain is well tolerated. Meaningful Use Info Meaningful Use Diagnoses (Choose all that apply): None applicable
--- NOTE | 2018-06-23 08:51 | PCM.DC ---
- Discharge Diagnoses Current Active Problems: Current Active and Chronic Problems (Last Reviewed 06/09/18 @ 13:23 by Abdi Hammond DO) Closed left hip fracture (Acute) Reason(s) for Visit for Discharge Instructions: Left Hip Fracture You will use the following diet at home:: Cardiac Your food should be the consistency of: Regular Your liquids should be the consistency of: Regular/Thin Discharge Activity: May Not Drive, May not drive while taking narcotic pain medications., May Shower, Use Walker, - - Do not soak in a tub bath until cleared by Orthopedic surgeon Weight Bearing Status: Toe touch weight bearing Call your doctor if your incision/area has: Increased Pain/ Swelling, Increased Redness, Foul Smelling Discharge, Swelling at the incision site Call your doctor if you observe: Fever of 101 or Higher, Coldness, Increased Pain, Numbness or Tingling, Change in Color, Inability to urinate, Inability to have a bowel movement, Using more than one pad per hour, Shortness of breath, Dizziness, Fainting spells, Swelling in the ankles, Chest pain, Prolonged hiccoughing, Increased palpitations (irregular heartbeat), Calf discomfort, Uncontrolled pain Allergies/Adverse Reactions: Allergies oxycodone [From OxyIR] Adverse Reaction (Verified 06/08/18 18:46) Other per [facility] dropped blood pressure drastically. oxycodone HCl [From Percocet] Adverse Reaction (Verified 06/08/18 18:46) Vomiting Medications to take at Discharge Fluticasone 0.05% [Flonase Nasal [place]] 2 spray NASAL DAILY 08/09/15 calcium carbonate 600 mg (1,500 mg)-vitamin D3 200 unit tablet 1 tab PO QDAY 09/12/17 guaifenesin ER 600 mg tablet, extended release 12 hr 600 mg PO Q12H PRN 09/12/17 lisinopril 2.5 mg tablet 2.5 mg PO DAILY 09/12/17 lutein 6 mg tablet 6 mg PO QDAY 09/12/17 multivitamin tablet 1 tab PO QDAY 09/12/17 Ascorbic Acid [Vitamin C] 500 mg PO BID 09/19/17 Amiodarone HCl [Cordarone] 200 mg PO DAILY 09/25/17 Rivaroxaban [Xarelto] 20 mg PO DAILY 11/19/17 Cyanocobalamin [Vitamin B12] 1,000 mcg PO DAILY@0800 06/08/18 Polyvinyl Alcohol [Artificial Tears] 1 drop OP Q2H PRN PRN 06/08/18 Umeclidinium Brm/Vilanterol Tr [Anoro Ellipta 62.5-25 Mcg INH] 1 inh INHALATION Q24H 06/08/18 Amiodarone HCl [Cordarone] 200 mg PO DAILY #30 tab 06/22/18 Cartilage/Collagen/Bor/Hyalur [Move Free Ultra Tablet] 1 ea PO DAILY #30 tab 06/22/18 Ergocalciferol [Vitamin D] 50,000 unit PO Q7D #7 cap 06/22/18 Hydrocodone Bitart/Apap 5-325 [[place] 5/325] 1 - 2 tab PO Q6H PRN PRN 7 Days #42 tab 06/22/18 The following prescriptions were given: Hydrocodone Bitart/Apap 5-325 [[place] 5/325] 1 - 2 tab PO Q6H PRN PRN 7 Days #42 tab PRN Reason: Mod-Severe Pain (-06/03) Amiodarone HCl [Cordarone] 200 mg PO DAILY #30 tab Cartilage/Collagen/Bor/Hyalur [Move Free Ultra Tablet] 1 ea PO DAILY #30 tab Ergocalciferol [Vitamin D] 50,000 unit PO Q7D #7 cap Primary Care Physician: Jenifer Gonzalez MD [Primary Care Provider] - Please follow up with your Primary Care Physician in: Dr. Ceron Test Results: Test results from this visit will be discussed in further detail at your follow-up appointment, if applicable. Proposed Discharge Date: 06/23/18
[2018-06-23 09:41] VITALS: BP 100/56; PULSE 72; RESP 18; TEMP 36.2; O2SAT 96
[2018-06-23 13:30] VITALS: BP 100/56; PULSE 72; RESP 18; TEMP 36.2; O2SAT 94
--- NOTE | 2018-06-23 13:30 | NURSING ---
and patient verbalized understanding to discharge instructions provided. will make follow up orthopedic appt.
== END 2018-06-23 13:45 | disposition home or self-care (01) | DRG 560 ==
PROVIDERS: Family Medicine; Admitting Provider Psychiatry & Neurology Neurology; Family Provider Internal Medicine; PCP Internal Medicine; Referring Provider Psychiatry & Neurology Neurology; Visit Provider Internal Medicine
DX: S72.002D Fracture of unspecified part of neck of left femur, subsequent encounter for closed fracture with routine healing (principal); D62 Acute posthemorrhagic anemia; W19.XXXD Unspecified fall, subsequent encounter; I10 Essential (primary) hypertension; J44.9 Chronic obstructive pulmonary disease, unspecified; I48.0 Paroxysmal atrial fibrillation; R91.1 Solitary pulmonary nodule; F10.10 Alcohol abuse, uncomplicated; M47.816 Spondylosis without myelopathy or radiculopathy, lumbar region; F17.210 Nicotine dependence, cigarettes, uncomplicated; Z86.718 Personal history of other venous thrombosis and embolism; Z79.01 Long term (current) use of anticoagulants; Z85.51 Personal history of malignant neoplasm of bladder; E78.5 Hyperlipidemia, unspecified
CPT/HCPCS: 36415; 80053; 82306; 83735; 84100; 85025; 94640; 97110; 97116; 97163; 97166; 97530; 97535; 97802

== ENCOUNTER 2018-06-30 05:17 | Emergency (ER) | payer MEDICARE, OTHER, SELFPAY ==
[2018-06-30 05:17] VITALS: PULSE 73; RESP 16; O2SAT 99
[2018-06-30 05:18] VITALS: BP 137/79; PULSE 72; RESP 16; TEMP 36.8; O2SAT 100; BMI 22.6
--- NOTE | 2018-06-30 05:26 | CT_ITS ---
STUDY: CT ABDOMEN AND PELVIS WITHOUT CONTRAST REASON FOR EXAM: Male, 77 years old. Left-sided abdominal pain RADIATION DOSAGE (If Supplied By Facility): CTDIvol = ( 8.44 ) mGy, DLP = ( 367.01 ) mGycm TECHNIQUE: Transaxial images were obtained from the dome of the diaphragm to the symphysis pubis without oral contrast, and without intravenous contrast. Sagittal and coronal images were reconstructed. Individualized dose optimization techniques were used for this CT. COMPARISON: None. FINDINGS: The lung bases are clear. The liver is normal. No dilated intrahepatic biliary radicles. The gallbladder is normal with no calcifications within it. There is no pericholecystic fluid collection or streakiness The spleen is normal. The pancreas is normal. Both adrenals are normal. The kidneys are normal with no masses, calculi or hydronephrosis The stomach is normal. There is no bowel distention, acute appendicitis or diverticulitis. No constricting lesions are seen in large bowel. The abdominal wall is intact with no hernias. There is no ascites or any free intraperitoneal air. No indication of epiploic appendagitis The distal aorta is heavily calcified in its turcios. There is no retrocrural, retroperitoneal or mesenteric adenopathy. Multilevel degenerative changes of the lumbosacral spine. Metallic hardware in the left hip. The urinary bladder is normal. The prostate is normal--. There is no inguinal or pelvic adenopathy. There is no inguinal hernia. . CT/Abdomen/Pelvis without Cont IMPRESSION: No acute findings in the abdomen or pelvis. Specifically there is no acute appendicitis identified Multilevel degenerative changes of the lumbosacral spine Electronically Signed: Flo Rich MD at 6:23 EST Tel , Service support ,
--- NOTE | 2018-06-30 06:51 | ED.VISSUMM ---
- ER Visit Summary Date of Service: 06/30/18 Chief Complaint: Abdominal pain History of Present Illness: The patient is a 77 M presenting for evaluation secondary to abdominal pain. Patient has a history of having both a hernia repair this year as well as a hemorrhoidectomy. Patient states that this was earlier on in the year however. He reports that tonight at about 3 AM he had an onset of abdominal pain he states that it is in his left lower quadrant and left groin. There is no radiation to his testicle. Patient denies that he is having any sort of fevers nausea vomiting diarrhea dysuria hematuria. Patient states that the pain is somewhat better with bending forward. Review of systems otherwise negative. Physical Examination: Vital signs within normal limits. Well-nourished elderly male no acute distress. Moist mucous membranes. No JVD. Heart regular rate and rhythm 4-6 systolic murmur noted. Lung sounds clear. Abdomen was soft nondistended normal bowel sounds. There is tenderness to palpation mainly in the left inguinal area just inferior to the patient's well-healed surgical scar from his hernia surgery. No evidence of bulging with Valsalva. exam is normal. Remainder physical otherwise unremarkable. Test Results: CT abdomen and pelvis shows no evidence of acute pathology Emergency Department Course and Treatment: Patient presented for evaluation secondary to abdominal pain. Ice pack was placed over the area of pain. CT did not demonstrate any evidence of new hernia, no evidence of acute intra-abdominal pathology. His pain seems to be just inferior to his scar, and there is no obvious evidence of hernia with Valsalva. He may be having some pain secondary to scar tissue, but does not seem to have any other acute pathology at this point would require further workup. Patient was discharged with outpatient follow-up with his surgeon Dr. Mata Disposition: Discharge Impression: Left groin pain This note was generated with [employer] dictation software. It may contain incorrect words, spelling, and punctuation that were not noted in review of the chart prior to signing ED Disposition - Plan for ED Patient: Disposition: Home or Assisted Living Chief Complaint: Abd Pain Diagnosis: Left groin pain Instructions: ED Abdominal Pain Unkn Cause Referrals: Pete Mata MD [STAFF PHYSICIAN] - 5-7 Days
--- NOTE | 2018-06-30 06:55 | ED.DCSUM_ITS ---
- ER Visit Summary Date of Service: 06/30/18 Chief Complaint: Abdominal pain History of Present Illness: The patient is a 77 M presenting for evaluation secondary to abdominal pain. Patient has a history of having both a hernia repair this year as well as a hemorrhoidectomy. Patient states that this was e arlier on in the year however. He reports that tonight at about 3 AM he had an onset of abdominal pain he states that it is in his left lower quadrant and left groin. There is no radiation to his testicle. Patient denies that he is having any sort of fevers nausea vomiting diarrhea dysuria hematuria. Patient states that the pain is somewhat better with bending forward. Review of systems other ortiz negative. Physical Examination: Vital signs within normal limits. Well-nourished elderly male no acute distress. Moist mucous membranes. No JVD. Heart regular rate and rhythm 4-6 systolic murmur noted. Lung sounds clear. Abdomen was soft nondistended normal bowel sounds. There is tenderness to palpation mainly in the left inguinal area just inferior to the patient's well-healed surgical scar from his hernia surgery. No evidence of bulging with Valsalva. exam is normal. Remainder physical otherwise unremarkable. Test Results: CT abdomen and pelvis shows no evidence of acute pathology Emergency Department Course and Treatment: Patient presented for evaluation secondary to abdominal pain. Ice pack was placed over the area of pain. CT did not demonstrate any evidence of new hernia, no evidence of acute intra-abdominal pathology. His pain seems to be just inferior to his scar, and there is no obvious evidence of hernia with Valsalva. He may be having some pain secondary to scar tissue, but does not seem to have any other acute pathology at this point would require further workup. Patient was discharged with outpatient follow-up with his surgeon Dr. Mata Disposition: Discharge Impression: Left groin pain This note was generated with [employer] dictation software. It may contain incorrect words, spelling, and punctuation that were not noted in review of the chart prior to signing ED Disposition - Plan for ED Patient: Disposition: Home or Assisted Living Chief Complaint: Abd Pain Diagnosis: Left groin pain Instructions: ED Abdominal Pain Unkn Cause Referrals: Pete Mata MD [STAFF PHYSICIAN] - 5-7 Days
[2018-06-30 07:09] VITALS: BP 141/73; PULSE 67; RESP 15; O2SAT 98
== END 2018-06-30 07:13 | disposition home or self-care (01) ==
PROVIDERS: Emergency Provider Emergency Medicine; Family Provider Internal Medicine; PCP Internal Medicine
DX: R10.32 Left lower quadrant pain (principal)
CPT/HCPCS: 74176; 99283; A4216

== ENCOUNTER → 2019-01-06 14:57 | Outpatient (CLI) | payer MEDICARE, OTHER, SELFPAY ==
[2019-01-06 13:51] VITALS: BMI 23.1
[2019-01-06 16:34] LABS: Absolute Lymphocyte Count 2.75 X10^3/ul (0.83-4.51); Absolute Neutrophil Count 1.6 X10^3/uL (2.0-7.7); Basophil# 0.03 X10^3/uL; Basophil% 0.6 % (0-1); Eosinophil# 0.18 X10^3/uL; Eosinophils% 3.4 % (0-5); Hematocrit 39.6 % (40-54); Hemoglobin 13.5 g/dl (13.0-16.5); Lymphocyte # 2.75 X10^3/ul (4.0); Lymphocyte % 52.7 % (19-41); Mean Corp Hgb Conc 34.1 g/gl (32-36); Mean Corpuscular Hgb 34.4 pg (27.0-32.0); Mean Corpuscular Volume 100.8 fL (80-94); Mean Platelet Vol. 10.8 fl (6.2-12.0); Monocyte# 0.69 X10^3/uL; Monocyte% 13.2 % (0-10); Neutrophil # 1.57 X10^3/uL (2.7-7.7); Neutrophil % 30.1 % (47-70); POSITIVE COUNT NO; POSITIVE DIFFERENTIAL NO; POSITIVE MORPHOLOGY NO; Platelet Count 198 K/mm3 (150-450); RBC Distribution Width CV 16.2 % (11.6-14.6); RBC Distribution Width SD 59.9 fl (35.1-43.9); Red Blood Count 3.93 M/mm3 (4.6-6.2); White Blood Count 5.2 K/mm3 (4.4-11.0)
[2019-01-06 17:00] LABS: AST(SGOT) 28 U/L (15-37); Alanine Aminotransfer ALT/SGPT 31 U/L (16-61); Albumin, Serum 3.4 g/dL (3.2-5.0); Alkaline Phosphatase 100 U/L (45-117); Anion Gap 7 (5-15); BUN 17 mg/dL (7-18); BUN/Creat Ratio 14.9 RATIO (10-20); Bilirubin, Direct 0.16 mg/dL (0.00-0.30); Calcium,Total 8.5 mg/dL (8.5-10.1); Chloride 100 mmol/L (98-107); Creatinine, Serum 1.14 mg/dL (0.70-1.30); EST Glomerular Filtration Rate 66 mL/min (>60); Est Glom Filt Rate - Afr Amer 80 mL/min (>60); Glucose 80 mg/dL (74-106); Potassium 4.8 mmol/L (3.5-5.1); Protein, Total 7.4 g/dL (6.4-8.2); Sodium Level 134 mmol/L (136-145); Thyroid Stim Hormone (TSH) 2.11 uIU/mL (0.358-3.74)
== END ==
PROVIDERS: Family Provider Internal Medicine; PCP Internal Medicine; Referring Provider Nurse Practitioner Family; Visit Provider Nurse Practitioner Family
DX: E78.00 Pure hypercholesterolemia, unspecified (principal); I48.0 Paroxysmal atrial fibrillation; I06.9 Rheumatic aortic valve disease, unspecified; I10 Essential (primary) hypertension
CPT/HCPCS: 36415; 80048; 80076; 84439; 84443; 85025

== ENCOUNTER → 2019-05-25 13:24 | Outpatient (CLI) | payer MEDICARE, OTHER, SELFPAY ==
[2018-12-03 08:53] VITALS: BMI 22.4
[2019-01-06 13:51] VITALS: BMI 23.1
[2019-05-25 14:02] VITALS: PULSE 69; PULSE 70; PULSE 71; PULSE 72; PULSE 75; PULSE 76; O2SAT 100; O2SAT 95; O2SAT 96; O2SAT 97; O2SAT 98; O2SAT 99
--- NOTE | 2019-05-25 14:34 | PCM.PSN.6M ---
PSN 6 Minute Walk Test - 6 Minute Walk Test 6 Minute Walk Test: 6 Minute Walk Test PSN:6-Minute Walk Test Start: 05/25/19 14:02 Freq: Status: Active Protocol: RESP.6MINW Document 05/25/19 14:02 DOMI (Rec: 05/25/19 14:04 DOMI [id number]) 6 Minute Walk Test Date Performed 05/25/19 Time Performed 13:30 Height 5 ft 10 in Weight: 70.307 kg Weight in Pounds 155.[address]: Tutu Franco Assistive device used: Walker Pre-test Oxygen Delivery Method Room Air Pulse Ox (%) 100 Pulse Rate (60-100 beats/min) 70 Dyspnea Dorsi Scale (0-10) 0 Exertion Doris Scale (6-20) 6 1st minute Oxygen Delivery Method Room Air Pulse Ox (%) 99 Pulse Rate (60-100 beats/min) 70 2nd minute Oxygen Delivery Method Room Air Pulse Ox (%) 98 Pulse Rate (60-100 beats/min) 72 3rd minute Oxygen Delivery Method Room Air Pulse Ox (%) 95 Pulse Rate (60-100 beats/min) 69 Number of Rests Taken 1 4th minute Oxygen Delivery Method Room Air Pulse Ox (%) 97 Pulse Rate (60-100 beats/min) 72 5th minute Oxygen Delivery Method Room Air Pulse Ox (%) 96 Pulse Rate (60-100 beats/min) 75 6th minute Oxygen Delivery Method Room Air Pulse Ox (%) 98 Pulse Rate (60-100 beats/min) 76 Dyspnea Doris Scale (0-10) 2 Exertion Doris Scale (6-20) 13 Post-test Oxygen Delivery Method Room Air Pulse Ox (%) 97 Pulse Rate (60-100 beats/min) 71 Full Laps Walked 10 Partial Lap, Number of Tiles Walked 0 Total Distance Walked (ft) 590 - Interpretation Interpretation: The patient was able to ambulate 590 feet over the course of 6 minutes on room air with the assistance of a walker and one break. Patient's oxygen oleg was noted to be 95 and a peak heart rate of 76. These findings are consistent with musculoskeletal limitation. - Recommendations Recommendations: No supplemental oxygen is indicated at this time.
== END ==
PROVIDERS: Family Provider Internal Medicine; PCP Internal Medicine; Referring Provider Internal Medicine Critical Care Medicine; Visit Provider Internal Medicine Critical Care Medicine
DX: J44.9 Chronic obstructive pulmonary disease, unspecified (principal); G47.33 Obstructive sleep apnea (adult) (pediatric)
CPT/HCPCS: 94618

== ENCOUNTER → 2019-05-27 09:53 | Outpatient (CLI) | payer MEDICARE, OTHER, SELFPAY ==
[2018-12-03 08:53] VITALS: BMI 22.4
[2019-01-06 13:51] VITALS: BMI 23.1
--- NOTE | 2019-05-27 14:31 | PFTCOMP ---
COMPLETE PULMONARY FUNCTION TEST INTERPRETATION Brief HPI: Patient is a 78 year old male, currently under the care of myself, who presents to [facility] for complete pulmonary function tests secondary to diagnosis of COPD. Respiratory therapist reports good effort and reproducible results. Interpretation: Forced expiration spirometry shows a moderate large airways obstructive ventilatory defect with an FEV1 of 63% predicted. There is no significant bronchodilator response by strict ATS criteria. Spirograms are of good quality and plateau slowly, indicating slowly emptying areas of the lungs. The respiratory flow volume loop shows decreased expiratory flow rates at high lung volumes consistent with small airways obstruction. Lung volumes by body plethysmography show a normal total lung capacity at 5.43 L, 83% predicted. All other lung volumes are within normal limits. Diffusion capacity by carbon monoxide is normal at 71% predicted. The airway resistance is elevated. No previous pulmonary function tests were available for review. Impression: Irreversible moderate large airways obstructive ventilatory defect and a pattern consistent with chronic bronchitis
== END ==
PROVIDERS: Family Provider Internal Medicine; PCP Internal Medicine; Referring Provider Internal Medicine Critical Care Medicine; Visit Provider Internal Medicine Critical Care Medicine
DX: J44.9 Chronic obstructive pulmonary disease, unspecified (principal)
CPT/HCPCS: 94060; 94726; 94729

== ENCOUNTER 2019-06-06 19:05 | Emergency (ER) | payer MEDICARE, OTHER, SELFPAY ==
[2019-06-03 08:19] VITALS: BMI 23.2
[2019-06-06 19:07] VITALS: BP 72/40; PULSE 75; RESP 16; TEMP 36.8; O2SAT 9; BMI 22.2
[2019-06-06 19:14] VITALS: BP 96/61; PULSE 75; RESP 23; O2SAT 97
--- NOTE | 2019-06-06 19:57 | CT_ITS ---
STUDY: CT BRAIN WITHOUT CONTRAST REASON FOR EXAM: Male, 78 years old. Headache after a fall RADIATION DOSAGE (If Supplied By Facility): CTDIvol = ( 44.99 ) mGy, DLP = ( 846.73 ) mGycm TECHNIQUE: Transaxial CT imaging of the brain was performed without administration of intravenous contrast material. Individualized dose optimization techniques were used for this CT. COMPARISON: 2014 FINDINGS: Normal soft tissue structures. Normal calvarium. There is mild cerebral atrophy with widening of the extra-axial spaces and ventricular dilatation. There are areas of decreased attenuation within the white matter tracts of the supratentorial brain, consistent with microvascular disease changes. Normal basal ganglia and thalami. Normal brainstem. Normal cerebellum. There is no intracranial hemorrhage. There are no findings of an acute ischemic infarction. There is mucoperiosteal inflammatory disease of the paranasal sinuses consistent with moderate chronic sinusitis. CT/Brain/Head without Contrast IMPRESSION: Chronic involutional changes of the brain. No acute hemorrhage Paranasal sinusitis Electronically Signed: Mahesh Hayward MD at 21:18 EDT , Service support ,
--- NOTE | 2019-06-06 19:57 | RAD_ITS ---
STUDY: X-RAY - PELVIS AND LEFT HIP REASON FOR EXAM: Male, 78 years old. Pain after fall TECHNIQUE: 3 views of the pelvis and hip. COMPARISON: None. FINDINGS: There is a non-specific bowel gas pattern. Normal visualized soft tissue structures. There is diffuse demineralization of the osseous structures. There is narrowing with cortical sclerosis and osteophyte formation of the sacroiliac joint consistent with degenerative osteoarthritic changes. Normal bilateral superior and inferior pubic rami. Normal pubic symphysis. Normal bilateral ischial tuberosities. Normal visualized femoral head. Normal acetabulum. There is moderate articular joint space narrowing of the hip. Surgical hardware within the left femur free of complication RAD/HIP, UNI W/ Pelvis 2-3 Views IMPRESSION: Degenerative changes, no acute findings Electronically Signed: Mahesh Hayward MD at 21:07 EDT , Service support ,
--- NOTE | 2019-06-06 20:01 | ED.DCSUM_ITS ---
- ER Visit Summary Date of Service: 06/06/19 Chief Complaint: [Fall History of Present Illness: The patient is a 78 M [presents to the emergency department after sustaining a fall around 3:30 PM. Patient states that he threw some garbage into a pen and kind of fell backwards and fell onto the ground. Patient complaining of left hip pain. Patient did bump his head but he does not think much of it. Does not have much of a headache. He denies any neck pain. Patient is on Xarelto. Patient able to bear some weight but having a lot of discomfort with walking. Patient has had prior left hip replacement about a year ago. Patient with history of hypertension, high cholesterol, COPD, A. fib, and history of DVT.] Physical Examination: [HEENT-PERRLA, EOMI. Cranial nerves II through XII grossly intact. TMs clear. Mucous membranes moist. No adenopathy. External evidence of trauma to his head. No C-spine tenderness on palpation. Patient has normal active range of motion is painless. Cardiovascular-regular rate and rhythm without murmur or ectopy Lungs-clear to auscultation, chest wall stable without crepitus or subcu emphysema Abdomen-normoactive bowel sounds, soft, nontender, no rebound or rigidity, no peritoneal signs. Extremities-intact ?4, normal range of motion, normal pulses, atraumatic. Patient does have tenderness over the left hip and left buttock that reproduces his pain. There is no shortening or external rotation of the left lower extremity. He is neurovascular intact distally.] Test Results: [CT scan of the brain without contrast was obtained which showed chronic involutional changes. X-rays of the left hip obtained showed no fractures.] Emergency Department Course and Treatment: [] Treatment Plan: [Patient will continue with his Tylenol at home he does not want anything stronger for pain as he states hydrocodone makes him vomit and is concerned about taking any narcotic.] Disposition: [Discharged home in stable condition] Impression: [Mechanical fall Left hip contusion] Head injury This note was generated with [employer] software. It may contain incorrect words, spelling, and punctuation that were not noted in review of the chart prior to signing ED Disposition - Plan for ED Patient: Referrals: Jenifer Gonzalez MD [Primary Care Provider] -
[2019-06-06 20:27] VITALS: BP 125/67; PULSE 69; RESP 16; O2SAT 98
[2019-06-06 21:04] VITALS: BP 136/76
--- NOTE | 2019-06-06 21:28 | ED.DEP ---
ED Disposition - Plan for ED Patient: Instructions: FALL, Mechanical, Hip Contusion, HEAD INJURY, No Wake-Up (Adult) Referrals: Jenifer Gonzalez MD [Primary Care Provider] - 3-5 Days
== END 2019-06-06 21:47 | disposition home or self-care (01) ==
LOC: ED 20:01
PROVIDERS: Emergency Provider Emergency Medicine; Family Provider Internal Medicine; PCP Internal Medicine
DX: S70.02XA Contusion of left hip, initial encounter (principal); S09.90XA Unspecified injury of head, initial encounter; W19.XXXA Unspecified fall, initial encounter; Y93.89 Activity, other specified; I10 Essential (primary) hypertension; E78.00 Pure hypercholesterolemia, unspecified; J44.9 Chronic obstructive pulmonary disease, unspecified; I48.91 Unspecified atrial fibrillation; Z96.642 Presence of left artificial hip joint; Z86.718 Personal history of other venous thrombosis and embolism; Z79.01 Long term (current) use of anticoagulants; Z79.899 Other long term (current) drug therapy; Z72.0 Tobacco use
CPT/HCPCS: 70450; 73502; 99282; A4216

== ENCOUNTER → 2019-08-11 12:30 | Outpatient (CLI) | payer MEDICARE, OTHER, SELFPAY ==
[2019-07-28 15:52] VITALS: BMI 23.5
--- NOTE | 2019-08-11 12:30 | ECHOD_ITS ---
Reason For Study: MURMUR Procedure This was a 2D Doppler, Color Flow transthoracic echocardiogram. The study was technically difficult. PT has involuntary body twitches. Exam performed in department. Left Ventricle Normal LV size. Apical false tendon noted. Left ventricular systolic function is normal. The estimated ejection fraction is 60 %. There is evidence of diastolic dysfunction. No regional wall motion abnormalities noted. Right Ventricle Normal RV size. Normal systolic function. Atria The left atrium is mildly enlarged. Normal right atrium. No doppler evidence for ASD. Mitral Valve There is mild to moderate mitral annular calcification. Extension of the mitral annular calcification onto the base of the posterior mitral valve leaflet. Mild diffuse mitral valve thickening. The mitral valve chordae are thickened and/or calcified. The mitral papillary muscle appears thickened and/or calcified. Mild (1+) mitral valve insufficiency. Tricuspid Valve Normal tricuspid valve. Mild tricuspid valve insufficiency. Right ventricular systolic pressure estimated to be 30 mmHg. Aortic Valve Trisinus/trileaflet aortic valve. Moderate to severe focal calcification of the aortic valve. Moderate aortic stenosis. Trivial aortic valve insufficiency. Pulmonic Valve The pulmonic valve is not well visualized. Trivial pulmonic valve insufficiency. Great Vessels Normal sized aortic root. Calcified aortic root. Pericardium/Pleural No pericardial effusion. MMode/2D Measurements & Calculations LVIDd: 5.2 cm IVSd: 1.1 cm LVOT diam: 2.0 cm LVIDs: 3.4 cm LVPWd: 1.2 cm LVOT area: 3.2 cm2 RVDd: 3.8 cm FS: 33.6 % Ao root diam: 3.5 cm LAV(MOD-bp): 89.8 ml LA A4 area: 25.3 cm2 LAV(MOD-bp) Indexed: 46.7 ml/m2 LAV(MOD-sp2): 84.8 ml LAV(MOD-sp4): 86.2 ml LA dimension(2D): 3.5 cm RA A4 area: 21.0 cm2 Time Measurements MV dec time: 0.15 sec Doppler Measurements & Calculations MV E max jose eduardo: 96.9 cm/sec Lat Peak E' Jose Eduardo: 8.7 cm/sec Med Peak E' Jose Eduardo: 7.0 cm/sec MV A max jose eduardo: 109.3 cm/sec E/E' lat: 11.1 E/E' med: 13.9 MV E/A: 0.89 Ao V2 max: 342.0 cm/sec AI max jose eduardo: 391.7 cm/sec LV V1 max: 99.0 cm/sec Ao max P.8 mmHg AI max P.4 mmHg LV V1 max P.0 mmHg Ao V2 mean: 240.3 cm/sec AI dec slope: 224.5 cm/sec2 LV V1 mean P.8 mmHg Ao mean P.3 mmHg AI P1/2t: 511.1 msec LV V1 mean: 63.4 cm/sec Ao V2 VTI: 84.1 cm LV V1 VTI: 24.0 cm LOREN(I,D): 0.91 cm2 LOREN(V,D): 0.93 cm2 SV(LVOT): 76.8 ml PA V2 max: 97.2 cm/sec TR max jose eduardo: 260.4 cm/sec TR max P.1 mmHg Interpretation Summary The study was technically difficult. Left ventricular systolic function is normal. The estimated ejection fraction is 60 %. Apical false tendon noted. The left atrium is mildly enlarged. There is mild to moderate mitral annular calcification. Extension of the mitral annular calcification onto the base of the posterior mitral valve leaflet. Mild diffuse mitral valve thickening. The mitral valve chordae are thickened and/or calcified. The mitral papillary muscle appears thickened and/or calcified. Mild (1+) mitral valve insufficiency. Mild tricuspid valve insufficiency. Moderate aortic stenosis. Trivial aortic valve insufficiency. Trivial pulmonic valve insufficiency. Calcified aortic root. Right ventricular systolic pressure estimated to be 30 mmHg. There is evidence of diastolic dysfunction. Ordering Physician: Omar Garner Referring Physician: Jenifer Gonzalez Performed By: Diamond Kraus, RDCS, RVT
--- NOTE | 2019-08-11 12:35 | RAD_ITS ---
STUDY: X-RAY CHEST REASON FOR EXAM: Male, 78 years old. Murmur, shortness of breath TECHNIQUE: Frontal and lateral views November 19, 2017 COMPARISON: None. FINDINGS: The lungs are clear and expanded. There is no demonstrated pleural abnormality. Normal size heart. Normal mediastinum and ayaz. Normal visualized pulmonary arteries. Calcified visualized aortic arch and descending thoracic aorta. Degenerative changes of the thoracic spine. All right rib fractures. There is no demonstrated abnormality of the visualized soft tissue structures of the upper abdomen. RAD/Chest PA and Lateral IMPRESSION: No acute pulmonary pathology of the chest. Electronically Signed: Shaggy Dubois DO at 22:49 EST Tel [phone], Service support ,
== END ==
PROVIDERS: Family Provider Internal Medicine; PCP Internal Medicine; Referring Provider Internal Medicine Cardiovascular Disease; Visit Provider Internal Medicine Cardiovascular Disease
DX: I35.0 Nonrheumatic aortic (valve) stenosis (principal); Z79.899 Other long term (current) drug therapy
CPT/HCPCS: 71046; 93306

== ENCOUNTER 2019-08-23 09:00 | Outpatient (RCR) | payer MEDICARE, OTHER, SELFPAY ==
[2019-07-28 15:52] VITALS: BMI 23.5
--- NOTE | 2019-08-05 14:18 | HP.OTEVAL_ITS ---
Patient's Visit Information CESAR ANGUIANO is a 78 year old M, referred to Occupational Therapy by Karlo Light MD, with a diagnosis of dupuytren's disease. Date of Evaluation: 08/05/19 Occupational Therapist: DEMETRIUS Neal/Uzair, CHT - Subjective Subjective: This 78 year old male was seen for OT eval with a dx of left Dupuytren's desease. S/p Friday. Pt arrives with need of custom orthosis and ROM and stretches. Pt states for about 10 years his contracture cont. to get worse so he decided to have the release done. pt states some pain and inability to sleep. Pt reports limitations with ADls and IADls since his sx. pt would like to return to [facility]. - ADLs Dressing: Pants, Socks, Shoes Fasteners: Tie shoes, Buttons, Zippers Eating: Cut food Bathing: Handle washcloth & soap Toileting: Manage clothing Miscellaneous: Handle money (change), Take things out of wallet, Carry shopping bag - Pain left hand 6 Pain Intensity Range: 3 - ROM ROM Comments: left IF PIP 0/75* DIP 0/25. left MF -10/85 PIP 0/80. left RF - 30/90 PIP 0/80. left LF 045/100 PIP 0/80. pt demo with limited MCP ext of digits 3-5. therapist able to achieve full ext of MCP. therapist will cont to work on active MCP ext. - Strength Strength Comments: will test later date - Sensation Sensation Comments: denies - In-Hand Manipulation Finger to Palm Translation: Normal - Right, Unable - Left Palm to Finger Translation: Normal - Right, Unable - Left Shift: Normal - Right, Moderate - Left - Quick DASH-Disab of Arm,Shoulder& Hand Quick DASH Score: 63.6350 - Goals Goal:100% adherence to protocol: Yes Goal:Daily scar massage when approriate: Yes Goal:ROM equal to unaffected hand: Yes Goal:Cmm Inspector/Pinch strength at least 75% of unaffected hand: Yes Goal:No pain with affected hand use: Yes Goal:Full use of affected hand in daily activities including: Yes Goal:Decrease scar hypersensitivity: Yes - Rehabilitation General Assessment: pt s/p left dupuytrens realease. Pt demo with two small incisions from sx base of left LF, limited ROM and decreased ind. with ADLs and IADLS. pt would benefit from skilled OT services 1-2x week for 4-6 weeks to return pt to PLOF with ADls and IADLs. Today therapist misha. custom ext. o rthosis- therapist will cont to adj to reach full MCP ext to pts chong. Pt and were ed on othosis use, care and precautions. therapist ed. pt on AROM and PROM ex to and was given handout- pt demo understanding and agree to POC. Rehabilitation Potential: Excellent - Anticipated Interventions Anticipated Interventions: A/AAROM/PROM, Strengthening, Edema Control, Scar Care, Triggerpoint Release, Desensitization, Sensory Retraining, Wound Care, Modalities, Orthoses - Visit Plan Frequency: 1-2x /Week Duration: 2 Months TEXT: Thank you for the opportunity to evaluate your patient. For Medicare and Medicare HMO plans, please review the plan of care and approve it. It will need to be FAXED BACK to us at [phone] for Medicare purposes. Please let me know if there are questions or concerns regarding this plan of care. Physician Signature: Date:
--- NOTE | 2019-10-11 16:28 | HP.OT.NRP ---
HP - Discharge Summary - Patient Information CESAR ANGUIANO was seen in my office for initial evaluation on 08/05/19. The following Plan of Care was established for this patient: Initial Frequency: 1-2x /Week Initial Duration: 2 Months Plan: Pt to call or stop in if splint needs adjusted or if they have questions - Anticipated Interventions Anticipated Interventions: A/AAROM/PROM, Strengthening, Edema Control, Scar Care, Triggerpoint Release, Desensitization, Sensory Retraining, Wound Care, Modalities, Orthoses This patient was last seen in our office 08/23/19. Pertinent comments regarding their Occupational therapy will appear below: pt seem for 6 visits in OT. pt progressed well with his ROM. Pt has orthosis to use at night. Pt demo understanding to return if orthosis needs adj. pt d/c at this time meeting therapy goals. At this point I will be discontinuing this patient from occupational therapy. I would be happy to see this patient again in the future if found appropriate by the physician. Thank you! Guera Payton, OTR/L, CHT
== END 2019-08-23 19:00 | disposition home or self-care (01) ==
LOC: OT 09:00
PROVIDERS: Family Provider Internal Medicine; PCP Internal Medicine; Referring Provider Orthopaedic Surgery; Visit Provider Orthopaedic Surgery
DX: M72.0 Palmar fascial fibromatosis [Dupuytren] (principal)
CPT/HCPCS: 97140; 97166; 97530; 97760; 97763

== ENCOUNTER → 2020-08-22 08:11 | Outpatient (CLI) | payer MEDICARE, OTHER, SELFPAY ==
[2020-03-14 10:08] VITALS: BMI 23.5
--- NOTE | 2020-08-23 08:37 | PFT ---
INTRODUCTION: The patient is a 79-year-old male that presents for pulmonary function studies secondary to a diagnosis of COPD. Respiratory therapy reports good patient effort. Bronchodilators were used during testing. INTERPRETATION: Forced expiration spirometry demonstrates the presence of a moderate large airways obstructive ventilatory defect. There was no significant response to aerosolized bronchodilators. Spirograms are of good quality and do not plateau indicating slow emptying of the lungs. Body plethysmography was performed and revealed a decreased TLC to 4.08 L, 64% of predicted, indicative of a moderate restrictive ventilatory impairment. The remainder of the lung volumes are symmetrically reduced. Diffusing capacity by single breath CO was noted to be 78% of predicted. When compared to previous pulmonary function studies from May 2019, there has been a 25% reduction in TLC. IMPRESSION: Irreversible moderate mixed ventilatory defect with mild reduction in diffusing capacity. There has been worsening in the patient's total lung capacity since May 2019, as noted above.
== END ==
PROVIDERS: PCP Internal Medicine; Referring Provider Internal Medicine Critical Care Medicine; Visit Provider Internal Medicine Critical Care Medicine
DX: J44.9 Chronic obstructive pulmonary disease, unspecified (principal); Z72.0 Tobacco use
CPT/HCPCS: 94060; 94726; 94729

== ENCOUNTER → 2020-09-27 11:40 | Outpatient (CLI) | payer MEDICARE, OTHER, SELFPAY ==
[2020-09-27 11:06] VITALS: BMI 24.1
--- NOTE | 2020-09-27 11:51 | RAD_ITS ---
STUDY: X-RAY CHEST REASON FOR EXAM: Male, 79 years old. ROUTINE F/U FOR AMIODARONE THERAPY TECHNIQUE: PA and lateral views of the chest. COMPARISON: Comparison is made with prior study dated 05/12/2019. FINDINGS: There is hyperinflation of the lungs consistent with chronic obstructive lung disease (COPD). Stable mild increased linear markings at the lung bases suggests a mild bibasilar scarring. Scattered calcified granulomas. There is no demonstrated pleural abnormality. Normal size heart. Normal mediastinum and ayaz. Normal visualized pulmonary arteries. There is atherosclerotic calcification of the aortic arch with tortuosity. There are diffuse degenerative changes of the visualized thoracic spine. Normal visualized ribs, clavicles, and shoulders. There is no demonstrated abnormality of the visualized soft tissue structures of the upper abdomen. RAD/Chest PA and Lateral IMPRESSION: Hyperinflation. Stable mild increased markings at the lung bases suggestive of scarring. Electronically Signed: John Tong MD at 15:22 EST , Service support ,
== END ==
PROVIDERS: PCP Internal Medicine; Referring Provider Internal Medicine Cardiovascular Disease; Visit Provider Internal Medicine Cardiovascular Disease
DX: I48.0 Paroxysmal atrial fibrillation (principal); R55 Syncope and collapse; E78.00 Pure hypercholesterolemia, unspecified; I35.0 Nonrheumatic aortic (valve) stenosis; I10 Essential (primary) hypertension
CPT/HCPCS: 71046

== ENCOUNTER → 2020-09-30 07:35 | Outpatient (CLI) | payer MEDICARE, OTHER, SELFPAY ==
[2020-09-27 11:06] VITALS: BMI 24.1
[2020-09-30 08:43] LABS: AST(SGOT) 24 U/L (15-37); Alanine Aminotransfer ALT/SGPT 23 U/L (16-61); Albumin, Serum 3.9 g/dL (3.2-5.0); Alkaline Phosphatase 82 U/L (45-117); Bilirubin, Direct 0.18 mg/dL (0.00-0.30); Cholesterol 167 mg/dL (200); Globulin 3.8 g/dL (2.2-4.2); High Density Lipoprotein 80 mg/dL; Protein, Total 7.7 g/dL (6.4-8.2); T4 Free Direct 1.43 ng/dL (0.76-1.46); Thyroid Stim Hormone (TSH) 1.39 uIU/mL (0.358-3.74); Triglycerides 53 mg/dL; Very Low Density Lipoprotein 11 mg/dL (5-40)
== END ==
PROVIDERS: PCP Internal Medicine; Referring Provider Internal Medicine Cardiovascular Disease; Visit Provider Internal Medicine Cardiovascular Disease
DX: I10 Essential (primary) hypertension (principal); E78.00 Pure hypercholesterolemia, unspecified
CPT/HCPCS: 36415; 80061; 80076; 84439; 84443

== ENCOUNTER 2020-10-06 10:42 | Outpatient (RCR) | payer MEDICARE, OTHER, SELFPAY ==
[2020-09-27 11:06] VITALS: BMI 24.1
== END 2020-10-06 23:59 ==
LOC: IMMUN 10:42
PROVIDERS: PCP Internal Medicine; Referring Provider Family Medicine; Visit Provider Family Medicine
DX: Z23 Encounter for immunization (principal)
CPT/HCPCS: 0011A; 0012A

== ENCOUNTER 2021-03-02 21:52 | Emergency (ER) | payer MEDICARE, OTHER, SELFPAY ==
[2021-02-20 09:40] VITALS: BMI 24.1
[2021-03-02 21:54] VITALS: BP 106/63; PULSE 63; RESP 18; TEMP 36.2; O2SAT 98; BMI 22.9
--- NOTE | 2021-03-02 22:03 | CT_ITS ---
STUDY: CT CERVICAL SPINE WITHOUT CONTRAST REASON FOR EXAM: Male, 80 years old. FALL -- ON XERALTO RADIATION DOSAGE (If Supplied By Facility): CTDIvol = ( 20.34 ) mGy, DLP = ( 410.21 ) mGycm TECHNIQUE: High resolution transaxial imaging was performed without contrast material. Sagittal and coronal images were reconstructed. Individualized dose optimization techniques were used for this CT. COMPARISON: 07/26/2015 FINDINGS: Normal craniovertebral junction. Normal anterior atlantoaxial articulation. Normal odontoid process. Normal cervical lordosis. Normal vertebral bodies and posterior osseous elements. No acute fracture or listhesis. 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 No critical stenosis Normal visualized soft tissue structures. CT/Spine Cervical without Contras IMPRESSION: Multilevel degenerative changes, as described above. Electronically Signed: Jacob Martinez DO at 22:35 EDT Tel , Service support ,
--- NOTE | 2021-03-02 22:12 | CT_ITS ---
STUDY: CT BRAIN WITHOUT CONTRAST REASON FOR EXAM: Male, 80 years old. FALL -- ON XARELTO RADIATION DOSAGE (If Supplied By Facility): CTDIvol = ( 44.99 ) mGy, DLP = ( 812.98 ) mGycm TECHNIQUE: Transaxial CT imaging of the brain was performed without administration of intravenous contrast material. Individualized dose optimization techniques were used for this CT. COMPARISON: No relevant priors. FINDINGS: Normal soft tissue structures. Normal calvarium. There is mild cerebral atrophy with widening of the extra-axial spaces and ventricular dilatation. There are areas of decreased attenuation within the white matter tracts of the supratentorial brain, consistent with microvascular disease changes. Normal basal ganglia and thalami. Normal brainstem. Normal cerebellum. Stable appearance of slightly hyperdense central colloid cyst. There is no intracranial hemorrhage. There are no findings of an acute ischemic infarction. There is mucoperiosteal inflammatory disease of the paranasal sinuses consistent with mild chronic sinusitis. CT/Brain/Head without Contrast IMPRESSION: No acute intracranial pathology Electronically Signed: Jacob Martinez DO at 22:25 EDT Tel , Service support ,
--- NOTE | 2021-03-02 22:34 | ED.VIS.FALL ---
HPI HPI - Fall History of Present Illness Chief Complaint: Fall Informant: patient and spouse/S.O. Pain/Injury Location: Head Pain Location: head (Scalp/skull behind right ear) Quality of Pain: - (Sore locally without headache) Current Severity: Mild Maximum Severity: Moderate Worsened by: Palpation Relieved by: Leaving alone Associated Symptoms Associated Symptoms: Negative for Parasthesias, Weakness, Loss of function, Inability to ambulate, Loss of consciousness and Amnesia Narrative Narrative: Patient is on Xarelto for paroxysmal atrial fibrillation, he had an accidental fall after hitting something in the garage with his foot and tripping over it while taking the garbage out there. He hit his head on a nearby workbench. There was no loss of consciousness or bleeding/laceration, he has had no headache, vision changes, nausea, vomiting, mental status changes, or focal peripheral neurologic symptom or deficit. He also scraped his right elbow, they put a Band-Aid on it. [facility] Medical History (Updated 03/02/21 @ 22:[address] Karlo Long MD) Alcohol abuse Alcohol abuse, episodic drinking behavior Aortic valve disease, rheumatic Atrial fibrillation Atrioventricular block Chest pain Chronic anticoagulation Closed left hip fracture COPD (chronic obstructive pulmonary disease) DDD (degenerative disc disease), lumbar Disorders of bursae and tendons in shoulder region, unspecified Diverticulosis DVT of lower extremity, bilateral Dysphagia Essential hypertension Fracture of C4 vertebra, closed Fracture of fourth cervical vertebra Groin pain Hemorrhoids Hemorrhoids with complication Inguinal hernia of left side without obstruction or gangrene Knee locking Malignant neoplasm of bladder Murmur, cardiac Nonrheumatic aortic (valve) stenosis Orthostatic hypotension Paroxysmal atrial fibrillation Personal history of colonic polyps Pure hypercholesterolemia Rectal bleeding RLS (restless legs syndrome) Screening for intestinal cancer 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 Syncope and collapse Home Medications fluticasone propionate 2 spray NASAL DAILY 08/09/15 [History Last Taken 06/08/18] calcium carbonate 600 mg (1,500 mg)-vitamin D3 200 unit tablet 1 tab PO QDAY 09/12/17 [History Last Taken 06/08/18] guaifenesin 600 mg tablet, extended release 12 hr 600 mg PO Q12H PRN 09/12/17 [History Last Taken 06/08/18] multivitamin 1 tab PO QDAY 09/12/17 [History Last Taken 06/08/18] rivaroxaban 20 mg PO DAILY 11/19/17 [History Last Taken Unknown] amiodarone 200 mg PO DAILY #30 tab 06/22/18 [Rx Last Taken Unknown] artifi.tears(hypromellose)(PF) 0.3 % eye drops 1 drp OPHTHALMIC 4-8XD PRN 07/02/18 [History Last Taken Unknown] bevacizumab 25 mg/mL intravenous solution 25 mg INTRAVIT QMONTH ml 07/02/18 [History Last Taken Unknown] ascorbic acid (vitamin C) 500 mg capsule 500 mg PO DAILY cap 01/06/19 [History Last Taken Unknown] losartan 25 mg tablet 25 mg PO DAILY 01/06/19 [History Last Taken Unknown] umeclidinium 62.5 mcg-vilanterol 25 mcg/actuation powdr for inhalation 1 inh INHALATION Q24H ea 01/06/19 [History Last Taken Unknown] vitamins A,C,V-oukb-rvtfdz 14,320 unit-226 mg-200 unit capsule 1 cap PO BID 07/28/19 [History Last Taken Unknown] Allergy/AdvReac Type Severity Reaction Status Date / Time metronidazole Allergy Severe chest pain Verified 03/02/21 21:56 ropinirole Allergy Severe BP drop, Verified 03/02/21 21:56 dizziness, faint oxycodone [From OxyIR] AdvReac Other Verified 03/02/21 21:56 oxycodone HCl [From Percocet] AdvReac Vomiting Verified 03/02/21 21:56 Family History Father Arthritis COPD (chronic obstructive pulmonary disease) Mother CVA (cerebral vascular accident) Heart disease Sister Heart disease Brother Throat cancer Surgical History History of bilateral cataract extraction S/P hemorrhoidectomy S/P inguinal hernia repair S/P percutaneous endoscopic gastrostomy (PEG) tube placement S/P shoulder surgery S/P wrist surgery Status post hip surgery Status post knee surgery Status post tracheostomy Social History Smoking Status: Current every day smoker tobacco type: cigarettes second hand exposure: Yes quit status: considering quitting alcohol intake: current alcohol intake frequency: 3 or more drinks per day Alcohol type: beer substance use type: does not use caffeine: Yes Type: coffee Number of servings: 4 what type of physical activity do you participate in: swimming frequency: 3-4 times per week seatbelt use: always ROS ROS ED Constitutional Constitutional ED: Denies chills or fever(s) Eyes Eyes: Denies change in vision or diplopia ENT ENT ED: Reports other Details: Right posterior cranial pain from injury see HPI ; Denies rhinorrhea or sore throat Cardiovascular Cardiovascular: Denies chest pain or palpitations Respiratory/Chest Respiratory/Chest: Denies cough or dyspnea Gastrointestinal Gastrointestinal: Denies abdominal pain, diarrhea, nausea or vomiting Genitourinary Genitourinary ED: Denies dysuria or hematuria Musculoskeletal Musculoskeletal: Reports joint pain; Denies back pain or neck pain Integumentary Denies abscess or rash Neurologic Neurologic: Denies headache(s), paresthesias or weakness Psychiatric Psychiatric: Denies anxiety or suicidal thoughts EXAM Physical Exam Const Vital Signs: 03/02/21 21:54 Temperature 97.1 F L Temperature Source Temporal Pulse Rate 63 Respiratory Rate 18 Blood Pressure 106/63 Blood Pressure Mean 77 Pulse Ox 98 Oxygen Delivery Method Room Air Positive well nourished and well developed General Appearance ED: well developed and NAD HEENT Reports moist mucous membranes HEENT Narrative: Tender base of right skull behind the right ear without mastoid process involvement, no hematoma or obvious evidence of injury or laceration. No crepitance or depression. normocephalic and atraumatic Eyes PERRL and EOMs intact bilaterally Neck full ROM and supple Neck Narrative: No midline or paraspinal tenderness Resp normal respiratory effort and clear to auscultation bilaterally Cardio regular rate, regular rhythm and no murmurs GI non-tender and non-distended Auscultation: normoactive bowel sounds Palpation: soft Back/Spine no CVA tenderness General Back: other FROM Extremity Extremity Narrative: Abrasion right olecranon, nontender, full range of motion no active bleeding General Extremety ED: Negative for edema, pulses abnormal or tenderness General Extremity: Negative for edema or pulses abnormal Neuro oriented x3, CN's II-XII intact bilaterally and no sensory deficits noted Sensorium / Orientation: awake and alert Motor Exam: strength 5/5 throughout Skin no rashes or lesions noted Skin Narrative: Abrasion right elbow, no other signs of injury. MDM MDM MDM Narrative Medical decision making narrative: CT of the head and cervical spine were obtained and are negative for acute injury. We discussed reasons to return to the ER, he was offered Tylenol and ice pack and declined, discussed avoiding hot compresses to the affected area the next 3 or so days. His right elbow abrasion was cleansed and dressed. Radiography Diagnostic Testing: Radiology Impression Cervical Spine CT 03/02/21 22:03 IMPRESSION: Multilevel degenerative changes, as described above. Electronically Signed: Jacob Martinez DO at 22:35 EDT Tel , Service support , Brain CT 03/02/21 22:12 IMPRESSION: No acute intracranial pathology Electronically Signed: Jacob Martinez DO at 22:25 EDT Tel , Service support , Discharge Plan Triage Chief Complaint: Fall ED Provider: Karlo Long Dx/Rx/DC Orders Clinical Impression: Closed head injury without loss of consciousness, Fall on same level from tripping as cause of accidental injury, Abrasion of elbow, right Instructions: ED Head Injury (Adult) Prescriptions: No Action guaifenesin [Mucinex] 600 mg tablet extended release 12hr 600 mg PO Q12H PRN (Reason: Congestion) RF: 0 calcium carbonate-vitamin D3 [Calcium 600 with Vitamin D3] 600 mg(1,500mg) -200 unit tablet 1 tab PO QDAY RF: 0 multivitamin tablet 1 tab PO QDAY RF: 0 artifi.tears(hypromellose)(PF) 0.3 % drops 1 drp OPHTHALMIC 4-8XD PRNRF: 0 bevacizumab 25 mg/mL intravenous solution 25 mg/mL solution 25 mg INTRAVIT QMONTH RF: 0 losartan 25 mg tablet 25 mg PO DAILY RF: 0 umeclidinium-vilanterol 62.5-25 mcg/actuation blister with device 1 inh Inhalation Q24H RF: 0 PreserVision AREDS 14,320-226-200 rqzy-[id number] capsule 1 cap PO BID RF: 0 fluticasone propionate 1 SPRAY spray,suspension 2 spray NASAL DAILY RF: 0 ascorbic acid (vitamin C) 500 mg capsule 500 mg PO DAILY RF: 0 rivaroxaban 20 MG tablet 20 mg PO DAILY RF: 0 amiodarone 200 MG tablet 200 mg PO DAILY Qty: 30 RF: 0 Primary Care Provider: Jenifer Gonzalez Referrals: Jenifer Gonzalez MD [Primary Care Provider] - As Needed Disposition Disposition: Home, Self Care
[2021-03-02 23:08] VITALS: BP 142/82; PULSE 71; RESP 18; O2SAT 95
== END 2021-03-02 23:09 | disposition home or self-care (01) ==
LOC: ED 22:46
PROVIDERS: Emergency Provider Emergency Medicine; PCP Internal Medicine
DX: S09.90XA Unspecified injury of head, initial encounter (principal); S50.311A Abrasion of right elbow, initial encounter; F17.210 Nicotine dependence, cigarettes, uncomplicated; I48.0 Paroxysmal atrial fibrillation; Z79.01 Long term (current) use of anticoagulants; W01.0XXA Fall on same level from slipping, tripping and stumbling without subsequent striking against object, initial encounter
CPT/HCPCS: 70450; 72125; 99282

== ENCOUNTER → 2021-03-28 08:52 | Outpatient (CLI) | payer MEDICARE, OTHER, SELFPAY ==
[2021-03-02 21:54] VITALS: BMI 22.9
[2021-03-28 10:36] LABS: AST(SGOT) 22 U/L (15-37); Alanine Aminotransfer ALT/SGPT 27 U/L (16-61); Albumin, Serum 3.7 g/dL (3.2-5.0); Alkaline Phosphatase 95 U/L (45-117); Bilirubin, Direct 0.19 mg/dL (0.00-0.30); Cholesterol 159 mg/dL (200); Globulin 3.9 g/dL (2.2-4.2); High Density Lipoprotein 64 mg/dL; Protein, Total 7.6 g/dL (6.4-8.2); Triglycerides 63 mg/dL; Very Low Density Lipoprotein 13 mg/dL (5-40)
== END ==
PROVIDERS: PCP Internal Medicine; Referring Provider Internal Medicine Cardiovascular Disease; Visit Provider Internal Medicine Cardiovascular Disease
DX: E78.00 Pure hypercholesterolemia, unspecified (principal)
CPT/HCPCS: 36415; 80061; 80076

== ENCOUNTER → 2021-04-13 12:42 | Outpatient (CLI) | payer MEDICARE, OTHER, SELFPAY ==
[2021-04-04 09:20] VITALS: BMI 22.9
--- NOTE | 2021-04-13 12:43 | ECHOD_ITS ---
Reason For Study: AV disease, Procedure This was a 2D Doppler, Color Flow transthoracic echocardiogram. The exam was of adequate technical quality. Exam performed in department. Left Ventricle Normal LV size. Left ventricular systolic function is normal. The estimated ejection fraction is 60 %. There is evidence of diastolic dysfunction. No regional wall motion abnormalities noted. Right Ventricle Normal RV size. Normal systolic function. Atria The left atrium is mildly enlarged. Normal right atrium. No doppler evidence for ASD. Mitral Valve There is mild mitral annular calcification. Anterior leaflet diffuse mitral valve thickening. Extension of the mitral annular calcification onto the posterior mitral valve leaflet. Mild (1+) mitral valve insufficiency. Tricuspid Valve Normal tricuspid valve. Mild tricuspid valve insufficiency. Right ventricular systolic pressure estimated to be 38 mmHg. Aortic Valve Trisinus/trileaflet aortic valve. Mild diffuse aortic valve thickening. Moderate focal aortic valve calcification. Moderate to severe aortic valve stenosis. Mild (1+) aortic valve insufficiency. Pulmonic Valve The pulmonic valve is not well visualized. Trivial pulmonic valve insufficiency. Great Vessels Normal sized aortic root. Pericardium/Pleural No pericardial effusion. MMode/2D Measurements & Calculations LVIDd: 5.1 cm IVSd: 1.3 cm LVOT diam: 2.1 cm LVIDs: 3.6 cm LVPWd: 1.1 cm LVOT area: 3.3 cm2 RVDd: 4.1 cm FS: 28.5 % Ao root diam: 3.6 cm LAV(MOD-bp): 78.0 ml LVAd ap4: 30.5 cm2 LAV(MOD-bp) Indexed: 40.9 ml/m2 LVLd ap4: 7.5 cm LAV(MOD-sp2): 102.9 ml EDV(MOD-sp4): 105.3 ml LAV(MOD-sp4): 58.3 ml EDV(sp4-el): 105.5 ml LVAs ap4: 17.3 cm2 LVLs ap4: 6.1 cm ESV(MOD-sp4): 42.8 ml ESV(sp4-el): 41.5 ml EF(MOD-sp4): 59.4 % EF(sp4-el): 60.7 % SV(MOD-sp4): 62.5 ml SV(sp4-el): 64.0 ml LA A4 area: 20.5 cm2 LA dimension(2D): 4.4 cm RA A4 area: 17.2 cm2 Doppler Measurements & Calculations MV E max jose eduardo: 88.4 cm/sec Lat Peak E' Jose Eduardo: 6.8 cm/sec Med Peak E' Jose Eduardo: 5.0 cm/sec MV A max jose eduardo: 113.2 cm/sec E/E' lat: 13.1 E/E' med: 17.6 MV E/A: 0.78 Ao V2 max: 379.6 cm/sec AI max jose eduardo: 433.5 cm/sec LV V1 max: 113.3 cm/sec Ao max P.7 mmHg AI max P.2 mmHg LV V1 max P.2 mmHg Ao V2 mean: 297.1 cm/sec LV V1 mean P.6 mmHg Ao mean P.5 mmHg AI dec slope: 209.2 cm/sec2 LV V1 mean: 76.5 cm/sec Ao V2 VTI: 105.6 cm AI P1/2t: 607.0 msec LV V1 VTI: 28.4 cm LOREN(I,D): 0.90 cm2 LOREN(V,D): 1.00 cm2 SV(LVOT): 94.9 ml PA V2 max: 105.9 cm/sec TR max jose eduardo: 296.0 cm/sec TR max P.0 mmHg ECHO/Echo Complete Interpretation Summary Left ventricular systolic function is normal. The estimated ejection fraction is 60 %. The left atrium is mildly enlarged. There is mild mitral annular calcification. Anterior leaflet diffuse mitral valve thickening. Extension of the mitral annular calcification onto the posterior mitral valve l eaflet. Mild (1+) mitral valve insufficiency. Mild tricuspid valve insufficiency. Moderate to severe aortic valve stenosis. Mild (1+) aortic valve insufficiency. Trivial pulmonic valve insufficiency. Right ventricular systolic pressure estimated to be 38 mmHg. There is evidence of diastolic dysfunction. Ordering Physician: Jonah Whelan Referring Physician: Jenifer Gonzalez Performed By: Kathrin Whelan, RACHEAL, RVT
== END ==
PROVIDERS: PCP Internal Medicine; Referring Provider Nurse Practitioner Family; Visit Provider Nurse Practitioner Family
DX: R01.1 Cardiac murmur, unspecified (principal); I35.0 Nonrheumatic aortic (valve) stenosis; I48.0 Paroxysmal atrial fibrillation; I10 Essential (primary) hypertension; E78.00 Pure hypercholesterolemia, unspecified; Z72.0 Tobacco use
CPT/HCPCS: 93306

== ENCOUNTER → 2021-05-03 09:43 | Outpatient (CLI) | payer MEDICARE, OTHER, SELFPAY ==
--- NOTE | 2021-05-03 09:45 | RAD_ITS ---
STUDY: X-RAY CHEST REASON FOR EXAM: Male, 80 years old. Pre-operative TECHNIQUE: PA and lateral views of the chest. COMPARISON: Comparison is made with prior study dated 09/27/2020. FINDINGS: Gynecomastia. There is hyperinflation of the lungs consistent with chronic obstructive lung disease (COPD). Stable mild increased markings at the lung bases suggestive of scarring. There is no demonstrated pleural abnormality. Normal size heart. Normal mediastinum and ayaz. Normal visualized pulmonary arteries. There is atherosclerotic calcification of the aortic arch with tortuosity. There are diffuse degenerative changes of the visualized thoracic spine. Healed right rib fractures. There is no demonstrated abnormality of the visualized soft tissue structures of the upper abdomen. RAD/Chest PA and Lateral IMPRESSION: Hyperinflation. Stable examination. Electronically Signed: John Tong MD at 14:07 EDT , Service support ,
== END ==
PROVIDERS: PCP Internal Medicine; Referring Provider Nurse Practitioner Family; Visit Provider Nurse Practitioner Family
DX: Z01.811 Encounter for preprocedural respiratory examination (principal); I48.0 Paroxysmal atrial fibrillation; I35.0 Nonrheumatic aortic (valve) stenosis
CPT/HCPCS: 71046

== ENCOUNTER 2021-05-18 08:49 | Day surgery (SDC) | payer MEDICARE, OTHER, SELFPAY ==
[2021-05-03 11:12] LABS: Absolute Neutrophil Count 2.1 X10^3/uL (2.0-7.7); Basophil# 0.03 X10^3/uL; Basophil% 0.6 % (0-1); Hematocrit 39.5 % (40-54); Hemoglobin 13.4 g/dL (13.0-16.5); Lymphocyte % 41.7 % (19-41); Mean Corp Hgb Conc 33.9 g/dL (32-36); Mean Corpuscular Hgb 36.8 pg (27.0-32.0); Mean Corpuscular Volume 108.5 fL (80-94); Mean Platelet Vol. 10.8 fl (6.2-12.0); Monocyte# 0.57 X10^3/uL; Monocyte% 11.3 % (0-10); NRBC Flagged by Analyzer 0 % (0-5); Neutrophil # 2.12 X10^3/uL (2.7-7.7); Neutrophil % 42.2 % (47-70); Platelet Count 193 K/mm3 (150-450); RBC Distribution Width CV 13.7 % (11.6-14.6); RBC Distribution Width SD 55.6 fl (35.1-43.9); Red Blood Count 3.64 M/mm3 (4.6-6.2)
[2021-05-03 11:37] LABS: Anion Gap 6 (5-15); BUN 18 mg/dL (7-18); Calcium,Total 8.7 mg/dL (8.5-10.1); Chloride 97 mmol/L (98-107); Creatinine, Serum 0.86 mg/dL (0.70-1.30); EST Glomerular Filtration Rate 91 mL/min (>60); Est Glom Filt Rate - Afr Amer 111 mL/min (>60); Glucose 97 mg/dL (74-106); Potassium 4.3 mmol/L (3.5-5.1); Sodium Level 129 mmol/L (136-145)
[2021-05-03 11:48] LABS: International Normalized Ratio 1.8; Prothrombin Time (Protime)PT. 20.4 SECONDS (11.7-14.9)
[2021-05-03 11:49] LABS: Partial Thromboplast Time 39.9 Seconds (24.1-36.2)
[2021-05-17 08:05] VITALS: BMI 22.8
--- NOTE | 2021-05-17 18:37 | PCM.HP.BLA ---
History and Physical Date of Admission: 05/18/21 [facility] [address], [place] [id number] OFFICE VISITDate of Service: 05/03/21 MR#:[id number]: CESAR ANGUIANO WRep #:[id number] Provider: FLORES Ayala RoofAge/Sex: 80/M [facility]Signed HPI HPI History of Present Illness Surgical H&P: Yes Details: CESAR ANGUIANO, is a 80 year old white male who presents to the office today for outpatient cardiovascular follow-up for his history of paroxysmal atrial fibrillation, aortic valve stenosis, superimposed upon hyperlipidemia and hypertension. Patient underwent an echocardiogram on 04/13/2021 due to expressing worsening lightheaded and dizziness and concerns for progressive aortic valve disease. His echocardiogram showed an ejection fraction of 60% and moderate to severe aortic valve stenosis with mild aortic valve insufficiency. Peak aortic valve gradient was noted be 57.7 mmHg and mean gradient was noted be 37.5 mmHg. Aortic valve area was 0.9/1 cm?. On account of aortic valve disease, he will undergo a heart catheterization to evaluate coronary anatomy to guide further valvular treatment. He denies chest, arm, jaw, or neck discomfort. He denies symptoms of shortness of breath with exertion, shortness of breath at rest, orthopnea, PND, or sudden weight gain. He continues with bilateral lower extremity edema that is not worsening and fluctuates. He denies chronic cough. He denies palpitations, dizziness, or syncopal episodes. He states lightheadedness that occurs when changing positions, walking, and warmer weather/temperature. This can be associated with near syncope at times. He denies claudication issues. He denies fever or chills. He denies blood in urine, blood in stool, or epistaxis. He denies myalgia. He denies unexplainable fatigue. His exercise tolerance is very minimal. 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: No Is patient in pain?: No Allergies metronidazole Allergy (Severe, Verified 05/03/21 09:09) chest pain ropinirole Allergy (Severe, Verified 05/03/21 09:09) BP drop, dizziness, faint oxycodone [From OxyIR] Adverse Reaction (Verified 05/03/21 09:09) Other oxycodone HCl [From Percocet] Adverse Reaction (Verified 05/03/21 09:09) Vomiting Medications fluticasone propionate 2 spray NASAL DAILY 08/09/15 [History Confirmed 05/03/21] calcium carbonate 600 mg (1,500 mg)-vitamin D3 200 unit tablet 1 tab PO QDAY 09/12/17 [History Confirmed 05/03/21] guaifenesin 600 mg tablet, extended release 12 hr 600 mg PO Q12H PRN 09/12/17 [History Confirmed 05/03/21] multivitamin 1 tab PO QDAY 09/12/17 [History Confirmed 05/03/21] rivaroxaban 20 mg PO DAILY 11/19/17 [History Confirmed 05/03/21] amiodarone 200 mg PO DAILY #30 tab 06/22/18 [Rx Confirmed 05/03/21] artifi.tears(hypromellose)(PF) 0.3 % eye drops 1 drp OPHTHALMIC 4-8XD PRN 07/02/18 [History Confirmed 05/03/21] bevacizumab 25 mg/mL intravenous solution 25 mg INTRAVIT QMONTH ml 07/02/18 [History Confirmed 05/03/21] ascorbic acid (vitamin C) 500 mg capsule 500 mg PO DAILY cap 01/06/19 [History Confirmed 05/03/21] losartan 25 mg tablet 25 mg PO DAILY 01/06/19 [History Confirmed 05/03/21] umeclidinium 62.5 mcg-vilanterol 25 mcg/actuation powdr for inhalation 1 inh INHALATION Q24H ea 01/06/19 [History Confirmed 05/03/21] vitamins A,C,J-uprs-fuxljz 14,320 unit-226 mg-200 unit capsule 1 cap PO BID 07/28/19 [History Confirmed 05/03/21] PFSH Medical History (Updated 04/27/21 @ 15:20 by Jonah Whelan COMMUNITY REPRESENTATIVE, COMMUNITY REPRESENTATIVE-C) Alcohol abuse Alcohol abuse, episodic drinking behavior Aortic valve disease, rheumatic Atrial fibrillation Atrioventricular block Chest pain Chronic anticoagulation Closed left hip fracture COPD (chronic obstructive pulmonary disease) DDD (degenerative disc disease), lumbar Disorders of bursae and tendons in shoulder region, unspecified Diverticulosis DVT of lower extremity, bilateral Dysphagia Essential hypertension Fracture of C4 vertebra, closed Fracture of fourth cervical vertebra Groin pain Hemorrhoids Hemorrhoids with complication Inguinal hernia of left side without obstruction or gangrene Knee locking Malignant neoplasm of bladder Murmur, cardiac Nonrheumatic aortic (valve) stenosis Orthostatic hypotension Paroxysmal atrial fibrillation Personal history of colonic polyps Pure hypercholesterolemia Rectal bleeding RLS (restless legs syndrome) Screening for intestinal cancer 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 Syncope and collapse Surgical History (Reviewed 04/04/21 @ 09:36 by Jonah Whelan COMMUNITY REPRESENTATIVE, COMMUNITY REPRESENTATIVE-C) History of bilateral cataract extraction S/P hemorrhoidectomy S/P inguinal hernia repair S/P percutaneous endoscopic gastrostomy (PEG) tube placement S/P shoulder surgery S/P wrist surgery Status post hip surgery Status post knee surgery Status post tracheostomy Family History (Reviewed 04/04/21 @ 09:36 by Jonah Whelan COMMUNITY REPRESENTATIVE, COMMUNITY REPRESENTATIVE-C) Father Arthritis COPD (chronic obstructive pulmonary disease) Mother CVA (cerebral vascular accident) Heart disease Sister Heart disease Brother Throat cancer Social History (Reviewed 04/04/21 @ 09:36 by Jonah Whelan COMMUNITY REPRESENTATIVE, COMMUNITY REPRESENTATIVE-C) Smoking Status: Current every day smoker tobacco type: cigarettes second hand exposure: Yes quit status: considering quitting alcohol intake: current alcohol intake frequency: 3 or more drinks per day Alcohol type: beer substance use type: does not use caffeine: Yes Type: coffee Number of servings: 4 what type of physical activity do you participate in: swimming frequency: 3-4 times per week seatbelt use: always ROS Const Const: Negative for fatigue, weakness, body ache, fever(s) or chills ENT ENT: Negative for dizziness or Nosebleed/epistaxis Cardio Chest Pain: No Palpitations: No Edema: Bilateral Muscle aches with walking: None Resp Respiratory: Negative for SOB with activity, SOB at rest, SOB orthopnea\SOB lying down, Cough or paroxysmal nocturnal dyspnea GI GI: Negative nausea, vomiting blood/hematemesis, bright, red blood in stools or black,tarry stools : Negative for hematuria or frequent nighttime urination/ nocturia Musc Musc: Negative for muscle aches/ myalgia Skin Skin: Negative non-healing lesions or rash Neuro Neuro: Positive for lightheadedness and near syncope; Negative for dizziness, syncope, orthostatic symptoms or weakness Endo Endo: Negative for fatigue Allergy Allergy/Immunology: Negative for rash Cardiology Exam Const Appearance: cooperative, healthy appearing, comfortable and no acute distress Nutritional Appearance: average body habitus and well nourished Orientation: alert, awake and oriented x3 Head Head: normal to inspection Ears: hearing grossly normal bilaterally Nose: external nose normal Face and Sinus: face symmetric Mouth: oral mucosae normal Eyes General: appearance normal, both eyes and all related structures Eyelids: eyelids normal EOM: EOM intact bilaterally Neck Neck: normal visual inspection and no JVD Carotids: normal carotid upstroke Chest Chest inspection: normal inspection of the chest, symmetric chest movement and normal respiratory effort; Negative cough Auscultation: Bilateral: Clear to Auscultation Cardio Rate: regular rate Rhythm: regular rhythm Heart sounds: S1 normal, S2 normal and murmur; Negative rub or gallop Murmur: Grade 3/6, soft and COLT loudest primary aortic area GI GI: normal to inspection Neuro General: patient alert, patient awake, patient oriented x3 and CN's II-XI intact bilaterally Skin Skin: no rashes or lesions noted Extremities Pulses: Normal: Right Radial Pulse and Left Radial Pulse and Diminished: Right Posterior Tibial Pulse and Left Posterior Tibial Pulse Lower Extremity Edema: +1: Bilateral and Color Changes: Bilateral (mottled look) Psych Psychological: normal affect Assessment and Plan Assessment and Plan (1) Paroxysmal atrial fibrillation: Status: Chronic Orders: Orders: 12 Lead EKG performed by [facility] Today Chest PA and Lateral Today Plan - Jonah Whelan NP, COMMUNITY REPRESENTATIVE-C: Patient is EKG today in office shows Sinus rhythm with first-degree AV block at a rate of 65 bpm, MI interval 250, QTc 422, and QRS 99. His heart is well controlled. He will continue with amiodarone therapy for rate and rhythm control. He will continue with Xarelto therapy for CVA protection. We will continue to monitor. (2) Nonrheumatic aortic (valve) stenosis: Status: Chronic Orders: Orders: Chest PA and Lateral Today Plan - Jonah Whelan NP, COMMUNITY REPRESENTATIVE-C: Patient's most recent echocardiogram showed a preserved ejection fraction and moderate to severe aortic valve stenosis with mild aortic valve insufficiency. He denies any shortness of breath with activity, but his activity level is very limited. His lightheadedness/dizziness may be due to valve disease. He will proceed with heart catheterization to assess coronary artery anatomy to guide further treatment. Based on results of his tests, further recommendation will be made. (3) Essential hypertension: Status: Chronic Plan - Jonah Whelan COMMUNITY REPRESENTATIVE, COMMUNITY REPRESENTATIVE-C: Patient's blood pressure is well-controlled. We will continue to monitor. We will not make any medication regimen changes. (4) Pure hypercholesterolemia: Status: Chronic Plan - Jonah Whelan COMMUNITY REPRESENTATIVE, COMMUNITY REPRESENTATIVE-C: Lipid panel from 03/28/2021 showed Cholesterol: 159, HDL: 64, LDL: 82, and Triglycerides: 63. He is currently not on statin medication. We will continue to monitor cholesterol on a routine basis. He will continue risk factor lifestyle modification. (5) Tobacco abuse: Status: Chronic Plan - Jonah Whelan COMMUNITY REPRESENTATIVE, COMMUNITY REPRESENTATIVE-C: Patient continues to smoke. He received extensive education regarding the health benefits of smoking cessation. We will continue to support and encourage smoking cessation. Plan Details Other Orders: Orders: 12 Lead EKG performed by [facility] Today Z01.818 Chest PA and Lateral Today Z01.818 Additional Comments: Patient will proceed with heart catheterization with Dr. Garner. Thank you for allowing us to participate in the patients plan of care, if you have any questions please do not hesitate to call. This note was generated using a voice recognition system and there may be incorrect words, spelling or punctuation that were not noted when reviewing the office note prior to saving. COVID (Procedure Consent) Procedure Criteria Procedure Criteria: Yes Elective The surgeon/proceduralist and patient have discussed in detail the risk of exposure to and/or potential harm posed by the COVID-19 virus with having a surgery/procedure at this time versus the risk of delaying the surgery/procedure. It is not possible to know either the risk of delaying the surgery or procedure or chance of getting an infection with perfect accuracy, but a joint decision was made between the patient and the surgeon/proceduralist to proceed at this time with the scheduled surgery/procedure as indicated on the consent form. Coding Level of Care Code Off vis,est,level 3 Diagnoses Paroxysmal atrial fibrillation I48.0 Nonrheumatic aortic (valve) stenosis I35.0 Essential hypertension I10 Pure hypercholesterolemia E78.00 Tobacco abuse Z72.0 Coding Level of Care Code Off vis,est,level 3 Diagnoses Paroxysmal atrial fibrillation I48.0 Nonrheumatic aortic (valve) stenosis I35.0 Essential hypertension I10 Pure hypercholesterolemia E78.00 Tobacco abuse Z72.0 Supplemental Info Supplemental Information Transthoracic echocardiogram from 04/13/2021: Interpretation Summary Left ventricular systolic function is normal. The estimated ejection fraction is 60 %. The left atrium is mildly enlarged. There is mild mitral annular calcification. Anterior leaflet diffuse mitral valve thickening. Extension of the mitral annular calcification onto the posterior mitral valve leaflet. Mild (1+) mitral valve insufficiency. Mild tricuspid valve insufficiency. Moderate to severe aortic valve stenosis. Mild (1+) aortic valve insufficiency. Trivial pulmonic valve insufficiency. Right ventricular systolic pressure estimated to be 38 mmHg. There is evidence of diastolic dysfunction. Transthoracic echocardiogram from 08/11/2019: Interpretation Summary The study was technically difficult. Left ventricular systolic function is normal. The estimated ejection fraction is 60 %. Apical false tendon noted. The left atrium is mildly enlarged. There is mild to moderate mitral annular calcification. Extension of the mitral annular calcification onto the base of the posterior mitral valve leaflet. Mild diffuse mitral valve thickening. The mitral valve chordae are thickened and/or calcified. The mitral papillary muscle appears thickened and/or calcified. Mild (1+) mitral valve insufficiency. Mild tricuspid valve insufficiency. Moderate aortic stenosis. Trivial aortic valve insufficiency. Trivial pulmonic valve insufficiency. Calcified aortic root. Right ventricular systolic pressure estimated to be 30 mmHg. There is evidence of diastolic dysfunction. Transthoracic echocardiogram: 06/02/2018 Interpretation Summary Left ventricular systolic function is normal. The estimated ejection fraction is 65 %. The left atrium is mildly enlarged. There is mild mitral annular calcification. Mild diffuse mitral valve thickening. The mitral papillary muscle appears thickened and/or calcified. Mild (1+) mitral valve insufficiency. Trivial tricuspid valve insufficiency. Moderate aortic stenosis. Trivial pulmonic valve insufficiency. Calcified aortic root. Right ventricular systolic pressure estimated to be 34 mmHg. Diastolic function is indeterminate. Holter monitor: 03/18/2017 Normal Sinus Rhythm with rare episodes of marked sinus arrhythmia at 10:10 PM, Sinus Bradycardia at 8:53 AM, Normal Sinus Rhythm complexes noted. No runs noted. The longest R-R interval was 1.3 seconds at 3:32 PM symptom of feeling dizzy, which did not correlate with scan Stress test: 11/20/2017 Stress protocol: Resting EKG demonstrates normal sinus rhythm with a rate of 63 bpm normal intervals and noted resting blood pressure is 150/84 mmHg. 0.4 mg regadenoson was infused per usual protocol followed by rapid intravenous saline flush injection. Continuous EKG monitoring was performed. The maximum heart rate attained was 75 beats minute is 52% maximum predicted heart rate the maximum workload attained was 1 metabolic equivalent. At rest there were no ST or T-wave changes noted suggest abnormal flow reserve at peak infusion no ST or T-wave changes were noted suggest abnormal flow reserve. The resting blood pressure is 150/84 final blood pressure is 138/70. Myocardial perfusion protocol. 11.4 mCi of technetium 99m sestamibi was injected at rest. 0.4 mg of regadenoson was infused per usual protocol. At peak infusion 33.3 mCi of technetium 99m sestamibi was injected stress images were obtained stress and rest images were reconstructed and compared in the short axis vertical long and horizontal long axis. Gated images were also obtained. Perfusion SPECT analysis: Review of the stress images demonstrate normal uptake of tracer noted in all areas of the myocardium the resting images similarly demonstrate normal uptake of tracer noted in all areas of the myocardium. No areas of reversibility are noted suggest ischemia no previous infarct is noted. Gated SPECT analysis: The gated ejection fraction is noted to be 66%. Conclusion: Normal pharmacologic myocardial perfusion stress test. Preserved ejection fraction. Labs: LDL Cholesterol 82 mg/dL (0-130) HDL Cholesterol 64 mg/dL (40-) Triglycerides 63 mg/dL (-199) VLDL Cholesterol 13 mg/dL (5-40) Diagnostics: Electrocardiogram Echocardiogram Chest X-Ray Pulmonary: Pulmonary Function Test 05/03/21 1225<Electronically signed by Jonah Whelan NP, NP-C>Date Jonah WILSONC Cosigner Signature:Date (if applicable) CC: Dr. Jenifer Gonzalez MD ~ Assessment & Plan Addt'l Comments I have re-examined the patient. There are no clinical changes since date of exam.
[2021-05-18 09:01] LABS: INR Fingerstick 1.2; Prothrombin Time Fingerstick 14.1 SEC (11.9-14.4)
[2021-05-18 10:15] LABS: Base Excess 1 mmol/L (-2 to +2); Bicarbonate 25.3 mmol/L (22-26); Blood Gas Specimen Type ART; PO2 70 mmHG (75-100); SO2 94 % (95-99); Total Carbon Dioxide 27 mmol/L; pCO2 39.7 mmHg (35-45); pH 7.41 (7.35-7.45)
[2021-05-18 10:30] LABS: Blood Gas Specimen Type VEN; VBG BASE EXCESS 1 mmol/L (-1.0-3.5); VBG Bicarbonate 26 mmol/L (22-26); VBG PO2 39 mmHg (25-40); VBG SO2 73 % (50-70); VBG TCO2 27 mmol/L (23-33); VBG pCO2 41.1 mmHg (41-51)
[2021-05-18 10:30] LABS: Blood Gas Specimen Type VEN; VBG BASE EXCESS -1 mmol/L (-1.0-3.5); VBG Bicarbonate 24 mmol/L (22-26); VBG PO2 43 mmHg (25-40); VBG SO2 78 % (50-70); VBG TCO2 25 mmol/L (23-33); VBG pCO2 38.6 mmHg (41-51)
[2021-05-18 10:35] LABS: Blood Gas Specimen Type VEN; VBG BASE EXCESS 1 mmol/L (-1.0-3.5); VBG Bicarbonate 25 mmol/L (22-26); VBG PO2 38 mmHg (25-40); VBG SO2 73 % (50-70); VBG TCO2 27 mmol/L (23-33); VBG pCO2 40.6 mmHg (41-51)
--- NOTE | 2021-05-18 11:35 | CL.D_ITS ---
Patient Name: CESAR ANGUIANO Study Date: 05/18/2021 Performing: Omar Garner MD Ht: 70.07 inches 178 cm : 1940 Wt: 158.73 lbs 72 kg Age: 80 Gender: male BSA: 1.89 PROCEDURE(S) PERFORMED [id number]-QLR/LHC/COR/LV CLINICAL PROFILE AND INDICATIONS Indications: Valvular Disease, Pre-Operative Evaluation Heart Failure: None Stress/Imaging Stress/Image Study Performed: No Angina Classification Anginal Classification w/in 2 Weeks: No symptoms CAD Presentations: No Sxs, no angina. Other: edema; near syncope CONCLUSIONS Right heart pressures - Normal Intracardiac shunting: None Normal Left Ventricular End Diastolic Pressure Normal LV size, wall motion,and systolic function LVEF: by LV gram 55 % [place] Multivessel CAD (non angiographically significant appearing) Aortic Valve Calcification- Severe Aortic Valve Stenosis- Moderate RECOMMENDATIONS Risk factor modification Medical therapy Surgery consult for valvular disease DESCRIPTION OF PROCEDURE The patient arrived to the procedure lab. The risks and benefits of the procedure as well as a full d escription of our services here and current unavailability of surgical backup were fully explained to the patient and/or their significant other prior to the catheterization. The Timeout was completed, verifying the correct patient and procedure. The patient's procedural site was prepped and draped in the usual fashion. Local anesthetic was given subcutaneously to right groin region with Lidocaine 2%. Using a modified Seldinger technique, arterial access was obtained via the right femoral artery, a 4 Fr sheath was inserted Venous access was obtained via the right femoral vein, a 7Fr sheath was insert ed. A 7Fr thermal dilution catheter was inserted and right heart pressures were recorded, it was then advanced to PA position for cardiac outputs. Thermal dilution cardiac outputs were then recorded. O2 saturations were then obtained. The Thermal dilution catheter was then removed. Left Ventriculography was performed in [place] projection using a 4 Fr. Pigtail catheter. LV to AO pullback pr essures were then recorded. Simultaneous pressures were then recorded. Left Coronary Artery selective angiography was performed in multiple views using a 4 Fr. JL5 catheter. Right Coronary Artery select julio cesar angiography was then performed in multiple views using a 4 Fr. JR4 catheter.The arterial sheath w as pulled and manual compression applied until hemostasis is achieved.. The venous sheath was then pu lled and manual compression applied until hemostasis achieved CORONARY ANGIOGRAPHY DOMINANCE: Right Dominant LEFT HEART ASSESSMENT Left Ventricular Ejection Fraction: by LV Gram 55 % Normal LV wall motion Normal Left Ventricular End Diastolic Pressure LVEDP: 9 mmHg RIGHT HEART ASSESSMENT Thermal CO: 4.5 Thermal CI: 2.38 Samy CO: 8.62 Samy CI: 4.56 PW: 12/11 11 PA: 27/13 18 RV: 29/5 7 RA: 6/6 5 PVR: 124 SVR: 1618 Aortic Valve Area: 1.20 Aortic Valve Index: 0.63 Aortic Valve Mean Gradient: 21.7 Mitral Valve Area: 1.24 Mitral Valve index: 0.66 Mitral Valve Mean Gradient: 9.5 Right Heart pressures - normal Intracardiac shunting: None LEFT ANTERIOR DESCENDING ARTERY: Mild luminal irregularities PROX LAD: Moderate calcification CIRCUMFLEX ARTERY: PROX CIRC: Mild calcification, Mild luminal irregularities RIGHT CORONARY ARTERY: PROX RCA: Severe calcification, Mild luminal irregularities MID RCA: Moderate calcification, Mild luminal irregularities VALVE FINDINGS: Aortic Valve Calcification - severe Aortic Valve Stenosis - moderate AORTIC ROOT: Angiographically normal COMPLICATIONS No Complications PROCEDURE MEDICATIONS Fentanyl 25 mcg IV Versed 1 mg IV SUMMARY OF HEMODYNAMIC DATA Time AIR REST ECG 09:13:52 ECG 09:14:34 ECG 09:15:51 RA 6/6 (5) SV 10:25:41 RV 29/5, 7 10:25:57 PW 08/04 (11) PV 10:27:29 PA / (18) PA 10:27:50 LV 168/-9, 9 10:35:39 PW 15 (12) 10:35:39 LV 169/-9, 9 10:35:45 PW 15/ (11) 10:35:45 LV 166/0, 10 10:37:10 PW 17/18 (15) 10:37:10 LVp 179/2, 9 10:38:09 AOp 142/59 (91) 10:38:14 PA 34/16 (22) 10:39:09 RV 32/5, 8 10:39:39 RA 8/7 (6) 10:39:54 AO 136/60 (96) SA 10:42:08 ECG 11:27:23 Valve Area (c P-P/ms Time AIR REST Mitral 1.24 9.5 mn/481 ms5.0 pk/481 ms 10:37:10 Aortic 1.20 21.7 mn/268 ms37.0 pk/268 ms 10:38:09 Type SV CO (l/m) CI (l/m/ HR Time AIR REST Thermal 66.20 4.50 2.38 68 09:13:52 Samy 126.80 8.62 4.56 68 09:13:52 Label % O2 Pres/Loc Time AIR REST AO 94 PV 10:14:26 PA 73 PA 10:42:40 IVC 78 SV 10:42:50 SVC 73 10:42:54 Signed By Omar Garner MD On 05/18/2021 11:34:56 AM Omar Garner MD
== END 2021-05-18 15:30 | disposition home or self-care (01) ==
LOC: CLSP 08:49
PROVIDERS: Nurse Practitioner Family; PCP Internal Medicine; Visit Provider Internal Medicine Cardiovascular Disease
DX: I25.10 Atherosclerotic heart disease of native coronary artery without angina pectoris (principal); I35.0 Nonrheumatic aortic (valve) stenosis; I44.0 Atrioventricular block, first degree; I48.0 Paroxysmal atrial fibrillation; I10 Essential (primary) hypertension; E78.00 Pure hypercholesterolemia, unspecified; J44.9 Chronic obstructive pulmonary disease, unspecified; F10.10 Alcohol abuse, uncomplicated; F17.210 Nicotine dependence, cigarettes, uncomplicated; Z79.01 Long term (current) use of anticoagulants; Z79.899 Other long term (current) drug therapy; Z82.49 Family history of ischemic heart disease and other diseases of the circulatory system
CPT/HCPCS: 36415; 36416; 80048; 82803; 85025; 85610; 85730; 93460; 99152; 99153; J7040; Q9967; C1751; C1769; C1894

== ENCOUNTER → 2021-05-30 09:41 | Outpatient (CLI) | payer MEDICARE, OTHER, SELFPAY ==
[2021-05-30 11:19] LABS: AST(SGOT) 18 U/L (15-37); Alanine Aminotransfer ALT/SGPT 21 U/L (16-61); Albumin, Serum 3.4 g/dL (3.2-5.0); Alkaline Phosphatase 74 U/L (45-117); Bilirubin, Direct 0.22 mg/dL (0.00-0.30); Cholesterol 150 mg/dL (200); High Density Lipoprotein 72 mg/dL; Protein, Total 7.4 g/dL (6.4-8.2); Triglycerides 53 mg/dL; Very Low Density Lipoprotein 11 mg/dL (5-40)
[2021-05-31 16:22] LABS: Anion Gap 7 (5-15); BUN 17 mg/dL (7-18); Calcium,Total 8.8 mg/dL (8.5-10.1); Chloride 99 mmol/L (98-107); EST Glomerular Filtration Rate 77 mL/min (>60); Est Glom Filt Rate - Afr Amer 93 mL/min (>60); Glucose 93 mg/dL (74-106); Potassium 4.6 mmol/L (3.5-5.1); Sodium Level 133 mmol/L (136-145)
== END ==
PROVIDERS: PCP Internal Medicine; Referring Provider Physician Assistant Medical; Visit Provider Physician Assistant Medical
DX: I35.0 Nonrheumatic aortic (valve) stenosis (principal); E78.00 Pure hypercholesterolemia, unspecified
CPT/HCPCS: 36415; 80048; 80061; 80076

== ENCOUNTER 2021-06-24 20:49 | Emergency (ER) | payer MEDICARE, OTHER, SELFPAY ==
[2021-06-24 20:50] VITALS: BP 103/62; PULSE 70; RESP 18; TEMP 36.8; O2SAT 95; BMI 22.8
--- NOTE | 2021-06-24 21:02 | CT_ITS ---
STUDY: CT BRAIN WITHOUT CONTRAST REASON FOR EXAM: Male, 80 years old. Fall RADIATION DOSAGE (If Supplied By Facility): CTDIvol = ( 44.99 ) mGy, DLP = ( 863.60 ) mGycm TECHNIQUE: Transaxial CT imaging of the brain was performed without administration of intravenous contrast material. Individualized dose optimization techniques were used for this CT. COMPARISON: 03/02/2021 FINDINGS: Normal soft tissue structures. Normal calvarium. Prominent ventricles and extra-axial spaces with atrophy. Bilateral white matter microangiopathic ischemic changes of the cerebral hemispheres. Normal basal ganglia and thalami. Normal brainstem. Normal cerebellum. There is no intracranial hemorrhage. There are no findings of an acute ischemic infarction. Mucosal thickening of the visualized paranasal sinuses. CT/Brain/Head without Contrast IMPRESSION: Age-related changes of the brain. Paranasal sinus disease. Electronically Signed: Shaggy Dubois DO at 22:30 EDT Tel [phone], Service support ,
--- NOTE | 2021-06-24 21:03 | EKG12_ITS ---
Test Reason : FALL Blood Pressure : / mmHG Vent. Rate : 067 BPM Atrial Rate : 067 BPM P-R Int : 252 ms QRS Dur : 098 ms QT Int : 440 ms P-R-T Axes : 048 018 038 degrees QTc Int : 464 ms Sinus rhythm with 1st degree A-V block Otherwise normal ECG Confirmed by SCARLETT TELLEZ, ANJU ([id number]), publication editor GWENDOLYN GANDHI ([id number]) on 06/26/2021 9:47:08 AM Referred By: ELIJAH Confirmed By:ANJU PANTOJA MD
--- NOTE | 2021-06-24 21:04 | RAD_ITS ---
STUDY: X-RAY - LEFT HAND REASON FOR EXAM: Male, 80 years old. Injury TECHNIQUE: 3 view(s) of the hand. COMPARISON: None. FINDINGS: Normal radiocarpal articulation. Normal distal radioulnar joint. Normal visualized carpal bones. Normal carpal articulations Normal carpometacarpal articulation of the thumb. Normal second through fifth carpometacarpal joints. Normal metacarpi. Normal metacarpophalangeal joint of the thumb. Normal interphalangeal joint of the thumb. Normal proximal and distal phalanges of the thumb. Normal metacarpophalangeal joints of the second through fifth fingers. Normal proximal and distal interphalangeal joints of the second through fifth fingers. Normal phalanges of the second through fifth fingers. The soft tissue structures are unremarkable. RAD/Hand Min 3 Views IMPRESSION: Normal x-ray examination of the hand. Electronically Signed: Shaggy Dubois DO at 22:35 EDT Tel [phone], Service support ,
--- NOTE | 2021-06-24 21:04 | RAD_ITS ---
STUDY: X-RAY - LEFT ELBOW REASON FOR EXAM: Male, 80 years old. Injury TECHNIQUE: 3 view(s) of the elbow. COMPARISON: None. FINDINGS: Normal visualized humerus, radius and ulna. Degenerative changes at the radiocapitellar and ulnotrochlear articulations. The soft tissue structures are unremarkable. RAD/Elbow min 3 Views IMPRESSION: Degenerative changes of the elbow. Electronically Signed: Shaggy Dubois DO at 22:33 EDT Tel [phone], Service support ,
[2021-06-24 21:24] LABS: Absolute Lymphocyte Count 1.96 X10^3/uL (0.83-4.51); Absolute Neutrophil Count 1.3 X10^3/uL (2.0-7.7); Basophil# 0.04 X10^3/uL; Basophil% 0.9 % (0-1); Eosinophil# 0.35 X10^3/uL; Eosinophils% 8.3 % (0-5); Hematocrit 33.5 % (40-54); Hemoglobin 11.8 g/dL (13.0-16.5); Lymphocyte # 1.96 X10^3/ul (0.83-4.51); Lymphocyte % 46.2 % (19-41); Mean Corp Hgb Conc 35.2 g/dL (32-36); Mean Corpuscular Hgb 37.2 pg (27.0-32.0); Mean Corpuscular Volume 105.7 fL (80-94); Mean Platelet Vol. 9.9 fl (6.2-12.0); Monocyte# 0.56 X10^3/uL; Monocyte% 13.2 % (0-10); NRBC Flagged by Analyzer 0 % (0-5); Neutrophil # 1.32 X10^3/uL (2.7-7.7); Neutrophil % 31.2 % (47-70); Platelet Count 186 K/mm3 (150-450); RBC Distribution Width CV 14.3 % (11.6-14.6); RBC Distribution Width SD 56.7 fl (35.1-43.9); Red Blood Count 3.17 M/mm3 (4.6-6.2); White Blood Count 4.2 K/mm3 (4.4-11.0)
[2021-06-24 21:36] LABS: Anion Gap 8 (5-15); BUN 15 mg/dL (7-18); BUN/Creat Ratio 14.9 RATIO (10-20); Calcium,Total 8.7 mg/dL (8.5-10.1); Chloride 97 mmol/L (98-107); Creatinine, Serum 1.01 mg/dL (0.70-1.30); EST Glomerular Filtration Rate 76 mL/min (>60); Est Glom Filt Rate - Afr Amer 92 mL/min (>60); Estimated Creatinine Clearance 60.65 ml/min; Glucose 87 mg/dL (74-106); Potassium 4.2 mmol/L (3.5-5.1); Sodium Level 131 mmol/L (136-145)
[2021-06-24] MEDS: Diphth,Pertuss(Acell),Tet Vac 0.5 ML Vial IM (21:57)
[2021-06-24] MEDS: Lidocaine 1% (20 ml mdv) 20 ML Vial INFILT (21:59)
--- NOTE | 2021-06-24 22:48 | ED.RN ---
Dr. Marti applied dressing to left pinky finger, five sutures above left eye and steri strips applied to left elbow.
--- NOTE | 2021-06-24 22:48 | EX.ED.DYSGE1 ---
HPI History of Present Illness Chief Complaint: Fall Informant: patient and spouse/S.O. Onset/Context/Timing Onset: Today Current Severity: Mild Maximum Severity: Mild Narrative Narrative: Patient presents with a fall. Patient states he gets episodes where he blacks out. He believes this is secondary to aortic valve stenosis and he is scheduled to have a valve replacement next week. He states today he turned and blacked out falling to the ground. He has a laceration to the left forehead, skin tear to the left elbow, and a small wound to his left fifth finger. He denies chest pain or palpitations. He denies headache. Patient is currently on Xarelto secondary to history of paroxysmal A. fib. [facility] Medical History Alcohol abuse Alcohol abuse, episodic drinking behavior Aortic valve disease, rheumatic Atrial fibrillation Atrioventricular block Chest pain Chronic anticoagulation Closed left hip fracture COPD (chronic obstructive pulmonary disease) DDD (degenerative disc disease), lumbar Disorders of bursae and tendons in shoulder region, unspecified Diverticulosis DVT of lower extremity, bilateral Dysphagia Essential hypertension Fracture of C4 vertebra, closed Fracture of fourth cervical vertebra Groin pain Hemorrhoids Hemorrhoids with complication Inguinal hernia of left side without obstruction or gangrene Knee locking Malignant neoplasm of bladder Murmur, cardiac Nonrheumatic aortic (valve) stenosis Orthostatic hypotension Paroxysmal atrial fibrillation Personal history of colonic polyps Pure hypercholesterolemia Rectal bleeding RLS (restless legs syndrome) Screening for intestinal cancer 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 Syncope and collapse Home Medications fluticasone propionate 2 spray NASAL DAILY 08/09/15 [History Last Taken 06/08/18] calcium carbonate 600 mg (1,500 mg)-vitamin D3 200 unit tablet 1 tab PO QDAY 09/12/17 [History Last Taken 06/08/18] guaifenesin 600 mg tablet, extended release 12 hr 600 mg PO Q12H PRN 09/12/17 [History Last Taken 06/08/18] multivitamin 1 tab PO QDAY 09/12/17 [History Last Taken 06/08/18] rivaroxaban 20 mg PO DAILY 11/19/17 [History Last Taken 05/13/21] amiodarone 200 mg PO DAILY #30 tab 06/22/18 [Rx Last Taken 05/18/21] artifi.tears(hypromellose)(PF) 0.3 % eye drops 1 drp OPHTHALMIC 4-8XD PRN 07/02/18 [History Last Taken Unknown] bevacizumab 25 mg/mL intravenous solution 25 mg INTRAVITREAL QMONTH ml 07/02/18 [History Last Taken Unknown] ascorbic acid (vitamin C) 500 mg capsule 500 mg PO DAILY cap 01/06/19 [History Last Taken Unknown] losartan 25 mg tablet 25 mg PO DAILY 01/06/19 [History Last Taken 05/18/21] umeclidinium 62.5 mcg-vilanterol 25 mcg/actuation powdr for inhalation 1 inh INHALATION Q24H ea 01/06/19 [History Last Taken Unknown] vitamins A,C,B-phwl-rctjsz 14,320 unit-226 mg-200 unit capsule 1 cap PO BID 07/28/19 [History Last Taken Unknown] Allergy/AdvReac Type Severity Reaction Status Date / Time metronidazole Allergy Severe chest pain Verified 06/24/21 20:55 ropinirole Allergy Severe BP drop, Verified 06/24/21 20:55 dizziness, faint oxycodone [From OxyIR] AdvReac Other Verified 06/24/21 20:55 oxycodone HCl [From Percocet] AdvReac Vomiting Verified 06/24/21 20:55 Family History Father Arthritis COPD (chronic obstructive pulmonary disease) Mother CVA (cerebral vascular accident) Heart disease Sister Heart disease Brother Throat cancer Surgical History History of bilateral cataract extraction S/P hemorrhoidectomy S/P inguinal hernia repair S/P percutaneous endoscopic gastrostomy (PEG) tube placement S/P shoulder surgery S/P wrist surgery Status post hip surgery Status post knee surgery Status post tracheostomy Social History Smoking Status: Current every day smoker tobacco type: cigarettes second hand exposure: Yes quit status: considering quitting alcohol intake: current alcohol intake frequency: 3 or more drinks per day Alcohol type: beer substance use type: does not use caffeine: Yes Type: coffee Number of servings: 4 what type of physical activity do you participate in: swimming frequency: 3-4 times per week seatbelt use: always ROS ROS ED Constitutional Constitutional ED: Denies chills or fever(s) Eyes Eyes: Denies change in vision ENT ENT ED: Denies rhinorrhea or sore throat Cardiovascular Cardiovascular: Denies chest pain or palpitations Respiratory/Chest Respiratory/Chest: Denies dyspnea Gastrointestinal Gastrointestinal: Denies abdominal pain, diarrhea, nausea or vomiting Musculoskeletal Musculoskeletal: Reports arthralgias; Denies back pain or neck pain Integumentary Reports other Details: Laceration and skin tear as above Neurologic Neurologic: Denies headache(s) Allergic/Immunologic Allergic/Immunologic ED: Denies urticaria EXAM Physical Exam Const Vital Signs: 06/24/21 20:50 06/24/21 20:59 06/24/21 23:05 Temperature 98.3 F Temperature Source Oral Pulse Rate 70 Respiratory Rate 18 16 Respiratory Effort Normal Blood Pressure 103/62 148/72 H Blood Pressure Mean 75 Pulse Ox 95 Oxygen Delivery Method Room Air Positive well nourished and well developed General Appearance ED: well developed HEENT Reports normocephalic HEENT Narrative: 3 cm skin laceration to the left forehead just above the left eyebrow. Dressing in place. Mild bleeding. Eyes PERRL and EOMs intact bilaterally Neck supple Neck Narrative: No C-spine tenderness. Chest Wall inspection of chest normal and palpation of chest normal Resp normal respiratory effort and clear to auscultation bilaterally Cardio regular rate and regular rhythm Heart Sounds: murmur GI normal to inspection, nondistended, normoactive bowel sounds and non-tender Palpation: soft Extremity Extremity Narrative: 5 cm skin tear to the left extensor elbow. Minimal bony tenderness with good range of motion. Small skin tear noted to the left fifth finger along the flexor surface at the DIP joint. Mild bleeding noted and dressing in place. No bony tenderness. Neuro oriented x3 and no sensory deficits noted Sensorium / Orientation: alert Motor Exam: strength 5/5 throughout Psych mental status grossly normal MDM MDM MDM Narrative Medical decision making narrative: Tetanus update is provided. Head CT ordered. X-rays of the left elbow and left hand ordered. In light of the syncopal episode EKG and lab work obtained. 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 Lab Data Attestation: I reviewed the patient's lab results. Labs: Laboratory Results - last 24 hr 06/24/21 06/24/21 21:06 21:06 WBC 4.2 L RBC 3.17 L Hgb 11.8 L Hct 33.5 L MCV 105.7 H MCH 37.2 H MCHC 35.2 RDW Std Deviation 56.7 H RDW Coeff of Samir 14.3 Plt Count 186 MPV 9.9 Immature Gran % (Auto) 0.200 Neut % (Auto) 31.2 L Lymph % (Auto) 46.2 H [place] % (Auto) 13.2 H Eos % (Auto) 8.3 H Baso % (Auto) 0.9 Absolute Neuts (auto) 1.3 L Absolute Lymphs (auto) 1.96 Nucleated RBC % 0 Sodium 131 L Potassium 4.2 Chloride 97 L Carbon Dioxide 26.0 Anion Gap 8 BUN 15 Creatinine 1.01 Estim Creat Clear Calc 60.65 Est GFR (MDRD) Af Amer 92 Est GFR (MDRD) Non-Af 76 BUN/Creatinine Ratio 14.9 Glucose 87 Calcium 8.7 Radiography Diagnostic Testing: Clinical Impression(s) from Imaging Studies Brain CT 06/24/21 21:02 IMPRESSION: Age-related changes of the brain. Paranasal sinus disease. Electronically Signed: Shaggy Dubois DO at 22:30 EDT Tel [phone], Service support , Elbow X-Ray 06/24/21 21:04 IMPRESSION: Degenerative changes of the elbow. Electronically Signed: Shaggy Dubois DO at 22:33 EDT Tel [phone], Service support , Hand X-Ray 06/24/21 21:04 IMPRESSION: Normal x-ray examination of the hand. Electronically Signed: Shaggy Dubois DO at 22:35 EDT Tel [phone], Service support , EKG Initial EKG: Attestation: I personally reviewed and interpreted this EKG as follows: Interpretation: Sinus Rhythm (Sinus at 67 with first-degree AV block. No acute ischemia.) Treatment and Re-Evaluation Comments:: Left elbow and left hand x-rays per my interpretation reveal no acute fracture. Head CT unremarkable. EKG is sinus with first-degree block. No ischemia. Lab work unremarkable. Left forehead laceration is repaired with 5 simple entered sutures of 5-0 nylon. Please see procedure note. Left elbow skin tear cleansed and Steri-Strips and dressing applied. Left fifth finger cleansed and Band-Aid placed. With patient having multiple episodes of similar syncope with known history of aortic valve stenosis and planned surgery, I do not feel further observation in the hospital tonight as needed. Family is comfortable with this as well. They will follow up in 5 days for suture removal. Discharge Plan Triage Chief Complaint: Fall ED Provider: Aleisha Marti Dx/Rx/DC Orders Clinical Impression: Fall, Laceration of forehead, Avulsion of skin Instructions: ED Head Injury (Adult), ED Laceration: All Closures Prescriptions: No Action guaifenesin [Mucinex] 600 mg tablet extended release 12hr 600 mg PO Q12H PRN (Reason: Congestion) RF: 0 calcium carbonate-vitamin D3 [Calcium 600 with Vitamin D3] 600 mg(1,500mg) -200 unit tablet 1 tab PO QDAY RF: 0 multivitamin tablet 1 tab PO QDAY RF: 0 artifi.tears(hypromellose)(PF) 0.3 % drops 1 drp OPHTHALMIC 4-8XD PRN (Reason: Dry Eye(S)) RF: 0 bevacizumab 25 mg/mL intravenous solution 25 mg/mL solution 25 mg intravitreal QMONTH RF: 0 losartan 25 mg tablet 25 mg PO DAILY RF: 0 umeclidinium-vilanterol 62.5-25 mcg/actuation blister with device 1 inh Inhalation Q24H RF: 0 PreserVision AREDS 14,320-226-200 udtd-mo-ittn capsule 1 cap PO BID RF: 0 fluticasone propionate 1 SPRAY spray,suspension 2 spray NASAL DAILY RF: 0 ascorbic acid (vitamin C) 500 mg capsule 500 mg PO DAILY RF: 0 rivaroxaban 20 MG tablet 20 mg PO DAILY RF: 0 amiodarone 200 MG tablet 200 mg PO DAILY Qty: 30 RF: 0 Primary Care Provider: Jenifer Gonzalez Referrals: Jenifer Gonzalez MD [Primary Care Provider] - 5 Days for suture removal Disposition Disposition: Home, Self Care Discharge Date/Time: 06/24/21 23:09
[2021-06-24 23:05] VITALS: BP 148/72; RESP 16
== END 2021-06-24 23:09 | disposition home or self-care (01) ==
PROVIDERS: Emergency Provider Emergency Medicine; PCP Internal Medicine
DX: S01.81XA Laceration without foreign body of other part of head, initial encounter (principal); S50.312A Abrasion of left elbow, initial encounter; S60.417A Abrasion of left little finger, initial encounter; W19.XXXA Unspecified fall, initial encounter; Y93.89 Activity, other specified; Y92.9 Unspecified place or not applicable; Y99.9 Unspecified external cause status; I35.0 Nonrheumatic aortic (valve) stenosis; I48.0 Paroxysmal atrial fibrillation; I10 Essential (primary) hypertension; J44.9 Chronic obstructive pulmonary disease, unspecified; E78.00 Pure hypercholesterolemia, unspecified; F17.210 Nicotine dependence, cigarettes, uncomplicated; Z79.01 Long term (current) use of anticoagulants; Z79.899 Other long term (current) drug therapy
CPT/HCPCS: 12013; 70450; 73080; 73130; 80048; 85025; 90471; 90715; 93005; 99285; A4216

== ENCOUNTER → 2021-07-09 12:07 | Outpatient (CLI) | payer MEDICARE, OTHER, SELFPAY ==
[2021-07-09 14:19] LABS: AST(SGOT) 14 U/L (15-37); Alanine Aminotransfer ALT/SGPT 18 U/L (16-61); Albumin, Serum 3.2 g/dL (3.2-5.0); Alkaline Phosphatase 76 U/L (45-117); Bilirubin, Direct 0.16 mg/dL (0.00-0.30); Cholesterol 138 mg/dL (200); Globulin 3.8 g/dL (2.2-4.2); High Density Lipoprotein 54 mg/dL; Triglycerides 59 mg/dL; Very Low Density Lipoprotein 12 mg/dL (5-40)
== END ==
PROVIDERS: PCP Internal Medicine; Visit Provider Physician Assistant Medical
DX: E78.00 Pure hypercholesterolemia, unspecified (principal); I35.0 Nonrheumatic aortic (valve) stenosis
CPT/HCPCS: 36415; 80061; 80076

== ENCOUNTER → 2021-07-31 11:44 | Outpatient (CLI) | payer MEDICARE, OTHER, SELFPAY ==
[2021-07-31 12:40] LABS: Anion Gap 8 (5-15); BUN 27 mg/dL (7-18); BUN/Creat Ratio 23.1 RATIO (10-20); Calcium,Total 8.9 mg/dL (8.5-10.1); Chloride 99 mmol/L (98-107); Creatinine, Serum 1.17 mg/dL (0.70-1.30); EST Glomerular Filtration Rate 64 mL/min (>60); Est Glom Filt Rate - Afr Amer 77 mL/min (>60); Glucose 124 mg/dL (74-106); Potassium 4.3 mmol/L (3.5-5.1); Sodium Level 134 mmol/L (136-145)
== END ==
PROVIDERS: Nurse Practitioner Gerontology; PCP Internal Medicine; Visit Provider Physician Assistant Medical
DX: I95.1 Orthostatic hypotension (principal)
CPT/HCPCS: 36415; 80048

== ENCOUNTER → 2021-08-10 13:25 | Outpatient (CLI) | payer MEDICARE, OTHER, SELFPAY ==
--- NOTE | 2021-08-10 13:33 | CR.HP_ITS ---
CR - History & Physical - General Arrival date:: 08/10/21 Arrival time:: 13:37 Date of Referral:: 07/25/21 Date of CR Evaluation:: 08/10/21 Referring Physician: Dr. Omar Garner Primary Diagnosis: S/P Heart Vavle Replacement - History of Present Cardiac Event Onset Date: Enter Onset Date of cardiac illnesses in Comment field below Heart valve replacement or repair:: Yes - 07/02/2021 Type of Symptoms:: shortness of breath and palpitations gettting worse. Had a heart murmur since JR in high school and Dr. Garner has been watching hte heart valve over the last few years. Finally got worse enough that it requrired replacement Interventions with present event:: Surgery to replace valve - Sleep Disorder Evaluation Hx of Sleep Apnea: Yes Do you snore loudly (louder than talking or can be heard through closed doors)?: Yes - Restless Leg Syndrome Has anyone observed you stop breathing during sleep?: Yes - History of Obstructive Sleep Apnea, COPD and solitary lung nodule History of Hypertension (for STOP score): Yes - Medications Home Medications: Ambulatory Orders Medication Instructions Recorded fluticasone propionate 2 spray NASAL DAILY 08/09/15 calcium carbonate 600 mg-vitamin 1 tab PO QDAY 09/12/17 D3 5 mcg (200 unit) tablet guaifenesin 600 mg tablet, 600 mg PO Q12H PRN 09/12/17 extended release 12 hr multivitamin 1 tab PO QDAY 09/12/17 rivaroxaban 20 mg PO DAILY 11/19/17 bevacizumab 25 mg/mL intravenous 25 mg INTRAVITREAL QMONTH ml 07/02/18 solution ascorbic acid (vitamin C) 500 mg 500 mg PO DAILY cap 01/06/19 capsule umeclidinium 62.5 mcg-vilanterol 1 inh INHALATION Q24H ea 01/06/19 25 mcg/actuation powdr for inhalation vitamins A,C,F-dgfd-rigdar 14,320 1 cap PO BID 07/28/19 unit-226 mg-200 unit capsule amiodarone 200 mg tablet 100 mg PO DAILY #30 tab 07/25/21 aspirin 81 mg tablet,delayed 81 mg PO DAILY 07/25/21 release carboxymethylcellulose sodium 1 % 1 drp OPHTHALMIC (EYE) TID 07/25/21 eye drops amoxicillin 500 mg capsule 2,000 mg PO ONCE #4 cap 07/31/21 losartan 25 mg tablet 25 mg PO DAILY PRN 07/31/21 - Allergies Allergies/Adverse Reactions: Allergies metronidazole Allergy (Severe, Verified 07/31/21 13:04) chest pain ropinirole Allergy (Severe, Verified 07/31/21 13:04) BP drop, dizziness, faint oxycodone [From OxyIR] Adverse Reaction (Verified 07/31/21 13:04) Other per [facility] dropped blood pressure drastically. 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 [facility] Living Will: Yes Advance Directives Information Provided: No Advance Directives on File: Yes - Should be part of his MR DNR Order?:: No - MOLST See MOLST form: No Past Medical History - Covid-19 Screening Fever: No Unexplained muscle aches: No Current respiratory symptoms: Yes - long standing COPD - shortness of breath Upper respiratory infections symptoms: No Gastro-intestinal symptoms: Yes - Screening for intestinal cancer, colonic polyps, Yxk-Pxsy-Mqrjto symptoms: No Has tested positive for COVID-19 in last 30 days: No Date of testin08/01/21 - Had third (Booster) of Moderna vaccine Had contact w/person w/symptoms or Covid-19 (+) last 14 days: No Has High Risk Exposures ID'd by Health dept/Inf Control team: No 65 years or older:: Yes Lives in Assisted Living facility:: No Has a chronic lung disease or moderate to severe asthma:: Yes Has a serious heart condition:: Yes Immunocompromised:: No Severely obese (Body Mass Index of 40 or higher):: No Diabetic:: No Has chronic kidney disease undergoing dialysis:: No Has liver disease:: No - Past Medical Illness Medical History: Past Medical History (Last Reviewed 07/31/21 @ 11:06 by Rosaura Alford NP, FUNDRAISING MANAGER-C) Alcohol abuse F10.10 Alcohol abuse, episodic drinking behavior F10.10 Aortic valve disease, rheumatic I06.9 Atrial fibrillation I48.91 Atrioventricular block I44.30 Chest pain R07.9 Chronic anticoagulation Z79.01 Closed left hip fracture S72.002A COPD (chronic obstructive pulmonary disease) J44.9 DDD (degenerative disc disease), lumbar M51.36 Disorders of bursae and tendons in shoulder region, unspecified M71.9, M67.919 Diverticulosis K57.90 DVT of lower extremity, bilateral I82.403 Dysphagia R13.10 Essential hypertension I10 Fracture of C4 vertebra, closed S12.300A Fracture of fourth cervical vertebra S12.300A Groin pain R10.30 Hemorrhoids K64.9 Hemorrhoids with complication K64.8 Inguinal hernia of left side without obstruction or gangrene K40.90 Knee locking M23.90 Malignant neoplasm of bladder C67.9 Murmur, cardiac R01.1 Nonrheumatic aortic (valve) stenosis I35.0 Orthostatic hypotension I95.1 Paroxysmal atrial fibrillation I48.0 Personal history of colonic polyps Z86.010 Pure hypercholesterolemia E78.00 Rectal bleeding K62.5 RLS (restless legs syndrome) G25.81 Screening for intestinal cancer Z12.10 Solitary lung nodule R91.1 Spondylosis of lumbar region without myelopathy or radiculopathy M47.816 Syncope and collapse R55 - Past Surgical History Surgical History: Past Surgical History (Last Reviewed 07/31/21 @ 11:06 by Rosaura Alford NP, FUNDRAISING MANAGER-C) History of bilateral cataract extraction Z98.41, Z98.42 S/P hemorrhoidectomy Z98.890, Z87.19 S/P inguinal hernia repair Z98.890, Z87.19 left 09/30/17 S/P percutaneous endoscopic gastrostomy (PEG) tube placement Z93.1 S/P shoulder surgery Z98.890 bilateral S/P wrist surgery Z98.890 bilateral Status post hip surgery Z98.890 Lt hip Status post knee surgery Z98.890 bilateral Status post tracheostomy Z93.0 Surgical History: - - Wrist, shoulder, and knee surgery. - Family History Summary Family History: Family History (Last Reviewed 07/31/21 @ 11:06 by Rosaura Alford NP, FUNDRAISING MANAGER-C) Father Arthritis COPD (chronic obstructive pulmonary disease) Mother CVA (cerebral vascular accident) Heart disease Sister Heart disease Brother Throat cancer Social History - Smoking History Smoking Status: Current every day smoker Years Smokin - Quit once in past Packs Smoked per Day: 1 - currently down to about 1/2 ppd Hx Tobacco Use: Yes Hx Smoking Exposure: No - Alcohol Use Alcohol Usage: Yes - 3 or more beers per week. - Substance Abuse Hx Substance Use: No - Occupation Occupation (List type of work in comments):: Retired - Hobbies, Recreation, Social Activities Hobbies: Sports - swimming, Woodworking, Exercise - swim at [place], Other - [place] [employer] puzzles, puzzles, etc keep mind sharp. 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 Recreational Activities: I am able to engage in a few activities Social Environment - Status Marital Status: - Current Living Arrangements Living Environment:: Spouse - Children How many children do you have?: 3 - daughters Do any of your children live nearby?: Yes - Safety Do you feel safe in your surroundings?: Yes - Assistance Do you need any assistance at home?: walker Review of Systems - Review of Systems Hints: Right click = Denies ([place]ash). Left click = Reports ([place]) Review of Present Symptoms: Reports: Wound Healing, Dizziness/Lightheadedness, Fatigue - very frequently will nap just watching TV will dose off., Heart Arrhythmia/Irregularities - Paroxysmal atrial fibrillation, Appetite - Normal, Appetite - Special Diet. Denies: Shortness of Breath at Rest, Shortness of Breath with Exertion - only if I over do it, just normal walking activity I do pretty good., Operative Discomfort, Sleep - Normal - very irregular, frequently naps in the chair (recliner), Sexual Changes - Pain Is Patient Pain Free?: Yes Pain Location: back - DDD, Spondylosis of lumbar spine Pain Level: 12/02 Risk Factor Assessment - Chief Complaint Chief Complaint: S/P Heart Valve Replacement (TAVR) - Vital Signs Temperature: 97 F Respiratory Rate: 18 Pulse Ox: 96 Blood Pressure: 97/54 - Pulse Pulse Rate: 81 Pulse Rhythm: Regular - Hypertension Blood Pressure Sitting - Left Arm: 97/54 - Blood Cholesterol/Lipids Total Cholesterol (mg/dL) Goal = less than 200 mg/dL: 138 HDL Cholesterol (mg/dL) Goal = less than 40 mg/dL: 54 LDL Cholesterol (mg/dL) Goal = less than 70 mg/dL: 72 Triglycerides (mg/dL) Goal = less than 150 mg/dL: 59 - Obesity Height: 5 ft 10 in Weight:: 156 lb Weight in Pounds: 156.0 lbs Weight Source: Standing Scale Body Mass Index (BMI): 22.4 - Physical Inactivity Physical Inactivity: Reg Exercise 30 min/day - swimming @ [facility], None - Risk Stratification Risk Guidelines: Lowest Risk: Risk Factor for Dyslipidemia, Risk Factor for Diabetes, Risk Factor for Obesity, Risk Factor for Hypertension, Risk Factor for Depression, Highest Risk: Risk Factor for Smoking, Risk Factor for Sedentary Lifestyle - Family History Family History: Family History (Last Reviewed 07/31/21 @ 11:06 by Rosaura Alford NP, FUNDRAISING MANAGER-C) Father Arthritis COPD (chronic obstructive pulmonary disease) Mother CVA (cerebral vascular accident) Heart disease Sister Heart disease Brother Throat cancer Motivation - Motivation to Participate On a scale of 1 to 10, how prepared are you to commit to attending program?: 8 What do you see as barriers to successfully being able to complete the program?: back pain from DDD; if sitting exercises should be fine What do you see as the benefits of succesfully completing the program? In other words, what do you hope to get out of participating in the program?: strengthen body (muscles) restrengthen the heart Are there issues you are dealing with that will interfere with completing the program?: none Do you have a spouse or signficant other, family or friends who will help support you to complete the program?: yes, absolutely.
--- NOTE | 2021-08-10 13:33 | PCM.CR.ITP ---
Diagnosis - General Information Admitting Diagnosis: S/P Heart Valve Replacement Personal Learning Style:: Audio/Visual, Written Barriers to Learning: Hearing Impairment, Vision Impairment Stage of change r/t lifestyle modifications:: Action Gave educational material for:: Treating Heart Disease, Emotions & Heart Disease, Stress Management & Relaxation, Sleep Disorders & Heart Disease, How The Heart Works, What it means to have Heart Disease, How Coronary Artery Disease is Diagnosed, Heart Procedures, What Heart Medications Do, Risk Factors & Modifications, Living an Active Life, Nutrition - Education/Goals Individual Counseling: Initial Assessment: Nicotine/Smoking, Abnormal Cholesterol Levels, High Blood Pressure Cardiac Rehabilitation Goals: 1. Maintain the individual as the primary focus of care. 2. To improve the patient's quality of life. 3. Identification of cardiac risk factors and provide cardiac risk factor management. 4. Enhance the psychosocial status of the patient. 5. Reconditioning enough to allow the patient to resume customary activities. 6. Control symptoms of cardiac disease Personal Goals: Initial Assessment: Quit smoking (participate in smoking cessation, Improve energy level, Participate in home exercise program, Improve knowledge of cardiac disease, Improve muscle strength and endurance Scale for measuring improvement of personal goals: Enter appropriate number in Comments. 2 = Unchanged. 3 = Slightly Better. 4 = Moderate Improvement. 5 = Met my Goal - Diagnosis & Disease Process Outcomes/Goals: Pt IDs own risk factors & lifestyle modifications by Session 10, Verbalizes symptoms of angina & response by session 3., Pt independently manages Plan/Interventions: Assist Pt to ID & engage in lifestyle modification to reduce CVD risk, Instruct on individual risk factors, Review symptoms of angina & emergency actions, Review secondary diagnosis & identify educational needs. - Safety Referral to Physical Therapy: No Referral to [facility] Case Management: No Fall Risk Assessed:: Yes Assistive Devices:: Walker Exercise - Initial Assessment - Visit Date of Eval: 08/10/21 Session #:: 0 - Pre-cardiac rehab Mets: Pre-: >5 METS for 30 minutes by discharge - Physician Prescribed Exercise Modalities: Biodyne - Sci-Fit Lateral Hot Blaster, NuStep, SciFit Frequency: 3x/week for 12 weeks [36 sessions] Intensity: 60-80% of age predicted maximum heart rate reserve Current METSs:: 2 Target Heart Rate:: 86-131 Resting Blood Pressure: 97/54 EKG Type: SR 1st degree AV block, frequent PVCs ventricular trigeminy. - Outcomes & Goals Goals:: Verbalizes understanding of THR, RPE & goal METS by session 6, Documents in home exercise log/reports 30 min aerobic 5 day/wk by DC, Demonstrates accurate pulse taking by DC - Intervention & Plan Exercise Program Goals: Instruct on personal THR & RPE, Instruct on MET level & personal MET goal, Show patient to take own pulse /validate performance until accurate, Instruct on home exercise - Physical Activity Home Exercise Physical Activity - Home Exercise: Safe Exercise, Warm-up, Self-monitoring, Cool-Down, Home Exercise > 30 min Daily, Sitting Time <3 hours/daily - Outcomes & Goals Outcomes/Goals: Demonstrates correct Warm-up/exercise Cool-Down (S3) if = 2.5 METs, Verbalizes symptoms of exercise intolerance by Session 3 (S3), Demonstrate safe equipment use (S3) & follows exercise prescrition (6) - Intervention & Plan Plan/Intervention: Instruct warm-up & cool-down if exercising at > 2 METs, Instruct on symptoms of exercise intolerance & actions to take, Instruct & monitor on saf, Assess intial functional capacity & safety risk Nutrition - Initial Assessment - Program Goals Nutrition Program Goals: LDL <100 optimal. 100 - 129 Near optimal. 130 - 159 Borderline High. 160 - 189 High. Total Cholesterol <200 desirable. 200 - 239 Borderline High. >/= 240 High. HDL < 40 Low >/=60 High. Triglycerides <150 desirable. <199 optimal. VlDL 5 - 40. HgbA1C <7%. BMI <25 Patient has diagnosis of Hyperlipidemia (ICD E78)?: Yes - Visit Date of Assessment:: 08/10/21 Session #:: 0 - pre-cardiac rehab evaluation - Cholesterol/Lipids Triglycerides (mg/dL): 59 Total Cholesterol (mg/dL): 138 LDL Cholesterol (mg/dL): 72 HDL Cholesterol (mg/dL): 54 Determine presence & major risk factors that modify LDL goal: Cigarette smoking, Hypertension or hypertensive medication, Family history of premature CHD in Male < 55 years: female <65 yearsFa, Age men > 45 years; women >/= 55 years Outcomes/Goals: Pt IDs own risk factors & lifestyle modifications by Session 10, Verbalizes symptoms of angina & response by session 3., Pt independently manages Intervention/Plan: Instruct on personal lipid levels & lipid goals/NCEP guidelines, Instruct on cholesterol Referral to dietitian:: Yes - Medical Nutrition Therapy - *risk malnutrition - Diabetes (Other Core Measures) Diabetes Type: Not Applicable - Weight Mgt (Other Care) Not Applicable: Yes Height: 5 ft 10 in Weight:: 156 lb BMI: 22.4 Diagnosis Overweight/Obesity BMI> 30% ICD-10 E66: No Diagnosis High BMI/Morbid Obesity BMI> 35% ICD-10 Z68: No Outcomes/Goals: Pt sets, maintains & shows weight loss goal & trend during rehab Intervention/Plan: Instruct on ideal BMI & set weight loss goal w/patient, Other additional plan/interventions - encourage proteins drinks & vitamin for reducing risk of weight loss associated with exercise - Healthy Eating Habits Will attend diet classes:: Yes Outcomes/Goals:: Consume diet rich in vegs,fruits,whole grain/high fiber,fish,lean meat, Limit sat/trans fats,cholesterol & added salts & sugars, Other additional outcome/goals: - consume protein supplement twice daily Intervention/Plan:: Assess current eating habits - Education Gave educational materials for:: Healthy eating Nutrition - 30-Day Assessment Nutrition - 60-Day Assessment Nutrition - 90-Day Assessment Nutrition - Final Assessment Medical - Initial Assessment - Visit Date of Eval: 08/10/21 Session #:: 0 - pre-cardiac rehab - Medication Compliance Preventative Medication(s):: Aspirin, FAY inhibitor, Beta shikha H/O mental health issues: depression, anxiety, or addiction?: Yes Doesn?t believe in the benefits of treatment?: No Believes medications are unnecessary or harmful?: No Has a concern about medication side effects?: No Expresses concern over the cost of medications?: No Outcomes/Goals: Verbalizes medications,desired effect & common side effects @ DC, Pt self-reports following medication regimen, Keeps card in wallet w/medications listed by DC Interventions/plans: Instruct on medication effects & side effects, Review medication list w/patient every two weeks, Instruct importance of taking meds as ordered & assist problem solving - Tobacco Use Tobacco Use: Cigarettes How many cigarettes do you smoke per day?: 20 Years Smokin Do you use smokeless tobacco?: No Outcomes/Goals: Smoking cessation achieved or maintained by discharge, Identify aids/strategies for achieving smoking cessation by session 6 Interventions/plan: Instruct on effects of smoking & provide smoking cessation resource, Assist pt to set quit date & provide encouragement, Assist pt to develop strategies to achieve/maintain quit date, Assist pt w/nicotine replacement & medication for cessation success - Hypertension Hypertension Diagnosis:: Hypertension ICD-10 I10 Resting Blood Pressure:: 97/54 [employer] Hypertension Guidelines: [place] [employer] Hypertension Guidelines. Normal BP Less than 120/80. Elevated BP 120/80. Hypertension Stage 1: BP 130-139/80-89. Hypertesnion Stage 2: BP 140 or higher/90 or higher. Hypertension Crisis: BP higher than 180/120 Outcomes/Goals: Able to verbalize/achieve optimal blood pressure <130/80, Incorporates diet changes & exercise for blood pressure control by DC Interventions/plan: Instruct on optimal blood pressure, hypertension & medications, Instruct on effects of sodium, alcohol, stress, exercise &hypertension - Tobacco Cessation Referral Smoking Cessation Referral:: Yes Individual Education/Counseling:: Yes - comtinue swimming/PT on off days of CR as tolerated. Education Schedule Given:: Yes Medical- 30-Day Assessment Medical- 60-Day Assessment Medical- 90-Day Assessment Medical - Final Assessment Psychosocial - Initial Assess - VIsit Date of Eval: 08/10/21 Session #:: 0 - Pre-cardiac rehab evaluation Not Applicable: Yes History of previous Mental disease:: No History of Emotional Disorders: Depression Self-reported stressors: Medical/Health - Psychosocial Test Tool Used:: [employer] QOL Cardiac, PHQ-9 Questionnaire phq-9 Severity: Severity. 1-4 Minimal Depression. 5-9 Mild Depression. 10-14 Moderate Depression. 15-19 Moderately Sever Depression. 20-27 Severe Depression. Rule: - Referral to Behavioral Health PS - Interventions: Yes Attend Stress Management Classes, No Referral to Behavioral Health if PHQ-9 score >9:, No Referral to [facility], No Referral to Physician if PHQ-9 if score is 5-9: - Outcomes/Goals: See list Psychosocial Outcomes/Goals:: ID's personal stressors & 2 strategies to manage stress by discharge - Intervention/Plan: See List Interventions/Plan:: Assess stressors,coping strategies & signs of derpression on admission, Instruct/assist pt to develop coping & personal stress Mgt strategies, Instruct patient to recognize signs & symptoms of depression, Instruct patient to recog Psychosocial - 30-Day Assess Psychosocial - 60-Day Assess Psychosocial - 90-Day Assess Psychosocial - Final Assessmen Patient Health Questionnaire Initial Assessment 1. Little interest or pleasure in doing things: Several days 2. Feeling down, depressed, or hopeless: Several days 3. Trouble falling or staying asleep, or sleeping too much: More than half the days 4. Feeling tired or having little energy: More than half the days 5. Poor appetite or overeating: Not at all 6. Feeling bad about yourself -- or that you are a failure or have let yourself or your family down: Several days 7. Trouble concentrating on things, such as reading the newspaper or watching television: Several days 8. Moving or speaking so slowly that other people could have noticed. Or the opposite - being so fidgety or restless that you have been moving around a lot more than usual: Nearly every day 9. Thoughts that you would be better off , or of hurting yourself in some way: Not at all How difficult have these problems made it for you to do your work, take care of things at home, or get along with other people?: Somewhat difficult Total Score: 11 LEIF-Q SV Test - Statements CAD is a disease of the arteries in the heart: I Don't Know Examples of risk factors for heart disease: True Angina is chest pain or discomfort: I Don't Know The benefits of resistance training include: True Eating more meat and dairy products: False Anti-platelet medications such as aspirin are important: I Don't Know The only effective way to manage stress: False An exercise warm-up slowly increases heart rate: True Prepared, processed foods usually have high sodium: True Depression is common after a heart attack: I Don't Know The statin medications lower cholesterol: I Don't Know To control blood pressure, lower the amount of sodium: True If someone gets chest discomfort during walking: False Transfats are partially hydrogenated vegetable oils: I Don't Know Sleep apnea that is not treated increases the risk: I Don't Know To control cholesterol, one should become a vegetarian: False Someone knows if he/she is exercising at the right level: True Diabetes cannot be prevented with exercise & health eating: True Stress is a large risk for heart attack: True A diet that can help lower blood pressure is rich in: True - Total Score Total Correct Responses: 12 Self-Efficacy Initial Assessment We would like to know how confident you are in doing certain activities. Please select your confidence level for:: Select your confidence level for the following using the scale 1-10 where 1 is not at all confident and 10 is totally confident. Your score is the average of all 6 responses. Fatigue: How confident are you that you can keep the fatigue caused by your disease from interfering with the things you want to do? Select Number: 8 Physical Discomfort or Pain: How confident are you that you can keep the physical discomfort or pain of your disease from interfering with the things you want to do? Select Number: 8 Emotional Distress: How confident are you that you can keep the emotional distress caused by your disease from interfering with the things you want to do? Select Number: 10 Other Symptoms or Health Problems: How confident are you that you can keep other symptoms or health problems from interfering with the things you want to do? Select Number: 3 Different Tasks and Activities: How confident are you that you can do the different tasks and activities needed to manage your health condition so as to reduce your need to see a doctor? Select Number: 9 Medication: How confident are you that you can do things other than just taking medication to reduce how much your illness affects your everyday life? Select Number: 3 Total Score:: 6 Nutrition Survey - Nutrition Survey Initial Have you lost >10 lbs over the past 2 months without trying?: No Are you following a special diet at home for diabetes, low fat, or low salt?: No Are you interested in meeting with a dietitian for help understanding your diet?: Yes Do you eat less than 3 meals a day?: No Do you eat fatty meats (bowman, sausage, ribs, etc), fried foods, desserts, large amounts of salad dressings, margarine, butter, or cheese most days?: Yes Do you have food allergies? [Enter types in comment field]: No Do you eat in restaurants more than 3 times a week?: Yes Do you season food with salt, seasoning salt, or garlic salt?: Yes Do you used canned, boxed, frozen meals, or soups, seasoning packets?: Yes Total Score:: 5
[2021-08-10 14:02] VITALS: BP 97/54; BMI 22.4
[2021-08-10 14:35] VITALS: BP 97/54; PULSE 81; RESP 18; TEMP 36.1; O2SAT 96; BMI 22.4
== END ==
PROVIDERS: PCP Internal Medicine; Referring Provider Internal Medicine Cardiovascular Disease; Visit Provider Internal Medicine Cardiovascular Disease
DX: Z95.3 Presence of xenogenic heart valve (principal); I10 Essential (primary) hypertension; J44.9 Chronic obstructive pulmonary disease, unspecified; E78.00 Pure hypercholesterolemia, unspecified; K57.90 Diverticulosis of intestine, part unspecified, without perforation or abscess without bleeding

== ENCOUNTER 2021-08-14 09:42 | Inpatient (IN) | payer MEDICARE, OTHER, SELFPAY ==
[2021-08-10 14:02] VITALS: BMI 22.4
[2021-08-14] VITALS (13 sets, daily range): BP systolic 116–171; BP diastolic 56–88; PULSE 62–81; RESP 15–18; TEMP 36.1–37.1; O2SAT 94–97; BMI 23.0; BMI 22.1
--- NOTE | 2021-08-14 09:58 | CT_ITS ---
STUDY: CTA HEAD AND NECK WITH CONTRAST REASON FOR EXAM: Male, 80 years old. Neuro deficit, acute, stroke suspected RADIATION DOSAGE (If Supplied By Facility): CTDIvol = ( 30.25 ) mGy, DLP = ( 749.67 ) mGycm TECHNIQUE: CT angiography was performed with a multi-detector CT scanner. Data acquisition was obtained from the skull base through the vertex following intravenous administration of IV 100mL Isovue-370. MIP images were reconstructed from the axial data set. Post-processing of the angiographic images was performed, with multiplanar reformation and 3D reconstruction. Individualized dose optimization techniques were used for this CT. COMPARISON: No relevant priors. FINDINGS: Normal bilateral petrous carotid arteries. There is calcified plaque formation of the right cavernous carotid artery, with a mild stenosis (less than 50%). There is calcified plaque formation of the left cavernous carotid artery, with a mild stenosis (less than 50%). Normal right A1 segments of the anterior cerebral artery. Normal left A1 segments of the anterior cerebral artery. Normal intact anterior communicating artery (ACOM). Normal bilateral A2 segments of the anterior cerebral arteries. Normal right M1 and M2 segments of the middle cerebral arteries, with a normal M1 bifurcation. Normal left M1 and M2 segments of the middle cerebral arteries, with a normal M1 bifurcation. Normal right posterior communicating artery (PCOM). Normal left posterior communicating artery (PCOM). Normal bilateral vertebral arteries. Normal basilar artery with a normal basilar bifurcation. The visualized bilateral superior cerebellar (SCA) arteries are normal. Normal bilateral P1, P2 and visualized P3 segments of the posterior cerebral arteries. There is no demonstrated aneurysm of the [place] of [place]. Sinusitis. There is a 1.3 cm x 1.2 cm x 1.6 cm calcific density arising from the foramen magnum centrally and extending to the posterior aspect of the C1 and C2 vertebral body. AORTIC ARCH: There is atherosclerotic calcific plaque formation of the aortic arch and great vessels arising from the aortic arch, without a hemodynamically significant stenosis. There is a normal origin of the brachiocephalic, left common carotid, and left subclavian arteries. Atherosclerotic plaque formation at the origin of the left subclavian artery as well as the left common carotid artery and brachiocephalic artery. RIGHT CAROTID ARTERIES: There is atherosclerotic plaque formation of the common carotid artery, but without a hemodynamically significant stenosis. Normal right common carotid bulb. There is moderate atherosclerotic plaque formation of the origin of the right internal carotid artery with an estimated stenosis of 50-69% stenosis. Normal visualized cervical portion of the right internal carotid artery. Normal origin of the right external carotid artery (ECA). LEFT CAROTID ARTERIES: There is atherosclerotic plaque formation of the common carotid artery, but without a hemodynamically significant stenosis. Normal left common carotid bulb. There is extensive atherosclerotic plaque formation of the origin of the left internal carotid artery with an estimated stenosis of greater than 70%. Normal visualized cervical portion of the left internal carotid artery. Normal origin of the left external carotid artery (ECA). VERTEBRAL ARTERIES: There is enhancement within the bilateral vertebral arteries with a small left vertebral artery, and a dominant right vertebral artery. CT/STROKE CTA Head AND Neck W/Con IMPRESSION: Calcific plaques at the origin of both right and left internal carotid artery. 50-69% stenosis on the right and greater than 70% stenosis on the left. N.B. : The above Results were Read Back by John Tong MD to Abdi Burnette and understanding confirmed on 08/14/2021 10:32:31 (ET). Electronically Signed: John Tong MD at 10:33 EST , Service support ,
--- NOTE | 2021-08-14 09:58 | RAD_ITS ---
STUDY: X-RAY CHEST REASON FOR EXAM: Male, 80 years old. Neuro deficit, acute, stroke suspected TECHNIQUE: Single AP portable view of the chest. COMPARISON: Comparison is made with prior study dated 05/03/2021. FINDINGS: EKG electrodes are seen. There is hyperinflation of the lungs consistent with chronic obstructive lung disease (COPD). Stable mildly is scarring at the lung bases suggestive of scarring. There is no demonstrated pleural abnormality. Normal size heart. Normal mediastinum and ayaz. Normal visualized pulmonary arteries. There is atherosclerotic calcification of the aortic arch with tortuosity. There are diffuse degenerative changes of the visualized thoracic spine. There is degenerative osteoarthritis of the bilateral shoulders. There is no demonstrated abnormality of the visualized soft tissue structures of the upper abdomen. RAD/Chest 1 View IMPRESSION: Hyperinflation. No acute abnormality seen. Electronically Signed: John Tong MD at 10:44 EST , Service support ,
--- NOTE | 2021-08-14 09:58 | CT_ITS ---
STUDY: CT HEAD STROKE PROTOCOL W/O CONTRAST INJECTION REASON FOR EXAM: Male, 80 years old. Neuro deficit, acute, stroke suspected RADIATION DOSAGE (If Supplied By Facility): CTDIvol = ( 44.99 ) mGy, DLP = ( 812.98 ) mGycm TECHNIQUE: Transaxial CT imaging of the brain was performed without administration of intravenous contrast material. Individualized dose optimization techniques were used for this CT. COMPARISON: Comparison is made with prior study 06/24/2021. FINDINGS: Normal soft tissue structures. Normal calvarium. Questionable 1 cm x 1.6 cm calcified mass arising from the posterior aspect of the C1 vertebral body. This may represent either a partially calcified mass versus density calcified and prominent basilar artery. There is mild cerebral atrophy with widening of the extra-axial spaces and ventricular dilatation. There are areas of decreased attenuation within the white matter tracts of the supratentorial brain, consistent with microvascular disease changes. Normal basal ganglia and thalami. Normal brainstem. Normal cerebellum. There is no intracranial hemorrhage. There are no findings of an acute ischemic infarction. Atherosclerotic calcification of the vertebral arteries and cavernous portions of the internal carotid arteries bilaterally. Partial opacification of the ethmoid sinuses bilaterally. Partial opacification of the maxillary sinus bilaterally slightly more prominent on the left side. CT/STROKE Brain/Head without Cont IMPRESSION: Chronic involutional changes of the brain. 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 A neoplastic process should this is unchanged from prior CT scan of brain and CT scan of the cervical spine. N.B. : The above Results were Read Back by John Tong MD to Abdi Burnette and understanding confirmed on 08/14/2021 10:19:05 (ET). Electronically Signed: John Tong MD at 10:20 EST , Service support ,
--- NOTE | 2021-08-14 09:58 | EKG12_ITS ---
Test Reason : Blood Pressure : / mmHG Vent. Rate : 065 BPM Atrial Rate : 065 BPM P-R Int : 250 ms QRS Dur : 102 ms QT Int : 438 ms P-R-T Axes : 061 009 062 degrees QTc Int : 455 ms Sinus rhythm with 1st degree A-V block Otherwise normal ECG Confirmed by SCARLETT TELLEZ, ANJU ([id number]), non linear editor GWENDOLYN GANDHI ([id number]) on 08/20/2021 8:27:45 AM Referred By: DANNY Confirmed By:ANJU PANTOJA MD
--- NOTE | 2021-08-14 09:58 | NURSING ---
STROKE ALERT CALLED [id number]
--- NOTE | 2021-08-14 10:00 | ED.VIS.FALL ---
HPI HPI - Fall History of Present Illness Chief Complaint: Fall Informant: patient Occured/Mechanism Occurred: Today Mechanism/Context: Yes same level fall Pain/Injury Location: Head, neck, back Pain Location: head, neck, back and upper extremity Quality of Pain: Burning Worsened by: Palpation and movement Relieved by: Nothing Associated Symptoms Associated Symptoms: Positive for Parasthesias, Weakness, Loss of function and Inability to ambulate Narrative Narrative: Patient presents after a fall that occurred today. Patient was getting dressed and his arms were getting tangled up in his clothes. Patient lost his balance and fell. Patient hit his head on a nightstand. states he almost had a 1 minute episode of loss of consciousness. Patient states he has cramping and burning pain all over. Patient states it is worse in his head and neck. Patient states his pain is worse with any touching or any movement. Patient admits to some numbness in his arms bilaterally. Patient admits to some weakness of his right arm and leg. [facility] Medical History (Updated 08/14/21 @ 11:[address] Abdi Burnette, ) Alcohol abuse Alcohol abuse, episodic drinking behavior Aortic valve disease, rheumatic Atrial fibrillation Atrioventricular block Chest pain Chronic anticoagulation Closed left hip fracture COPD (chronic obstructive pulmonary disease) DDD (degenerative disc disease), lumbar Disorders of bursae and tendons in shoulder region, unspecified Diverticulosis DVT of lower extremity, bilateral Dysphagia Essential hypertension Fracture of C4 vertebra, closed Fracture of fourth cervical vertebra Groin pain Hemorrhoids Hemorrhoids with complication Inguinal hernia of left side without obstruction or gangrene Knee locking Malignant neoplasm of bladder Murmur, cardiac Nonrheumatic aortic (valve) stenosis Orthostatic hypotension Paroxysmal atrial fibrillation Personal history of colonic polyps Pure hypercholesterolemia Rectal bleeding RLS (restless legs syndrome) Screening for intestinal cancer 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 Syncope and collapse Home Medications fluticasone propionate 2 spray NASAL DAILY 08/09/15 [History Last Taken 06/08/18] calcium carbonate 600 mg-vitamin D3 5 mcg (200 unit) tablet 1 tab PO QDAY 09/12/17 [History Last Taken 06/08/18] guaifenesin 600 mg tablet, extended release 12 hr 600 mg PO Q12H PRN 09/12/17 [History Last Taken 06/08/18] multivitamin 1 tab PO QDAY 09/12/17 [History Last Taken 06/08/18] rivaroxaban 20 mg PO DAILY 11/19/17 [History Last Taken 05/13/21] bevacizumab 25 mg/mL intravenous solution 25 mg INTRAVITREAL QMONTH ml 07/02/18 [History Last Taken Unknown] ascorbic acid (vitamin C) 500 mg capsule 500 mg PO DAILY cap 01/06/19 [History Last Taken Unknown] umeclidinium 62.5 mcg-vilanterol 25 mcg/actuation powdr for inhalation 1 inh INHALATION Q24H ea 01/06/19 [History Last Taken Unknown] vitamins A,C,Y-cuop-wngvyx 14,320 unit-226 mg-200 unit capsule 1 cap PO BID 07/28/19 [History Last Taken Unknown] amiodarone 200 mg tablet 100 mg PO DAILY #30 tab 07/25/21 [Rx Last Taken Unknown] aspirin 81 mg tablet,delayed release 81 mg PO DAILY 07/25/21 [History Last Taken Unknown] carboxymethylcellulose sodium 1 % eye drops 1 drp OPHTHALMIC (EYE) TID 07/25/21 [History Last Taken Unknown] amoxicillin 500 mg capsule 2,000 mg PO ONCE #4 cap 07/31/21 [Rx Last Taken Unknown] losartan 25 mg tablet 25 mg PO DAILY PRN 07/31/21 [History Last Taken Unknown] mecobalamin (vitamin B12) [B12 Active] 1,000 mcg PO DAILY 08/14/21 [History Last Taken Unknown] Allergy/AdvReac Type Severity Reaction Status Date / Time metronidazole Allergy Severe chest pain Verified 08/14/21 09:46 ropinirole Allergy Severe BP drop, Verified 08/14/21 09:46 dizziness, faint oxycodone [From OxyIR] AdvReac Other Verified 08/14/21 09:46 oxycodone HCl [From Percocet] AdvReac Vomiting Verified 08/14/21 09:46 Family History Father Arthritis COPD (chronic obstructive pulmonary disease) Mother CVA (cerebral vascular accident) Heart disease Sister Heart disease Brother Throat cancer Surgical History History of bilateral cataract extraction S/P hemorrhoidectomy S/P inguinal hernia repair S/P percutaneous endoscopic gastrostomy (PEG) tube placement S/P shoulder surgery S/P wrist surgery Status post hip surgery Status post knee surgery Status post tracheostomy Social History Smoking Status: Current every day smoker tobacco type: cigarettes second hand exposure: Yes quit status: considering quitting alcohol intake: current alcohol intake frequency: 3 or more drinks per day Alcohol type: beer substance use type: does not use caffeine: Yes Type: coffee Number of servings: 4 what type of physical activity do you participate in: swimming frequency: 3-4 times per week seatbelt use: always ROS ROS ED Constitutional Constitutional ED: Denies chills or fever(s) Eyes Eyes: Denies blurry vision or change in vision ENT ENT ED: Denies rhinorrhea or sore throat Cardiovascular Cardiovascular: Denies chest pain or palpitations Respiratory/Chest Respiratory/Chest: Denies cough or dyspnea Gastrointestinal Gastrointestinal: Denies nausea or vomiting Genitourinary Genitourinary ED: Denies dysuria or hematuria Musculoskeletal Musculoskeletal: Reports back pain and neck pain Integumentary Denies abscess or rash Neurologic Neurologic: Reports headache(s), paresthesias and weakness Allergic/Immunologic Allergic/Immunologic ED: Denies mouth swelling or urticaria EXAM Physical Exam Const Vital Signs: 08/14/21 09:42 08/14/21 09:50 08/14/21 09:58 Temperature 97.5 F L Temperature Source Temporal Pulse Rate 64 65 Respiratory Rate 16 15 Respiratory Effort Normal Non-Labored Respiratory Depth Normal Respiratory Pattern Normal Blood Pressure 171/82 H 169/88 H Blood Pressure Mean 111 115 Pulse Ox 96 96 Oxygen Delivery Method Room Air Room Air Room Air Positive well nourished and well developed General Appearance ED: well developed HEENT tenderness Neck General: tenderness Resp normal respiratory effort and clear to auscultation bilaterally Cardio regular rate and regular rhythm GI non-tender Palpation: soft Extremity normal to inspection Neuro oriented x3 and CN's II-XII intact bilaterally Neuro Narrative: Strength is 1/5 in the right upper and lower extremities. Strength is 5/5 in the left upper and lower extremities. Sensation is decreased to light touch in the right upper and lower extremities. Sensation is intact to light touch in the left upper and lower extremities. Sensorium / Orientation: alert Psych mental status grossly normal MDM MDM MDM Narrative Medical decision making narrative: Because of the right-sided weakness, a stroke team was called. CT scan of the brain was obtained. There is no acute intracranial abnormality. There is a 1.6 x 1 cm calcified mass at the base of the skull extending into the posterior aspect of C1 and C2. This is unchanged compared to previous CT scan of the brain and cervical spine. CTA of the head and neck was obtained. There is no large vessel occlusion noted. There is no vertebral artery dissection. There is 50 to 69% stenosis of the right internal carotid artery. There is greater than 70% stenosis of the left internal carotid artery. There are degenerative changes of the cervical spine. There is no acute fracture. This was interpreted by the radiologist and reviewed by myself. EKG was obtained. On my interpretation, it showed a sinus rhythm with a first-degree AV block with a rate of 65. [place] interval was prolonged at 250 ms. QRS interval, and QTc intervals were normal. [place] was normal. There are no acute ST or T wave changes. CBC was within normal limits. There is a mild anemia with a hemoglobin of 10.5 and hematocrit 30.1. PT was 18.2. INR was 1.6. PTT was 32.3. Portable 1 view chest x-ray was obtained. On my interpretation, lung danielson are clear. There is normal cardiac silhouette. Bony thorax is normal. There is no acute process noted. Radiologist also interpreted the x-ray and agrees. Stroke neurologist from [facility] evaluated the patient remotely. He did not feel the patient required transfer to [facility], but that the patient will need to be admitted here for further work-up. Case was discussed with the hospitalist. He will admit the patient to his service. Patient understands and is agreeable with the plan. All questions were answered. Lab Data Attestation: I reviewed the patient's lab results. Labs: Laboratory Results - last 24 hr 08/14/21 08/14/21 08/14/21 09:58 10:14 10:14 WBC 4.9 RBC 2.85 L Hgb 10.5 L Hct 30.1 L MCV 105.6 H MCH 36.8 H MCHC 34.9 RDW Std Deviation 52.0 H RDW Coeff of Samir 13.7 Plt Count 144 L MPV 10.2 Immature Gran % (Auto) 0.200 Neut % (Auto) 42.2 L Lymph % (Auto) 39.9 Mcdonald % (Auto) 10.8 H Eos % (Auto) 5.9 H Baso % (Auto) 1.0 Absolute Neuts (auto) 2.1 Absolute Lymphs (auto) 1.95 Nucleated RBC % 0 PT 18.2 H INR 1.6 APTT 32.3 POC Glucose 109 Radiography Chest X-Ray - ED: 1 View, Read by ED Physician, Read by Radiologist and Normal Diagnostic Testing: Clinical Impression(s) from Imaging Studies Brain CT 08/14/21 09:58 IMPRESSION: Chronic involutional changes of the brain. 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 A neoplastic process should this is unchanged from prior CT scan of brain and CT scan of the cervical spine. N.B. : The above Results were Read Back by John Tong MD to Abdi Burnette and understanding confirmed on 08/14/2021 10:19:05 (ET). Electronically Signed: John Tong MD at 10:20 EST , Service support , ADDENDUM: 08/14/21 1027 IMPRESSION: Chronic involutional changes of the brain. 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 A neoplastic process should this is unchanged from prior CT scan of brain and CT scan of the cervical spine. N.B. : The above Results were Read Back by John Tong MD to Abdi Burnette and understanding confirmed on 08/14/2021 10:19:05 (ET). Electronically Signed: John Tong MD at 10:20 EST , Service support , Chest X-Ray 08/14/21 09:58 IMPRESSION: Hyperinflation. No acute abnormality seen. Electronically Signed: John Tong MD at 10:44 EST , Service support , Head/Neck CTA 08/14/21 09:58 IMPRESSION: Calcific plaques at the origin of both right and left internal carotid artery. 50-69% stenosis on the right and greater than 70% stenosis on the left. N.B. : The above Results were Read Back by John Tong MD to Abdi Burnette and understanding confirmed on 08/14/2021 10:32:31 (ET). Electronically Signed: John Tong MD at 10:33 EST , Service support , ADDENDUM: 08/14/21 1040 IMPRESSION: Calcific plaques at the origin of both right and left internal carotid artery. 50-69% stenosis on the right and greater than 70% stenosis on the left. N.B. : The above Results were Read Back by John Tong MD to Abdi Burnette and understanding confirmed on 08/14/2021 10:32:31 (ET). Electronically Signed: John Tong MD at 10:33 EST , Service support , EKG Initial EKG: Attestation: I personally reviewed and interpreted this EKG as follows: Interpretation: Sinus Rhythm (With first-degree AV block with rate of 65) and No Acute Injury Pattern Prior EKG tracings: available for review Prior: Unchanged Discharge Plan Triage Chief Complaint: Fall ED Provider: Abdi Burnette Dx/Rx/DC Orders Clinical Impression: Stroke, Closed head injury Prescriptions: No Action guaifenesin [Mucinex] 600 mg tablet extended release 12hr 600 mg PO Q12H PRN (Reason: Congestion) RF: 0 calcium carbonate-vitamin D3 [Calcium 600 with Vitamin D3] 600 mg(1,500mg) -200 unit tablet 1 tab PO QDAY RF: 0 multivitamin tablet 1 tab PO QDAY RF: 0 bevacizumab 25 mg/mL intravenous solution 25 mg/mL solution 25 mg intravitreal QMONTH RF: 0 umeclidinium-vilanterol 62.5-25 mcg/actuation blister with device 1 inh Inhalation Q24H RF: 0 PreserVision AREDS 14,320-226-200 uutm-uj-gkxa capsule 1 cap PO BID RF: 0 losartan 25 mg tablet 25 mg PO DAILY PRN (Reason: Hypertension) RF: 0 amoxicillin 500 mg capsule 2,000 mg PO ONCE Qty: 4 RF: 3 fluticasone propionate 1 SPRAY spray,suspension 2 spray NASAL DAILY RF: 0 ascorbic acid (vitamin C) 500 mg capsule 500 mg PO DAILY RF: 0 rivaroxaban 20 MG tablet 20 mg PO DAILY RF: 0 B12 Active 1,000 mcg Tablet,Chewable 1,000 mcg PO DAILY RF: 0 amiodarone 200 mg tablet 100 mg PO DAILY Qty: 30 RF: 0 aspirin [Adult Low Dose Aspirin] 81 mg tablet,delayed release (DR/EC) 81 mg PO DAILY RF: 0 Artificial Tears (cmc) 1 % drops 1 drp ophthalmic (eye) TID RF: 0 Primary Care Provider: Jenifer Gonzalez Referrals: Jenifer Gonzalez MD [Primary Care Provider] - Disposition Disposition: Acute Care Hospital [facility]
[2021-08-14 10:06] LABS: Bedside Glucose 109 mg/dL (70-110)
[2021-08-14 10:19] LABS: Absolute Lymphocyte Count 1.95 X10^3/uL (0.83-4.51); Absolute Neutrophil Count 2.1 X10^3/uL (2.0-7.7); Basophil# 0.05 X10^3/uL; Eosinophil# 0.29 X10^3/uL; Eosinophils% 5.9 % (0-5); Hematocrit 30.1 % (40-54); Hemoglobin 10.5 g/dL (13.0-16.5); Lymphocyte # 1.95 X10^3/ul (0.83-4.51); Lymphocyte % 39.9 % (19-41); Mean Corp Hgb Conc 34.9 g/dL (32-36); Mean Corpuscular Hgb 36.8 pg (27.0-32.0); Mean Corpuscular Volume 105.6 fL (80-94); Mean Platelet Vol. 10.2 fl (6.2-12.0); Monocyte# 0.53 X10^3/uL; Monocyte% 10.8 % (0-10); NRBC Flagged by Analyzer 0 % (0-5); Neutrophil # 2.06 X10^3/uL (2.7-7.7); Neutrophil % 42.2 % (47-70); Platelet Count 144 K/mm3 (150-450); RBC Distribution Width CV 13.7 % (11.6-14.6); Red Blood Count 2.85 M/mm3 (4.6-6.2); White Blood Count 4.9 K/mm3 (4.4-11.0)
[2021-08-14 10:28] LABS: International Normalized Ratio 1.6; Partial Thromboplast Time 32.3 Seconds (24.1-36.2); Prothrombin Time (Protime)PT. 18.2 SECONDS (11.7-14.9)
--- NOTE | 2021-08-14 10:42 | RAD_ITS ---
STUDY: X-RAY - LEFT SHOULDER REASON FOR EXAM: Male, 80 years old. Injury/Pain TECHNIQUE: 2 view(s) of the shoulder. COMPARISON: None. FINDINGS: There is moderate degenerative arthrosis of the glenohumeral articulation. Normal acromioclavicular joint. Normal acromion. Normal humeral head and visualized proximal humerus. The soft tissue structures are unremarkable. Normal visualized pulmonary apex. RAD/Shoulder min 2 Views IMPRESSION: Osteoarthritis of the glenohumeral joint. Electronically Signed: John Tong MD at 11:25 EST , Service support ,
--- NOTE | 2021-08-14 10:51 | NURSING ---
DR JHONNY RAZO
[2021-08-14 11:11] LABS: Anion Gap 8 (5-15); BUN 16 mg/dL (7-18); BUN/Creat Ratio 18.3 RATIO (10-20); Calcium,Total 8.1 mg/dL (8.5-10.1); Chloride 100 mmol/L (98-107); Creatinine, Serum 0.87 mg/dL (0.70-1.30); EST Glomerular Filtration Rate 90 mL/min (>60); Est Glom Filt Rate - Afr Amer 108 mL/min (>60); Estimated Creatinine Clearance 70.89 ml/min; Glucose 102 mg/dL (74-106); Sodium Level 132 mmol/L (136-145); Troponin-I HS 21 pg/mL (3.0-78.0)
--- NOTE | 2021-08-14 11:16 | CM.ED ---
SW Note Social work Referral Reason: Stroke alert Referral Source: Case Find SW met with patient's , Leyla Madrigal. Patient was in imaging. SW provided emotional support to patient's . SW remains available if additional needs arise. Plan: DEBBIE MERAZ
--- NOTE | 2021-08-14 11:41 | PCS.PANDOC ---
PANDEMIC DOCUMENTATION INITIATED: Date: 04/09/2021 Time: 190
--- NOTE | 2021-08-14 12:16 | HP.PCM.HOS_ITS ---
HPI - General General Date of Admission: 08/14/21 HPI Narrative CESAR ANGUIANO, is a 80 M who presents with right sided weakness. He was getting dressed then fell, hitting the back of his head. He then noted profound right sided weakness. Pt has had unsteadiness, chronically, but never had symptoms such as this before. Head CT showed no CVA, but 1.6 x 1 cm calcified mass arising from the base of the skull extending to the posterior aspect of the C1 and C2 vertebrae anteriorly. Head and neck CTA showed calcific plaques at the origin of righ left ICA, 50-69% on right and greater than 70% stenosis on the left. I asked for CT of neck to rule out fracture. Dr. Lim spoke with Dr. Tong, who reviewed the CTA of the neck and said there was no acute injury to the neck (no official report at time of this document). [facility] Medical History (Updated 08/14/21 @ 12:[address] Abdi Hammond, DO) Alcohol abuse Alcohol abuse, episodic drinking behavior Aortic valve disease, rheumatic Atrial fibrillation Atrioventricular block Chest pain Chronic anticoagulation Closed left hip fracture COPD (chronic obstructive pulmonary disease) DDD (degenerative disc disease), lumbar Disorders of bursae and tendons in shoulder region, unspecified Diverticulosis DVT of lower extremity, bilateral Dysphagia Essential hypertension Fracture of C4 vertebra, closed Fracture of fourth cervical vertebra Groin pain Hemorrhoids Hemorrhoids with complication Inguinal hernia of left side without obstruction or gangrene Knee locking Malignant neoplasm of bladder Murmur, cardiac Nonrheumatic aortic (valve) stenosis Orthostatic hypotension Paroxysmal atrial fibrillation Personal history of colonic polyps Pure hypercholesterolemia Rectal bleeding RLS (restless legs syndrome) Screening for intestinal cancer 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 Syncope and collapse Home Medications fluticasone propionate 2 spray NASAL DAILY 08/09/15 [History Last Taken 06/08/18] calcium carbonate 600 mg-vitamin D3 5 mcg (200 unit) tablet 1 tab PO QDAY 09/12/17 [History Last Taken 06/08/18] guaifenesin 600 mg tablet, extended release 12 hr 600 mg PO Q12H PRN 09/12/17 [History Last Taken 06/08/18] multivitamin 1 tab PO QDAY 09/12/17 [History Last Taken 06/08/18] rivaroxaban 20 mg PO DAILY 11/19/17 [History Last Taken 05/13/21] bevacizumab 25 mg/mL intravenous solution 25 mg INTRAVITREAL ml 07/02/18 [History Last Taken Unknown] ascorbic acid (vitamin C) 500 mg capsule 500 mg PO DAILY cap 01/06/19 [History Last Taken Unknown] umeclidinium 62.5 mcg-vilanterol 25 mcg/actuation powdr for inhalation 1 inh INHALATION Q24H ea 01/06/19 [History Last Taken Unknown] vitamins A,C,C-kxyj-ywlqex 14,320 unit-226 mg-200 unit capsule 1 cap PO BID 07/28/19 [History Last Taken Unknown] aspirin 81 mg tablet,delayed release 81 mg PO DAILY 07/25/21 [History Last Taken Unknown] carboxymethylcellulose sodium 1 % eye drops 1 drp OPHTHALMIC (EYE) TID 07/25/21 [History Last Taken Unknown] losartan 25 mg tablet 25 mg PO DAILY PRN 07/31/21 [History Last Taken Unknown] amiodarone 200 mg PO DAILY 08/14/21 [History Last Taken Unknown] amoxicillin 2,000 mg PO ONCE PRN 08/14/21 [History Last Taken Unknown] mecobalamin (vitamin B12) [B12 Active] 1,000 mcg PO DAILY 08/14/21 [History Last Taken Unknown] Allergy/AdvReac Type Severity Reaction Status Date / Time metronidazole Allergy Severe chest pain Verified 08/14/21 09:46 ropinirole Allergy Severe BP drop, Verified 08/14/21 09:46 dizziness, faint oxycodone [From OxyIR] AdvReac Other Verified 08/14/21 09:46 oxycodone HCl [From Percocet] AdvReac Vomiting Verified 08/14/21 09:46 Family History Father Arthritis COPD (chronic obstructive pulmonary disease) Mother CVA (cerebral vascular accident) Heart disease Sister Heart disease Brother Throat cancer Surgical History History of bilateral cataract extraction S/P hemorrhoidectomy S/P inguinal hernia repair S/P percutaneous endoscopic gastrostomy (PEG) tube placement S/P shoulder surgery S/P wrist surgery Status post hip surgery Status post knee surgery Status post tracheostomy Social History Smoking Status: Current every day smoker tobacco type: cigarettes second hand exposure: Yes quit status: considering quitting alcohol intake: current alcohol intake frequency: 3 or more drinks per day Alcohol type: beer substance use type: does not use caffeine: Yes Type: coffee Number of servings: 4 what type of physical activity do you participate in: swimming frequency: 3-4 times per week seatbelt use: always ROS ROS Narrative Occasional diplopia. Patient does have falls. 2015, patient fell and broke his neck. Patient did have history of dysphagia after his neck fracture and had seen speech therapy at that time. Patient does have baseline tremors. Denies any COVID-19 contacts and patient has been vaccinated with the Moderna vaccine and boosted with Calleoo. All review of systems were negative except as mentioned above in the history of present illness and the other review of systems. Vital Signs Vital Signs Vital Signs: 08/14/21 09:42 08/14/21 09:50 08/14/21 09:58 Temperature 36.4 C L Temperature Source Temporal Pulse Rate 64 65 Respiratory Rate 16 15 Respiratory Effort Normal Non-Labored Respiratory Depth Normal Respiratory Pattern Normal Blood Pressure 171/82 H 169/88 H Blood Pressure Mean 111 115 Blood Pressure Source Blood Pressure Position Blood Pressure Location Pulse Ox 96 96 Oxygen Delivery Method Room Air Room Air Room Air 08/14/21 10:28 08/14/21 11:00 08/14/21 11:55 Temperature 36.1 C L 36.6 C Temperature Source Temporal Temporal Pulse Rate 62 77 65 Respiratory Rate 18 18 18 Respiratory Effort Respiratory Depth Respiratory Pattern Blood Pressure 146/65 H 156/74 H 150/70 H Blood Pressure Mean 92 101 96 Blood Pressure Source Monitor Blood Pressure Position Semi-Fowlers Blood Pressure Location Left Arm Pulse Ox 94 96 97 Oxygen Delivery Method Room Air Room Air Room Air 08/14/21 11:58 Temperature Temperature Source Pulse Rate Respiratory Rate Respiratory Effort Normal Non-Labored Respiratory Depth Normal Respiratory Pattern Normal Blood Pressure Blood Pressure Mean Blood Pressure Source Blood Pressure Position Blood Pressure Location Pulse Ox Oxygen Delivery Method Room Air Weight Weight: 70.125 kg Body Mass Index (BMI) 22.1 Physical Exam Const alert Constitutional Narrative: Masked facies. General Appearance: cooperative HEENT normocephalic and head/scalp atraumatic Eyes EOMs intact bilaterally Eyes Narrative: Impaired vertical saccades Neck no lymphadenopathy Neck Narrative: Tender posterior muscle tenderness. Resp normal respiratory effort and no retractions Cardio regular rate, regular rhythm, S1 normal heart sound and S2 normal heart sound GI normal to inspection, nondistended, normoactive bowel sounds, soft to palpation, non-tender and non-distended Extremity normal to inspection and full ROM Skin no rashes or lesions noted and no wounds Neuro oriented x3 Neuro Narrative: Muscling 5-5 in the left upper and left lower extremity. Patient does have ataxia in left upper and left lower extremity as well. Muscle strength is 2 out of 5 in the right upper and right lower extremities. Sensorium / Orientation: awake and alert Psych Psych Narrative: Flat affect Results Lab / Micro Data Attestation: I reviewed the patient's lab results. Result Diagrams: 08/14/21 10:14 08/14/21 10:14 Labs: Laboratory Results - last 24 hr 08/14/21 09:58: POC Glucose 109 08/14/21 10:14: WBC 4.9, RBC 2.85 L, Hgb 10.5 L, Hct 30.1 L, MCV 105.6 H, MCH 36.8 H, MCHC 34.9, RDW Std Deviation 52.0 H, RDW Coeff of Samir 13.7, Plt Count 144 L, MPV 10.2, Immature Gran % (Auto) 0.200, Neut % (Auto) 42.2 L, Lymph % (Auto) 39.9, [place] % (Auto) 10.8 H, Eos % (Auto) 5.9 H, Baso % (Auto) 1.0, Absolute Neuts (auto) 2.1, Absolute Lymphs (auto) 1.95, Nucleated RBC % 0 08/14/21 10:14: PT 18.2 H, INR 1.6, APTT 32.3 08/14/21 10:14: Sodium 132 L, Potassium 4.0, Chloride 100, Carbon Dioxide 24.0, Anion Gap 8, BUN 16, Creatinine 0.87, Estim Creat Clear Calc 70.89, Est GFR (MDRD) Af Amer 108, Est GFR (MDRD) Non-Af 90, BUN/Creatinine Ratio 18.3, Glucose 102, Calcium 8.1 L, Troponin I High Sens [address] 08/14/21 09:58 IMPRESSION: Chronic involutional changes of the brain. 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 A neoplastic process should this is unchanged from prior CT scan of brain and CT scan of the cervical spine. N.B. : The above Results were Read Back by John Tong MD to Abdi Burnette and understanding confirmed on 08/14/2021 10:19:05 (ET). Electronically Signed: John Tong MD at 10:20 EST , Service support , ADDENDUM: 08/14/21 1027 IMPRESSION: Chronic involutional changes of the brain. 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 A neoplastic process should this is unchanged from prior CT scan of brain and CT scan of the cervical spine. N.B. : The above Results were Read Back by John Tong MD to Abdi Burnette and understanding confirmed on 08/14/2021 10:19:05 (ET). Electronically Signed: John Tong MD at 10:20 EST , Service support , Chest X-Ray 08/14/21 09:58 IMPRESSION: Hyperinflation. No acute abnormality seen. Electronically Signed: John Tong MD at 10:44 EST , Service support , Head/Neck CTA 08/14/21 09:58 IMPRESSION: Calcific plaques at the origin of both right and left internal carotid artery. 50-69% stenosis on the right and greater than 70% stenosis on the left. N.B. : The above Results were Read Back by John Tong MD to Abdi Burnette and understanding confirmed on 08/14/2021 10:32:31 (ET). Electronically Signed: John Tong MD at 10:33 EST , Service support , ADDENDUM: 08/14/21 1040 IMPRESSION: Calcific plaques at the origin of both right and left internal carotid artery. 50-69% stenosis on the right and greater than 70% stenosis on the left. N.B. : The above Results were Read Back by John Tong MD to Abdi Burnette and understanding confirmed on 08/14/2021 10:32:31 (ET). Electronically Signed: John Tong MD at 10:33 EST , Service support , Shoulder X-Ray 08/14/21 10:42 IMPRESSION: Osteoarthritis of the glenohumeral joint. Electronically Signed: John Tong MD at 11:25 EST , Service support , Assessment & Plan Assessment/Plan (1) Stroke: QUALIFIERS: CVA mechanism: unspecified Qualified Code(s): I63.9 - Cerebral infarction, unspecified (2) Closed head injury without loss of consciousness: QUALIFIERS: Encounter type: initial encounter Qualified Code(s): S09.90XA - Unspecified injury of head, initial encounter PLAN: 1. Acute stroke Patient with profound right-sided weakness. Occurred after the patient had fallen. The report from emergency room physician who discussed with the radiologist was that is neck CAT scan showed no acute injury Patient does have risk factors for stroke including A. fib but also carotid stenosis Plan is for a MRI of the brain, 2D echocardiogram after the information is back we will have neurology centimeters. Addition patient will have physical, occupational and speech therapies. 2. Closed head injury No intracranial hemorrhage on CAT scan Patient does have some probable whiplash from falling as is posterior cervical muscles are exquisitely tender. 3. A. fib Patient on amiodarone as well as rivaroxaban Will hold off on rivaroxaban for now until further stroke work-up has been completed make sure there is no hemorrhagic transformation 4. Progressive debility Even prior to today, patient was weak, ataxic and had falls. I discussed with he and his that I am concerned for new neurodegenerative process such as Parkinson's and that would require further work-up with a neurology as outpatient notes the patient does have an extensive history of heavy alcohol consumption though he is not doing that currently though does have occasional bottle of wine With this as well as the acute stroke, patient will require rehab when he is medically ready for discharge 5. VTE prophylaxis Since holding off on rivaroxaban for now patient will be on enoxaparin Charges/Coding Visit Charges Inpatient E&M: 66498 Init Hosp L3
--- NOTE | 2021-08-14 13:10 | MRI_ITS ---
STUDY: MRI BRAIN WITHOUT CONTRAST REASON FOR EXAM: Male, 80 years old. CVA, lightheaded, s/p fall TECHNIQUE: Standardized multiplanar fat and water weighted pulse sequences were obtained. MRI examination of brain obtained with standard protocol including multiplanar multiecho without contrast. COMPARISON: CT examination of the same date. FINDINGS: HEMISPHERES, CEREBELLUM AND BRAINSTEM: 1. The cerebral parenchyma, ventricular system and gyral pattern have normal configuration. Mild involutional changes and chronic microvascular deep white matter disease noted. 2. No areas of fluid restriction or hemosiderin deposition. No mass, hemorrhage, or acute territorial infarct.. 3. The cerebellum, brainstem, basilar and suprasellar cisterns have normal appearance. No Chiari malformation. 4. Current examination is remarkable for significant soft tissue pannus associated with the skull base and C1-C2 articulation at the odontoid. The soft tissue pannus measures approximately 1.5 cm in maximal dimension. This results in significant deformity of the foramen magnum with contact and displacement of the cervical medullary junction. There are findings consistent with a moderate flattening of the cervical medullary junction. PITUITARY: Infundibulum and pituitary have normal configuration. Midline structures appear normal. CSF SPACES: Appropriate for age. No hydrocephalus. Basal cisterns are patent. VESSELS: 1. There are normal flow voids noted in the great vessels at the skull base ORBITS AND PARANASAL SINUSES: 1. Both globes, extraocular muscles, optic nerves and retrobulbar fat appear unremarkable. 2. Extensive ethmoid and maxillary sinus disease noted. BONY ELEMENTS: Bony elements of the cranial vault, facial skeleton and skull base have normal appearance. SCALP AND SOFT TISSUES: Normal appearance of the soft tissues of the scalp and the visualized face OTHER: None MRI/Brain without Contrast IMPRESSION: 1. Diffuse involutional changes and chronic microvascular deep white matter disease. 2. No intraparenchymal mass, hemorrhage, or acute territorial infarct. 3. 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 Consider follow-up evaluation with MRI of the cervical spine for more definitive evaluation of the cervical medullary junction and the cervical cord. Electronically Signed: Shaan Prajapati MD at 23:04 EST Tel , Service support ,
--- NOTE | 2021-08-14 13:10 | ECHOL_ITS ---
Reason For Study: TIA/CVA Procedure This was a limited 2D transthoracic echocardiogram. Recent echo at [facility] (07/03/21). Limited views were obtained. The study was technically difficult. Exam performed portable in patient room. Left Ventricle Normal LV size. Apical false tendon noted. Left ventricular systolic function is normal. The estimated ejection fraction is 60 %. Unable to assess diastolic dysfunction. No regional wall motion abnormalities noted. Right Ventricle Normal RV size. Normal systolic function. Atria The left atrium is mildly enlarged. Normal right atrium. Bubble contrast study negative for right to left interatrial shunt. Mitral Valve There is mild to moderate mitral annular calcification. Extension of the mitral annular calcification on the base of the posterior mitral valve leaflet. Anterior leaflet diffuse mitral valve thickening. Mild focal mitral valve calcification of the anterior leaflet. Tricuspid Valve Normal tricuspid valve. Aortic Valve The aortic valve is not well visualized. Pulmonic Valve The pulmonic valve is not well visualized. Great Vessels The aortic root is not well visualized. Pericardium/Pleural No pericardial effusion. Medication Performed a rapid injection of agitated mix of 9 cc saline and 1cc air to assess for atrial septal defect. Saline bubble study X 2- IV in Left hand - diminished quality of bubble study. MMode/2D Measurements & Calculations LVIDd: 5.1 cm IVSd: 0.90 cm LAV(MOD-bp): 48.5 ml LVIDs: 3.7 cm LVPWd: 0.83 cm FS: 28.1 % LAV(MOD-bp) Indexed: 26.0 ml/m2 LAV(MOD-sp2): 57.6 ml LAV(MOD-sp4): 40.3 ml SV(MOD-sp4): 59.2 ml LVAd ap4: 30.7 cm2 LVAd ap2: 29.7 cm2 LVLd ap4: 7.8 cm LVLd ap2: 8.5 cm EDV(MOD-sp4): 101.1 ml EDV(MOD-sp2): 85.6 ml EDV(sp4-el): 103.0 ml EDV(sp2-el): 88.1 ml LVAs ap4: 17.6 cm2 LVAs ap2: 14.9 cm2 LVLs ap4: 6.4 cm LVLs ap2: 6.4 cm ESV(MOD-sp4): 41.9 ml ESV(MOD-sp2): 30.1 ml ESV(sp4-el): 41.1 ml ESV(sp2-el): 29.5 ml EF(MOD-sp4): 58.6 % EF(MOD-sp2): 64.9 % EF(sp4-el): 60.1 % SV(MOD-sp2): 55.5 ml SV(sp4-el): 62.0 ml LA A4 area: 16.2 cm2 RA A4 area: 14.3 cm2 ECHO/Echo, Limited Study Interpretation Summary Limited views were obtained. The study was technically difficult. Left ventricular systolic function is normal. The estimated ejection fraction is 60 %. Apical false tendon noted. The left atrium is mildly enlarged. There is mild to moderate mitral annular calcification. Extension of the mitral annular calcification on the base of the posterior mitr al valve leaflet. Anterior leaflet diffuse mitral valve thickening. Mild focal mitral valve calcification of the anterior leaflet. Unable to assess diastolic dysfunction. Bubble contrast study negative for right to left interatrial shunt. Ordering Physician: Abdi Hammond Referring Physician: KARUNA PRAJAPATI Performed By: Bonny Talavera, RACHEAL, RVT
[2021-08-14 13:20] LABS: Troponin-I HS 21 pg/mL (3.0-78.0)
--- NOTE | 2021-08-14 19:01 | CT_ITS ---
STUDY: CT BRAIN WITHOUT CONTRAST REASON FOR EXAM: Male, 80 years old patient with signs and symptoms of CVA RADIATION DOSAGE (If Supplied By Facility): CTDIvol = ( 44.99 ) mGy, DLP = ( 846.73 ) mGycm TECHNIQUE: Transaxial CT imaging of the brain was performed without administration of intravenous contrast material. Multiplanar reformations are submitted for interpretation. Individualized dose optimization techniques were used for this CT. COMPARISON: A CT of the head dated 08/14/2021. FINDINGS: Normal soft tissue structures. Normal calvarium. There is mild cerebral atrophy with widening of the extra-axial spaces and ventricular dilatation. There are areas of decreased attenuation within the white matter tracts of the supratentorial brain, consistent with microvascular disease changes. Normal basal ganglia and thalami. Normal brainstem. There is mild cerebellar atrophy. There is no intracranial hemorrhage. There is moderately severe atherosclerotic calcification of the intracranial arteries. There is moderate mucosal thickening within the maxillary sinuses and ethmoid sinuses. CT/Brain/Head without Contrast IMPRESSION: 1. Chronic involutional changes of the brain. 2. No CT evidence of acute intracranial hemorrhage Electronically Signed: Serene Morillo MD at 21:05 EST , Service support ,
[2021-08-14] MEDS: Acetaminophen 325 MG Tablet 650 MG PO (21:00)
[2021-08-14] MEDS: Glycerin/Hypromellose/PEG400 15 ml Bottle 1 DRP EACH EYE (21:02)
[2021-08-14] MEDS: 0.9% Saline Lock 10 ML Syringe IV (23:07)
[2021-08-15] VITALS (12 sets, daily range): BP systolic 90–178; BP diastolic 43–90; PULSE 63–80; RESP 18; TEMP 36.7–37; O2SAT 95–97
[2021-08-15] MEDS: Glycerin/Hypromellose/PEG400 15 ml Bottle 1 DRP EACH EYE ×2 (05:45→13:32)
[2021-08-15 06:42] LABS: Cholesterol 138 mg/dL (200); High Density Lipoprotein 62 mg/dL; Triglycerides 71 mg/dL; Very Low Density Lipoprotein 14 mg/dL (5-40)
--- NOTE | 2021-08-15 07:54 | MRI_ITS ---
STUDY: MRI CERVICAL SPINE WITHOUT CONTRAST REASON FOR EXAM: Male, 80 years old. C1 cord compression, f/u to abnormal brain mri TECHNIQUE: Standardized fat and water weighted pulse sequences were obtained in the sagittal and axial planes. COMPARISON: MRI of the brain dated 08/14/[address] of the cervical spine dated 03/02/2021 FINDINGS: There is soft tissue pannus formation posterior to the odontoid at C1 resulting in severe central canal stenosis. Again noted is the increased cord signal extension superiorly and approaching the cervical medullary junction as well, consistent with cord compression. There is unremarkable anterior atlantoaxial articulation. Normal cervical lordosis. C2-3: There is heavy anterior osteophytosis. There is no demonstrated central canal or foraminal stenosis. C3-4: There is heavy anterior osteophytosis. There is moderate disc space narrowing and endplates spondylosis. There is no significant central canal stenosis. Uncovertebral and facet arthropathy with moderate right and moderate left foraminal stenosis. C4-5: There is heavy fused anterior osteophytosis. There is moderate disc space narrowing and endplates spondylosis. There is no significant central canal stenosis. Uncovertebral and facet arthropathy with moderate right and moderate left foraminal stenosis. C5-6: There is heavy fused anterior osteophytosis. There is moderate disc space narrowing and endplates spondylosis. There is no significant central canal stenosis. Uncovertebral and facet arthropathy with moderate right and moderate left foraminal stenosis. C6-7: There is heavy anterior osteophytosis. There is mild disc space narrowing and endplates spondylosis. There is no significant central canal stenosis. Uncovertebral and facet arthropathy with mild right and mild left foraminal stenosis. C7-T1: There is heavy anterior osteophytosis. There is minimal disc space narrowing and endplate spondylosis. 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 Extensive anterior diffuse skeletal hyperostosis. Electronically Signed: Raffi Berry MD at 12:23 EST Tel , Service support ,
[2021-08-15] MEDS: Acetaminophen 325 MG Tablet 650 MG PO ×2 (08:32→15:45)
--- NOTE | 2021-08-15 08:46 | PN.HOSP_ITS ---
Subjective Subjective Still right profound right sided hemiparesis. No other other events overnight. Objective Data Objective Data Vital Signs: Vital Signs Temp Pulse Resp BP Pulse Ox 36.7 C 74 18 157/76 H 96 08/15/21 03:03 08/15/21 06:38 08/15/21 03:03 08/15/21 03:03 08/15/21 07:44 Oxygen Delivery Method Room Air Weight: 70.13 kg Body Mass Index (BMI) 22.1 Intake & Output: Intake and Output for Last 24 Hours 08/13/21 08/14/21 08/15/21 23:59 23:59 23:59 Intake Total 400 / 400 Output Total 400 / 400 400 / 400 Balance 0 / 0 -400 / -400 Lab / Micro Data Result Diagrams: 08/14/21 10:14 08/14/21 10:14 Labs: Laboratory Results - last 24 hr 08/14/21 09:58: POC Glucose 109 08/14/21 10:14: WBC 4.9, RBC 2.85 L, Hgb 10.5 L, Hct 30.1 L, MCV 105.6 H, MCH 36.8 H, MCHC 34.9, RDW Std Deviation 52.0 H, RDW Coeff of Samir 13.7, Plt Count 144 L, MPV 10.2, Immature Gran % (Auto) 0.200, Neut % (Auto) 42.2 L, Lymph % (Auto) 39.9, [place] % (Auto) 10.8 H, Eos % (Auto) 5.9 H, Baso % (Auto) 1.0, A bsolute Neuts (auto) 2.1, Absolute Lymphs (auto) 1.95, Nucleated RBC % 0 08/14/21 10:14: PT 18.2 H, INR 1.6, APTT 32.3 08/14/21 10:14: Sodium 132 L, Potassium 4.0, Chloride 100, Carbon Dioxide 24.0, Anion Gap 8, BUN 16, Creatinine 0.87, Estim Creat Clear Calc 70.89, Est GFR (MDRD) Af Amer 108, Est GFR (MDRD) Non-Af 90, BUN/Creatinine Ratio 18.3, Glucose 102, Calcium 8.1 L, Troponin I High Sens 08/14/21 12:47: Troponin I High Sens 08/15/21 05:50: Triglycerides 71, Cholesterol 138, LDL Cholesterol 62, VLDL Cholesterol 14, HDL Cholesterol 62 Radiography Diagnostic Testing: Radiology Impression Brain CT 08/14/21 09:58 IMPRESSION: Chronic involutional changes of the brain. 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 A neoplastic process should this is unchanged from prior CT scan of brain and CT scan of the cervical spine. N.B. : The above Results were Read Back by John Tong MD to Abdi Burnette and understanding confirmed on 08/14/2021 10:19:05 (ET). Electronically Signed: John Tong MD at 10:20 EST , Service support , ADDENDUM: 08/14/21 1027 IMPRESSION: Chronic involutional changes of the brain. 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 A neoplastic process should this is unchanged from prior CT scan of brain and CT scan of the cervical spine. N.B. : The above Results were Read Back by John Tong MD to Abdi Burnette and understanding confirmed on 08/14/2021 10:19:05 (ET). Electronically Signed: John Tong MD at 10:20 EST , Service support , Chest X-Ray 08/14/21 09:58 IMPRESSION: Hyperinflation. No acute abnormality seen. Electronically Signed: John Tong MD at 10:44 EST , Service support , Head/Neck CTA 08/14/21 09:58 IMPRESSION: Calcific plaques at the origin of both right and left internal carotid artery. 50-69% stenosis on the right and greater than 70% stenosis on the left. N.B. : The above Results were Read Back by John Tong MD to Abdi Burnette and understanding confirmed on 08/14/2021 10:32:31 (ET). Electronically Signed: John Tong MD at 10:33 EST , Service support , ADDENDUM: 08/14/21 1040 IMPRESSION: Calcific plaques at the origin of both right and left internal carotid artery. 50-69% stenosis on the right and greater than 70% stenosis on the left. N.B. : The above Results were Read Back by John Tong MD to Abdi Burnette and understanding confirmed on 08/14/2021 10:32:31 (ET). Electronically Signed: John Tong MD at 10:33 EST , Service support , Shoulder X-Ray 08/14/21 10:42 IMPRESSION: Osteoarthritis of the glenohumeral joint. Electronically Signed: John Tong MD at 11:25 EST , Service support , Brain MRI 08/14/21 13:10 IMPRESSION: 1. Diffuse involutional changes and chronic microvascular deep white matter disease. 2. No intraparenchymal mass, hemorrhage, or acute territorial infarct. 3. 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 Consider follow-up evaluation with MRI of the cervical spine for more definitive evaluation of the cervical medullary junction and the cervical cord. Electronically Signed: Shaan Prajapati MD at 23:04 EST Tel , Service support , Echocardiogram 08/14/21 13:10 Interpretation Summary Limited views were obtained. The study was technically difficult. Left ventricular systolic function is normal. The estimated ejection fraction is 60 %. Apical false tendon noted. The left atrium is mildly enlarged. There is mild to moderate mitral annular calcification. Extension of the mitral annular calcification on the base of the posterior mitral valve leaflet. Anterior leaflet diffuse mitral valve thickening. Mild focal mitral valve calcification of the anterior leaflet. Unable to assess diastolic dysfunction. Bubble contrast study negative for right to left interatrial shunt. Ordering Physician: Abdi Hammond Referring Physician: KARUNA PRAJAPATI Performed By: Bonny Talavera, RDCS, RVT Brain CT 08/14/21 19:01 IMPRESSION: 1. Chronic involutional changes of the brain. 2. No CT evidence of acute intracranial hemorrhage Electronically Signed: Serene Morillo MD at 21:05 EST , Service support , Physical Exam Const alert Resp normal respiratory effort, no retractions, no use of accessory muscles and clear to auscultation bilaterally Cardio regular rate, regular rhythm, S1 normal heart sound and S2 normal heart sound GI normal to inspection, nondistended, normoactive bowel sounds, soft to palpation, non-tender and non-distended Extremity normal to inspection Skin no rashes or lesions noted Neuro Neuro Narrative: MS 2/5 in RUE and RLE. Sensorium / Orientation: awake and alert Assessment & Plan Assessment/Plan (1) Stroke: QUALIFIERS: CVA mechanism: unspecified Qualified Code(s): I63.9 - Cerebral infarction, unspecified (2) Closed head injury without loss of consciousness: QUALIFIERS: Encounter type: initial encounter Qualified Code(s): S09.90XA - Unspecified injury of head, initial encounter PLAN: 1. 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 I am concerned pt may have injury his spine when he fell. I informed Dr. Lim in ED to check a dedicated Cspine film or have radiology reconstruct CTA of neck. He said he spoke with Dr. Tong, radiology, who told him looked ok. No official report, however. DW Dr. Caba about the MRI, he recommended MRI cervical spine and will follow. 2. Closed head injury No intracranial hemorrhage on CAT scan Patient does have some probable whiplash from falling as is posterior cervical muscles are exquisitely tender. 3. A. fib Patient on amiodarone as well as rivaroxaban Will hold off on rivaroxaban for now particularly if surgery is needed. 4. Progressive debility Even prior to today, patient was weak, ataxic and had falls. I discussed with he and his that I am concerned for new neurodegenerative process such as Parkinson's and that would require further work-up with a neurology as outpatient notes the patient does have an extensive history of heavy alcohol consumption though he is not doing that currently though does have occasional bottle of wine With this as well as the acute stroke, patient will require rehab when he is medically ready for discharge 5. VTE prophylaxis SCDs in case surgery is needed. Updated patient's . Charges/Coding Visit Charges Inpatient E&M: 08121 Subs Hosp L3
[2021-08-15] MEDS: Aspirin E.C. 81 MG Tablet PO (09:35)
[2021-08-15] MEDS: Multivitamin (Healthy Eyes) Capsule 1 CAP PO (09:35)
[2021-08-15] MEDS: Fluticasone 0.05% 1 SPRAY NASAL.SRY 2 SPRAY NASAL (09:35)
[2021-08-15] MEDS: Multivitamins,Therapeutic Tablet 1 TABLET PO (09:35)
[2021-08-15] MEDS: Calcium Carb/Vitamin D 1 TABLET Tablet PO (09:36)
[2021-08-15] MEDS: Ascorbic Acid 500 MG Tablet PO (09:36)
[2021-08-15] MEDS: Cyanocobalamin 500 MCG Tablet 1000 MCG PO (11:27)
[2021-08-15] MEDS: Amiodarone 200 MG Tablet 100 MG PO (11:27)
[2021-08-15] MEDS: Umeclidinium Brm/Vilanterol 62.5-25 mcg Inh 1 PUFF INHALATION (13:32)
--- NOTE | 2021-08-15 14:58 | CASEMGMT ---
Social Work SW met with pt as pt was occupied with nursing care. Discussed plan of care with pt who states she is understanding pt will need rehabilitation prior to returning home. states that she and pt have discussed it and his first choice is [facility] inpatient rehab. Referral made to Diana from Rehab unit and they are able to accept pt when he is medically ready. Plan: Inpatient Rehab, when medically ready. MANDEEP Mendoza
--- NOTE | 2021-08-15 15:42 | ST.MBS ---
Modified Barium Swallow - Patient Information Study Date: 08/15/21 Study Time: 14:00 Direct Billable Minutes: 110 Total Minutes procedure & reportin Diagnosis: Dysphagia (R13.10) Referring Physician: Abdi Hammond Reason for Referral: Objectively assess swallow function and aspiration risk. Medical History: CESAR ANGUIANO, is a 80 M who presented to [facility] ED on 08/14/21 with right sided weakness. He was getting dressed then fell, hitting the back of his head. He then noted profound right sided weakness. Pt has had unsteadiness, chronically, but never had symptoms such as this before. Head CT showed no CVA, but 1.6 x 1 cm calcified mass arising from the base of the skull extending to the posterior aspect of the C1 and C2 vertebrae anteriorly. Head and neck CTA showed calcific plaques at the origin of righ left ICA, 50-69% on right and greater than 70% stenosis on the left. Dr. Tong who reviewed the CTA of the neck and said there was no acute injury to the neck. 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 Pt with extensive PMH. SEE PMH for details. MBS 09/29/2015 Recommendations: regular textures w/ consideration for increased consumption of moist/soft foods, thin liquids, use of a super-supraglottic swallow w/ all bites sips, double swallow, alternate bites/sips. BSE 08/14/2021 Recommendations: soft and bite sized textures / thin liquids with the following aspiration precautions: TOTAL FEED, DISCONTINUE IF INCREASED S/S OF ASPIRATION, NO STRAWS, small bites/sips, upright 90 degrees. Current Diet Ordered: Soft & Bite Size Textures / Thin Liquids Dentition: Upper Dentures, Missing Teeth Mental Status: Impaired - Pt impulsive per RN. Respiratory Status: Oxygenating on Room Air - Penetration-Aspiration Scale Penetration-Aspiration Scale: OBJECTIVE ASSESSMENT OF SWALLOW FUNCTION (QUANTITATIVE ? PER TRIAL): PENETRATION / ASPIRATION SCALE (QUISPE): 1 = does not enter airway 2 = enters airway/above vocal folds/ejected 3 = enters airway/above vocal folds/not ejected 4 = enters airway/contacts vocal folds/ejected 5 = enters airway/contacts vocal folds/not ejected 6 = enters airway/below vocal folds/ejected 7 = enters airway/below vocal folds/not ejected despite effort 8 = enters airway/below vocal folds/no effort VIDEOFLOROSCOPIC SCALE SCORE (QUISPE): Grade I = aspiration of material that has penetrated into the laryngeal vestibule, intact cough reflex Grade II = aspiration < 10 % of the bolus, intact cough reflex Grade III = aspiration of < 10 % of the bolus, reduced cough reflex or aspiration of > 10 % of the bolus, intact cough reflex Grade IV = aspiration of > 10 % of the bolus, reduced cough reflex - Penetration-Aspiration Scale Score Thin Liquid via teaspoon Result: 1= does not enter airway Thin Liquid via teaspoon Trial 2 Result: 2= enter airway/above vocal folds/ejected Thin Liquid via teaspoon Trial 3 Result: 3= enters airways/above vocal folds/not ejected - [employer] cued double swallow - Pt cleared laryngeal vestibule. Delayed cough observed. Thin Liquid via small single sip from cup Result: 3= enters airways/above vocal folds/not ejected - Increased depth of penetration as compared to tsp. [place] Thick Liquid via teaspoon Result: 2= enter airway/above vocal folds/ejected - Cued cough and reswallow - somewhat effective in clearing penetrated contrast and residue. Honey Thick Liquid via teaspoon Result: 3= enters airways/above vocal folds/not ejected Pudding Result: 3= enters airways/above vocal folds/not ejected Cookie Result: 2= enter airway/above vocal folds/ejected Thin Liquid via teaspoon Trial 4 Result: 3= enters airways/above vocal folds/not ejected - Liquid wash minimally effective at clearing pharyngeal residue. Thin Liquid via single sip from straw Result: 3= enters airways/above vocal folds/not ejected Thin Liquid via teaspoon Trial 5 Result: 7= enters airways/below vocal folds/not ejected despite effort - Suspect aspiration to be residual penetration from previous trial. Weak, ineffective cough observed. 1/2 Tsp of Thin Liquid Result: 2= enter airway/above vocal folds/ejected Teaspoon of Thin Liquid Swallow Fast Result: 3= enters airways/above vocal folds/not ejected Teaspoon of Thin Liquid Swallow Fast Trial 2 Result: 3= enters airways/above vocal folds/not ejected Teaspoon of Thin Liquid Swallow Fast Trial 3 Result: 2= enter airway/above vocal folds/ejected - Oral Phase Labial Seal: Interlabial escape, no progression to anterior lip Tongue Control During Bolus Hold: Posterior escape of greater than half of bolus Bolus Preparation/Mastication: Slow prolonged chewing/mashing with complete recollection Bolus Transport/Lingual Motion: Slowed tongue motion Oral Residue: Residue collection on oral structures - Pharyngeal Phase Initiation of Pharyngeal Swallow: Bolus head in pyriforms Soft Palate Elevation: No bolus between soft palate and pharyngeal wall Laryngeal Elevation: Partial superior movement thyroid cart/partial apprx aryt-epig petiole Anterior Hyoid Excursion: Partial anterior movement Epiglottic Movement: No inversion Laryngeal Vestibule Closure at Height of Swallow: Incomplete; narrow column of air/contrast in laryngeal vestibule Pharyngeal Stripping Wave: Present - diminished Pharyngoesophageal Segment Opening: Parital distension and partial duration; parital obstruction of flow Tongue Base Retraction: Wide column of contrast between tongue base & post. pharyngeal wall Pharyngeal Residue: Collection of residue within or on pharyngeal structures - Esophageal Phase Esophageal Clearance: Esophageal retention w/ retrograde flow below pharyngoesophageal seg. - Treatment Strategies Effects of treatment strategies attemped:: Cough and reswallow = somewhat effective. Double swallow = somewhat effective. Decreased bolus size = effective. Use of straw = not effective. Swallow fast = not effective. Liquid wash = minimally effective. Unable to trial chin tuck as pt had cervical collar on for study. - Diagnosis/Impression Diagnosis: Moderate-severe oropharyngeal phase dysphagia (R13.12) Impression: Oral phase is marked by poor bolus control, especially noted with thin liquids. Premature posterior spillage of thin liquids into the pyriforms resulting in suboptimal bolus placement upon swallow onset. Pt with mild oral residues after the swallow. Prolonged mastication. Pharyngeal phase is marked by decreased airway protection due to reduced tongue base retraction and laryngeal elevation. The patient also presents with moderate-severe pharyngeal residue in the vallecula and pyriforms. He requires multiple swallows to somewhat clear pharyngeal residues. The patient presented with laryngeal penetration across all consistencies trialed. Penetration of liquids decreased with decreased bolus size and no straws; however, with tsp sips of thin liquids the patient still did not consistently fully eject from the laryngeal vestibule. He had increased pharyngeal residue with thicker viscosities (nectar, honey, pudding, cookie) - increasing risk for post prandial penetration/aspiration. Suspect post prandial aspiration of thin liquids via straw with weak cough. - Recommendations Diet: Puree Textures, Thin Liquids Comment: CLOSELY MONITOR LUNG SOUNDS. Cough and reswallow intermittently during meals. Compensatory Strategies: Small Bites, Small Sips, Liquid by Teaspoon Only, Multiple Swallows - At least two swallows per each sip/bite., Sitting upright, Remain sitting upright for 30 minutes after PO intake Supervision: Total Feed - Due to impulsivity. Recommend Repeat Modified Barium Swallow: Yes - Will recommend repeat MBS study in 3-5 weeks after implementation of oropharyngeal exercise program. Need for Skilled Speech Therapy Services: Yes Comment: Will recommend the patient for continued dysphagia therapy to address deficits in oropharyngeal swallow function. Would consider the patient for oropharyngeal coordination/strengthening to improve lingual control, swallow onset, tongue base retraction, laryngeal elevation, and duration of UES opening. The patient would benefit from thorough education regarding diet recommendations and recommended compensatory strategies. Monitor lung sounds closely with diet tolerance. Would NOT advance the patient's diet beyond minced and moist textures / thin liquids prior to repeat MBS study. Education Completed: 1. Described result of evaluation., 4. Family/caregivers understand evaluation & agree w/ goals & tx plan. - Pt's thoroughly educated in results and recommendations., 7. Pt requires further education on strategies & risks. - Status Active ST Patient: Active - Contact Information [facility] Speech Therapy:: Surekha Rubio M.A. [facility] Speech-Language Pathologist [facility] [address] [place] [address] [email or web address] [phone] 08/15/21 15:55
--- NOTE | 2021-08-15 16:21 | CONS.ORTHO ---
HPI Consult Data Date of Consult: 08/15/21 HPI Narrative HPI Narrative: CESAR ANGUIANO, is a 80 M who presents neck pain with acute numbness tingling and weakness in the right upper and right lower extremities since a fall yesterday morning. He is accompanied today by his who contributed to the medical history. He states that he was at home putting on his shirt when he fell striking his head on the dresser. His did witness the fall. She states that he did lose consciousness for about 2 minutes. She did call EMS and they were brought to the emergency department for evaluation. He has subsequently been admitted. The patient was seen and examined by myself. He is lying in bed resting comfortably. Alert and oriented x3. His is present who contributes to the medical history. He is in a cervical collar. He has complaints of axial neck pain as well as decreased sensation in the right upper and right lower extremity and to a lesser extent the left upper and lower extremity. He also has significant weakness in the right upper and lower extremity since falling and hitting his head. He denies any history of neck surgeries. He states that he is unable to stand because of weakness in the lower extremities. He denies any saddle anesthesia or changes in bowel or bladder function, although he does currently have a Casas catheter in place. [facility] Medical History (Updated 08/15/21 @ 17:[address] Polo Caba, ) Alcohol abuse Alcohol abuse, episodic drinking behavior Aortic valve disease, rheumatic Atrial fibrillation Atrioventricular block Chest pain Chronic anticoagulation Closed left hip fracture COPD (chronic obstructive pulmonary disease) DDD (degenerative disc disease), lumbar Disorders of bursae and tendons in shoulder region, unspecified Diverticulosis DVT of lower extremity, bilateral Dysphagia Essential hypertension Fracture of C4 vertebra, closed Fracture of fourth cervical vertebra Groin pain Hemorrhoids Hemorrhoids with complication Inguinal hernia of left side without obstruction or gangrene Knee locking Malignant neoplasm of bladder Murmur, cardiac Nonrheumatic aortic (valve) stenosis Orthostatic hypotension Paroxysmal atrial fibrillation Personal history of colonic polyps Pure hypercholesterolemia Rectal bleeding RLS (restless legs syndrome) Screening for intestinal cancer 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 Syncope and collapse Home Medications fluticasone propionate 2 spray NASAL DAILY 08/09/15 [History Last Taken 06/08/18] calcium carbonate 600 mg-vitamin D3 5 mcg (200 unit) tablet 1 tab PO QDAY 09/12/17 [History Last Taken 06/08/18] guaifenesin 600 mg tablet, extended release 12 hr 600 mg PO Q12H 09/12/17 [History Last Taken 06/08/18] multivitamin 1 tab PO QDAY 09/12/17 [History Last Taken 06/08/18] rivaroxaban 20 mg PO DAILY 11/19/17 [History Last Taken 05/13/21] bevacizumab 25 mg/mL intravenous solution 25 mg INTRAVITREAL ml 07/02/18 [History Last Taken Unknown] ascorbic acid (vitamin C) 500 mg capsule 500 mg PO DAILY cap 01/06/19 [History Last Taken Unknown] umeclidinium 62.5 mcg-vilanterol 25 mcg/actuation powdr for inhalation 1 inh INHALATION Q24H ea 01/06/19 [History Last Taken Unknown] vitamins A,C,D-vata-itzrkr 14,320 unit-226 mg-200 unit capsule 1 cap PO BID 07/28/19 [History Last Taken Unknown] aspirin 81 mg tablet,delayed release 81 mg PO DAILY 07/25/21 [History Last Taken Unknown] carboxymethylcellulose sodium 1 % eye drops 1 drp OPHTHALMIC (EYE) TID PRN 07/25/21 [History Last Taken Unknown] amiodarone 200 mg PO DAILY 08/14/21 [History Last Taken Unknown] amoxicillin 2,000 mg PO ONCE PRN 08/14/21 [History Last Taken Unknown] mecobalamin (vitamin B12) [B12 Active] 1,000 mcg PO DAILY 08/14/21 [History Last Taken Unknown] Allergy/AdvReac Type Severity Reaction Status Date / Time metronidazole Allergy Severe chest pain Verified 08/14/21 09:46 ropinirole Allergy Severe BP drop, Verified 08/14/21 09:46 dizziness, faint oxycodone [From OxyIR] AdvReac Other Verified 08/14/21 09:46 oxycodone HCl [From Percocet] AdvReac Vomiting Verified 08/14/21 09:46 Family History Father Arthritis COPD (chronic obstructive pulmonary disease) Mother CVA (cerebral vascular accident) Heart disease Sister Heart disease Brother Throat cancer Surgical History History of bilateral cataract extraction S/P hemorrhoidectomy S/P inguinal hernia repair S/P percutaneous endoscopic gastrostomy (PEG) tube placement S/P shoulder surgery S/P wrist surgery Status post hip surgery Status post knee surgery Status post tracheostomy Social History Smoking Status: Current every day smoker tobacco type: cigarettes second hand exposure: Yes quit status: considering quitting alcohol intake: current alcohol intake frequency: 3 or more drinks per day Alcohol type: beer substance use type: does not use caffeine: Yes Type: coffee Number of servings: 4 what type of physical activity do you participate in: swimming frequency: 3-4 times per week seatbelt use: always Vital Signs Vital Signs Vital Signs: 08/14/21 18:16 08/14/21 18:47 08/14/21 19:00 Temperature 98.3 F Temperature Source Oral Pulse Rate 79 79 78 Respiratory Rate 18 Respiratory Effort Respiratory Depth Respiratory Pattern Blood Pressure 116/56 L Blood Pressure Mean 76 Blood Pressure Source Monitor Blood Pressure Position Semi-Fowlers Blood Pressure Location Left Arm Pulse Ox 95 Oxygen Delivery Method Room Air 08/14/21 20:36 08/14/21 22:16 08/14/21 23:00 Temperature 98.8 F Temperature Source Oral Pulse Rate 81 80 Respiratory Rate 18 Respiratory Effort Normal Non-Labored Respiratory Depth Normal Respiratory Pattern Normal Blood Pressure 149/70 H Blood Pressure Mean 96 Blood Pressure Source Monitor Blood Pressure Position Semi-Fowlers Blood Pressure Location Left Arm Pulse Ox 97 Oxygen Delivery Method Room Air Room Air 08/15/21 03:00 08/15/21 03:03 08/15/21 03:04 Temperature 98.0 F Temperature Source Oral Pulse Rate 80 77 Respiratory Rate 18 Respiratory Effort Normal Non-Labored Respiratory Depth Normal Respiratory Pattern Normal Blood Pressure 157/76 H Blood Pressure Mean 103 Blood Pressure Source Monitor Blood Pressure Position Semi-Fowlers Blood Pressure Location Left Arm Pulse Ox 96 96 Oxygen Delivery Method Room Air Room Air 08/15/21 06:38 08/15/21 07:44 08/15/21 08:20 Temperature Temperature Source Pulse Rate 74 Respiratory Rate Respiratory Effort Normal Non-Labored Respiratory Depth Normal Respiratory Pattern Normal Blood Pressure Blood Pressure Mean Blood Pressure Source Blood Pressure Position Blood Pressure Location Pulse Ox 96 Oxygen Delivery Method Room Air Room Air 08/15/21 09:32 08/15/21 10:56 08/15/21 11:26 Temperature 98.6 F 98.6 F Temperature Source Oral Oral Pulse Rate 70 68 63 Respiratory Rate 18 18 Respiratory Effort Respiratory Depth Respiratory Pattern Blood Pressure 90/43 L 127/67 H Blood Pressure Mean 58 87 Blood Pressure Source Monitor Monitor Blood Pressure Position Semi-Fowlers Semi-Fowlers Blood Pressure Location Right Arm Right Arm Pulse Ox 95 95 Oxygen Delivery Method Room Air Room Air 08/15/21 14:53 08/15/21 15:41 Temperature 98.2 F Temperature Source Oral Pulse Rate 66 65 Respiratory Rate 18 Respiratory Effort Respiratory Depth Respiratory Pattern Blood Pressure 148/82 H Blood Pressure Mean 104 Blood Pressure Source Monitor Blood Pressure Position Semi-Fowlers Blood Pressure Location Left Arm Pulse Ox 96 Oxygen Delivery Method Room Air Weight Weight: 154 lb 9.763 oz Body Mass Index (BMI) 22.1 Physical Exam Const alert, oriented x3 and no apparent distress General Appearance: cooperative and comfortable Eyes PERRL, EOMs intact bilaterally and conjunctivae normal Neck Neck Narrative: The patient does have some mild tenderness in the posterior axial neck and the left side of the neck. He does have normal range of motion of the cervical spine but with mild discomfort. General: normal visual inspection and trachea midline Resp normal respiratory effort and normal air movement Effort and Inspection: able to speak in complete sentences Cardio peripheral pulses 2+ throughout Peripheral Pulses: pulses 2+ throughout GI soft to palpation, non-tender and non-distended Back/Spine no CVA tenderness and no thoracic nor lumbar tenderness Extremity Extremity Narrative: Examination of the right upper extremity shows decreased sensation almost globally. Significant weakness in all muscle groups tested with about 3 out of 5 strength in shoulder abduction and flexion, elbow flexion and extension, wrist flexion extension, finger flexion and abduction Examination of the right lower extremity shows decreased sensation in the right anterior thigh as well as the right lower extremity globally below the knee. The patient does have 4 out of 5 strength in hip flexion and knee extension. The right lower extremity shows no significant strength in ankle dorsiflexion or EHL. 3 out of 5 strength in ankle plantar flexion Examination of the left upper and lower extremity show mild decrease sensation in the left dorsal forearm and left anterior leg below the knee. Strength in the left upper and left lower extremities is 5 out of 5 throughout. Sensation is otherwise normal. The patient has normal and symmetric reflexes in the upper and lower extremities. No clonus is noted in the ankles. No Shira sign on physical exam. The patient does have upgoing Babinski in the right lower extremity. Peripheral Pulses: Yes pulses 2+ throughout Neuro oriented x3, CN's II-XII intact bilaterally and deep tendon reflexes 2+ bilaterally Lab / Micro Data Result Diagrams: 08/14/21 10:14 08/14/21 10:14 Labs: Laboratory Results - last 24 hr 08/15/21 05:50: Triglycerides 71, Cholesterol 138, LDL Cholesterol 62, VLDL Cholesterol 14, HDL Cholesterol 62 Radiology Impression Brain MRI 08/14/21 13:10 IMPRESSION: 1. Diffuse involutional changes and chronic microvascular deep white matter disease. 2. No intraparenchymal mass, hemorrhage, or acute territorial infarct. 3. 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 Consider follow-up evaluation with MRI of the cervical spine for more definitive evaluation of the cervical medullary junction and the cervical cord. Electronically Signed: Shaan Prajapati MD at 23:04 EST Tel , Service support , Echocardiogram 08/14/21 13:10 Interpretation Summary Limited views were obtained. The study was technically difficult. Left ventricular systolic function is normal. The estimated ejection fraction is 60 %. Apical false tendon noted. The left atrium is mildly enlarged. There is mild to moderate mitral annular calcification. Extension of the mitral annular calcification on the base of the posterior mitral valve leaflet. Anterior leaflet diffuse mitral valve thickening. Mild focal mitral valve calcification of the anterior leaflet. Unable to assess diastolic dysfunction. Bubble contrast study negative for right to left interatrial shunt. Ordering Physician: Abdi Hammond Referring Physician: KARUNA PRAJAPATI Performed By: Bonny Talavera, BARBICS, RVT Brain CT 08/14/21 19:01 IMPRESSION: 1. Chronic involutional changes of the brain. 2. 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 Extensive anterior diffuse skeletal hyperostosis. Electronically Signed: Raffi Berry MD at 12:23 EST Tel , Service support , Assessment & Plan Assessment/Plan (1) Cervical stenosis of spinal canal: (2) Central cord synd/C1-C4: PLAN: I had a lengthy discussion with the patient and his . I reviewed his imaging with him. Cervical MRI scan dated 08/15/2021 shows good overall alignment in the coronal and sagittal planes. No gross instability is noted. 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 The radiologist has commented on a pannus posterior to the C1-2 junction which is causing significant central canal stenosis. There is also signal change within the cervical cord at the cervical medullary junction. At this point, I recommend transfer of the patient for evaluation and management by neurosurgery. I did discuss this with the patient and his as well as the admitting physician. In the meantime I recommend immobilization in a cervical collar with spine precautions. They understand and agree with the treatment plan.
[2021-08-15 16:35] LABS: Magnesium 1.8 mg/dL (1.6-2.6)
[2021-08-15] MEDS: dexAMETHasone 10 MG/ML Vial IV (17:29)
[2021-08-15] MEDS: 0.9% Saline Lock 10 ML Syringe IV (17:29)
--- NOTE | 2021-08-15 17:40 | DS.PCM_ITS ---
Providers Date of Admission: 08/14/21 Primary Care Physician: Dr. Jenifer Gonzalez MD Consultations 08/15/21 07:54 Consult: Orthopedics Routine Consulting Provider: Polo aCba Reason for Consult: C1 cord compression EMERGENT Consult: No MD Notified: Yes Date Notified: 08/15/21 Time Notified: 07:55 Method of Notification: Verbal Reason For Visit: STROKE Diagnosis Discharge Diagnosis (1) Cervical stenosis of spinal canal: Status: Acute Code(s): M48.02 - Spinal stenosis, cervical region (2) Central cord synd/C1-C4: Status: Acute Code(s): S14.121A - Central cord syndrome at C1 level of cervical spinal cord, initial encounter Medications at Discharge Home Medications fluticasone propionate 2 spray NASAL DAILY 08/09/15 calcium carbonate 600 mg-vitamin D3 5 mcg (200 unit) tablet 1 tab PO QDAY 09/12/17 guaifenesin 600 mg tablet, extended release 12 hr 600 mg PO Q12H 09/12/17 multivitamin 1 tab PO QDAY 09/12/17 rivaroxaban 20 mg PO DAILY 11/19/17 bevacizumab 25 mg/mL intravenous solution 25 mg INTRAVITREAL ml 07/02/18 ascorbic acid (vitamin C) 500 mg capsule 500 mg PO DAILY cap 01/06/19 umeclidinium 62.5 mcg-vilanterol 25 mcg/actuation powdr for inhalation 1 inh INHALATION Q24H ea 01/06/19 vitamins A,C,M-yedi-vaklts 14,320 unit-226 mg-200 unit capsule 1 cap PO BID 07/28/19 aspirin 81 mg tablet,delayed release 81 mg PO DAILY 07/25/21 carboxymethylcellulose sodium 1 % eye drops 1 drp OPHTHALMIC (EYE) TID PRN 07/25/21 amiodarone 200 mg PO DAILY 08/14/21 amoxicillin 2,000 mg PO ONCE PRN 08/14/21 mecobalamin (vitamin B12) [B12 Active] 1,000 mcg PO DAILY 08/14/21 Hospital Course Operations None Procedures None Summary of Care Provided Minutes Spent on Discharge: 60 Hospital Course: 1. 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 I am concerned pt december have injury his spine when he fell. I informed Dr. Lim in ED to check a dedicated Cspine film or have radiology reconstruct CTA of neck. He said he spoke with Dr. Tong, rad iology, who told him looked ok. No official report, however. DW Dr. Caba who reviewed the patient's MRI patient was noted to have significant anterior osteophytes with autofusion C2-T1 likely due to DISH. Noted signal change within the cervical cord at the cervical medullary junction. He has recommended transfer to a tertiary facility to be evaluated by neurosurgery. He feels that this pannus was present before hand but likely the fall landing directly on his head facilitated this current injury that we are dealing with I spoke with the patient and his . They wish to go to [facility] where he has had prior neck surgery. I spoke with Dr. Kumar of trauma he will accept the patient to the trauma service and have neurosurgery evaluate. Patient is in a hard collar and will receive a dose of dexamethasone. Patient's daughter, Rosaura, was notified made aware of this. She was asking about patient going to [facility]. I told her that the [facility] is not a trauma hospital at this is related with trauma [facility] is certainly her choice I did tell her it is unclear if any surgery would be necessary for him. 2. Closed head injury No intracranial hemorrhage on CAT scan Patient does have some probable whiplash from falling as is posterior cervical muscles are exquisitely tender. 3. A. fib Patient on amiodarone as well as rivaroxaban Will hold off on rivaroxaban for now particularly if surgery is needed. 4. Progressive debility Even prior to today, patient was weak, ataxic and had falls. I discussed with he and his that I am concerned for new neurodegenerative process such as Parkinson's and that would require further work-up with a neurology as outpatient notes the patient does have an extensive history of heavy alcohol consumption though he is not doing that currently though does have occasional bottle of wine With this as well as the acute stroke, patient will require rehab when he is medically ready for discharge Weight / BMI Weight Weight: 70.13 kg Body Mass Index (BMI) 22.1 ABG / Lab / Microbiology Data Result Diagrams: 08/14/21 10:14 08/14/21 10:14 Laboratory: Laboratory Results - last 24 hr 12/22/21 05:50: Triglycerides 71, Cholesterol 138, LDL Cholesterol 62, VLDL Cholesterol 14, HDL Cholesterol 62 08/15/21 12:47: Magnesium 1.8 Radiography Diagnostic Testing: Radiology Impression Brain MRI 08/14/21 13:10 IMPRESSION: 1. Diffuse involutional changes and chronic microvascular deep white matter disease. 2. No intraparenchymal mass, hemorrhage, or acute territorial infarct. 3. 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 Consider follow-up evaluation with MRI of the cervical spine for more definitive evaluation of the cervical medullary junction and the cervical cord. Electronically Signed: Shaan Prajapati MD at 23:04 EST Tel , Service support , Brain CT 08/14/21 19:01 IMPRESSION: 1. Chronic involutional changes of the brain. 2. 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 Extensive anterior diffuse skeletal hyperostosis. Electronically Signed: Raffi Berry MD at 12:23 EST Tel , Service support , Meaningful Use Info Meaningful Use Diagnoses (Choose all that apply): None applicable Discharge Plan Admission Admit Date/Time: 08/14/21 12:08 Attending Provider: Abdi Hammond Primary Care Provider: Jenifer Gonzalez Consulting Providers: Polo Caba Discharge Orders/Prescriptions Prescriptions: No Action guaifenesin [Mucinex] 600 mg tablet extended release 12hr 600 mg PO Q12H RF: 0 calcium carbonate-vitamin D3 [Calcium 600 with Vitamin D3] 600 mg(1,500mg) - 200 unit tablet 1 tab PO QDAY RF: 0 multivitamin tablet 1 tab PO QDAY RF: 0 bevacizumab 25 mg/mL intravenous solution 25 mg/mL solution 25 mg intravitreal RF: 0 umeclidinium-vilanterol 62.5-25 mcg/actuation blister with device 1 inh Inhalation Q24H RF: 0 PreserVision AREDS 14,320-226-200 [id number]-gt-[id number] capsule 1 cap PO BID RF: 0 fluticasone propionate 1 SPRAY spray,suspension 2 spray NASAL DAILY RF: 0 ascorbic acid (vitamin C) 500 mg capsule 500 mg PO DAILY RF: 0 rivaroxaban 20 MG tablet 20 mg PO DAILY RF: 0 B12 Active 1,000 mcg Tablet,Chewable 1,000 mcg PO DAILY RF: 0 amoxicillin 500 mg capsule 2,000 mg PO ONCE PRN (Reason: dental appt) RF: 0 amiodarone 200 mg tablet 200 mg PO DAILY RF: 0 aspirin [Adult Low Dose Aspirin] 81 mg tablet,delayed release (DR/EC) 81 mg PO DAILY RF: 0 Artificial Tears (cmc) 1 % drops 1 drp ophthalmic (eye) TID PRN (Reason: Dry Eyes) RF: 0 Referrals / Follow Up: Jenifer Gonzalez MD [Primary Care Provider] - Charges/Coding Visit Charges Inpatient E&M: 52673 Disch Hosp
--- NOTE | 2021-08-15 20:10 | NURSING ---
report called to 3W RN, at [facility], notified of transport time of 2044 by [facility].
--- NOTE | 2021-08-15 20:45 | NURSING ---
pt being transported by physicians services to [facility] now 2046
== END 2021-08-15 20:30 | disposition short-term general hospital (02) | DRG 965 ==
LOC: ED 11:05 → PCU 11:22
PROVIDERS: Emergency Provider Emergency Medicine; PCP Internal Medicine
DX: S14.121A Central cord syndrome at C1 level of cervical spinal cord, initial encounter (principal); S06.9X1A Unspecified intracranial injury with loss of consciousness of 30 minutes or less, initial encounter; S13.4XXA Sprain of ligaments of cervical spine, initial encounter; W01.190A Fall on same level from slipping, tripping and stumbling with subsequent striking against furniture, initial encounter; M48.13 Ankylosing hyperostosis [Forestier], cervicothoracic region; M48.02 Spinal stenosis, cervical region; M25.78 Osteophyte, vertebrae; I48.0 Paroxysmal atrial fibrillation; I10 Essential (primary) hypertension; J44.9 Chronic obstructive pulmonary disease, unspecified; F17.210 Nicotine dependence, cigarettes, uncomplicated; R13.10 Dysphagia, unspecified; R53.81 Other malaise; R29.6 Repeated falls; Z79.82 Long term (current) use of aspirin; Z79.01 Long term (current) use of anticoagulants; Z79.899 Other long term (current) drug therapy; Z82.3 Family history of stroke
CPT/HCPCS: 36415; 70450; 70496; 70498; 70551; 71045; 72141; 73030; 74230; 80048; 80061; 82962; 83735; 84484; 85025; 85610; 85730; 92526; 92610; 92611; 93005; 93308; 97802; 99285; Q9967; A4216

== ENCOUNTER 2021-08-27 09:07 | Outpatient (RCR) | payer MEDICARE, OTHER, SELFPAY ==
[2021-08-10 14:02] VITALS: BMI 22.4
== END 2021-09-24 23:59 ==
LOC: CR 09:07
PROVIDERS: PCP Internal Medicine; Referring Provider Internal Medicine Cardiovascular Disease; Visit Provider Internal Medicine Cardiovascular Disease
DX: Z95.3 Presence of xenogenic heart valve (principal)
CPT/HCPCS: 93798